=== PATIENT | female | born 1950 | race Caucasian/White ===

== ENCOUNTER 2016-10-26 01:38 | Emergency (ER) | payer MEDICARE ==
[2016-10-26] MEDS ORDERED: BABY ASPIRIN 81 MG CHEW PO ONE (01:55)
[2016-10-26] MEDS ORDERED: Sodium Chloride 0.9% 1000 ML 1,000 ML IV STA (01:55)
[2016-10-26] MEDS ORDERED: DUONEB 0.5-3 MG/3 ml Neb IH ONE ×2 (01:56→01:59)
[2016-10-26] MEDS ORDERED: TYLENOL 325 MG PO ONE (01:57)
[2016-10-26] MEDS ORDERED: TYLENOL 325 MG ONE (02:03)
[2016-10-26] MEDS ORDERED: Sodium Chloride 0.9% 1000 ML 1,000 ML ONE (02:03)
[2016-10-26] MEDS ORDERED: BABY ASPIRIN 81 MG CHEW ONE (02:03)
--- NOTE | 2016-10-26 02:06 | ERPHSYRPT ---
- History of Present Illness Time Seen by Provider: 10/26/16 02:00 Source: patient Exam Limitations: no limitations Physician History: 66-year-old white female with history of coronary artery disease, hyperlipidemia , high blood pressure, myocardial infarction, asthma, COPD, emphysema She arrives with complaint of shortness of breath cough tightness in the anterior chest pain pain on the bilateral lateral chest. Symptoms for 3 days patient has not taken her temperature at home she is noted to have an elevated temperature here in the emergency room she is nauseous Past medical history includes coronary artery disease, hyperlipidemia, high blood pressure, myocardial infarction, asthma, COPD, emphysema, diabetes type 2 , diverticulosis, patient has a TB carrier which is not active Past surgical history includes cholecystectomy , tubal ligation, D&C 3 , Social history is positive for tuberculosis Timing/Duration: day(s) ( days) Activities at Onset: none Modifying Factors: Improves With: nothing Associated Symptoms: cough, chest pain/discomfort, wheezing Allergies/Adverse Reactions: adhesive Allergy (Intermediate, Verified 07/22/15 09:40) Rash diphenhydramine HCl [From Benadryl] Allergy (Mild, Verified 07/22/15 09:40) Rash nalbuphine HCl [From Nubain] Allergy (Mild, Verified 07/22/15 09:40) Rash Penicillins Allergy (Mild, Verified 07/22/15 09:40) Rash gabapentin [From Neurontin] Allergy (Verified 07/22/15 09:40) Vomiting Home Medications: Aspirin EC 325 mg [Ecotrin 325 MG] 325 mg PO DAILY 10/26/16 [History] Fenofibrate,Micronized 145 mg* [Tricor 145 MG] 145 mg PO DAILY 10/26/16 [ History] Furosemide 20 mg [Lasix 20 mg] 20 mg PO DAILY 10/26/16 [History] Lisinopril 10 mg [Zestril 10 MG] 10 mg PO DAILY 10/26/16 [History] Loratadine 10 mg [Claritin 10 mg] 10 mg PO DAILY 10/26/16 [History] Metformin HCl 500 mg [Glucophage 500 MG] 500 mg PO DAILY 10/26/16 [History ] Metoprolol Tartrate 50 mg [Lopressor 50 MG] 50 mg PO BID 10/26/16 [History ] [place]-3 Fatty Acids/Fish Oil [Fish Oil 1,000 mg Capsule] 1,000 mg PO DAILY 10/26/16 [History] PANTOPRAZOLE 40 mg Tablet [Protonix 40MG Tablet] 40 mg PO DAILY 10/26/16 [ History] Potassium Chloride 10 Meq Tab* [Klor Con 10 MEQ] 10 meq PO DAILY 10/26/16 [ History] Hx Tetanus, Diphtheria Vaccination/Date Given: Yes Hx Influenza Vaccination/Date Given: No Hx Pneumococcal Vaccination/Date Given: No - Review of Systems Constitutional: No Fever, No Chills Eyes: No Symptoms Ears, Nose, & Throat: No Symptoms Respiratory: Cough, Dyspnea, Wheezing Cardiac: Chest Pain (tightness anterior chest for 3 days, pain in bilateral lateral chest for 3 days) Abdominal/Gastrointestinal: Nausea, No Abdominal Pain, No Vomiting, No Diarrhea , No Constipation, No Hematemesis, No Hematochezia, No Melena, No Dysphagia, No Appetite Changes Genitourinary Symptoms: No Dysuria Musculoskeletal: No Back Pain, No Neck Pain Skin: No Rash Neurological: No Dizziness, No Focal Weakness, No Sensory Changes Psychological: No Symptoms Endocrine: No Symptoms All Other Systems: Reviewed and Negative - Past Medical History Pertinent Past Medical History: Yes Neurological History: No Pertinent History ENT History: No Pertinent History Cardiac History: Coronary Artery Disease, High Cholesterol, Hypertension, Myocardial Infarction (UT) Respiratory History: Asthma, COPD, Emphysema Endocrine Medical History: Diabetes Type II Musculoskeletal History: No Pertinent History GI Medical History: Diverticulosis History: No Pertinent History Psycho-Social History: No Pertinent History Female Reproductive Disorders: No Pertinent History Other Medical History: 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 PT STATES HAS GOUT IN [place]ON[place] BIG TOES - Past Surgical History Past Surgical History: Yes Neuro Surgical History: No Pertinent History Cardiac: No Pertinent History Respiratory: No Pertinent History Gastrointestinal: Cholecystectomy Musculoskeletal: No Pertinent History Female Surgical History: Section, Tubal Ligation Other Surgical History: D&C x3. x2 - Social History Smoking Status: Current every day smoker How long have you smoked: 60 Exposure to second hand smoke: Yes Drug Use: none Patient Lives Alone: No - Female History Hx Now: No - Nursing Vital Signs Nursing Vital Signs: Initial Vital Signs Temperature 102.0 F Temperature Source Rectal Pulse Rate 114 Respiratory Rate 40 Blood Pressure [] 128/61 Pain Intensity 7 - Physical Exam General Appearance: moderate distress Eye Exam: PERRL/EOMI Ears, Nose, Throat Exam: hearing grossly normal, normal ENT inspection, normal pharynx Neck Exam: normal inspection, non-tender, supple Respiratory Exam: diminished breath sounds, wheezing Cardiovascular/Chest Exam: tachycardia Abdominal/Gastrointestinal Exam: soft, No tenderness, No distention, No mass Extremity Exam: non-tender, normal range of motion, normal inspection, no calf tenderness, no pedal edema Peripheral Pulses Exam: dorsalis-pedis (R): 2+, dorsalis-pedis (L): 2+ Neurologic Exam: alert, oriented x 3, cooperative, garage laborer II-XII nml as tested, sensation nml, No motor deficits Skin Exam: normal color, warm, No dry SpO2 Interpretation: hypoxic (88%) SpO2: 88 Oxygen Delivery: Nasal Cannula - Course EKG Interpreted by Me: RATE (133 bpm), Sinus Tach, Left [place] Deviation, Other ( EKG: Sinus tachycardia 133 beats per minute, left axis deviation, old anterior and inferior UT compared to August 26, 2014) - Radiology Exams Chest X-ray Interpretation: Interpreted by me, Other (chest x-ray right upper lobe infiltrate, increased lung markings right base) Ordered Tests: Active Orders 24 hr Category Date Time Status Accucheck STAT Care 10/26/16 02:06 Active Barrel Cap Setter STAT Care 10/26/16 01:55 Active Catheter-[place] Guzmán STAT Care 10/26/16 02:18 Active EKG-ER Only STAT Care 10/26/16 01:55 Active IV Insertion STAT Care 10/26/16 01:55 Active IV Insertion-2nd Peripheral STAT Care 10/26/16 02:42 Active Oxygen-ED Only NASAL CANNULA 4 lpm Care 10/26/16 01:55 Active CHEST 1 VIEW (PORTABLE) Stat Exams 10/26/16 01:55 Taken BLOOD CULTURE Stat Lab 10/26/16 02:17 Received CBC W DIFF Stat Lab 10/26/16 02:00 Completed CMP Stat Lab 10/26/16 02:00 Completed CULTURE,SPUTUM Stat Lab 10/26/16 02:45 Received D-DIMER QUANTITATION Stat Lab 10/26/16 02:00 Completed Lactic Acid Stat Lab 10/26/16 01:56 Completed Manual Differential NC Stat Lab 10/26/16 02:00 Completed NT PRO BNP Stat Lab 10/26/16 02:00 Completed PROTIME WITH INR Stat Lab 10/26/16 02:00 Completed PTT Stat Lab 10/26/16 02:00 Completed TROPONIN Q3H Lab 10/26/16 02:00 Completed TROPONIN Q3H Lab 10/26/16 05:00 Ordered TROPONIN Q3H Lab 10/26/16 08:00 Ordered TROPONIN Q3H Lab 10/26/16 11:00 Ordered TROPONIN Q3H Lab 10/26/16 14:00 Ordered UA W/RFX UR CULTURE Stat Lab 10/26/16 02:20 Completed VENOUS BLOOD GAS Stat Lab 10/26/16 01:56 Completed Respiratory Nebulizer STAT RT 10/26/16 01:57 Completed Respiratory Nebulizer STAT RT 10/26/16 03:42 Active Medication Summary Discontinued Medications Generic Name Dose Route Start Last Admin Trade Name Freq PRN Reason Stop Dose Admin Acetaminophen 650 mg 10/26/16 01:57 10/26/16 02:03 Tylenol 325 Mg PO 10/26/16 01:58 650 mg STAT ONE Administration Acetaminophen Confirm 10/26/16 02:03 Tylenol 325 Mg Administered 10/26/16 02:04 Dose 650 mg .ROUTE .STK-MED ONE Albuterol Sulfate 2.5 mg 10/26/16 03:42 Proventil 2.5 Mg/3 Ml Neb IH 10/26/16 03:43 STAT ONE Albuterol/Ipratropium 3 ml 10/26/16 01:56 10/26/16 02:01 Duoneb 0.5-3 Mg/3 Ml Neb IH 10/26/16 01:57 3 ml STAT ONE Administration Albuterol/Ipratropium Confirm 10/26/16 01:59 Duoneb 0.5-3 Mg/3 Ml Neb Administered 10/26/16 02:00 Dose 3 ml IH .STK-MED ONE Aspirin 324 mg 10/26/16 01:55 10/26/16 02:03 Baby Aspirin 81 Mg Chew PO 10/26/16 01:56 324 mg STAT ONE Administration Aspirin Confirm 10/26/16 02:03 Baby Aspirin 81 Mg Chew Administered 10/26/16 02:04 Dose 324 mg .ROUTE .STK-MED ONE Enoxaparin Sodium 100 mg 10/26/16 03:24 10/26/16 03:36 Enoxaparin Sodium SQ 10/26/16 03:25 100 mg STAT ONE Administration Enoxaparin Sodium Confirm 10/26/16 03:30 Enoxaparin Sodium Administered 10/26/16 03:31 Dose 160 mg SQ .STK-MED ONE Furosemide 40 mg 10/26/16 02:58 10/26/16 03:17 Lasix 40 Mg/4 Ml IV 10/26/16 02:59 40 mg STAT ONE Administration Furosemide Confirm 10/26/16 03:16 Lasix 40 Mg/4 Ml Administered 10/26/16 03:17 Dose 40 mg .ROUTE .STK-MED ONE Sodium Chloride 1,000 mls @ 999 mls/hr 10/26/16 01:55 10/26/16 02:03 Sodium Chloride 0.9% 1000 Ml IV 10/26/16 02:55 999 mls/hr .Q1H1M STA Administration Sodium Chloride Confirm 10/26/16 02:03 Sodium Chloride 0.9% 1000 Ml Administered 10/26/16 02:04 Dose 1,000 mls @ ud .ROUTE .STK-MED ONE Ceftriaxone Sodium/Dextrose 1 g in 50 mls @ 100 mls/hr 10/26/16 02:29 02:33 Rocephin 1 Gm-D5w 50 Ml Bag IV 10/26/16 02:58 100 mls/hr STAT STA Administration Ceftriaxone Sodium/Dextrose Confirm 10/26/16 02:33 Rocephin 1 Gm-D5w 50 Ml Bag Administered 10/26/16 02:34 Dose 1 g in 50 mls @ ud IV .STK-MED ONE Lab/Rad Data: Laboratory Result Diagrams 10/26/16 02:00 10/26/16 02:00 Laboratory Results 10/26/16 10/26/16 10/26/16 Range/Units 02:20 02:00 02:00 WBC (4.0-10.5) K/mm3 RBC (4.1-5.4) M/mm3 Hgb (12.0-16.0) gm/dl Hct (35-47) % MCV (78-100) fl MCH (26-32) pg MCHC (32-36) g/dl RDW (11.5-14.0) % Plt Count (150-450) K/mm3 MPV (6-9.5) fl INR 1.10 (0.8-3.0) APTT 32.8 (25.3-37.0) SECONDS D-Dimer 1507 H* (0-500) ng/mL VBG pH (7.32-7.42) VBG pCO2 at Pat Temp (42-55) mm/Hg VBG pO2 at Pat Temp (25-40) mm/Hg VBG HCO3 (22-28) meq/L VBG O2 Sat (Robina) (95-100) VBG Base Excess (-2.0-2.0) VBG Hemoglobin VBG Carboxyhemoglobin (0.0-6.9) % T HGB POC Potassium (3.5-5.1) Sodium (136-145) mEq/L Potassium (3.5-5.1) mEq/L Chloride (98-107) mEq/L Carbon Dioxide (21-32) mEq/L Anion Gap (5-15) MEQ/L BUN (9-20) mg/dL Creatinine (0.55-1.30) mg/dl Estimated GFR ML/MIN Glucose (70-110) MG/DL Lactic Acid (0.4-2.0) Calcium (8.5-10.1) mg/dL Total Bilirubin (0.2-1.0) mg/dL AST (15-37) U/L ALT (12-78) U/L Alkaline Phosphatase (46-116) U/L Troponin I 0.187 H* (0.000-0.056) ng/ml NT-Pro-B Natriuret Pep (0-125) pg/ml Serum Total Protein (6.4-8.2) gm/dL Albumin (3.4-5.0) g/dL Ur Collection Type CATH Urine Color ASHA (YELLOW) Urine Appearance SLIGHTLY CLOUDY (CLEAR) Urine pH 5.0 (5-6) Ur Specific Skippers 1.025 (1.005-1.025) Urine Protein NEGATIVE (Negative) Urine Ketones SMALL (NEGATIVE) Urine Blood NEGATIVE (0-5) Abilio/ul Urine Nitrite NEGATIVE (NEGATIVE) Urine Bilirubin MODERATE (NEGATIVE) Urine Urobilinogen 8 (0-1) mg/dL Ur Leukocyte Esterase NEGATIVE (NEGATIVE) Urine Glucose NEGATIVE (NEGATIVE) mg/dL Specimen Received 10/26/16:0220 10/26/16 10/26/16 10/26/16 Range/Units 02:00 02:00 01:56 WBC 12.6 H (4.0-10.5) K/mm3 RBC 3.95 L (4.1-5.4) M/mm3 Hgb 12.1 (12.0-16.0) gm/dl Hct 36.9 (35-47) % MCV 93.4 (78-100) fl MCH 30.6 (26-32) pg MCHC 32.8 (32-36) g/dl RDW 13.6 (11.5-14.0) % Plt Count 291 (150-450) K/mm3 MPV 10.0 H (6-9.5) fl INR (0.8-3.0) APTT (25.3-37.0) SECONDS D-Dimer (0-500) ng/mL VBG pH 7.39 (7.32-7.42) VBG pCO2 at Pat Temp 45 (42-55) mm/Hg VBG pO2 at Pat Temp 31 (25-40) mm/Hg VBG HCO3 27.2 (22-28) meq/L VBG O2 Sat (Robina) 62.9 L (95-100) VBG Base Excess 1.7 (-2.0-2.0) VBG Hemoglobin 13.0 VBG Carboxyhemoglobin 3.4 (0.0-6.9) % T HGB POC Potassium 4.4 (3.5-5.1) Sodium 134 L (136-145) mEq/L Potassium 4.4 (3.5-5.1) mEq/L Chloride 96 L (98-107) mEq/L Carbon Dioxide 25.4 (21-32) mEq/L Anion Gap 17.4 H (5-15) MEQ/L BUN 26 H (9-20) mg/dL Creatinine 1.26 (0.55-1.30) mg/dl Estimated GFR 45 ML/MIN Glucose 141 H (70-110) MG/DL Lactic Acid 1.1 (0.4-2.0) Calcium 9.5 (8.5-10.1) mg/dL Total Bilirubin 0.80 (0.2-1.0) mg/dL AST 31 (15-37) U/L ALT 31 (12-78) U/L Alkaline Phosphatase 79 (46-116) U/L Troponin I (0.000-0.056) ng/ml NT-Pro-B Natriuret Pep 1808 H (0-125) pg/ml Serum Total Protein 7.9 (6.4-8.2) gm/dL Albumin 2.7 L (3.4-5.0) g/dL Ur Collection Type Urine Color (YELLOW) Urine Appearance (CLEAR) Urine pH (5-6) Ur Specific [place] (1.005-1.025) Urine Protein (Negative) Urine Ketones (NEGATIVE) Urine Blood (0-5) Abilio/ul Urine Nitrite (NEGATIVE) Urine Bilirubin (NEGATIVE) Urine Urobilinogen (0-1) mg/dL Ur Leukocyte Esterase (NEGATIVE) Urine Glucose (NEGATIVE) mg/dL Specimen Received - Progress Progress: improved Air Movement: fair Progress Note: 10/26/16 03:25 This is a 66-year-old white female with history of coronary artery disease hyperlipidemia high blood pressure myocardial infarction asthma, COPD, emphysema , diabetes mellitus who apparently is a TB carrier but not active Patient arrives with complaint of a cough productive of yellow sputum for 2-3 days, chills, malaise, nausea. She states she's been tight in her anterior chest also pain in her bilateral lateral chest symptoms for 3 days. Patient arrives short of breath tachycardic she is coughing frequently went when she talks upon arrival. Patient with bilateral wheezes diminished breath sounds in bilateral rhonchi with auscultation of the chest heart was tachycardic. Patient had a temperature of 102 heart rate 134 respirations 40 look pressure 114/53 and O2 saturations of 88% on 2 L of nasal cannula. Patient had a EKG remarkable for sinus tachycardia 133 beats per minute left axis deviation appears to be an old anterior and inferior UT did not appear to be acute ST elevation initial EKG was done at 0 146 Patient had repeat EKG after IV fluids aspirin DuoNeb treatment Rocephin at 0 310 Which was essentially unchanged Patient had a chest x-ray which shows right upper lobe infiltrate and increased lung markings in the lower right chest patient's troponin was noted to be elevated at 0.187 Patient's BNP was noted to be elevated at 1808 Patient's d-dimer was noted to be elevated at 1507 Patient's white count was 12.6 hemoglobin 12.1 hematocrit 36.9 Chemistry BUN was 26 creatinine 1.26 glucose 141 sodium 134 potassium for 4 chloride 96 bicarbonate 25.4 Patient's lactate was 1.1. Patient was initially started on normal saline 1 L to run in, patient was given aspirin 324 mg IV patient was given DuoNeb treatment continued on oxygen therapy. Blood cultures were obtained patient was given Rocephin 1 g IV. After review of the patient's chest x-ray and BMP patient was given Lasix 40 mg IV. Patient was feeling better after treatment however O2 sat was 91 when I discuss case with Aidee Tsai is just now has gone to 88 Will repeat albuterol treatment. After discussion of the patient's case with Aidee Tsai was decided the patient Lovenox 1 mg/kg subcutaneous. Patient was accepted by [facility] for transfer to [facility] diagnosis. Fever, non-ST wave UT, COPD, pneumonia, congestive heart failure. Patient will be transferred by ambulance to [facility] with continued oxygen when necessary nebulizer treatment and ACLS protocol. 10/26/16 03:44 Patient is feeling much better - Departure Time of Disposition: 03:33 Departure Disposition: Transfer ([facility] Aidee Tsai for Dr. Phelps) Clinical Impression: Non-Q wave non-ST elevation myocardial infarction (NSTEMI) Fever Qualifiers: Fever type: unspecified Qualified Code(s): R50.9 - Fever, unspecified Pneumonia Qualifiers: Pneumonia type: due to unspecified organism Laterality: right Lung location: unspecified part of lung Qualified Code(s): J18.9 - Pneumonia, unspecified organism Congestive heart failure Qualifiers: Congestive heart failure type: unspecified congestive heart failure type Congestive heart failure chronicity: unspecified congestive heart failure chronicity Qualified Code(s): I50.9 - Heart failure, unspecified COPD (chronic obstructive pulmonary disease) Qualifiers: COPD type: COPD with acute exacerbation Qualified Code(s): J44.1 - Chronic obstructive pulmonary disease with (acute) exacerbation Condition: Fair Critical Care Time: Yes Critical Care Time(excluding separately billable procedures): 30-74 minutes Referrals: GARTH NEWTON [Primary Care Provider] - Instructions: Heart Failure, Chronic Obstructive Pulmonary Disease
[2016-10-26 02:20] LABS: Mean Cell Volume 93.4 fl (78-100); Mean Corpuscular Hemoglobin 30.6 pg (26-32); Platelet Count 291 K/mm3 (150-450); Red Blood Count 3.95 M/mm3 (4.1-5.4); Red Cell Distribution Width 13.6 % (11.5-14.0); White Blood Count 12.6 K/mm3 (4.0-10.5)
[2016-10-26 02:21] LABS: Lactic Acid 1.1 (0.4-2.0); VBG BASE EXCESS 1.7 (-2.0-2.0); VBG CARBOXYHEMOGLOBIN 3.4 % T HGB (0.0-6.9); VBG HCO3- 27.2 meq/L (22-28); VBG O2 SATURATION 62.9 (95-100); VBG POTASSIUM 4.4 (3.5-5.1); VBG pH 7.39 (7.32-7.42)
[2016-10-26] MEDS ORDERED: ROCEPHIN 1 Gm-D5w 50 ml Bag** 1 G/50 ML IVPB IV STA (02:29)
[2016-10-26 02:32] LABS: Collection Type CATH
[2016-10-26 02:33] LABS: ADD URINE CULTURE? NO (NO); Bilirubin MODERATE (NEGATIVE); Blood NEGATIVE Ery/ul (0-5); COMPLETE URINE MICROSCOPIC? NO; Glucose NEGATIVE (NEGATIVE); Leukocyte Esterase NEGATIVE (NEGATIVE)
[2016-10-26] MEDS ORDERED: ROCEPHIN 1 Gm-D5w 50 ml Bag** 1 G/50 ML IVPB IV ONE (02:33)
[2016-10-26 02:37] LABS: INR 1.1 (0.8-3.0); PROTIME 12.4 SECONDS (9.95-12.35)
[2016-10-26 02:40] LABS: PTT 32.8 SECONDS (25.3-37.0)
[2016-10-26 02:53] LABS: ALBUMIN 2.7 g/dL (3.4-5.0); ANION GAP 17.4 MEQ/L (5-15); BILIRUBIN,TOTAL 0.8 mg/dL (0.2-1.0); Carbon Dioxide 25.4 mEq/L (21-32); Potassium 4.4 mEq/L (3.5-5.1); Total Protein 7.9 gm/dL (6.4-8.2)
[2016-10-26] MEDS ORDERED: Lasix 40 MG/4 ML IV ONE (02:58)
[2016-10-26] MEDS ORDERED: Lasix 40 MG/4 ML ONE (03:16)
[2016-10-26] MEDS ORDERED: ENOXAPARIN SODIUM SQ ONE ×2 (03:24→03:30)
[2016-10-26] MEDS ORDERED: PROVENTIL 2.5 MG/3 ML NEB IH ONE ×2 (03:42→03:43)
[2016-10-26 04:00] VITALS: BP 114/67; PULSE 113; O2SAT 91
[2016-10-26 04:39] LABS: ATYPICAL LYMPHS 5 %; Eosinophil 1 % (0.00-3.0); Platelet Estimate NORMAL (NORMAL); Total Cells Counted 100
--- NOTE | 2016-10-27 00:10 | XRAY ---
Exam: AP portable chest film from 0216 hours on 10/26/2016. Comparison: AP upright portable chest film from 07/22/2015. Indication: Cough, congestion, shortness of breath, fever. Findings: The transverse heart size appears within normal limits for this AP portable technique. A couple calcified granulomas overlie the right hilum. I believe there is a mild airspace disease within the right upper lobe which appears to be new from 07/22/2015. This may be due to pneumonia. In addition, there is a suggestion of a thick walled small cavitary lesion within the lateral right lung apex measuring 2.15 cm in width and 2.8 cm in height. This was not present on the prior study. Differential diagnosis includes malignancy such as squamous cell carcinoma, fungal infection/abscess, or even TB. There also appears to be some questionable infiltrative markings within the right infrahilar projection. Minimal increased density seen behind the heart at the medial left lung base. This is of uncertain significance. Minimal atelectasis, scarring, or infiltrate could have this appearance. The remainder the lung arceo appears clear. No pneumothorax or pleural fluid is seen. The visualized bones appear intact. Impression: 1. Mild airspace disease is seen within the right upper lobe. I also cannot exclude some infiltrative lung markings within the right infrahilar projection. This may be due to pneumonia. 2. In addition, there appears to be a new small cavitary lesion within the lateral right lung apex as compared to 07/22/2015. See above major differential diagnosis. Further evaluation with a CT of the chest, preferably with IV contrast, is recommended. 3. Mild increased density behind the heart at the medial left lung base of uncertain significance. I am not sure whether this represents a summation of normal shadows such as vascular markings and perhaps some costochondral calcification, or alternatively, minimal atelectasis, scarring, or infiltrate. Note: This report was called to Dr. Sinha in the Emergency Department at 11:50 PM on 10/26/2016.
== END 2016-10-26 04:20 | disposition short-term general hospital (02) ==
LOC: ED 01:38
DX: I21.4 Non-ST elevation (NSTEMI) myocardial infarction (principal); J18.9 Pneumonia, unspecified organism; I50.9 Heart failure, unspecified; R50.9 Fever, unspecified; J44.1 Chronic obstructive pulmonary disease with (acute) exacerbation; I10 Essential (primary) hypertension
CPT/HCPCS: 36000; 36415; 51702; 71010; 80053; 81002; 82805; 82962; 83605; 83880; 84484; 85025; 85379; 85610; 85730; 87040; 87070; 93005; 93041; 94640; 96360; 96367; 96372; 96374; 99285; J0696; J1650; J1940; A9270-GY

== ENCOUNTER 2016-12-08 05:30 | Observation (INO) | payer MEDICARE ==
--- NOTE | 2016-12-08 05:50 | ERPHSYRPT ---
- History of Present Illness Source: patient Exam Limitations: no limitations Hx Tetanus, Diphtheria Vaccination/Date Given: Yes Hx Influenza Vaccination/Date Given: No Hx Pneumococcal Vaccination/Date Given: No <MATTHEW BRIDGES - Last Filed: 12/08/16 07:21> <ALMAZ JEFFERSON - Last Filed: 12/09/16 06:56> - History of Present Illness Time Seen by Provider: 12/08/16 05:35 Physician History: ABOUT 30 MINUTES AGO PT STARTED WITH DIZZINESS(SPINNING), NAUSEA, DIAPHORESIS AND VOMITING X3. PT DENIES CHEST PAIN, SHORTNESS OF AIR, FEVER, ABDOMINAL PAIN; ADMITS TO COUGHING FOR THE PAST 2 WEEKS. (MATTHEW BRIDGES) Allergies/Adverse Reactions: adhesive Allergy (Intermediate, Verified 12/08/16 12:00) Rash diphenhydramine HCl [From Benadryl] Allergy (Mild, Verified 12/08/16 12:00) Rash nalbuphine HCl [From Nubain] Allergy (Mild, Verified 12/08/16 12:00) Rash Penicillins Allergy (Mild, Verified 12/08/16 12:00) Rash gabapentin [From Neurontin] Allergy (Verified 12/08/16 12:00) Vomiting Home Medications: Albuterol 2.5 mg/0.5 ml [PROVENTIL Solution 2.5 MG/0.5 ML] 2.5 mg IH QID PRN 12/08/16 [History] Allopurinol 100 mg [Zyloprim 100 mg] 100 mg PO DAILY 12/08/16 [History] Aspirin EC 81 mg [Ecotrin 81 mg] 81 mg PO DAILY 12/08/16 [History] Atorvastatin Calcium 10 mg PO DAILY 12/08/16 [History] Fenofibrate Nanocrystallized [Tricor] 145 mg PO DAILY 12/08/16 [History] Furosemide 20 mg [Lasix 20 mg] 20 mg PO DAILY 12/08/16 [History] Glipizide 5 mg PO BID 12/08/16 [History] Lisinopril 10 mg [Zestril 10 MG] 10 mg PO DAILY 12/08/16 [History] Loratadine 10 mg [Claritin 10 mg] 10 mg PO DAILY 12/08/16 [History] Metformin HCl Xr 500 mg [Glucophage XR 500 MG] 500 mg PO DAILY 12/08/16 [ History] Metoprolol Succinate 50 mg [Toprol Xl 50 MG] 50 mg PO BID 12/08/16 [ History] Nitroglycerin 0.4 mg Tablet [Nitrostat 0.4 MG Tablet] 0.4 mg SL Q5MIN PRN MR X 3 PRN 12/08/16 [History] PANTOPRAZOLE 40 mg Tablet [Protonix 40MG Tablet] 40 mg PO QAM 12/08/16 [ History] - Review of Systems Constitutional: No Fever Respiratory: Cough, No Dyspnea Cardiac: No Chest Pain Abdominal/Gastrointestinal: Nausea, Vomiting, No Abdominal Pain Neurological: Dizziness, Focal Weakness (ONGOING LEFT FOOT DROP) Endocrine: Excessive Sweating All Other Systems: Reviewed and Negative <MATTHEW BRIDGES - Last Filed: 12/08/16 07:21> - Past Medical History Pertinent Past Medical History: Yes Neurological History: No Pertinent History ENT History: No Pertinent History Cardiac History: Coronary Artery Disease, High Cholesterol, Hypertension, Myocardial Infarction (DE) Respiratory History: Asthma, COPD, Emphysema Endocrine Medical History: Diabetes Type II Musculoskeletal History: No Pertinent History GI Medical History: Diverticulosis History: No Pertinent History Psycho-Social History: No Pertinent History Female Reproductive Disorders: No Pertinent History Other Medical History: 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 PT STATES HAS GOUT IN [place]ON[place] BIG TOES - Past Surgical History Past Surgical History: Yes Neuro Surgical History: No Pertinent History Cardiac: No Pertinent History Respiratory: No Pertinent History Gastrointestinal: Cholecystectomy Musculoskeletal: No Pertinent History Female Surgical History: Section, Tubal Ligation Other Surgical History: D&C x3. x2 - Social History Smoking Status: Current every day smoker How long have you smoked: 60 Exposure to second hand smoke: Yes Drug Use: none Patient Lives Alone: No - Female History Hx Now: No <MATTHEW BRIDEGS - Last Filed: 12/08/16 07:21> - Physical Exam General Appearance: alert Eye Exam: PERRL/EOMI Ears, Nose, Throat Exam: TMs normal, pharynx normal, moist mucous membranes Neck Exam: normal inspection Respiratory Exam: wheezing (MINIMAL EXPRIATORY WHEEZING OVER LEFT POSTERIOR BASE ) Cardiovascular Exam: normal heart sounds Gastrointestinal/Abdomen Exam: soft, normal bowel sounds Back Exam: normal inspection Extremity Exam: swelling (+2 EDEMA OF LOWER LEGS/FEET) Neurologic Exam: alert, cooperative, 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, sensation nml, motor deficits (LEFT FOOT DROP(ONGOING)) Skin Exam: warm, dry <MATTHEW BRIDGES - Last Filed: 12/08/16 07:21> - Nursing Vital Signs Nursing Vital Signs: Initial Vital Signs Temperature 97 F 12/08/16 05:40 Pulse Rate 84 12/08/16 05:40 Respiratory Rate 16 12/08/16 05:40 Blood Pressure 146/68 12/08/16 05:40 O2 Sat by Pulse Oximetry 91 L 12/08/16 05:40 Pain Scale Pain Intensity 0 - Course Nursing assessment & vital signs reviewed: Yes EKG Interpreted by Me: RATE (89), Left [place] Deviation, NORMAL INTERVALS, 1st degree AV Block - Radiology Exams Chest X-ray Interpretation: Interpreted by me, No Pneumonia - CT Exams Head CT Interpretation: Tele-radiologist Report (PERIVENTRICULAR WHITE MATTER HYPODENSITY IS NONSPECIFIC THOUGH LIKELY RELATED TO CHRONIC SMALL VESSEL ISCHEMIC DISEASE. ATROPHY. SMALL COLLOID CYST WITHOUT HYDROCEPHALUS.) <CYRUSMATTHEW URBANO - Last Filed: 12/08/16 07:21> Ordered Tests: Active Orders 24 hr Category Date Time Status Bedrest with BRP/BSC ROUTINE Activity 12/08/16 10:35 Active Accucheck ACHS Care 12/08/16 10:35 Active Admission/Status Order ROUTINE Care 12/08/16 10:35 Active Clean Catch Urine Specimen STAT Care 12/08/16 06:38 Completed Code Status Order ROUTINE Care 12/08/16 10:35 Active IV Care Q6H Care 12/08/16 10:35 Active ABDOMEN AND PELVIS W/0 CONTRAS [CT] Stat Exams 12/08/16 07:17 Completed HEAD WITHOUT CONTRAST [CT] Stat Exams 12/08/16 06:08 Completed AMYLASE Stat Lab 12/08/16 06:05 Completed BLOOD CULTURE Stat Lab 12/08/16 07:44 Received CBC W DIFF AM.LAB Lab 12/09/16 05:12 Completed CBC W DIFF Stat Lab 12/08/16 06:05 Completed CMP AM.LAB Lab 12/09/16 05:12 Completed CMP Stat Lab 12/08/16 06:05 Completed CULTURE,SPUTUM Stat Lab 12/08/16 07:26 Ordered CULTURE,URINE Stat Lab 12/08/16 06:41 Received LIPASE Stat Lab 12/08/16 06:05 Completed MAGNESIUM Stat Lab 12/08/16 06:05 Completed NT PRO BNP Stat Lab 12/08/16 06:05 Completed PROTIME WITH INR Stat Lab 12/08/16 06:05 Completed PTT Stat Lab 12/08/16 06:05 Completed TROPONIN Q3H Lab 12/08/16 06:05 Completed TROPONIN Q3H Lab 12/08/16 09:03 Completed TROPONIN Q3H Lab 12/08/16 11:58 Completed TROPONIN Q3H Lab 12/08/16 15:17 Completed TROPONIN Q3H Lab 12/08/16 18:05 Completed UA W/ MICROSCOPIC Stat Lab 12/08/16 06:41 Completed Urine Triage Profile Stat Lab 12/08/16 06:41 Completed Respiratory Nebulizer STAT RT 12/08/16 06:49 Completed Medication Summary Generic Name Dose Route Start Last Admin Trade Name Freq PRN Reason Stop Dose Admin Albuterol Sulfate 2.5 mg 12/08/16 14:00 12/09/16 06:51 Proventil 2.5 Mg/3 Ml Neb IH 01/07/17 13:59 2.5 mg QID PRN PRN Administration SHORTNESS OF BREATH Allopurinol 100 mg 12/08/16 14:00 12/08/16 14:04 Zyloprim 100 Mg PO 01/07/17 13:59 Not Given DAILY TRISTIAN Aspirin 81 mg 12/08/16 14:00 12/08/16 14:04 Ecotrin 81 Mg PO 01/07/17 13:59 81 mg DAILY TRISTIAN Administration Enoxaparin Sodium 40 mg 12/08/16 13:00 12/08/16 14:06 Enoxaparin Sodium SQ 01/07/17 12:59 40 mg DAILY TRISTIAN Administration Furosemide 20 mg 12/08/16 14:00 12/08/16 14:06 Lasix 20 Mg PO 01/07/17 13:59 20 mg DAILY TRISTIAN Administration Ceftriaxone Sodium/Dextrose 1 g in 50 mls @ 100 mls/hr 12/09/16 10:00 Rocephin 1 Gm-D5w 50 Ml Bag IV 01/08/17 09:59 Q24H10 TRISTIAN Sodium Chloride 1,000 mls @ 60 mls/hr 12/08/16 10:35 12/08/16 19:04 Sodium Chloride 0.9% 1000 Ml IV 01/07/17 10:34 60 mls/hr .[id number] TRISTIAN Administration Insulin Human Regular 0 unit 12/08/16 10:35 12/08/16 16:48 Novolin R SQ 01/07/17 10:34 2 unit UD PRN Administration HYPERGLYCEMIA Lisinopril 10 mg 12/08/16 14:00 12/08/16 14:05 Zestril 10 Mg PO 01/07/17 13:59 10 mg DAILY TRISTIAN Administration Loratadine 10 mg 12/08/16 14:00 12/08/16 14:05 Claritin 10 Mg PO 01/07/17 13:59 10 mg DAILY TRISTIAN Administration Metoprolol Succinate 50 mg 12/08/16 22:00 12/08/16 22:12 Toprol Xl 50 Mg PO 01/07/17 21:59 50 mg BID TRISTIAN Administration Nitroglycerin 0.4 mg 12/08/16 13:48 Nitrostat 0.4 Mg Tablet SL 01/07/17 13:47 Q5MIN PRN MR X 3 PRN cp Ondansetron HCl 4 mg 12/08/16 10:35 Zofran 4 Mg/2 Ml Vial IV 01/07/17 10:34 Q6H PRN PRN NAUSEA/VOMITING Pantoprazole Sodium 40 mg 12/08/16 14:00 12/08/16 14:06 Protonix 40mg Tablet PO 01/07/17 13:59 40 mg QAM TRISTIAN Administration Simvastatin 10 mg 12/08/16 14:00 12/08/16 14:06 Zocor 10mg PO 01/07/17 13:59 10 mg DAILY TRISTIAN Administration Discontinued Medications Generic Name Dose Route Start Last Admin Trade Name Freq PRN Reason Stop Dose Admin Albuterol Sulfate 2.5 mg 12/08/16 13:48 Proventil Solution 2.5 Mg/0.5 Ml IH 01/07/17 13:47 QID PRN PRN dyspnea Sodium Chloride 1,000 mls @ 100 mls/hr 12/08/16 06:00 12/08/16 06:12 Sodium Chloride 0.9% 1000 Ml IV 01/07/17 05:59 100 mls/hr .Q10H TRISTIAN Administration Magnesium Sulfate/Dextrose 100 mls @ 200 mls/hr 12/08/16 07:16 12/08/16 07:49 Magnesium 1 Gm / 100 Ml D5w IV 12/08/16 07:45 200 mls/hr STAT ONE Administration Ceftriaxone Sodium/Dextrose 1 g in 50 mls @ 100 mls/hr 12/08/16 07:18 07:49 Rocephin 1 Gm-D5w 50 Ml Bag IV 12/08/16 07:47 100 mls/hr STAT STA Administration Magnesium Sulfate/Dextrose Confirm 12/08/16 07:22 Magnesium 1 Gm / 100 Ml D5w Administered 12/08/16 07:23 Dose 100 mls @ ud IV .STK-MED ONE Ceftriaxone Sodium/Dextrose Confirm 12/08/16 07:23 Rocephin 1 Gm-D5w 50 Ml Bag Administered 12/08/16 07:24 Dose 1 g in 50 mls @ ud IV .STK-MED ONE Levalbuterol HCl 1.25 mg 12/08/16 06:15 12/08/16 06:48 Xopenex 1.25 Mg/0.5 Ml Ud Nebule IH 12/08/16 06:16 1.25 mg STAT ONE Administration Levalbuterol HCl Confirm 12/08/16 06:44 Xopenex 1.25 Mg/0.5 Ml Ud Nebule Administered 12/08/16 06:45 Dose 1.25 mg IH .STK-MED ONE Promethazine HCl 12.5 mg 12/08/16 05:52 12/08/16 06:07 Phenergan 25 Mg Inj IV 12/08/16 05:53 12.5 mg STAT ONE Administration Promethazine HCl Confirm 12/08/16 05:59 Phenergan 25 Mg Inj Administered 12/08/16 06:00 Dose 25 mg .ROUTE .STK-MED ONE Sodium Chloride Confirm 12/08/16 06:44 Sodium Chloride 3 Ml Ud Nebules Administered 12/08/16 06:45 Dose 3 ml IH .STK-MED ONE Lab/Rad Data: Laboratory Result Diagrams 12/08/16 06:05 12/08/16 06:05 Laboratory Results 12/08/16 12/08/16 12/08/16 Range/Units 09:03 06:41 06:41 WBC (4.0-10.5) K/mm3 RBC (4.1-5.4) M/mm3 Hgb (12.0-16.0) gm/dl Hct (35-47) % MCV (78-100) fl MCH (26-32) pg MCHC (32-36) g/dl RDW (11.5-14.0) % Plt Count (150-450) K/mm3 MPV (6-9.5) fl Gran % (36.0-66.0) % Lymphocytes % (24.0-44.0) % Monocytes % (0.0-12.0) % Eosinophils % (0.00-5.0) % Basophils % (0.0-0.4) % Basophils # (0-0.4) INR (0.8-3.0) APTT (25.3-37.0) SECONDS Sodium (136-145) mEq/L Potassium (3.5-5.1) mEq/L Chloride (98-107) mEq/L Carbon Dioxide (21-32) mEq/L Anion Gap (5-15) MEQ/L BUN (9-20) mg/dL Creatinine (0.55-1.30) mg/dl Estimated GFR ML/MIN Glucose (70-110) MG/DL Hemoglobin A1c (4.5-6.2) Calcium (8.5-10.1) mg/dL Magnesium (1.8-2.4) mg/dL Total Bilirubin (0.2-1.0) mg/dL AST (15-37) U/L ALT (12-78) U/L Alkaline Phosphatase (46-116) U/L Troponin I < 0.017 (0.000-0.056) ng/ml NT-Pro-B Natriuret Pep (0-125) pg/ml Serum Total Protein (6.4-8.2) gm/dL Albumin (3.4-5.0) g/dL Amylase (25-115) U/L Lipase (73-393) U/L Ur Collection Type CLEAN CATCH Urine Color YELLOW (YELLOW) Urine Appearance SLIGHTLY CLOUDY (CLEAR) Urine pH 6.0 (5-6) Ur Specific [place] 1.010 (1.005-1.025) Urine Protein 100 (Negative) Urine Ketones NEGATIVE (NEGATIVE) Urine Blood 250 (0-5) Abilio/ul Urine Nitrite NEGATIVE (NEGATIVE) Urine Bilirubin NEGATIVE (NEGATIVE) Urine Urobilinogen NORMAL (0-1) mg/dL Ur Leukocyte Esterase 2+ (NEGATIVE) Urine Microscopic RBC 2-5 (0-2) /HPF Urine Microscopic WBC 15-25 (0-5) /HPF Ur Epithelial Cells FEW (FEW) /HPF Urine Bacteria MODERATE (NEGATIVE) /HPF Urine Mucus SLIGHT (NEGATIVE) /HPF Urine Glucose 100 (NEGATIVE) mg/dL Urine Opiates Level NEG. (NEGATIVE) Ur Methadone NEG. (NEGATIVE) Urine Barbiturates NEG. (NEGATIVE) Ur Phencyclidine (PCP) NEG. (NEGATIVE) Urine Amphetamine NEG. (NEGATIVE) U Benzodiazepine Level NEG. (NEGATIVE) Urine Cocaine NEG. (NEGATIVE) Urine Marijuana (THC) NEG. (NEGATIVE) Specimen Received 12-0812/08/16 12/08/16 12/08/16 Range/Units 06:05 06:05 06:05 WBC (4.0-10.5) K/mm3 RBC (4.1-5.4) M/mm3 Hgb (12.0-16.0) gm/dl Hct (35-47) % MCV (78-100) fl MCH (26-32) pg MCHC (32-36) g/dl RDW (11.5-14.0) % Plt Count (150-450) K/mm3 MPV (6-9.5) fl Gran % (36.0-66.0) % Lymphocytes % (24.0-44.0) % Monocytes % (0.0-12.0) % Eosinophils % (0.00-5.0) % Basophils % (0.0-0.4) % Basophils # (0-0.4) INR 0.96 (0.8-3.0) APTT 24.5 L (25.3-37.0) SECONDS Sodium (136-145) mEq/L Potassium (3.5-5.1) mEq/L Chloride (98-107) mEq/L Carbon Dioxide (21-32) mEq/L Anion Gap (5-15) MEQ/L BUN (9-20) mg/dL Creatinine (0.55-1.30) mg/dl Estimated GFR ML/MIN Glucose (70-110) MG/DL Hemoglobin A1c 7.8 H (4.5-6.2) Calcium (8.5-10.1) mg/dL Magnesium (1.8-2.4) mg/dL Total Bilirubin (0.2-1.0) mg/dL AST (15-37) U/L ALT (12-78) U/L Alkaline Phosphatase (46-116) U/L Troponin I < 0.017 (0.000-0.056) ng/ml NT-Pro-B Natriuret Pep (0-125) pg/ml Serum Total Protein (6.4-8.2) gm/dL Albumin (3.4-5.0) g/dL Amylase (25-115) U/L Lipase (73-393) U/L Ur Collection Type Urine Color (YELLOW) Urine Appearance (CLEAR) Urine pH (5-6) Ur Specific [place] (1.005-1.025) Urine Protein (Negative) Urine Ketones (NEGATIVE) Urine Blood (0-5) Abilio/ul Urine Nitrite (NEGATIVE) Urine Bilirubin (NEGATIVE) Urine Urobilinogen (0-1) mg/dL Ur Leukocyte Esterase (NEGATIVE) Urine Microscopic RBC (0-2) /HPF Urine Microscopic WBC (0-5) /HPF Ur Epithelial Cells (FEW) /HPF Urine Bacteria (NEGATIVE) /HPF Urine Mucus (NEGATIVE) /HPF Urine Glucose (NEGATIVE) mg/dL Urine Opiates Level (NEGATIVE) Ur Methadone (NEGATIVE) Urine Barbiturates (NEGATIVE) Ur Phencyclidine (PCP) (NEGATIVE) Urine Amphetamine (NEGATIVE) U Benzodiazepine Level (NEGATIVE) Urine Cocaine (NEGATIVE) Urine Marijuana (THC) (NEGATIVE) Specimen Received 12/08/16 12/08/16 Range/Units 06:05 06:05 WBC 6.4 (4.0-10.5) K/mm3 RBC 4.75 (4.1-5.4) M/mm3 Hgb 14.2 (12.0-16.0) gm/dl Hct 43.0 (35-47) % MCV 90.5 (78-100) fl MCH 29.9 (26-32) pg MCHC 33.0 (32-36) g/dl RDW 14.6 H (11.5-14.0) % Plt Count 251 (150-450) K/mm3 MPV 9.5 (6-9.5) fl Gran % 65.1 (36.0-66.0) % Lymphocytes % 23.7 L (24.0-44.0) % Monocytes % 9.5 (0.0-12.0) % Eosinophils % 1.4 (0.00-5.0) % Basophils % 0.3 (0.0-0.4) % Basophils # 0.02 (0-0.4) INR (0.8-3.0) APTT (25.3-37.0) SECONDS Sodium 136 (136-145) mEq/L Potassium 3.9 (3.5-5.1) mEq/L Chloride 96 L (98-107) mEq/L Carbon Dioxide 30.3 (21-32) mEq/L Anion Gap 13.7 (5-15) MEQ/L BUN 20 (9-20) mg/dL Creatinine 1.22 (0.55-1.30) mg/dl Estimated GFR 47 ML/MIN Glucose 235 H (70-110) MG/DL Hemoglobin A1c (4.5-6.2) Calcium 10.3 H (8.5-10.1) mg/dL Magnesium 1.7 L (1.8-2.4) mg/dL Total Bilirubin 0.30 (0.2-1.0) mg/dL AST 19 (15-37) U/L ALT 34 (12-78) U/L Alkaline Phosphatase 55 (46-116) U/L Troponin I (0.000-0.056) ng/ml NT-Pro-B Natriuret Pep 17 (0-125) pg/ml Serum Total Protein 7.8 (6.4-8.2) gm/dL Albumin 3.8 (3.4-5.0) g/dL Amylase 56 (25-115) U/L Lipase 888 H (73-393) U/L Ur Collection Type Urine Color (YELLOW) Urine Appearance (CLEAR) Urine pH (5-6) Ur Specific [place] (1.005-1.025) Urine Protein (Negative) Urine Ketones (NEGATIVE) Urine Blood (0-5) Abilio/ul Urine Nitrite (NEGATIVE) Urine Bilirubin (NEGATIVE) Urine Urobilinogen (0-1) mg/dL Ur Leukocyte Esterase (NEGATIVE) Urine Microscopic RBC (0-2) /HPF Urine Microscopic WBC (0-5) /HPF Ur Epithelial Cells (FEW) /HPF Urine Bacteria (NEGATIVE) /HPF Urine Mucus (NEGATIVE) /HPF Urine Glucose (NEGATIVE) mg/dL Urine Opiates Level (NEGATIVE) Ur Methadone (NEGATIVE) Urine Barbiturates (NEGATIVE) Ur Phencyclidine (PCP) (NEGATIVE) Urine Amphetamine (NEGATIVE) U Benzodiazepine Level (NEGATIVE) Urine Cocaine (NEGATIVE) Urine Marijuana (THC) (NEGATIVE) Specimen Received <MATTHEW BRIDGES - Last Filed: 12/08/16 07:21> - Departure Time of Disposition: 06:55 Departure Disposition: Home Critical Care Time: No <ALMAZ JEFFERSON - Last Filed: 12/09/16 06:56> - Departure Clinical Impression: Muscle weakness Condition: Stable
[2016-12-08] MEDS ORDERED: Phenergan 25 MG INJ IV ONE (05:52)
[2016-12-08] MEDS ORDERED: Phenergan 25 MG INJ ONE (05:59)
[2016-12-08] MEDS ORDERED: Sodium Chloride 0.9% 1000 ML 1,000 ML IV SCH ×2 (06:00→10:35)
[2016-12-08 06:13] LABS: BASOPHIL % 0.3 % (0.0-0.4); Eosinophil % 1.4 % (0.00-5.0); Granulocytes % 65.1 % (36.0-66.0); Lymphocytes % 23.7 % (24.0-44.0); Mean Cell Volume 90.5 fl (78-100); Mean Corpuscular Hemoglobin 29.9 pg (26-32); Mean Platelet Volume 9.5 fl (6-9.5); Monocytes % 9.5 % (0.0-12.0); Platelet Count 251 K/mm3 (150-450); Red Blood Count 4.75 M/mm3 (4.1-5.4); Red Cell Distribution Width 14.6 % (11.5-14.0); White Blood Count 6.4 K/mm3 (4.0-10.5)
[2016-12-08] MEDS ORDERED: Xopenex 1.25 MG/0.5 ML UD NEBULE IH ONE ×2 (06:15→06:44)
[2016-12-08 06:42] LABS: Collection Type CLEAN CATCH
[2016-12-08 06:43] LABS: Bilirubin NEGATIVE (NEGATIVE); Blood 250 Ery/ul (0-5); COMPLETE URINE MICROSCOPIC? YES; Glucose 100 mg/dL (NEGATIVE); Leukocyte Esterase 2+ (NEGATIVE)
[2016-12-08] MEDS ORDERED: Sodium Chloride 3 ML UD NEBULES IH ONE (06:44)
[2016-12-08 06:57] LABS: INR 0.96 (0.8-3.0); PROTIME 10.8 SECONDS (9.95-12.35)
[2016-12-08 07:00] LABS: PTT 24.5 SECONDS (25.3-37.0)
[2016-12-08 07:11] LABS: ALBUMIN 3.8 g/dL (3.4-5.0); ANION GAP 13.7 MEQ/L (5-15); BILIRUBIN,TOTAL 0.3 mg/dL (0.2-1.0); Carbon Dioxide 30.3 mEq/L (21-32); MAGNESIUM 1.7 mg/dL (1.8-2.4); Potassium 3.9 mEq/L (3.5-5.1); Total Protein 7.8 gm/dL (6.4-8.2)
[2016-12-08 07:12] LABS: Mucus SLIGHT /HPF (NEGATIVE); WBC 15-25 /HPF (0-5)
[2016-12-08 07:13] LABS: ADD URINE CULTURE? YES (NO); Bacteria MODERATE /HPF (NEGATIVE); Epithelial Cells FEW /HPF (FEW)
[2016-12-08] MEDS ORDERED: Magnesium 1 Gm / 100 Ml D5W*** 100 ML IV ONE ×2 (07:16→07:22)
[2016-12-08] MEDS ORDERED: ROCEPHIN 1 Gm-D5w 50 ml Bag** 1 G/50 ML IVPB IV STA (07:18)
[2016-12-08] MEDS ORDERED: ROCEPHIN 1 Gm-D5w 50 ml Bag** 1 G/50 ML IVPB IV ONE (07:23)
--- NOTE | 2016-12-08 09:45 | XRAY ---
Indication: Weakness and dizziness. Multiple contiguous axial images obtained through the head without contrast. Comparison: August 26, 2014. Stable age-appropriate global atrophy and minimal periventricular degenerative micro-ischemia bilaterally. No acute intracranial hemorrhage, abnormal extra-axial fluid collection, or mass effect. Fourth ventricle is midline without hydrocephalus. Bony calvarium intact. Visualized paranasal sinuses and mastoid air cells are clear. Impression: Stable nonacute senile brain. Comment: Preliminary interpretation was made by [facility]. Colloid cyst reported which I do not appreciate. CT DI 58.18
--- NOTE | 2016-12-08 09:47 | XRAY ---
Indication: Cough and weakness. Comparison: October 26, 2016. Portable chest again demonstrates scattered calcific granulomas and fibrosis/scarring. No infiltrate, consolidation, or large effusion. Heart is not enlarged. Vascularity normal. Bony thorax intact again with mild osteopenia and degenerative changes. Impression: Nonacute chest with chronic features.
--- NOTE | 2016-12-08 09:56 | XRAY ---
Indication: Abdomen pain, nausea, vomiting, and elevated amylase/lipase. Multiple contiguous axial images obtained through the abdomen and pelvis without contrast as ordered. Comparison: May 21, 2014. Lung bases again demonstrates bibasilar fibrosis/scarring. No infiltrate or effusion. Heart is not enlarged. Noncontrasted stomach and bowel loops appear nonobstructed. Again diffuse scattered colonic diverticulosis without diverticulitis. Normal appendix. No free fluid/air. Stable hepatomegaly, hepatic/splenic calcified granulomas, tiny uterine calcified fibroid, and cholecystectomy clips. Remaining liver, pancreas, spleen, adrenal glands, kidneys, ureters, bladder, and uterus appear unremarkable for noncontrast exam. There remains mild aortoiliac calcifications without AAA. Stable small benign periaortic nodes. Osseous structures intact with mild degenerative changes throughout the spine. Impression: 1. No acute intra-abdominal/pelvic abnormalities on this noncontrast exam. 2. Stable hepatomegaly, colonic diverticulosis, calcified uterine fibroid, and evidence for old granulomatous disease. CT DI 23.48
[2016-12-08] MEDS ORDERED: Zofran 4 MG/2 ML VIAL IV PRN (10:35)
[2016-12-08] MEDS ORDERED: PROVENTIL Solution 2.5 MG/0.5 ML IH PRN (13:48)
[2016-12-08] MEDS ORDERED: Nitrostat 0.4 MG Tablet SL PRN (13:48)
[2016-12-08] MEDS: ZYLOPRIM 100 MG PO SCH (14:04)
[2016-12-08] MEDS: ECOTRIN 81 MG PO SCH (14:04)
[2016-12-08] MEDS: Zestril 10 MG PO SCH (14:05)
[2016-12-08] MEDS: CLARITIN 10 MG PO SCH (14:05)
[2016-12-08] MEDS: LASIX 20 MG PO SCH (14:06)
[2016-12-08] MEDS: ENOXAPARIN SODIUM SQ SCH (14:06)
[2016-12-08] MEDS: Zocor 10MG PO SCH (14:06)
[2016-12-08] MEDS: Protonix 40MG Tablet PO SCH (14:06)
[2016-12-08] MEDS: NovoLIN R SQ PRN (16:48)
[2016-12-08] MEDS: PROVENTIL 2.5 MG/3 ML NEB IH PRN (21:08)
[2016-12-08] MEDS: Toprol Xl 50 MG PO SCH (22:12)
[2016-12-09 05:38] LABS: BASOPHIL % 0.4 % (0.0-0.4); Eosinophil % 2.3 % (0.00-5.0); Granulocytes % 52.6 % (36.0-66.0); Lymphocytes % 35.4 % (24.0-44.0); Mean Cell Volume 92.6 fl (78-100); Mean Corpuscular Hemoglobin 29.7 pg (26-32); Mean Platelet Volume 9.6 fl (6-9.5); Monocytes % 9.3 % (0.0-12.0); Platelet Count 226 K/mm3 (150-450); Red Blood Count 4.07 M/mm3 (4.1-5.4); Red Cell Distribution Width 14.7 % (11.5-14.0); White Blood Count 5.7 K/mm3 (4.0-10.5)
[2016-12-09 06:04] LABS: ANION GAP 10.5 MEQ/L (5-15); BILIRUBIN,TOTAL 0.2 mg/dL (0.2-1.0); Carbon Dioxide 29.4 mEq/L (21-32); Potassium 4.3 mEq/L (3.5-5.1); Total Protein 6.7 gm/dL (6.4-8.2)
[2016-12-09] MEDS: PROVENTIL 2.5 MG/3 ML NEB IH PRN ×2 (06:51→19:13)
--- NOTE | 2016-12-09 08:09 | PCM.HP ---
History of Present Illness - Chief Complaint Chief Complaint: UTI, pancreatitis Date: 12/09/16 History of Present Illness: is a 66 year old female. she was living at home and became very weak and nauseated and was unable to walk and feeling very lightheaded. She called ems and was brought to ED. she was found to have UTI and mild pancreatitis. She was given iv hydration and is feeling better this am but is still very weak and dose not feel safe walking alone right now as she feels to weak in her legs. She lives at home. - Review of Systems Constitutional: No Fever, No Chills Eyes: No Symptoms Ears, Nose, & Throat: No Symptoms Respiratory: No Cough, No Short Of Breath Cardiac: No Chest Pain, No Edema, No Syncope Abdominal/Gastrointestinal: Abdominal Pain, Nausea, Vomiting, No Diarrhea Genitourinary Symptoms: No Dysuria Musculoskeletal: No Back Pain, No Neck Pain Skin: No Rash Neurological: No Dizziness, No Focal Weakness, No Sensory Changes Psychological: No Symptoms Endocrine: No Symptoms Hematologic/Lymphatic: No Symptoms Immunological/Allergic: No Symptoms Medications & Allergies Home Medications: Home Medication List Albuterol 2.5 mg/0.5 ml [PROVENTIL Solution 2.5 MG/0.5 ML] 2.5 mg IH QID PRN 12/08/16 [History Confirmed 12/08/16] Allopurinol 100 mg [Zyloprim 100 mg] 100 mg PO DAILY 12/08/16 [History Confirmed 12/08/16] Aspirin EC 81 mg [Ecotrin 81 mg] 81 mg PO DAILY 12/08/16 [History Confirmed 12/08/16] Atorvastatin Calcium 10 mg PO DAILY 12/08/16 [History Confirmed 12/08/16] Fenofibrate Nanocrystallized [Tricor] 145 mg PO DAILY 12/08/16 [History Confirmed 12/08/16] Furosemide 20 mg [Lasix 20 mg] 20 mg PO DAILY 12/08/16 [History Confirmed 12/08/16] Glipizide 5 mg PO BID 12/08/16 [History Confirmed 12/08/16] Lisinopril 10 mg [Zestril 10 MG] 10 mg PO DAILY 12/08/16 [History Confirmed 12/08/16] Loratadine 10 mg [Claritin 10 mg] 10 mg PO DAILY 12/08/16 [History Confirmed 12/08/16] Metformin HCl Xr 500 mg [Glucophage XR 500 MG] 500 mg PO DAILY 12/08/16 [ History Confirmed 12/08/16] Metoprolol Succinate 50 mg [Toprol Xl 50 MG] 50 mg PO BID 12/08/16 [ History Confirmed 12/08/16] Nitroglycerin 0.4 mg Tablet [Nitrostat 0.4 MG Tablet] 0.4 mg SL Q5MIN PRN MR X 3 PRN 12/08/16 [History Confirmed 12/08/16] PANTOPRAZOLE 40 mg Tablet [Protonix 40MG Tablet] 40 mg PO QAM 12/08/16 [ History Confirmed 12/08/16] Allergies/Adverse Reactions: Allergies Allergy/AdvReac Type Severity Reaction Status Date / Time adhesive Allergy Intermediate Rash Verified 12/08/16 12:00 diphenhydramine HCl Allergy Mild Rash Verified 12/08/16 12:00 [From Benadryl] nalbuphine HCl [From Nubain] Allergy Mild Rash Verified 12/08/16 12:00 Penicillins Allergy Mild Rash Verified 12/08/16 12:00 gabapentin [From Neurontin] Allergy Vomiting Verified 12/08/16 12:00 - Past Medical History Past Medical History: Yes Neurological History: No Pertinent History ENT History: No Pertinent History Cardiac History: Coronary Artery Disease, High Cholesterol, Hypertension, Myocardial Infarction ([place]) Respiratory History: Asthma, COPD, Emphysema Endocrine Medical History: Diabetes Type II Musculoskelatal History: No Pertinent History GI Medical History: Diverticulosis History: No Pertinent History Pyscho-Social History: No Pertinent History Reproductive Disorders: No Pertinent History Comment: 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 x2 - Social History Smoking Status: Former smoker How long have you smoked: 60 Exposure to second hand smoke: Yes Alcohol: None Drug Use: none - Physical Exam Vital Signs: Vital Signs - 24 hr Temp Pulse Resp BP Pulse Ox 12/09/16 06:54 65 20 93 L 12/09/16 04:35 97.9 F 73 18 106/56 95 12/08/16 23:35 98.5 F 94 H 20 140/55 93 L 12/08/16 21:08 81 20 88 L 12/08/16 19:52 98.4 F 87 18 127/58 93 L 12/08/16 19:24 98.4 F 87 18 127/58 93 L 12/08/16 16:00 98.2 F 85 19 115/59 90 L 12/08/16 15:30 88 18 95 12/08/16 11:16 97.2 F 71 14 111/53 93 L 12/08/16 10:37 83 17 150/64 98 12/08/16 09:11 76 16 123/57 96 Oxygen-Last 24 hours O2 Percentage 2 Liters = 28% O2 Percentage 2 Liters = 28% O2 Percentage 2 Liters = 28% O2 Percentage 2 Liters = 28% O2 Percentage 3 Liters = 32% O2 Percentage 3 Liters = 32% General Appearance: no apparent distress, alert, obese Neurologic Exam: alert, oriented x 3, cooperative, normal mood/affect, nml cerebellar function, No motor deficits Eye Exam: PERRL/EOMI, eyes nml inspection, No scleral icterus Ears, Nose, Throat Exam: normal ENT inspection, pharynx normal, moist mucous membranes Neck Exam: normal inspection, non-tender, supple, full range of motion Respiratory Exam: normal breath sounds, lungs clear, No respiratory distress Cardiovascular Exam: regular rate/rhythm, normal heart sounds, normal peripheral pulses Gastrointestinal/Abdomen Exam: soft, normal bowel sounds, No tenderness, No mass Back Exam: normal inspection, normal range of motion, No CVA tenderness, No vertebral tenderness Extremity Exam: normal inspection, normal range of motion, pelvis stable Skin Exam: normal color, warm, dry, No rash Lymphatic Exam: No adenopathy Results - Labs Lab/Micro Results: Accuchecks Date 12/08/16 Date 12/08/16 Date 12/08/16 Time 23:18 Time 16:30 Time 11:49 Accucheck Value: 186 Accucheck Value: 222 Accucheck Value: 178 Lab Results-Last 24 Hours 12/08/16 12/08/16 12/08/16 Range/Units 11:43 11:58 15:17 WBC (4.0-10.5) K/mm3 RBC (4.1-5.4) M/mm3 Hgb (12.0-16.0) gm/dl Hct (35-47) % MCV (78-100) fl MCH (26-32) pg MCHC (32-36) g/dl RDW (11.5-14.0) % Plt Count (150-450) K/mm3 MPV (6-9.5) fl Gran % (36.0-66.0) % Lymphocytes % (24.0-44.0) % Monocytes % (0.0-12.0) % Eosinophils % (0.00-5.0) % Basophils % (0.0-0.4) % Basophils # (0-0.4) Sodium (136-145) mEq/L Potassium (3.5-5.1) mEq/L Chloride (98-107) mEq/L Carbon Dioxide (21-32) mEq/L Anion Gap (5-15) MEQ/L BUN (9-20) mg/dL Creatinine (0.55-1.30) mg/dl Estimated GFR ML/MIN Glucose (70-110) MG/DL Calcium (8.5-10.1) mg/dL Total Bilirubin (0.2-1.0) mg/dL AST (15-37) U/L ALT (12-78) U/L Alkaline Phosphatase (46-116) U/L Troponin I < 0.017 < 0.017 (0.000-0.056) ng/ml Serum Total Protein (6.4-8.2) gm/dL Albumin (3.4-5.0) g/dL Prealbumin 21.4 (18.0-35.7) mg/dL Triglycerides (30-200) mg/dL Cholesterol (100-200) mg/dL LDL Cholesterol (5-99) mg/dL HDL Cholesterol (35-60) mg/dL Heart Disease Risk Ratio Amylase (25-115) U/L Lipase (73-393) U/L 12/08/16 12/09/16 12/09/16 Range/Units 18:05 05:12 05:12 WBC 5.7 (4.0-10.5) K/mm3 RBC 4.07 L (4.1-5.4) M/mm3 Hgb 12.1 (12.0-16.0) gm/dl Hct 37.7 (35-47) % MCV 92.6 (78-100) fl MCH 29.7 (26-32) pg MCHC 32.1 (32-36) g/dl RDW 14.7 H (11.5-14.0) % Plt Count 226 (150-450) K/mm3 MPV 9.6 H (6-9.5) fl Gran % 52.6 (36.0-66.0) % Lymphocytes % 35.4 (24.0-44.0) % Monocytes % 9.3 (0.0-12.0) % Eosinophils % 2.3 (0.00-5.0) % Basophils % 0.4 (0.0-0.4) % Basophils # 0.02 (0-0.4) Sodium 137 (136-145) mEq/L Potassium 4.3 (3.5-5.1) mEq/L Chloride 101 (98-107) mEq/L Carbon Dioxide 29.4 (21-32) mEq/L Anion Gap 10.5 (5-15) MEQ/L BUN 18 (9-20) mg/dL Creatinine 1.07 (0.55-1.30) mg/dl Estimated GFR 55 ML/MIN Glucose 163 H (70-110) MG/DL Calcium 8.7 (8.5-10.1) mg/dL Total Bilirubin 0.20 (0.2-1.0) mg/dL AST 17 (15-37) U/L ALT 27 (12-78) U/L Alkaline Phosphatase 42 L (46-116) U/L Troponin I < 0.017 (0.000-0.056) ng/ml Serum Total Protein 6.7 (6.4-8.2) gm/dL Albumin 3.0 L (3.4-5.0) g/dL Prealbumin (18.0-35.7) mg/dL Triglycerides (30-200) mg/dL Cholesterol (100-200) mg/dL LDL Cholesterol (5-99) mg/dL HDL Cholesterol (35-60) mg/dL Heart Disease Risk Ratio Amylase (25-115) U/L Lipase (73-393) U/L 12/09/16 Range/Units 05:12 WBC (4.0-10.5) K/mm3 RBC (4.1-5.4) M/mm3 Hgb (12.0-16.0) gm/dl Hct (35-47) % MCV (78-100) fl MCH (26-32) pg MCHC (32-36) g/dl RDW (11.5-14.0) % Plt Count (150-450) K/mm3 MPV (6-9.5) fl Gran % (36.0-66.0) % Lymphocytes % (24.0-44.0) % Monocytes % (0.0-12.0) % Eosinophils % (0.00-5.0) % Basophils % (0.0-0.4) % Basophils # (0-0.4) Sodium (136-145) mEq/L Potassium (3.5-5.1) mEq/L Chloride (98-107) mEq/L Carbon Dioxide (21-32) mEq/L Anion Gap (5-15) MEQ/L BUN (9-20) mg/dL Creatinine (0.55-1.30) mg/dl Estimated GFR ML/MIN Glucose (70-110) MG/DL Calcium (8.5-10.1) mg/dL Total Bilirubin (0.2-1.0) mg/dL AST (15-37) U/L ALT (12-78) U/L Alkaline Phosphatase (46-116) U/L Troponin I (0.000-0.056) ng/ml Serum Total Protein (6.4-8.2) gm/dL Albumin (3.4-5.0) g/dL Prealbumin (18.0-35.7) mg/dL Triglycerides 239 H (30-200) mg/dL Cholesterol 162 (100-200) mg/dL LDL Cholesterol 92 (5-99) mg/dL HDL Cholesterol 28 L (35-60) mg/dL Heart Disease Risk Ratio 5.8 Amylase 32 (25-115) U/L Lipase 171 (73-393) U/L Accuchecks Date 12/08/16 Date 12/08/16 Date 12/08/16 Time 23:18 Time 16:30 Time 11:49 Accucheck Value: 186 Accucheck Value: 222 Accucheck Value: 178 - Other Procedures and Tests Respiratory Therapy 12/08/16 15:27 Respiratory Nebulizer PRN 12/09/16 06:53 Oxygen NASAL CANNULA 2 lpm Assessment/Plan (1) UTI (urinary tract infection) Current Visit: Yes Status: Acute Assessment & Plan: continue rocephin pending culture the lipase returned to normal CT was unremarkable she is tolerating food today without abdominal pain She is still very weak this am and we will have PT evaluate and treat and assess for safe discharge hopeful for home tomorrow. Code(s): N39.0 - URINARY TRACT INFECTION, SITE NOT SPECIFIED (2) Pancreatitis Current Visit: Yes Status: Acute Code(s): K85.90 - ACUTE PANCREATITIS WITHOUT NECROSIS OR INFECTION, UNSP (3) Hypertensive heart disease with congestive heart failure Current Visit: Yes Status: Chronic Code(s): I11.0 - HYPERTENSIVE HEART DISEASE WITH HEART FAILURE (4) Diabetes mellitus type 2 Current Visit: Yes Status: Chronic Code(s): E11.9 - TYPE 2 DIABETES MELLITUS WITHOUT COMPLICATIONS (5) Coronary artery disease Current Visit: Yes Status: Chronic Code(s): I25.10 - ATHSCL HEART DISEASE OF [place] CORONARY ARTERY W/O ANG PCTRS
[2016-12-09] MEDS ORDERED: Sodium Chloride 0.9% 10 ML FLUSH Syringe IV PRN (08:12)
[2016-12-09] MEDS: ZYLOPRIM 100 MG PO SCH (09:37)
[2016-12-09] MEDS: CLARITIN 10 MG PO SCH (09:37)
[2016-12-09] MEDS: Zocor 10MG PO SCH (09:37)
[2016-12-09] MEDS: Protonix 40MG Tablet PO SCH (09:37)
[2016-12-09] MEDS: Toprol Xl 50 MG PO SCH ×2 (09:38→23:36)
[2016-12-09] MEDS: ECOTRIN 81 MG PO SCH (09:38)
[2016-12-09] MEDS: LASIX 20 MG PO SCH (09:38)
[2016-12-09] MEDS: ROCEPHIN 1 Gm-D5w 50 ml Bag** 1 G/50 ML IVPB IV SCH (09:38)
[2016-12-09] MEDS: ENOXAPARIN SODIUM SQ SCH (09:38)
[2016-12-09] MEDS: Zestril 10 MG PO SCH (09:38)
[2016-12-09] MEDS ORDERED: NON-FORMULARY ITEM (Atorvastatin Calcium [Atorvastatin Calcium] 10 MG) PO SCH (10:00)
[2016-12-09] MEDS: Sodium Chloride 0.9% 10 ML FLUSH Syringe IV SCH ×2 (13:58→23:40)
[2016-12-10] MEDS ORDERED: PROVENTIL 2.5 MG/3 ML NEB IH SCH (07:00)
[2016-12-10 07:48] VITALS: BP 119/56; PULSE 76; O2SAT 95
[2016-12-10] MEDS: ROCEPHIN 1 Gm-D5w 50 ml Bag** 1 G/50 ML IVPB IV SCH (09:35)
[2016-12-10] MEDS: ZYLOPRIM 100 MG PO SCH (09:36)
[2016-12-10] MEDS: CLARITIN 10 MG PO SCH (09:36)
[2016-12-10] MEDS: Protonix 40MG Tablet PO SCH (09:36)
[2016-12-10] MEDS: Zocor 10MG PO SCH (09:37)
[2016-12-10] MEDS: LASIX 20 MG PO SCH (09:37)
[2016-12-10] MEDS: Toprol Xl 50 MG PO SCH (09:37)
[2016-12-10] MEDS: Zestril 10 MG PO SCH (09:37)
[2016-12-10] MEDS: ECOTRIN 81 MG PO SCH (09:37)
[2016-12-10] MEDS: ENOXAPARIN SODIUM SQ SCH (09:38)
[2016-12-10] MEDS: NovoLIN R SQ PRN (11:47)
--- NOTE | 2016-12-12 09:59 | DS ---
DISCHARGE DIAGNOSES: 1) PANCREATITIS. 2) CYSTITIS DUE TO ESCHERICHIA COLI. HISTORY: This is a 66 year-old white female who was admitted to the hospital after an episode of dizziness, nausea, diaphoresis and vomiting which she had three times. Evaluation in the emergency room revealed the patient to have presumptive diagnosis of pancreatitis. She was admitted to the hospital for evaluation and management. Apparently at that time she was also found to have appeared to be urinary tract infection. Urine cultures were obtained. HOSPITAL COURSE: The patient was admitted to the medicine gan and began on IV fluids, IV Rocephin. The patient did improve. She had PT evaluation on 12/09/2016. The patient does live at home alone and she wears oxygen all the time at home. The patient reports that she was able to get up to go to the bathroom by herself without any assistance. The urine culture came back positive for Escherichia coli. The patient's repeat amylase and lipase were within normal range and the patient was able to eat with no further problems with vomiting. She was therefore felt to be ready for discharge home on 12/10/2016. She was discharged home on her usual home medications of aspirin, Fenofibrate, Furosemide, lisinopril, loratadine, metformin, metoprolol, pantoprazole and potassium. She will be asked to follow up to see Dr. Nash next week in the office. We will arrange for home visiting nurses as well and she was sent home on Bactrim DS b.i.d. for seven days.
== END 2016-12-10 12:00 | disposition home health service (06) ==
LOC: ED 05:30 → MED SURG 10:52
PROVIDERS: ADMIT Family Medicine; ATTEND Family Medicine
DX: K85.90 Acute pancreatitis without necrosis or infection, unspecified (principal); N30.90 Cystitis, unspecified without hematuria; B96.20 Unspecified Escherichia coli [E. coli] as the cause of diseases classified elsewhere; E11.9 Type 2 diabetes mellitus without complications; Z79.4 Long term (current) use of insulin; I25.10 Atherosclerotic heart disease of native coronary artery without angina pectoris; I11.0 Hypertensive heart disease with heart failure; I50.9 Heart failure, unspecified; J44.9 Chronic obstructive pulmonary disease, unspecified; R09.02 Hypoxemia; J45.909 Unspecified asthma, uncomplicated; Z79.899 Other long term (current) drug therapy; I25.2 Old myocardial infarction; Z99.81 Dependence on supplemental oxygen
CPT/HCPCS: 36000; 36415; 70450; 71010; 74176; 80053; 80061; 80307; 81000; 82150; 82962; 83036; 83690; 83721; 83735; 83880; 84134; 84484; 85025; 85610; 85730; 87040; 87077; 87086; 87186; 93005; 94640; 94760; 96360; 96361; 96365; 96367; 99285; G0378; J0696; J1650; J2550; J3475; A9270-GY

== ENCOUNTER 2019-02-06 03:28 | Emergency (ER) | payer MEDICARE ==
--- NOTE | 2019-02-06 03:42 | ERPHSYRPT ---
- History of Present Illness Time Seen by Provider: 02/06/19 03:40 Source: patient, EMS Exam Limitations: no limitations Physician History: 68 y/o obese diabetic, white female with copd and htn presents via ems after falling onto right shoulder after slipping out of her recliner chair she sleeps in. pt states he fell onto buttocks and this aggravated her chronic right shoulder pain. pt denies cp, denies soa, denies abd pain. her only complaint is her right shoulder pain. denies head or neck injury or pain. Occurred: just prior to arrival Reason for Fall: slipped (out of her recliner onto buttocks) Injuries/Pain Location: no injury Loss of Consciousness: no loss of consciousness Severity of Pain-Max: mild Severity of Pain-Current: mild Modifying Factors: Improves With: movement Associated Symptoms (Fall): denies symptoms Allergies/Adverse Reactions: adhesive Allergy (Intermediate, Verified 02/15/17 14:21) Rash diphenhydramine HCl [From Benadryl] Allergy (Mild, Verified 02/15/17 14:21) Rash nalbuphine HCl [From Nubain] Allergy (Mild, Verified 02/15/17 14:21) Rash Penicillins Allergy (Mild, Verified 02/15/17 14:21) Rash gabapentin [From Neurontin] Allergy (Verified 02/15/17 14:21) Vomiting Home Medications: Albuterol 2.5 mg/0.5 ml [PROVENTIL Solution 2.5 MG/0.5 ML] 2.5 mg IH QID PRN 12/08/16 [History] Fenofibrate Nanocrystallized [Tricor] 145 mg PO DAILY 12/08/16 [History] Furosemide 20 mg [Lasix 20 mg] 20 mg PO DAILY 12/08/16 [History] Glipizide 5 mg PO BID 12/08/16 [History] Lisinopril 10 mg [Zestril 10 MG] 10 mg PO DAILY 12/08/16 [History] Loratadine 10 mg [Claritin 10 mg] 10 mg PO DAILY 12/08/16 [History] Metformin HCl Xr 500 mg [Glucophage XR 500 MG] 500 mg PO BID 12/08/16 [ History] Metoprolol Succinate 50 mg [Toprol Xl 50 MG] 50 mg PO BID 12/08/16 [ History] Nitroglycerin 0.4 mg Tablet [Nitrostat 0.4 MG Tablet] 0.4 mg SL Q5MIN PRN MR X 3 PRN 12/08/16 [History] Hx Tetanus, Diphtheria Vaccination/Date Given: Yes Hx Influenza Vaccination/Date Given: No Hx Pneumococcal Vaccination/Date Given: No - Review of Systems Constitutional: No Symptoms Eyes: No Symptoms Ears, Nose, & Throat: No Symptoms Respiratory: No Symptoms Cardiac: No Symptoms Abdominal/Gastrointestinal: No Symptoms Genitourinary Symptoms: No Symptoms Musculoskeletal: Fall, Joint Pain (right shoulder) Skin: No Symptoms Neurological: No Symptoms Psychological: No Symptoms Endocrine: No Symptoms Hematologic/Lymphatic: No Symptoms Immunological/Allergic: No Symptoms All Other Systems: Reviewed and Negative - Past Medical History Pertinent Past Medical History: Yes Neurological History: No Pertinent History ENT History: No Pertinent History Cardiac History: Coronary Artery Disease, High Cholesterol, Hypertension, Myocardial Infarction ([place]) Respiratory History: Asthma, COPD, Emphysema Endocrine Medical History: Diabetes Type II Musculoskeletal History: No Pertinent History GI Medical History: Diverticulosis History: No Pertinent History Psycho-Social History: No Pertinent History Female Reproductive Disorders: No Pertinent History Other Medical History: 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 mi x2 - Past Surgical History Past Surgical History: Yes Neuro Surgical History: No Pertinent History Cardiac: No Pertinent History Respiratory: No Pertinent History Gastrointestinal: Cholecystectomy Genitourinary: No Pertinent History Musculoskeletal: No Pertinent History Female Surgical History: Section, Tubal Ligation Other Surgical History: D&C x3. x2 - Social History Smoking Status: Former smoker How long have you smoked: 60 Exposure to second hand smoke: Yes Drug Use: none Patient Lives Alone: No - Nursing Vital Signs Nursing Vital Signs: Initial Vital Signs Temperature 97.9 F 02/06/19 03:39 Pulse Rate 90 02/06/19 03:39 Respiratory Rate 18 02/06/19 03:39 Blood Pressure 159/97 02/06/19 03:39 O2 Sat by Pulse Oximetry 97 02/06/19 03:39 Pain Scale Pain Intensity 8 - Devika Coma Score Best Eye Response ([place]): (4) open spontaneously Best Verbal Response ([place]): (5) oriented Best Motor Response ([place]): (6) obeys commands Devika Total: 15 - Physical Exam General Appearance: no apparent distress, alert Head Injury: no evidence of injury Eye Exam: PERRL/EOMI, eyes nml inspection ENT Exam: airway nml, nml ext.inspection Neck Exam: supple, trachea midline, full range of motion, normal alignment Respiratory/Chest Exam: No chest tenderness Gastrointestinal Exam: No tenderness Rectal Exam: not done Back Exam: normal inspection, normal range of motion, No CVA tenderness, No vertebral tenderness Extremity Exam: normal inspection, normal range of motion, pelvis stable Neurologic Exam: alert, oriented x 3, cooperative, [employer]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 Skin Exam: normal color, warm, dry SpO2 Interpretation: normal SpO2: 97 O2 Delivery: Room Air - Course Nursing assessment & vital signs reviewed: Yes Ordered Tests: Active Orders 24 hr Category Date Time Status SHOULDER Stat Exams 02/06/19 03:42 Taken - Progress Progress: unchanged Progress Note: 02/06/19 03:52 xray right shoulder-no acute fx or dislocation 02/06/19 04:04 Counseled pt/family regarding: diagnosis, need for follow-up, rad results - Departure Departure Disposition: Home Clinical Impression: Fall, Shoulder pain, right Condition: Stable Critical Care Time: No Referrals: NINA FLORES [Primary Care Provider] - Additional Instructions: follow up with primary doctor for further management
[2019-02-06] MEDS ORDERED: TYLENOL 325 MG PO STA (04:09)
[2019-02-06] MEDS ORDERED: TYLENOL 325 MG ONE (04:09)
[2019-02-06 05:28] VITALS: BP 170/80; PULSE 97; O2SAT 99
--- NOTE | 2019-02-06 09:24 | XRAY ---
Indication: Pain following fall. Comparison: None 3 views of the right shoulder demonstrates osteopenia, moderate AC degenerative arthropathy, minimal right lung base fibrosis/scarring, right hilar calcified nodes, and sternotomy wires. No other bony, articular, or soft tissue abnormalities.
== END 2019-02-06 05:25 | disposition home or self-care (01) ==
LOC: ED 03:28
DX: M25.511 Pain in right shoulder (principal); W01.0XXA Fall on same level from slipping, tripping and stumbling without subsequent striking against object, initial encounter; J44.9 Chronic obstructive pulmonary disease, unspecified; E78.00 Pure hypercholesterolemia, unspecified; I10 Essential (primary) hypertension; I25.10 Atherosclerotic heart disease of native coronary artery without angina pectoris; Z79.899 Other long term (current) drug therapy; I25.2 Old myocardial infarction; E11.9 Type 2 diabetes mellitus without complications; Z79.4 Long term (current) use of insulin; M10.9 Gout, unspecified
CPT/HCPCS: 73030; 99283; A9270-GY

== ENCOUNTER 2019-07-06 15:44 | Observation (INO) | payer MEDICARE ==
[2019-07-06] MEDS ORDERED: Xopenex 1.25 MG/0.5 ML UD NEBULE IH ONE ×2 (16:18→16:49)
[2019-07-06] MEDS ORDERED: ROCEPHIN 1 Gm-D5w 50 ml Bag** 1 G/50 ML IVPB IV STA (16:18)
[2019-07-06] MEDS ORDERED: Zithromax 500 MG/ 250 ML NaCl Premix 500 MG/250 ML IVPB IV STA (16:18)
--- NOTE | 2019-07-06 16:18 | ERPHSYRPT ---
- History of Present Illness Time Seen by Provider: 07/06/19 16:11 Historian: patient Exam Limitations: no limitations Physician History: Pt started with sharp intermittent right anterior chest pain about 18 hours ago with episodes lasting up to 1 minute. Pt denies shortness of air, cough, fever, abdominal pain, nausea, vomiting. Aspirin Treatment Today: 81 mg x 4, provided by ED Allergies/Adverse Reactions: adhesive Allergy (Intermediate, Verified 02/15/17 14:21) Rash diphenhydramine HCl [From Benadryl] Allergy (Mild, Verified 02/15/17 14:21) Rash nalbuphine HCl [From Nubain] Allergy (Mild, Verified 02/15/17 14:21) Rash Penicillins Allergy (Mild, Verified 02/15/17 14:21) Rash gabapentin [From Neurontin] Allergy (Verified 02/15/17 14:21) Vomiting Home Medications: Furosemide 20 mg [Lasix 20 mg] 40 mg PO DAILY 12/08/16 [History] Lisinopril 10 mg [Zestril 10 MG] 2.5 mg PO DAILY 12/08/16 [History] Loratadine 10 mg [Claritin 10 mg] 10 mg PO DAILY 12/08/16 [History] Metformin HCl Xr 500 mg [Glucophage XR 500 MG] 500 mg PO TID 12/08/16 [ History] Nitroglycerin 0.4 mg Tablet [Nitrostat 0.4 MG Tablet] 0.4 mg SL Q5MIN PRN MR X 3 PRN 12/08/16 [History] Albuterol Sulfate Mdi [Proair Hfa MDI] 2 inh PO Q4H 07/06/19 [History] Calcium Carbonate/Vitamin D3 [Calcium 600 + Vit D 400 Tablet] 1 each PO DAILY [History] Ferrous Sulfate, Dried [Iron] 65 mg PO BID 07/06/19 [History] Lovastatin 20 mg PO DAILY 07/06/19 [History] Metoprolol Tartrate 50 mg [Lopressor 50 MG] 50 mg PO BID 07/06/19 [History ] PANTOPRAZOLE 40 mg Tablet [Protonix 40MG Tablet] 40 mg PO QAM 07/06/19 [ History] Potassium Chloride 10 Meq Tab* [Klor Con 10 MEQ] 10 meq PO BID 07/06/19 [ History] Tiotropium Br/Olodaterol HCl [Stiolto Respimat Inhal [place]] 4 gm IH UD 07/06/19 [History] Hx Tetanus, Diphtheria Vaccination/Date Given: Yes Hx Influenza Vaccination/Date Given: No Hx Pneumococcal Vaccination/Date Given: No - Review of Systems Constitutional: No Fever Ears, Nose, & Throat: No Throat Pain Respiratory: No Cough, No Dyspnea Cardiac: Chest Pain Abdominal/Gastrointestinal: No Abdominal Pain, No Nausea, No Vomiting Neurological: No Headache All Other Systems: Reviewed and Negative - Past Medical History Pertinent Past Medical History: Yes Neurological History: No Pertinent History ENT History: No Pertinent History Cardiac History: Coronary Artery Disease, High Cholesterol, Hypertension, Myocardial Infarction (AR) Respiratory History: Asthma, COPD, Emphysema Endocrine Medical History: Diabetes Type II Musculoskeletal History: No Pertinent History GI Medical History: Diverticulosis History: No Pertinent History Psycho-Social History: No Pertinent History Female Reproductive Disorders: No Pertinent History Other Medical History: 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 mi x2 - Past Surgical History Past Surgical History: Yes Neuro Surgical History: No Pertinent History Cardiac: No Pertinent History Respiratory: No Pertinent History Gastrointestinal: Cholecystectomy Genitourinary: No Pertinent History Musculoskeletal: No Pertinent History Female Surgical History: Section, Tubal Ligation Other Surgical History: D&C x3. x2 - Social History Smoking Status: Former smoker How long have you smoked: 60 Exposure to second hand smoke: Yes Drug Use: none Patient Lives Alone: No - Nursing Vital Signs Nursing Vital Signs: Initial Vital Signs Temperature 97.8 F 07/06/19 16:07 Pulse Rate 76 07/06/19 16:07 Respiratory Rate 22 07/06/19 16:07 Blood Pressure 139/69 07/06/19 16:07 O2 Sat by Pulse Oximetry 98 07/06/19 16:07 Pain Scale Pain Intensity 5 - Physical Exam General Appearance: alert Eye Exam: PERRL/EOMI Ears, Nose, Throat Exam: dry mucous membranes Neck Exam: normal inspection Respiratory Exam: wheezing (mild expiratory wheezing over bases.) Cardiovascular Exam: normal heart sounds Gastrointestinal/Abdomen Exam: soft, normal bowel sounds Extremity Exam: No pedal edema Neurologic Exam: alert, cooperative Skin Exam: warm, dry SpO2 Interpretation: O2 applied (3 l/m) SpO2: 98 O2 Delivery: Room Air - Course Nursing assessment & vital signs reviewed: Yes EKG Interpreted by Me: RATE (74), Sinus Rhythm, Left [place] Deviation, Other ( atrial premature complexes; QTc = 426.) - Radiology Exams Chest X-ray Interpretation: Discussed w/ radiologist (new CABG surgery and scattered subsegmental atelectasis/scarring. negative for acute pneumonic process or chf.) - CT Exams Chest CT Interpretation: Discussed w/radiologist (negative pulmonary embolus. stable scattered subsegmental atelectasis/scarring and evidence for old granulomatous disease. no new or acute cardiopulmonary abnormalities.) Ordered Tests: Active Orders 24 hr Category Date Time Status Home Care Aide STAT Care 07/06/19 16:20 Active EKG-ER Only STAT Care 07/06/19 16:18 Active EKG-ER Only STAT Care 07/06/19 16:46 Active IV Insertion STAT Care 07/06/19 16:18 Active Oxygen-ED Only Nasal Cannula 2 lpm Care 07/06/19 16:18 Active Pulse Oximetry (ED) STAT Care 07/06/19 16:18 Active CHEST 2 VIEWS (PA AND LAT) Stat Exams 07/06/19 16:19 Completed CHEST WITH CONTRAST [CT] Stat Exams 07/06/19 17:01 Completed BLOOD CULTURE Stat Lab 07/06/19 17:30 Received CBC W DIFF Stat Lab 07/06/19 16:15 Completed CMP Stat Lab 07/06/19 16:15 Completed CULTURE,SPUTUM Stat Lab 07/06/19 16:19 Uncollected D-DIMER QUANTITATIVE Stat Lab 07/06/19 16:15 Completed MAGNESIUM Stat Lab 07/06/19 16:15 Completed NT PRO BNP Stat Lab 07/06/19 16:15 Completed TROPONIN Q3H Lab 07/06/19 16:15 Completed TROPONIN Q3H Lab 07/06/19 19:30 Ordered TROPONIN Q3H Lab 07/06/19 22:30 Ordered TROPONIN Q3H Lab 07/07/19 01:30 Ordered TROPONIN Q3H Lab 07/07/19 04:30 Ordered UA W/RFX UR CULTURE Stat Lab 07/06/19 17:39 Completed Respiratory Therapy Assessment DAILY RT 07/06/19 17:11 Completed Medication Summary Generic Name Dose Route Start Last Admin Trade Name Aryan PRN Reason Stop Dose Admin Sodium Chloride 1,000 mls @ 100 mls/hr 07/06/19 16:30 07/06/19 19:00 Sodium Chloride 0.9% 1000 Ml IV 08/05/19 16:29 Not Given .Q10H TRISTIAN Discontinued Medications Generic Name Dose Route Start Last Admin Trade Name Aryan PRN Reason Stop Dose Admin Aspirin 324 mg 07/06/19 20:47 Baby Aspirin 81 Mg Chew PO 07/06/19 20:48 STAT ONE Ceftriaxone Sodium/Dextrose 1 g in 50 mls @ 100 mls/hr 07/06/19 16:18 17:33 Rocephin 1 Gm-D5w 50 Ml Bag IV 07/06/19 16:47 Infused STAT STA Infusion Azithromycin 500 mg in 250 mls @ 250 mls/hr 07/06/19 16:18 07/06/19 19:54 Zithromax 500 Mg/ 250 Ml Nacl Premix IV 07/06/19 17:17 Infused STAT STA Infusion Magnesium Sulfate/Dextrose 100 mls @ 200 mls/hr 07/06/19 17:05 07/06/19 17:55 Magnesium 1 Gm / 100 Ml D5w IV 07/06/19 17:34 200 mls/hr STAT ONE Administration Sodium Chloride 1,000 mls @ 999 mls/hr 07/06/19 17:05 07/06/19 18:59 Sodium Chloride 0.9% 1000 Ml IV 07/06/19 18:05 Infused .Q1H1M STA Infusion Magnesium Sulfate/Dextrose Confirm 07/06/19 17:11 Magnesium 1 Gm / 100 Ml D5w Administered 07/06/19 17:12 Dose 100 mls @ ud IV .STK-MED ONE Ceftriaxone Sodium/Dextrose Confirm 07/06/19 17:29 Rocephin 1 Gm-D5w 50 Ml Bag Administered 07/06/19 17:30 Dose 1 g in 50 mls @ ud IV .STK-MED ONE Azithromycin Confirm 07/06/19 18:25 Zithromax 500 Mg/ 250 Ml Nacl Premix Administered 07/06/19 18:26 Dose 500 mg in 250 mls @ ud IV .STK-MED ONE Levalbuterol HCl 1.25 mg 07/06/19 16:18 07/06/19 16:45 Xopenex 1.25 Mg/0.5 Ml Ud Nebule IH 07/06/19 16:19 1.25 mg STAT ONE Administration Levalbuterol HCl Confirm 07/06/19 16:49 Xopenex 1.25 Mg/0.5 Ml Ud Nebule Administered 07/06/19 16:50 Dose 1.25 mg IH .STK-MED ONE Sodium Chloride Confirm 07/06/19 16:50 Sodium Chloride 3 Ml Ud Nebules Administered 07/06/19 16:51 Dose 3 ml IH .STK-MED ONE Lab/Rad Data: Laboratory Result Diagrams 07/06/19 16:15 07/06/19 16:15 Laboratory Results 07/06/19 07/06/19 07/06/19 Range/Units 17:39 17:30 16:15 WBC (4.0-10.5) K/mm3 RBC (4.1-5.4) M/mm3 Hgb (12.0-16.0) gm/dl Hct (35-47) % MCV (78-100) fl MCH (26-32) pg MCHC (32-36) g/dl RDW (11.5-14.0) % Plt Count (150-450) K/mm3 MPV (7.5-11.0) fl Gran % (36.0-66.0) % Eos # (Auto) (0-0.5) Absolute Lymphs (auto) (1.0-4.6) Absolute Monos (auto) (0.0-1.3) Lymphocytes % (24.0-44.0) % Monocytes % (0.0-12.0) % Eosinophils % (0.00-5.0) % Basophils % (0.0-0.4) % Absolute Granulocytes (1.4-6.9) Basophils # (0-0.4) D-Dimer (215-500) ng/mL Sodium (137-145) mmol/L Potassium (3.5-5.1) mmol/L Chloride (98-107) mmol/L Carbon Dioxide (22-30) mmol/L Anion Gap (5-15) MEQ/L BUN (7-17) mg/dL Creatinine (0.52-1.04) mg/dL Estimated GFR ML/MIN Glucose (74-106) mg/dL Calcium (8.4-10.2) mg/dL Magnesium (1.6-2.3) mg/dL Total Bilirubin (0.2-1.3) mg/dL AST (14-36) U/L ALT (0-35) U/L Alkaline Phosphatase (38-126) U/L Troponin I < 0.012 (0.000-0.034) ng/mL NT-Pro-B Natriuret Pep (0-900) pg/mL Serum Total Protein (6.3-8.2) g/dL Albumin (3.5-5.0) g/dL Urine Color YELLOW (YELLOW) Urine Appearance CLEAR (CLEAR) Urine pH 6.0 (5-6) Ur Specific [place] 1.011 (1.005-1.025) Urine Protein NEGATIVE (Negative) Urine Ketones NEGATIVE (NEGATIVE) Urine Blood NEGATIVE (0-5) Abilio/ul Urine Nitrite NEGATIVE (NEGATIVE) Urine Bilirubin NEGATIVE (NEGATIVE) Urine Urobilinogen NEGATIVE (0-1) mg/dL Ur Leukocyte Esterase TRACE (NEGATIVE) Urine WBC (Auto) 6-10 (0-5) /HPF Urine RBC (Auto) 3-5 (0-2) /HPF U Epithel Cells (Auto) RARE (FEW) /HPF Urine Bacteria (Auto) NONE SEEN (NEGATIVE) /HPF Urine Mucus (Auto) SLIGHT (NEGATIVE) /HPF Urine Culture Reflexed NO (NO) Urine Glucose NEGATIVE (NEGATIVE) mg/dL Influenza Type A Ag NEGATIVE (NEGATIVE) Influenza Type B Ag NEGATIVE (NEGATIVE) RSV (PCR) NEGATIVE (Negative) 07/06/19 07/06/19 07/06/19 Range/Units 16:15 16:15 16:15 WBC 5.4 (4.0-10.5) K/mm3 RBC 4.33 (4.1-5.4) M/mm3 Hgb 12.5 (12.0-16.0) gm/dl Hct 39.2 (35-47) % MCV 90.5 (78-100) fl MCH 28.9 (26-32) pg MCHC 31.9 L (32-36) g/dl RDW 15.2 H (11.5-14.0) % Plt Count 206 (150-450) K/mm3 MPV 9.7 (7.5-11.0) fl Gran % 70.1 H (36.0-66.0) % Eos # (Auto) 0.10 (0-0.5) Absolute Lymphs (auto) 1.09 (1.0-4.6) Absolute Monos (auto) 0.39 (0.0-1.3) Lymphocytes % 20.3 L (24.0-44.0) % Monocytes % 7.3 (0.0-12.0) % Eosinophils % 1.9 (0.00-5.0) % Basophils % 0.4 (0.0-0.4) % Absolute Granulocytes 3.76 (1.4-6.9) Basophils # 0.02 (0-0.4) D-Dimer 604 H* (215-500) ng/mL Sodium 141 (137-145) mmol/L Potassium 5.0 (3.5-5.1) mmol/L Chloride 100 (98-107) mmol/L Carbon Dioxide 31 H (22-30) mmol/L Anion Gap 15.0 (5-15) MEQ/L BUN 44 H (7-17) mg/dL Creatinine 0.97 (0.52-1.04) mg/dL Estimated GFR > 60.0 ML/MIN Glucose 110 H (74-106) mg/dL Calcium 9.4 (8.4-10.2) mg/dL Magnesium 1.2 L (1.6-2.3) mg/dL Total Bilirubin 0.60 (0.2-1.3) mg/dL AST 31 (14-36) U/L ALT 23 (0-35) U/L Alkaline Phosphatase 96 (38-126) U/L Troponin I (0.000-0.034) ng/mL NT-Pro-B Natriuret Pep 102 (0-900) pg/mL Serum Total Protein 8.1 (6.3-8.2) g/dL Albumin 4.3 (3.5-5.0) g/dL Urine Color (YELLOW) Urine Appearance (CLEAR) Urine pH (5-6) Ur Specific [place] (1.005-1.025) Urine Protein (Negative) Urine Ketones (NEGATIVE) Urine Blood (0-5) Abilio/ul Urine Nitrite (NEGATIVE) Urine Bilirubin (NEGATIVE) Urine Urobilinogen (0-1) mg/dL Ur Leukocyte Esterase (NEGATIVE) Urine WBC (Auto) (0-5) /HPF Urine RBC (Auto) (0-2) /HPF U Epithel Cells (Auto) (FEW) /HPF Urine Bacteria (Auto) (NEGATIVE) /HPF Urine Mucus (Auto) (NEGATIVE) /HPF Urine Culture Reflexed (NO) Urine Glucose (NEGATIVE) mg/dL Influenza Type A Ag (NEGATIVE) Influenza Type B Ag (NEGATIVE) RSV (PCR) (Negative) - Progress Progress: unchanged Discussed with : Ratna (obs) Will see patient in: hospital (observation) Counseled pt/family regarding: lab results, rad results - Departure Departure Disposition: Observation Clinical Impression: Hypomagnesemia, Chest pain, Dehydration, Cardiac dysrhythmia, HTN (hypertension ), Coronary artery disease, copd, Diabetes, Asthma Condition: Stable Critical Care Time: No Referrals: NINA FLORES [Primary Care Provider] -
[2019-07-06 16:36] LABS: Absolute Neutrophil Ct (ANC) 3.76 (1.4-6.9); BASOPHIL % 0.4 % (0.0-0.4); Basophil (Absolute #) 0.02 (0-0.4); Eosinophil % 1.9 % (0.00-5.0); Hematocrit 39.2 % (35-47); Hemoglobin 12.5 gm/dl (12.0-16.0); Lymphocyte (Absolute #) 1.09 (1.0-4.6); Lymphocytes % 20.3 % (24.0-44.0); Mean Cell Volume 90.5 fl (78-100); Mean Corpuscular Hemoglobin 28.9 pg (26-32); Mean Corpuscular Hgb Concent. 31.9 g/dl (32-36); Mean Platelet Volume 9.7 fl (7.5-11.0); Monocyte (Absolute #) 0.39 (0.0-1.3); Monocytes % 7.3 % (0.0-12.0); Neutrophil % 70.1 % (36.0-66.0); Platelet Count 206 K/mm3 (150-450); Red Blood Count 4.33 M/mm3 (4.1-5.4); Red Cell Distribution Width 15.2 % (11.5-14.0); White Blood Count 5.4 K/mm3 (4.0-10.5)
[2019-07-06] MEDS ORDERED: Sodium Chloride 3 ML UD NEBULES IH ONE (16:50)
[2019-07-06 16:56] LABS: ALBUMIN 4.3 g/dL (3.5-5.0); ALKALINE PHOSPHATASE 96 U/L (38-126); BLOOD UREA NITROGEN 44 mg/dL (7-17); CHLORIDE 100 mmol/L (98-107); Calcium 9.4 mg/dL (8.4-10.2); Carbon Dioxide 31 mmol/L (22-30); Creatinine 1 0.97 mg/dL (0.52-1.04); Glucose 110 mg/dL (74-106); MAGNESIUM 1.2 mg/dL (1.6-2.3); NT PRO BNP 102 pg/mL (0-900); SGOT/AST 31 U/L (14-36); SGPT/ALT 23 U/L (0-35); SODIUM 141 mmol/L (137-145); Total Protein 8.1 g/dL (6.3-8.2)
[2019-07-06] MEDS ORDERED: Sodium Chloride 0.9% 1000 ML 1,000 ML IV STA (17:05)
[2019-07-06] MEDS ORDERED: Magnesium 1 Gm / 100 Ml D5W*** 100 ML IV ONE ×2 (17:05→17:11)
[2019-07-06] MEDS ORDERED: ROCEPHIN 1 Gm-D5w 50 ml Bag** 1 G/50 ML IVPB IV ONE (17:29)
[2019-07-06 17:55] LABS: Appearance CLEAR (CLEAR); Bacteria NONE SEEN /HPF (NEGATIVE); Bilirubin NEGATIVE (NEGATIVE); Blood NEGATIVE Ery/ul (0-5); Epithelial Cells RARE /HPF (FEW); Glucose NEGATIVE (NEGATIVE); Ketones NEGATIVE (NEGATIVE); Leukocyte Esterase TRACE (NEGATIVE); Mucus SLIGHT /HPF (NEGATIVE); Nitrite NEGATIVE (NEGATIVE); Protein,Urine Dip NEGATIVE (Negative); Specific Gravity 1.011 (1.005-1.025); Urobilinogen NEGATIVE mg/dL (0-1)
[2019-07-06 18:13] LABS: INFLUENZA A NEGATIVE (NEGATIVE); INFLUENZA B NEGATIVE (NEGATIVE); RESPIRATORY SYNCTIAL VIRUS NEGATIVE (Negative)
[2019-07-06] MEDS ORDERED: Zithromax 500 MG/ 250 ML NaCl Premix 500 MG/250 ML IVPB IV ONE (18:25)
[2019-07-06] MEDS: Sodium Chloride 0.9% 1000 ML 1,000 ML IV SCH ×2 (19:00→20:57)
--- NOTE | 2019-07-06 19:18 | XRAY ---
Indication: Short of breath and weakness. Elevated d-dimer. History cervical cancer. Multiple contiguous axial images obtained through the chest using 80 cc Isovue 370 contrast and PE protocol. Comparison: Conventional CT chest with contrast October 15, 2018. There is good opacification of the pulmonary arteries to include the lobar and segmental branches. No filling defect or pulmonary embolus. Heart is not enlarged again demonstrating CABG surgery. Aorta again demonstrates minimal calcifications without aneurysm/dissection. Stable mediastinal and bilateral hilar calcified nodes. No pathologic mediastinal/hilar lymphadenopathy. Lungs again demonstrates scattered bilateral subsegmental atelectasis/scarring greatest in both lower lobes. No suspicious pulmonary mass, infiltrate, or effusion. Bony thorax intact again with mild degenerative changes throughout the spine and sternotomy wires. Limited upper abdomen demonstrates fatty liver and hepatic/splenic calcified granulomas. Impression: 1. Negative pulmonary embolus. 2. Stable scattered subsegmental atelectasis/scarring and evidence for old granulomatous disease. 3. No new or acute cardiopulmonary abnormalities. Comment: Preliminary interpretation was made by [facility]. No critical discrepancy.
--- NOTE | 2019-07-06 19:20 | XRAY ---
Indication: Right-sided pain. Comparison: December 08, 2016. PA/lateral chest demonstrates new bilateral mid to lower lung subsegmental atelectasis/scarring. No focal infiltrate, consolidation, or large effusion. Heart is not enlarged with interval CABG surgery. Bony thorax intact again with mild degenerative changes. Impression: New CABG surgery and scattered subsegmental atelectasis/scarring. Negative for acute pneumonic process or CHF.
[2019-07-06] MEDS ORDERED: BABY ASPIRIN 81 MG CHEW PO ONE (20:47)
[2019-07-06] MEDS ORDERED: Zofran 4 MG/2 ML VIAL IV PRN (20:49)
[2019-07-06] MEDS ORDERED: HUMALOG SQ PRN (20:49)
[2019-07-06] MEDS ORDERED: TYLENOL 325 MG PO PRN (20:49)
[2019-07-06] MEDS ORDERED: Nitrostat 0.4 MG Tablet SL PRN (20:49)
[2019-07-06] MEDS ORDERED: BABY ASPIRIN 81 MG CHEW ONE (20:54)
[2019-07-06] MEDS ORDERED: Sodium Chloride 0.9% 1000 ML 1,000 ML IV SCH (21:00)
[2019-07-06] MEDS ORDERED: PROVENTIL 2.5 MG/3 ML NEB IH PRN (22:26)
[2019-07-06] MEDS ORDERED: PROVENTIL 2.5 MG/3 ML NEB IH SCH (23:00)
[2019-07-06] MEDS ORDERED: Lopressor 50 MG PO ONE (23:21)
[2019-07-06] MEDS ORDERED: Klor Con 10 MEQ PO ONE (23:22)
[2019-07-06] MEDS ORDERED: NON-FORMULARY ITEM PO ONE (23:23)
[2019-07-07 05:57] LABS: Absolute Neutrophil Ct (ANC) 3.24 (1.4-6.9); BASOPHIL % 0.4 % (0.0-0.4); Basophil (Absolute #) 0.02 (0-0.4); Eosinophil % 2.2 % (0.00-5.0); Hematocrit 35.8 % (35-47); Hemoglobin 11.6 gm/dl (12.0-16.0); Lymphocyte (Absolute #) 0.91 (1.0-4.6); Lymphocytes % 20.2 % (24.0-44.0); Mean Cell Volume 91.6 fl (78-100); Mean Corpuscular Hemoglobin 29.7 pg (26-32); Mean Corpuscular Hgb Concent. 32.4 g/dl (32-36); Mean Platelet Volume 9.2 fl (7.5-11.0); Monocyte (Absolute #) 0.23 (0.0-1.3); Monocytes % 5.1 % (0.0-12.0); Neutrophil % 72.1 % (36.0-66.0); Platelet Count 171 K/mm3 (150-450); Red Blood Count 3.91 M/mm3 (4.1-5.4); Red Cell Distribution Width 15.1 % (11.5-14.0); White Blood Count 4.5 K/mm3 (4.0-10.5)
[2019-07-07] MEDS: DUONEB 0.5-3 MG/3 ml Neb IH SCH ×2 (06:41→10:41)
[2019-07-07 06:52] LABS: ALBUMIN 3.7 g/dL (3.5-5.0); ALKALINE PHOSPHATASE 88 U/L (38-126); ANION GAP 11.7 MEQ/L (5-15); BLOOD UREA NITROGEN 37 mg/dL (7-17); CHLORIDE 105 mmol/L (98-107); Calcium 8.6 mg/dL (8.4-10.2); Carbon Dioxide 29 mmol/L (22-30); Creatinine 1 0.84 mg/dL (0.52-1.04); Glucose 129 mg/dL (74-106); Potassium 4.3 mmol/L (3.5-5.1); SGOT/AST 22 U/L (14-36); SGPT/ALT 19 U/L (0-35); SODIUM 141 mmol/L (137-145); Total Protein 7.2 g/dL (6.3-8.2)
[2019-07-07 08:09] VITALS: BP 116/59; O2SAT 94
[2019-07-07] MEDS ORDERED: ECOTRIN 81 MG PO SCH (10:00)
[2019-07-07] MEDS ORDERED: BABY ASPIRIN 81 MG CHEW PO SCH (10:00)
[2019-07-07] MEDS ORDERED: PATIENT OWN MEDICATION IH SCH (10:00)
[2019-07-07] MEDS ORDERED: MAG-OX 400 PO ONE (10:45)
[2019-07-07 10:46] VITALS: PULSE 77
== END 2019-07-07 11:27 | disposition home or self-care (01) ==
LOC: ED 15:44 → MED SURG 21:09
PROVIDERS: ADMIT Family Medicine; ATTEND Family Medicine
DX: R07.9 Chest pain, unspecified (principal); J44.9 Chronic obstructive pulmonary disease, unspecified; E86.0 Dehydration; I10 Essential (primary) hypertension; E83.42 Hypomagnesemia; E11.9 Type 2 diabetes mellitus without complications; E78.00 Pure hypercholesterolemia, unspecified; Z99.81 Dependence on supplemental oxygen; Z79.899 Other long term (current) drug therapy
CPT/HCPCS: 36000; 36415; 71046; 71260; 80053; 81001; 82962; 83735; 83880; 84484; 85025; 85379; 87040; 87631; 93005; 93041; 93268; 94150; 94640; 94760; 94762; 96360; 96361; 96365; 96367; 99285; G0378; J0456; J0696; J3475; J7609; A9270-GY

== ENCOUNTER 2019-12-20 16:36 | Inpatient (IN) | payer MEDICARE ==
[2019-12-20] MEDS ORDERED: TYLENOL EXTRA STRENGTH 500 MG PO PRN (17:28)
[2019-12-20] MEDS ORDERED: Zofran 4 MG/2 ML VIAL IV PRN (17:30)
[2019-12-20 18:25] LABS: Hematocrit 37.2 % (35-47); Mean Cell Volume 94.7 fl (78-100); Mean Corpuscular Hemoglobin 30.5 pg (26-32); Mean Corpuscular Hgb Concent. 32.3 g/dl (32-36); Mean Platelet Volume 9.3 fl (7.5-11.0); Platelet Count 171 K/mm3 (150-450); Red Blood Count 3.93 M/mm3 (4.1-5.4); Red Cell Distribution Width 13.7 % (11.5-14.0)
[2019-12-20 18:38] LABS: ALKALINE PHOSPHATASE 91 U/L (38-126); ANION GAP 11.8 MEQ/L (5-15); BLOOD UREA NITROGEN 16 mg/dL (7-17); CHLORIDE 103 mmol/L (98-107); Calcium 8.9 mg/dL (8.4-10.2); Carbon Dioxide 23 mmol/L (22-30); Creatinine 1 0.58 mg/dL (0.52-1.04); EST GLOMERULAR FILTRATION RATE > 60.0 ML/MIN; Glucose 158 mg/dL (74-106); Potassium 3.9 mmol/L (3.5-5.1); SGOT/AST 24 U/L (14-36); SGPT/ALT 22 U/L (0-35); SODIUM 134 mmol/L (137-145); Total Protein 7.7 g/dL (6.3-8.2)
[2019-12-20] MEDS ORDERED: Nitrostat 0.4 MG Tablet SL PRN (19:16)
--- NOTE | 2019-12-20 19:16 | XRAY ---
Indication: Cellulitis. Comparison: None AP/lateral left lower leg demonstrates multiple posterior medial surgical clips and small heel spurs. No other bony, articular, or soft tissue abnormalities.
--- NOTE | 2019-12-20 19:16 | XRAY ---
Indication: Cellulitis. Comparison: None 3 view left ankle demonstrates multiple posterior medial lower leg surgical clips, mild ankle soft tissue swelling, and small heel spurs. No other bony, articular, or soft tissue abnormalities.
--- NOTE | 2019-12-20 19:18 | XRAY ---
Indication: Cellulitis. Comparison: None 3 nonweight bearing views left foot demonstrates mild 1st MTP degenerative changes, mild midfoot degenerative changes, small heel spurs, and mild forefoot soft tissue swelling. No other bony, articular, or soft tissue abnormalities.
[2019-12-20] MEDS ORDERED: DUONEB 0.5-3 MG/3 ml Neb IH ONE (19:27)
[2019-12-20] MEDS: DUONEB 0.5-3 MG/3 ml Neb IH SCH (19:43)
--- NOTE | 2019-12-20 20:21 | PCM.CONS ---
Podiatry HPI - Consult Date of Consultation Date: 12/20/19 Reason for Consult: Left lower extremity cellulitis with plantar foot wounds. Consulting Provider: GEE STARKS DPM - [facility] History of Present Illness: is a 69 year old femaleWho presents with admission for left lower extremity cellulitis. Patient states that this began a couple of days ago when her 1-year-old granddaughter accidentally kicked her left lower extremity. Since then she has been experiencing an increase in warmth redness and swelling to the left lower extremity which causes her significant pain. She is very well-known to my practice she was seen last on November 25 where she was healed of the bilateral lower extremity wounds and was advised to proceed with compression stockings to be worn on a daily basis with her feet in a dependent position or ambulation status. Today she presents with multiple excoriation wounds on her left and right foot particularly located to the sulcus. She does admit to chills however denies nausea vomiting fevers shortness of breath chest pain or cough. She endorses acute pain to the bilateral lower extremities which is altered for her being a neuropathic. She is a type II diabetic. She currently denies any other pedal complaints at this time. Medications & Allergies Home Medications: Home Medication List Furosemide 20 mg [Lasix 20 mg] 40 mg PO DAILY 12/08/16 [History Confirmed 12/20/19] Loratadine 10 mg [Claritin 10 mg] 10 mg PO DAILY 12/08/16 [History Confirmed 12/20/19] Nitroglycerin 0.4 mg Tablet [Nitrostat 0.4 MG Tablet] 0.4 mg SL Q5MIN PRN MR X 3 PRN 12/08/16 [History Confirmed 12/20/19] Aspirin EC 81 mg [Ecotrin 81 mg] 81 mg PO DAILY #0 02/17/17 [Rx Confirmed 12/20/19] Albuterol Sulfate Mdi [Proair Hfa MDI] 2 inh PO Q4H 07/06/19 [History Confirmed 12/20/19] Albuterol/Ipratropium 3ml Neb* [DUONEB 0.5-3 MG/3 ml Neb] 1 amp IH QID 07/06/19 [History Confirmed 12/20/19] Calcium Carbonate/Vitamin D3 [Calcium 600 + Vit D 400 Tablet] 1 each PO DAILY 07/06/19 [History Confirmed 12/20/19] Ferrous Sulfate, Dried [Iron] 65 mg PO BID 07/06/19 [History Confirmed 12/20/19] Metformin HCl 500 mg [Glucophage 500 MG] 500 mg PO TID 07/06/19 [History Confirmed 12/20/19] Multivitamin W-Minerals/Lutein [Centrum Silver Tablet] 1 tablet PO DAILY 07/06/19 [History Confirmed 12/20/19] PANTOPRAZOLE 40 mg Tablet [Protonix 40MG Tablet] 40 mg PO QAM 07/06/19 [History Confirmed 12/20/19] Potassium Chloride 10 meq PO DAILY 07/06/19 [History Confirmed 12/20/19] Tiotropium Br/Olodaterol HCl [Stiolto Respimat Inhal Thatcher] 4 gm IH DAILY 07/06/19 [History Confirmed 12/20/19] lisinopriL [Lisinopril] 2.5 mg PO DAILY 07/06/19 [History Confirmed 12/20/19] Acetaminophen 500 mg [Tylenol Extra Strength 500 mg] 500 mg PO Q4H PRN PRN 12/20/19 [History Confirmed 12/20/19] Allergies/Adverse Reactions: Allergies Allergy/AdvReac Type Severity Reaction Status Date / Time adhesive Allergy Intermediate Rash Verified 07/06/19 21:45 diphenhydramine HCl Allergy Mild Rash Verified 07/06/19 21:45 [From Benadryl] nalbuphine HCl [From Nubain] Allergy Mild Rash Verified 07/06/19 21:45 Penicillins Allergy Mild Rash Verified 07/06/19 21:45 gabapentin [From Neurontin] Allergy Vomiting Verified 07/06/19 21:45 - Past Medical History Past Medical History: Yes Neurological History: No Pertinent History ENT History: No Pertinent History Cardiac History: Coronary Artery Disease, High Cholesterol, Hypertension, Myocardial Infarction (ME) Respiratory History: Asthma, CHF, COPD, Emphysema Endocrine Medical History: Diabetes Type II Musculoskelatal History: Arthritis GI Medical History: Diverticulosis, Gallbladder Disease History: No Pertinent History Pyscho-Social History: No Pertinent History Reproductive Disorders: No Pertinent History Comment: Pt. 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 x2 - Social History Smoking Status: Former smoker How long have you smoked: 63 years Exposure to second hand smoke: No Alcohol: None Drug Use: none Physical Exam - Narrative Narrative Physical Exam: Podiatry Physical Exam Vascular: DP pulses palpable bilaterally however the posterior tibial pulse is absent. Her capillary refill time is less than 5 seconds to the bilateral hallux. There is absent pedal hair growth growth to the bilateral lower extremity in toto. The left leg there is cellulitis that extends from the dorsal aspect of the digits to the mid pre-tibial area. There is no lymphadenopathy on palpation of the inguinal or popliteal lymph nodes. There is no ascending lymphangitis. There is 3+ pitting edema to the bilateral lower extremity to the level of the tibial tuberosity. Left greater than right in this respect. Extremely tender to touch. Neurological: Protective sensation is diminished to the bilateral lower extremity Dermatological: There are multiple fissures on the bottom of the foot that expose desquamated areas of freshly epithelialized skin. These are tender to palpation and with motion of the bilateral extremity there is heavy hyperkeratosis and exfoliation to the plantar aspect of the foot. The skin is taut and shiny to the level of the pretibial area of the left lower extremity with significant erythema. Right lower extremity is taut and shiny however lacks the erythema of the left and is lesser in size. Musculoskeletal exam: Patient deferred due to pain to the bilateral lower extremity however she is extremely tender to touch. Radiology: Radiographs 3 views nonweightbearing of the ankle showing no soft tissue abnormalities. There is no soft tissue emphysema. There is a decrease in bone mineral deposition. Radiographs 3 views nonweightbearing of the left foot demonstrating no soft tissue abnormalities. There is no soft tissue emphysema identified. There is a decrease in the bone mineral deposition particularly with cystic changes to the metatarsal heads 1-3 and 4 Radiographs 2 views nonweightbearing of the left tib-fib showing no soft tissue emphysema. Venous unilateral left leg Doppler: Negative for DVT Arterial ABIs: ABIs are within normal limits Results - Labs Lab/Micro Results: Lab Results-Last 24 Hours 12/20/19 12/20/19 12/20/19 Range/Units 18:15 18:15 18:15 WBC 6.0 (4.0-10.5) K/mm3 RBC 3.93 L (4.1-5.4) M/mm3 Hgb 12.0 (12.0-16.0) gm/dl Hct 37.2 (35-47) % MCV 94.7 (78-100) fl MCH 30.5 (26-32) pg MCHC 32.3 (32-36) g/dl RDW 13.7 (11.5-14.0) % Plt Count 171 (150-450) K/mm3 MPV 9.3 (7.5-11.0) fl Sodium 134 L (137-145) mmol/L Potassium 3.9 (3.5-5.1) mmol/L Chloride 103 (98-107) mmol/L Carbon Dioxide 23 (22-30) mmol/L Anion Gap 11.8 (5-15) MEQ/L BUN 16 (7-17) mg/dL Creatinine 0.58 (0.52-1.04) mg/dL Estimated GFR > 60.0 ML/MIN Glucose 158 H (74-106) mg/dL Hemoglobin A1c 6.78 H (4.5-6.0) % Calcium 8.9 (8.4-10.2) mg/dL Total Bilirubin 1.30 (0.2-1.3) mg/dL AST 24 (14-36) U/L ALT 22 (0-35) U/L Alkaline Phosphatase 91 (38-126) U/L Serum Total Protein 7.7 (6.3-8.2) g/dL Albumin 4.0 (3.5-5.0) g/dL - Radiology Impressions Radiology Exams & Impressions: Radiology Procedures Category Date Time Status ANKLE (3 VIEWS) Routine Exams 12/20/19 18:10 Completed ARTERIAL UNILAT/LTD LOWER EXT [US] Stat Exams 12/20/19 19:42 Taken FOOT (MINIMUM 3 VIEWS) Routine Exams 09/04/20 18:10 Completed LOWER LEG Routine Exams 12/20/19 18:10 Completed VENOUS UNILAT/LIMITED EXTREMIT [US] Stat Exams 12/20/19 19:42 Taken - Other Procedures and Tests Respiratory Therapy 12/20/19 17:20 Oxygen Nasal Cannula 2 lpm 12/20/19 19:32 Respiratory Therapy Assessment DAILY 12/20/19 19:33 Peak Expiratory Flow Rate ONCE Assessment/Plan (1) Cellulitis of left leg Current Visit: Yes Status: Acute Assessment & Plan: Patient assessment and examination. Reviewed radiographs and discussed with patient Reviewed venous ultrasound and results of noninvasive vascular testing with patient and discussed options Due to the negative nature of her venous ultrasound and the noninvasive vascular testing being adequate I recommend at this time compression therapy in order to reduce the amount of edema to the bilateral lower extremity in a multilayer compression dressing. This will be changed on a daily basis as to monitor the cellulitis. At this time a line was drawn with a skin marker at the current level of cellulitis the leg was then painted with Betadine with particular interest to the fissures at the bottom of the foot in order to act as an astringent and an antiseptic. This was then covered with 4 x 4's in between the webspaces bilaterally and secured with Kerlix to the tibial tuberosity. At this time moderate compression was obtained utilizing 4 and 6 inch Lobo dressings. Patient is currently on ceftazidime and Diflucan by her primary care provider. We will continue this antibiotic regimen until the culture obtained today provide a sensitivity. Given the patient's white blood cell count at 6.0 and no obvious signs of constitutional infection no aggressive therapy from my standpoint is required at this time. Given the subjective complaints of extreme pain to the bilateral lower extremity, cramping sensations that are reproducible over certain distances Intermittent claudication,as well as rest pain I highly recommend a peripheral vascular surgery consult on discharge to fully assess her potential peripheral vascular disease. We will follow closely with you. Thank you Dr. Jay for the consult. Code(s): L03.116 - CELLULITIS OF LEFT LOWER LIMB (2) Venous stasis dermatitis of both lower extremities Current Visit: Yes Status: Acute Code(s): I87.2 - VENOUS INSUFFICIENCY (CHRONIC) (PERIPHERAL) (3) Diabetic foot ulcer Current Visit: Yes Status: Acute Code(s): E11.621 - TYPE 2 DIABETES MELLITUS WITH FOOT ULCER; L97.509 - NON-PRESSURE CHRONIC ULCER OTH PRT UNSP FOOT W UNSP SEVERITY
[2019-12-20] MEDS: TAZICEF IV SCH (21:02)
[2019-12-20] MEDS: FORTAZ IV SCH (21:02)
[2019-12-20] MEDS: Sodium Chloride 0.9% 1000 ML 1,000 ML IV SCH (21:02)
[2019-12-20] MEDS: SODIUM CHLORIDE 0.9% IV SCH (21:02)
[2019-12-20] MEDS: Diflucan/Saline 0.2G/100ML PREMIX*** 100 ML IV SCH (22:10)
--- NOTE | 2019-12-20 22:11 | XRAY ---
Indication: Left lower leg cellulitis. Two-dimensional sonogram and color Doppler imaging of the major venous vessels of the left leg was performed. Comparison: December 04, 2019. Again no thrombus seen in the examined deep venous vessels of the left leg including greater saphenous vein. Veins demonstrate normal compressibility. Venous waveforms are normal with and without augmentation. Impression: Left leg remains negative for DVT.
--- NOTE | 2019-12-20 22:11 | XRAY ---
Indication: Left lower leg cellulitis. Two-dimensional sonogram and color Doppler imaging of the major arteries of the left leg was performed. Comparison: None. Visualized common femoral, deep femoral, superficial femoral, popliteal, posterior tibial, and dorsal pedal arteries are negative for critical stenosis/obstruction. Arterial waveforms are monophasic throughout the left leg. Left brachial pressures 134. Left ankle pressure is 131. Ankle brachial index is 0.98, normal. Impression: Left leg arterial sonogram negative for critical stenosis/obstruction. Normal GLADIS 0.98.
[2019-12-21] MEDS: MORPHINE SULFATE 2 MG INJ IV PRN (02:05)
[2019-12-21] MEDS: FORTAZ IV SCH ×3 (06:42→21:36)
[2019-12-21] MEDS: SODIUM CHLORIDE 0.9% IV SCH ×3 (06:42→21:36)
[2019-12-21] MEDS: TAZICEF IV SCH ×3 (06:42→21:36)
[2019-12-21 06:49] LABS: Hematocrit 31.7 % (35-47); Hemoglobin 10.2 gm/dl (12.0-16.0); Mean Cell Volume 94.6 fl (78-100); Mean Corpuscular Hemoglobin 30.4 pg (26-32); Mean Corpuscular Hgb Concent. 32.2 g/dl (32-36); Mean Platelet Volume 9.5 fl (7.5-11.0); Platelet Count 162 K/mm3 (150-450); Red Blood Count 3.35 M/mm3 (4.1-5.4); Red Cell Distribution Width 13.7 % (11.5-14.0); White Blood Count 3.8 K/mm3 (4.0-10.5)
[2019-12-21 07:02] LABS: ALBUMIN 3.1 g/dL (3.5-5.0); ALKALINE PHOSPHATASE 60 U/L (38-126); ANION GAP 9.6 MEQ/L (5-15); BLOOD UREA NITROGEN 16 mg/dL (7-17); CHLORIDE 105 mmol/L (98-107); Calcium 8.1 mg/dL (8.4-10.2); Carbon Dioxide 26 mmol/L (22-30); Creatinine 1 0.64 mg/dL (0.52-1.04); EST GLOMERULAR FILTRATION RATE > 60.0 ML/MIN; Glucose 145 mg/dL (74-106); Potassium 3.5 mmol/L (3.5-5.1); SGOT/AST 21 U/L (14-36); SGPT/ALT 19 U/L (0-35); SODIUM 138 mmol/L (137-145); Total Protein 6.5 g/dL (6.3-8.2)
[2019-12-21] MEDS ORDERED: DUONEB 0.5-3 MG/3 ml Neb IH ONE (07:14)
[2019-12-21] MEDS: DUONEB 0.5-3 MG/3 ml Neb IH SCH ×4 (07:26→19:03)
[2019-12-21] MEDS: Advair Hfa 230/21 Mcg COMMON CANISTER IH SCH ×2 (07:27→19:03)
[2019-12-21] MEDS ORDERED: Nitrostat 0.4 MG Tablet SL PRN (07:53)
[2019-12-21] MEDS: FEOSOL 325 MG PO SCH ×2 (09:24→21:34)
[2019-12-21] MEDS: ECOTRIN 81 MG PO SCH (09:24)
[2019-12-21] MEDS: Lasix 40 MG PO SCH (09:24)
[2019-12-21] MEDS: CLARITIN 10 MG PO SCH (09:24)
[2019-12-21] MEDS: Zestril 5 MG PO SCH (09:25)
[2019-12-21] MEDS: Klor Con 10 MEQ PO SCH (09:25)
[2019-12-21] MEDS: Protonix 40MG Tablet PO SCH (09:25)
[2019-12-21] MEDS: THERAGRAN MULTIVITAMIN PO SCH (09:26)
[2019-12-21] MEDS ORDERED: LUTEIN PO SCH (10:00)
[2019-12-21] MEDS ORDERED: MULTIVITAMIN W MINERALS PO SCH (10:00)
[2019-12-21] MEDS ORDERED: NON-FORMULARY ITEM (Potassium Chloride [Potassium Chloride] 10 MEQ) PO SCH (10:00)
[2019-12-21] MEDS ORDERED: FERROUS SULFATE DRIED 65 MG PO SCH (10:00)
[2019-12-21] MEDS ORDERED: LASIX 20 MG PO SCH (10:00)
[2019-12-21] MEDS ORDERED: APRESOLINE 20 MG/ML INJ IV PRN (12:22)
[2019-12-21] MEDS: Sodium Chloride 0.9% 1000 ML 1,000 ML IV SCH (12:22)
[2019-12-21] MEDS: HUMALOG SQ PRN (12:50)
[2019-12-21 13:20] LABS: Appearance SLIGHTLY CLOUDY (CLEAR); Bacteria RARE /HPF (NEGATIVE); Bilirubin NEGATIVE (NEGATIVE); Blood NEGATIVE Ery/ul (0-5); Epithelial Cells FEW /HPF (FEW); Glucose NEGATIVE (NEGATIVE); Ketones TRACE (NEGATIVE); Leukocyte Esterase NEGATIVE (NEGATIVE); Mucus SLIGHT /HPF (NEGATIVE); Nitrite NEGATIVE (NEGATIVE); Protein,Urine Dip 100 (Negative); Specific Gravity 1.028 (1.005-1.025); Urobilinogen 4 mg/dL (0-1)
--- NOTE | 2019-12-21 14:08 | PCM.NOTE ---
Date and Time: 12/21/19 1403 Subjective Assessment: Pt denies pain while resting and with legs elevated; does have pain if she is up to the bathroom. Tolerating po well. Had some BP just after admission of 170s systolic. - Review of Systems Constitutional: No Fever Skin: Cellulitis Objective Exam General Appearance: no apparent distress, obese Neurologic Exam: alert, oriented x 3, cooperative Skin Exam: warm, dry, other (bilat legs with veronica wraps), No rash Wound Assessment: Skin/Wound Assessment Wound/Incision Assessment Start: 12/20/19 20:00 Text: Status: Active Freq: Q6H Protocol: Document 12/21/19 08:00 BE (Rec: 12/21/19 09:13 BE [id number]) Wound/Incision Assessment BLE Wound Assessment Shift Assessment Wound Type cellulitis Wound Stage Non Pressure Wound Dressing Status Dry & Intact Drainage Amount None Primary Dressing Non-Adherent Gauze Pads Secondary Dressing Gauze Roll/Wrap Comment elastic bandage in place, CDI - [employer] to do daily changes Wound Photo Photo Taken Yes Comment: see paper chart Eye Exam: eyes nml inspection Ears, Nose, Throat Exam: moist mucous membranes Respiratory Exam: normal breath sounds, lungs clear, No crackles/rales, No rh onchi, No wheezing Cardiovascular Exam: regular rate/rhythm, normal heart sounds, No murmur Gastrointestinal/Abdomen Exam: soft, normal bowel sounds, No tenderness, No distention Extremity Exam: other (wrapped as above) OBJECTIVE DATA Vital Signs: Vital Signs - 24 hr Temp Pulse Resp BP Pulse Ox 12/21/19 12:00 97.9 F 82 20 114/56 93 L 12/21/19 10:49 77 16 96 12/21/19 07:34 79 18 93 L 12/21/19 07:21 98.4 F 59 L 20 120/59 95 12/21/19 04:00 98.9 F 84 20 121/62 95 12/21/19 00:00 20 12/20/19 20:00 98.0 F 88 22 176/76 92 L 12/20/19 19:50 88 22 92 L 12/20/19 17:52 95 Oxygen-Last 24 hours Oxygen Flowrate (L/min)-RT 2 Oxygen Flowrate (L/min)-RT 2 Pain Assessment - Last Documented Pain Intensity 8 Pain Scale Used FLACC Intake and Output: Intake & Output 12/19/19 12/20/19 12/21/19 12/22/19 11:59 11:59 11:59 11:59 Intake Total 1412 Output Total 300 Balance 1112 Weight 97.3 kg Lab Results: Accuchecks Date 12/21/19 Date 12/21/19 Date 12/20/19 Time 11:30 Time 07:30 Time 21:40 Accucheck Value: 208 Accucheck Value: 147 Accucheck Value: 168 Lab Results-Last 24 Hours 12/20/19 12/20/19 12/20/19 Range/Units 18:15 18:15 18:15 WBC 6.0 (4.0-10.5) K/mm3 RBC 3.93 L (4.1-5.4) M/mm3 Hgb 12.0 (12.0-16.0) gm/dl Hct 37.2 (35-47) % MCV 94.7 (78-100) fl MCH 30.5 (26-32) pg MCHC 32.3 (32-36) g/dl RDW 13.7 (11.5-14.0) % Plt Count 171 (150-450) K/mm3 MPV 9.3 (7.5-11.0) fl Sodium 134 L (137-145) mmol/L Potassium 3.9 (3.5-5.1) mmol/L Chloride 103 (98-107) mmol/L Carbon Dioxide 23 (22-30) mmol/L Anion Gap 11.8 (5-15) MEQ/L BUN 16 (7-17) mg/dL Creatinine 0.58 (0.52-1.04) mg/dL Estimated GFR > 60.0 ML/MIN Glucose 158 H (74-106) mg/dL POC Glucometer (74 to 106) mg/dL Hemoglobin A1c 6.78 H (4.5-6.0) % Calcium 8.9 (8.4-10.2) mg/dL Total Bilirubin 1.30 (0.2-1.3) mg/dL AST 24 (14-36) U/L ALT 22 (0-35) U/L Alkaline Phosphatase 91 (38-126) U/L Serum Total Protein 7.7 (6.3-8.2) g/dL Albumin 4.0 (3.5-5.0) g/dL Urine Color (YELLOW) Urine Appearance (CLEAR) Urine pH (5-6) Ur Specific [place] (1.005-1.025) Urine Protein (Negative) Urine Ketones (NEGATIVE) Urine Blood (0-5) Abilio/ul Urine Nitrite (NEGATIVE) Urine Bilirubin (NEGATIVE) Urine Urobilinogen (0-1) mg/dL Ur Leukocyte Esterase (NEGATIVE) Urine WBC (Auto) (0-5) /HPF Urine RBC (Auto) (0-2) /HPF U Hyaline Cast (Auto) (0-2) /LPF U Epithel Cells (Auto) (FEW) /HPF Urine Bacteria (Auto) (NEGATIVE) /HPF Urine Mucus (Auto) (NEGATIVE) /HPF Urine Culture Reflexed (NO) Urine Glucose (NEGATIVE) mg/dL 12/20/19 12/21/19 12/21/19 Range/Units 21:41 05:55 05:55 WBC 3.8 L (4.0-10.5) K/mm3 RBC 3.35 L (4.1-5.4) M/mm3 Hgb 10.2 L (12.0-16.0) gm/dl Hct 31.7 L (35-47) % MCV 94.6 (78-100) fl MCH 30.4 (26-32) pg MCHC 32.2 (32-36) g/dl RDW 13.7 (11.5-14.0) % Plt Count 162 (150-450) K/mm3 MPV 9.5 (7.5-11.0) fl Sodium 138 (137-145) mmol/L Potassium 3.5 (3.5-5.1) mmol/L Chloride 105 (98-107) mmol/L Carbon Dioxide 26 (22-30) mmol/L Anion Gap 9.6 (5-15) MEQ/L BUN 16 (7-17) mg/dL Creatinine 0.64 (0.52-1.04) mg/dL Estimated GFR > 60.0 ML/MIN Glucose 145 H (74-106) mg/dL POC Glucometer 168 H (74 to 106) mg/dL Hemoglobin A1c (4.5-6.0) % Calcium 8.1 L (8.4-10.2) mg/dL Total Bilirubin 0.90 (0.2-1.3) mg/dL AST 21 (14-36) U/L ALT 19 (0-35) U/L Alkaline Phosphatase 60 (38-126) U/L Serum Total Protein 6.5 (6.3-8.2) g/dL Albumin 3.1 L (3.5-5.0) g/dL Urine Color (YELLOW) Urine Appearance (CLEAR) Urine pH (5-6) Ur Specific [place] (1.005-1.025) Urine Protein (Negative) Urine Ketones (NEGATIVE) Urine Blood (0-5) Abilio/ul Urine Nitrite (NEGATIVE) Urine Bilirubin (NEGATIVE) Urine Urobilinogen (0-1) mg/dL Ur Leukocyte Esterase (NEGATIVE) Urine WBC (Auto) (0-5) /HPF Urine RBC (Auto) (0-2) /HPF U Hyaline Cast (Auto) (0-2) /LPF U Epithel Cells (Auto) (FEW) /HPF Urine Bacteria (Auto) (NEGATIVE) /HPF Urine Mucus (Auto) (NEGATIVE) /HPF Urine Culture Reflexed (NO) Urine Glucose (NEGATIVE) mg/dL 12/21/19 12/21/19 12/21/19 Range/Units 06:40 12:16 13:11 WBC (4.0-10.5) K/mm3 RBC (4.1-5.4) M/mm3 Hgb (12.0-16.0) gm/dl Hct (35-47) % MCV (78-100) fl MCH (26-32) pg MCHC (32-36) g/dl RDW (11.5-14.0) % Plt Count (150-450) K/mm3 MPV (7.5-11.0) fl Sodium (137-145) mmol/L Potassium (3.5-5.1) mmol/L Chloride (98-107) mmol/L Carbon Dioxide (22-30) mmol/L Anion Gap (5-15) MEQ/L BUN (7-17) mg/dL Creatinine (0.52-1.04) mg/dL Estimated GFR ML/MIN Glucose (74-106) mg/dL POC Glucometer 147 H 208 H (74 to 106) mg/dL Hemoglobin A1c (4.5-6.0) % Calcium (8.4-10.2) mg/dL Total Bilirubin (0.2-1.3) mg/dL AST (14-36) U/L ALT (0-35) U/L Alkaline Phosphatase (38-126) U/L Serum Total Protein (6.3-8.2) g/dL Albumin (3.5-5.0) g/dL Urine Color ASHA (YELLOW) Urine Appearance SLIGHTLY CLOUDY (CLEAR) Urine pH 5.0 (5-6) Ur Specific [place] 1.028 (1.005-1.025) Urine Protein 100 (Negative) Urine Ketones TRACE (NEGATIVE) Urine Blood NEGATIVE (0-5) Abilio/ul Urine Nitrite NEGATIVE (NEGATIVE) Urine Bilirubin NEGATIVE (NEGATIVE) Urine Urobilinogen 4 (0-1) mg/dL Ur Leukocyte Esterase NEGATIVE (NEGATIVE) Urine WBC (Auto) 6-10 (0-5) /HPF Urine RBC (Auto) NONE (0-2) /HPF U Hyaline Cast (Auto) 6-10 (0-2) /LPF U Epithel Cells (Auto) FEW (FEW) /HPF Urine Bacteria (Auto) RARE (NEGATIVE) /HPF Urine Mucus (Auto) SLIGHT (NEGATIVE) /HPF Urine Culture Reflexed YES (NO) Urine Glucose NEGATIVE (NEGATIVE) mg/dL Radiology Exams: Radiology Procedures Category Date Time Status ANKLE (3 VIEWS) Routine Exams 12/20/19 18:10 Completed ARTERIAL UNILAT/LTD LOWER EXT [US] Stat Exams 12/20/19 19:42 Completed FOOT (MINIMUM 3 VIEWS) Routine Exams 12/20/19 18:10 Completed LOWER LEG Routine Exams 12/20/19 18:10 Completed VENOUS UNILAT/LIMITED EXTREMIT [US] Stat Exams 12/20/19 19:42 Completed Assessment/Plan (1) Cellulitis of left leg Current Visit: Yes Status: Acute Assessment & Plan: on ceftazadime day #2 and fluconazole IV day #2. Appreciate podiatry consult, thank you! Code(s): L03.116 - CELLULITIS OF LEFT LOWER LIMB (2) HTN (hypertension) Current Visit: No Status: Acute Qualifiers: Hypertension type: essential hypertension Qualified Code(s): I10 - Essential (primary) hypertension Assessment & Plan: added hydralazine for prn control. Code(s): I10 - ESSENTIAL (PRIMARY) HYPERTENSION (3) Diabetic foot ulcer Current Visit: Yes Status: Acute Qualifiers: Diabetic foot ulcer location: unspecified part of foot Diabetes mellitus type: type 2 Laterality: unspecified laterality Non-pressure ulcer stage: unspecified non-pressure ulcer stage Qualified Code(s): E11.621 - Type 2 diabetes mellitus with foot ulcer; L97.509 - Non-pressure chronic ulcer of other part of unspecified foot with unspecified severity Code(s): E11.621 - TYPE 2 DIABETES MELLITUS WITH FOOT ULCER; L97.509 - NON- PRESSURE CHRONIC ULCER OTH PRT UNSP FOOT W UNSP SEVERITY (4) Venous stasis dermatitis of both lower extremities Current Visit: Yes Status: Chronic Code(s): I87.2 - VENOUS INSUFFICIENCY (CHRONIC) (PERIPHERAL) (5) Asthma Current Visit: No Status: Chronic Qualifiers: Asthma severity: unspecified severity Asthma persistence: intermittent Asthma complication type: uncomplicated Qualified Code(s): J45.20 - Mild intermittent asthma, uncomplicated Code(s): J45.909 - UNSPECIFIED ASTHMA, UNCOMPLICATED (6) Diabetes Current Visit: No Status: Acute Qualifiers: Diabetes mellitus type: type 2 Code(s): E11.9 - TYPE 2 DIABETES MELLITUS WITHOUT COMPLICATIONS (7) Chronic hypoxemic respiratory failure Current Visit: Yes Status: Chronic
[2019-12-21] MEDS: Diflucan/Saline 0.2G/100ML PREMIX*** 100 ML IV SCH (19:44)
[2019-12-21] MEDS: TYLENOL EXTRA STRENGTH 500 MG PO PRN (23:24)
[2019-12-22] MEDS: TAZICEF IV SCH ×3 (05:41→21:24)
[2019-12-22] MEDS: SODIUM CHLORIDE 0.9% IV SCH ×3 (05:41→21:24)
[2019-12-22] MEDS: FORTAZ IV SCH ×3 (05:41→21:24)
[2019-12-22] MEDS: Sodium Chloride 0.9% 1000 ML 1,000 ML IV SCH ×2 (05:41→21:24)
--- NOTE | 2019-12-22 07:29 | PCM.NOTE ---
Podiatry Narrative Note Podiatry Narrative Note: Podiatry progress note: Attending provider Les Whitley DPM Chief complaint: Cellulitis left lower extremity with ulceration Subjective: History of present illness: Alyce Robb is seen at bedside this morning she is seen for follow-up of left lower extremity cellulitis. On presentation she is resting comfortably in reclining chair. She endorses that in the last 2 days she has had episodes of chills however she endorses no other constitutional symptoms of infection. She states that the pain has largely subsided while her feet are elevated and she is resting in bed or in her reclining chair however she does experience some pain when she is ambulating and her feet are in a dependent position. She currently endorses no other pedal complaints. Objective: Vitals temperature 97.9 Temperature source oral Pulse rate 75 Respiratory rate 18 Pulse oximetry 96% on room air Blood pressure 134/64 Laboratory: Hematology: White blood cell 3.8 Red blood cell 3.35 Hemoglobin 10.2 Hematocrit 31.7 MCV 94.6 MCH 30.4 MCHC 32.2 RDW 13.7 Platelet count 162 MPV 9.5 Chemistry: Sodium 138 Potassium 3.5 chloride 105 Carbon dioxide 26 Anion gap 9.6 bun 16 Creatinine 0.64 Estimated GFR greater than 60 Glucose 145 POC glucometer 184 Hemoglobin A1c 6.78 Calcium 8.1 Total bilirubin 0.90 AST 21 ALT 19 Alkaline phosphate 60 Serum total protein 6.5 Albumin 3.1 Physical exam Vascular:Remains largely unchanged DP pulses palpable bilaterally however the posterior tibial pulse is absent. Her capillary refill time is less than 5 seconds to the bilateral hallux. There is absent pedal hair growth growth to the bilateral lower extremity in toto. The left leg cellulitis has diminished in size primarily to the posterior medial aspect of the lower extremity. There is some residual cellulitis that is identified on the anterior lateral aspect of the left leg that is darkening in color indicating there may be some hemosiderin deposition into the skin. Temperature remains the same to the bilateral lower extremity. Pitting edema has decreased from 3+2 days ago to 1+ to the bilateral lower extremity. Tenderness to touch is less than it was before. There is no lymphadenopathy on palpation of the inguinal or popliteal lymph nodes. There is no ascending lymphangitis. Neurological: Protective sensation is diminished to the bilateral lower extremity Dermatological: There are multiple fissures on the bottom of the foot that expose desquamated areas of freshly epithelialized skin. These are tender to palpation and with motion of the bilateral extremity there is heavy hyperkeratosis and exfoliation to the plantar aspect of the foot. The skin is taut and shiny to the level of the pretibial area of the left lower extremity with significant erythema. Right lower extremity is taut and shiny however lacks the erythema of the left and is lesser in size. Musculoskeletal exam: Patient deferred due to pain to the bilateral lower extremity however she is extremely tender to touch. Radiology: Radiographs 3 views nonweightbearing of the ankle showing no soft tissue abnormalities. There is no soft tissue emphysema. There is a decrease in bone mineral deposition. Radiographs 3 views nonweightbearing of the left foot demonstrating no soft tissue abnormalities. There is no soft tissue emphysema identified. There is a decrease in the bone mineral deposition particularly with cystic changes to the metatarsal heads 1-3 and 4 Radiographs 2 views nonweightbearing of the left tib-fib showing no soft tissue emphysema. Venous unilateral left leg Doppler: Negative for DVT Arterial ABIs: ABIs are within normal limits Assessment: Left lower extremity cellulitis Diabetic foot ulceration Venous insufficiency Plan Patient examination and evaluation. Dressing change took place today in order to evaluate the wounds which appear to be progressing well as well as the cellulitis to the left lower extremity. We will continue with compression therapy because of the residual venous stasis edema with subsequent ulceration. Dressing change consisted of skin barrier to the plantar aspect of the foot in order to promote removal of the hyperkeratotic tissue which was then followed by Betadine paint to the webspaces and the remainder of the lower extremity in toto with the exception of the plantar foot. 4 x 4 gauze was placed in between the webspaces to avoid any maceration this was then secured with Kerlix and Lobo with moderate compression. Cultures obtained at bedside on admission. Currently pending. Antibiotics to be managed by Dr. Rodriguez. Appreciate recommendations! No need for surgical intervention at this time as I feel it is unwarranted. Patient okay for discharge from podiatry standpoint whenever primary care provider feels appropriate. Patient to continue wound care and compression therapy on an every other day basis at home. Recommend follow-up on discharge to my clinic for outpatient assessment. We will follow patient on an every other day basis in order to assess wounds as well as left lower extremity cellulitis.
[2019-12-22] MEDS: Advair Hfa 230/21 Mcg COMMON CANISTER IH SCH ×2 (07:30→19:18)
[2019-12-22] MEDS: DUONEB 0.5-3 MG/3 ml Neb IH SCH ×4 (07:30→19:18)
[2019-12-22] MEDS: FEOSOL 325 MG PO SCH ×2 (09:54→21:24)
[2019-12-22] MEDS: Lasix 40 MG PO SCH (09:54)
[2019-12-22] MEDS: ECOTRIN 81 MG PO SCH (09:54)
[2019-12-22] MEDS: Zestril 5 MG PO SCH (09:54)
[2019-12-22] MEDS: Klor Con 10 MEQ PO SCH (09:54)
[2019-12-22] MEDS: THERAGRAN MULTIVITAMIN PO SCH (09:55)
[2019-12-22] MEDS: CLARITIN 10 MG PO SCH (09:55)
[2019-12-22] MEDS: Protonix 40MG Tablet PO SCH (09:55)
[2019-12-22] MEDS: HUMALOG SQ PRN (12:17)
--- NOTE | 2019-12-22 14:05 | PCM.NOTE ---
Date and Time: 12/22/19 1401 Subjective Assessment: Pt says her legs are feeling better since admission. Still getting daily wraps. Podiatry saw pt this morning, thank you. The RN was able to peek in the LLE bandage briefly and found to erythema to be receding somewhat. Pt denae po. - Review of Systems Constitutional: No Fever Musculoskeletal: Other (leg pain when up) Objective Exam General Appearance: no apparent distress, alert Neurologic Exam: oriented x 3, cooperative Skin Exam: warm, dry, other (legs wrapped bilat. toes are out and pink (although s/p betadine wash)) Wound Assessment: Skin/Wound Assessment Wound/Incision Assessment Start: 12/20/19 20:00 Text: Status: Active Freq: Q6H Protocol: Document 12/22/19 08:00 [facility] (Rec: 12/22/19 08:59 BE [id number]) Wound/Incision Assessment BLE Wound Assessment Shift Assessment Wound Type cellulitis Wound Stage Non Pressure Wound Dressing Status Dry & Intact Drainage Amount None Primary Dressing Non-Adherent Gauze Pads Secondary Dressing Gauze Roll/Wrap Comment elastic bandage in place, CDI - Commercial Underwriter changed this AM, calf pink, not red Eye Exam: eyes nml inspection Ears, Nose, Throat Exam: moist mucous membranes Neck Exam: normal inspection Respiratory Exam: normal breath sounds, lungs clear, No crackles/rales, No rhonchi, No wheezing Cardiovascular Exam: regular rate/rhythm, normal heart sounds, No murmur Gastrointestinal/Abdomen Exam: soft, normal bowel sounds, No tenderness, No distention, No mass, No guarding, No rebound Extremity Exam: other (as above) Back Exam: normal inspection, No rash OBJECTIVE DATA Vital Signs: Vital Signs - 24 hr Temp Pulse Resp BP Pulse Ox 12/22/19 12:00 98.3 F 18 L 18 145/66 97 12/22/19 11:11 80 18 95 12/22/19 08:00 97.7 F 82 20 151/69 96 12/22/19 07:30 68 18 96 12/22/19 03:47 97.9 F 75 18 134/64 96 12/22/19 00:00 98.0 F 99 H 18 131/65 98 12/21/19 19:46 98.2 F 85 20 113/59 97 12/21/19 19:07 107 H 24 96 09/05/20 16:00 98.3 F 90 16 112/56 99 12/21/19 14:12 84 14 95 Oxygen-Last 24 hours Oxygen Flowrate (L/min)-RT 2 Pain Assessment - Last Documented Pain Intensity 4 Pain Scale Used FLACC Intake and Output: Intake & Output 12/20/19 12/21/19 12/22/19 12/23/19 11:59 11:59 11:59 11:59 Intake Total 1412 3069 Output Total 300 400 Balance 1112 2669 Weight 97.3 kg Lab Results: Accuchecks Date 12/22/19 Date 12/22/19 Date 12/21/19 Date 12/21/19 Time 11:40 Time 07:30 Time 21:00 Time 16:30 Accucheck Value: 208 Accucheck Value: 121 Accucheck Value: 184 Accucheck Value: 162 Lab Results-Last 24 Hours 12/21/19 12/21/19 12/22/19 Range/Units 16:08 20:54 07:52 POC Glucometer 162 H 184 H 121 H (74 to 106) mg/dL 12/22/19 Range/Units 10:58 POC Glucometer 208 H (74 to 106) mg/dL Radiology Exams: Radiology Procedures Category Date Time Status ANKLE (3 VIEWS) Routine Exams 12/20/19 18:10 Completed ARTERIAL UNILAT/LTD LOWER EXT [US] Stat Exams 12/20/19 19:42 Completed FOOT (MINIMUM 3 VIEWS) Routine Exams 12/20/19 18:10 Completed LOWER LEG Routine Exams 12/20/19 18:10 Completed VENOUS UNILAT/LIMITED EXTREMIT [US] Stat Exams 12/20/19 19:42 Completed Assessment/Plan (1) Cellulitis of left leg Current Visit: Yes Status: Acute Assessment & Plan: On ceftazadime and fluconazole day #3. Some improvement. Podiatry following and wrapping, thank you. Will need to stay on IV antibiotics as improvement is not sufficient for her to switch to po antibiotics. Code(s): L03.116 - CELLULITIS OF LEFT LOWER LIMB (2) HTN (hypertension) Current Visit: No Status: Chronic Qualifiers: Hypertension type: essential hypertension Qualified Code(s): I10 - Essential (primary) hypertension Code(s): I10 - ESSENTIAL (PRIMARY) HYPERTENSION (3) Diabetic foot ulcer Current Visit: Yes Status: Acute Qualifiers: Diabetic foot ulcer location: unspecified part of foot Diabetes mellitus type: type 2 Laterality: unspecified laterality Non-pressure ulcer stage: unspecified non-pressure ulcer stage Qualified Code(s): E11.621 - Type 2 diabetes mellitus with foot ulcer; L97.509 - Non-pressure chronic ulcer of other part of unspecified foot with unspecified severity Code(s): E11.621 - TYPE 2 DIABETES MELLITUS WITH FOOT ULCER; L97.509 - NON- PRESSURE CHRONIC ULCER OTH PRT UNSP FOOT W UNSP SEVERITY (4) Venous stasis dermatitis of both lower extremities Current Visit: Yes Status: Chronic Code(s): I87.2 - VENOUS INSUFFICIENCY (CHRONIC) (PERIPHERAL) (5) Asthma Current Visit: No Status: Chronic Qualifiers: Asthma severity: unspecified severity Asthma persistence: intermittent Asthma complication type: uncomplicated Qualified Code(s): J45.20 - Mild intermittent asthma, uncomplicated Code(s): J45.909 - UNSPECIFIED ASTHMA, UNCOMPLICATED (6) Diabetes Current Visit: No Status: Acute Qualifiers: Diabetes mellitus type: type 2 Code(s): E11.9 - TYPE 2 DIABETES MELLITUS WITHOUT COMPLICATIONS (7) Chronic hypoxemic respiratory failure Current Visit: Yes Status: Chronic
[2019-12-22] MEDS: TYLENOL EXTRA STRENGTH 500 MG PO PRN (14:54)
[2019-12-22] MEDS: MORPHINE SULFATE 2 MG INJ IV PRN (18:24)
[2019-12-22] MEDS: Diflucan/Saline 0.2G/100ML PREMIX*** 100 ML IV SCH (18:27)
[2019-12-23] MEDS: SODIUM CHLORIDE 0.9% IV SCH ×3 (05:29→22:20)
[2019-12-23] MEDS: TAZICEF IV SCH ×3 (05:29→22:20)
[2019-12-23] MEDS: FORTAZ IV SCH ×3 (05:29→22:20)
[2019-12-23] MEDS: DUONEB 0.5-3 MG/3 ml Neb IH SCH ×4 (07:28→19:12)
[2019-12-23] MEDS: Advair Hfa 230/21 Mcg COMMON CANISTER IH SCH ×2 (07:30→19:13)
[2019-12-23] MEDS: Klor Con 10 MEQ PO SCH (10:56)
[2019-12-23] MEDS: THERAGRAN MULTIVITAMIN PO SCH (10:56)
[2019-12-23] MEDS: Protonix 40MG Tablet PO SCH (10:56)
[2019-12-23] MEDS: Zestril 5 MG PO SCH (10:56)
[2019-12-23] MEDS: ECOTRIN 81 MG PO SCH (10:57)
[2019-12-23] MEDS: CLARITIN 10 MG PO SCH (10:57)
[2019-12-23] MEDS: Lasix 40 MG PO SCH (10:57)
[2019-12-23] MEDS: ENOXAPARIN SODIUM SQ SCH ×2 (10:57→11:23)
[2019-12-23] MEDS: FEOSOL 325 MG PO SCH ×2 (10:57→21:34)
--- NOTE | 2019-12-23 12:08 | PCM.NOTE ---
Date and Time: 12/23/19 1201 Subjective Assessment: Pt napping; wakes to touch and is cooperative but is somnolent. Denies pain to the legs while lying down, but did have pain when up to the bathroom. - Review of Systems Constitutional: No Fever Abdominal/Gastrointestinal: No Vomiting Objective Exam General Appearance: no apparent distress, other (somnolent but wakes to touch) Neurologic Exam: cooperative Skin Exam: warm, dry Wound Assessment: Skin/Wound Assessment Wound/Incision Assessment Start: 12/20/19 20:00 Text: Status: Active Freq: Q6H Protocol: Document 12/23/19 08:00 [facility] (Rec: 12/23/19 08:10 [facility] [id number]) Wound/Incision Assessment BLE Wound Assessment Shift Assessment Wound Type cellulitis Wound Stage Non Pressure Wound Dressing Status Dry & Intact Drainage Amount None Drainage Odor None/Absent Surrounding Tissue Dark Red Primary Dressing Non-Adherent Gauze Pads Secondary Dressing Gauze Roll/Wrap Comment elastic bandage in place, CDI Wound Photo Photo Taken Yes Ears, Nose, Throat Exam: moist mucous membranes Neck Exam: normal inspection Respiratory Exam: normal breath sounds, lungs clear, No crackles/rales, No rhonchi, No wheezing Cardiovascular Exam: regular rate/rhythm, normal heart sounds, No murmur Gastrointestinal/Abdomen Exam: soft, normal bowel sounds, No tenderness, No distention, No mass, No guarding, No rebound Extremity Exam: other (legs wrapped bilat, but toes appear wnl (s/p betadine wash)) Back Exam: normal inspection, No rash OBJECTIVE DATA Vital Signs: Vital Signs - 24 hr Temp Pulse Resp BP Pulse Ox 12/23/19 11:35 97.8 F 69 16 132/60 96 12/23/19 11:20 80 18 96 12/23/19 08:00 98.4 F 70 20 138/65 96 12/23/19 07:33 77 16 96 12/23/19 04:00 98.2 F 63 24 148/65 96 12/23/19 00:00 98.1 F 71 28 H 149/72 95 12/22/19 20:34 96.2 F 12/22/19 19:39 97.4 F 61 24 112/53 97 12/22/19 19:19 61 18 97 12/22/19 16:00 98.2 F 81 20 125/60 98 12/22/19 15:16 72 18 96 Pain Assessment - Last Documented Pain Intensity 5 Pain Scale Used FLACC Intake and Output: Intake & Output 12/21/19 12/22/19 12/23/19 12/24/19 11:59 11:59 11:59 11:59 Intake Total 1412 3069 3297 Output Total 290 849 7291 Balance 1112 2669 -1453 Weight 97.3 kg Lab Results: Accuchecks Date 12/22/19 Date 12/22/19 Time 21:20 Time 16:30 Accucheck Value: 172 Accucheck Value: 123 Accucheck Value: 191 Accucheck Value: 135 Lab Results-Last 24 Hours 12/22/19 Range/Units 15:50 POC Glucometer 135 H (74 to 106) mg/dL Assessment/Plan (1) Cellulitis of left leg Current Visit: Yes Status: Acute Assessment & Plan: Culture came back + for Proteus mirabilis. Will remain on current antibiotics. Code(s): L03.116 - CELLULITIS OF LEFT LOWER LIMB (2) HTN (hypertension) Current Visit: No Status: Chronic Qualifiers: Hypertension type: essential hypertension Qualified Code(s): I10 - Essential (primary) hypertension Code(s): I10 - ESSENTIAL (PRIMARY) HYPERTENSION (3) Diabetic foot ulcer Current Visit: Yes Status: Acute Qualifiers: Diabetic foot ulcer location: unspecified part of foot Diabetes mellitus type: type 2 Laterality: unspecified laterality Non-pressure ulcer stage: unspecified non-pressure ulcer stage Qualified Code(s): E11.621 - Type 2 diabetes mellitus with foot ulcer; L97.509 - Non-pressure chronic ulcer of other part of unspecified foot with unspecified severity Code(s): E11.621 - TYPE 2 DIABETES MELLITUS WITH FOOT ULCER; L97.509 - NON- PRESSURE CHRONIC ULCER OTH PRT UNSP FOOT W UNSP SEVERITY (4) Venous stasis dermatitis of both lower extremities Current Visit: Yes Status: Chronic Code(s): I87.2 - VENOUS INSUFFICIENCY (CHRONIC) (PERIPHERAL) (5) Asthma Current Visit: No Status: Chronic Qualifiers: Asthma severity: unspecified severity Asthma persistence: intermittent Asthma complication type: uncomplicated Qualified Code(s): J45.20 - Mild intermittent asthma, uncomplicated Code(s): J45.909 - UNSPECIFIED ASTHMA, UNCOMPLICATED (6) Diabetes Current Visit: No Status: Acute Qualifiers: Diabetes mellitus type: type 2 Code(s): E11.9 - TYPE 2 DIABETES MELLITUS WITHOUT COMPLICATIONS (7) Chronic hypoxemic respiratory failure Current Visit: Yes Status: Chronic
[2019-12-23] MEDS: Sodium Chloride 0.9% 1000 ML 1,000 ML IV SCH (12:43)
[2019-12-23] MEDS: HUMALOG SQ PRN (17:37)
[2019-12-23] MEDS: Diflucan/Saline 0.2G/100ML PREMIX*** 100 ML IV SCH (20:11)
[2019-12-24] MEDS: MORPHINE SULFATE 2 MG INJ IV PRN (01:21)
[2019-12-24] MEDS: Sodium Chloride 0.9% 1000 ML 1,000 ML IV SCH (04:42)
[2019-12-24] MEDS: SODIUM CHLORIDE 0.9% IV SCH ×2 (05:15→15:25)
[2019-12-24] MEDS: FORTAZ IV SCH ×2 (05:15→15:25)
[2019-12-24] MEDS: TAZICEF IV SCH ×2 (05:15→15:25)
[2019-12-24] MEDS: DUONEB 0.5-3 MG/3 ml Neb IH SCH ×3 (07:21→15:19)
[2019-12-24] MEDS: Advair Hfa 230/21 Mcg COMMON CANISTER IH SCH (07:22)
[2019-12-24] MEDS: Klor Con 10 MEQ PO SCH (09:11)
[2019-12-24] MEDS: FEOSOL 325 MG PO SCH (09:11)
[2019-12-24] MEDS: ECOTRIN 81 MG PO SCH (09:11)
[2019-12-24] MEDS: CLARITIN 10 MG PO SCH (09:11)
[2019-12-24] MEDS: Lasix 40 MG PO SCH (09:12)
[2019-12-24] MEDS: Protonix 40MG Tablet PO SCH (09:12)
[2019-12-24] MEDS: THERAGRAN MULTIVITAMIN PO SCH (09:12)
[2019-12-24] MEDS: Zestril 5 MG PO SCH (09:12)
[2019-12-24] MEDS: ENOXAPARIN SODIUM SQ SCH (09:13)
[2019-12-24 12:59] VITALS: BP 102/55
[2019-12-24 15:22] VITALS: PULSE 76; O2SAT 92
== END 2019-12-24 15:55 | disposition swing bed (61) | DRG 603 ==
LOC: MED SURG 17:00 → OBSVTOIN 12-21 14:03
PROVIDERS: ADMIT Family Medicine; ATTEND Family Medicine
DX: L03.116 Cellulitis of left lower limb (principal); J96.11 Chronic respiratory failure with hypoxia; I10 Essential (primary) hypertension; E78.00 Pure hypercholesterolemia, unspecified; J44.9 Chronic obstructive pulmonary disease, unspecified; I87.2 Venous insufficiency (chronic) (peripheral); E11.621 Type 2 diabetes mellitus with foot ulcer; L97.509 Non-pressure chronic ulcer of other part of unspecified foot with unspecified severity; Z79.899 Other long term (current) drug therapy; Z86.79 Personal history of other diseases of the circulatory system; J45.909 Unspecified asthma, uncomplicated
CPT/HCPCS: 36415; 73590; 73610; 73630; 80053; 81001; 82962; 83036; 85027; 87070; 87077; 87086; 87186; 93926; 93971; 94150; 94640; 94760; G0378; J0713; J1450; J1650; J1817; J2270; A9270-GY

== ENCOUNTER 2019-12-24 14:40 | Inpatient (IN) | payer MEDICARE ==
[2019-12-24] MEDS ORDERED: APRESOLINE 20 MG/ML INJ IV PRN (16:17)
[2019-12-24] MEDS ORDERED: Aplisol ID ONE (16:17)
[2019-12-24] MEDS ORDERED: Zofran 4 MG/2 ML VIAL IV PRN (16:17)
[2019-12-24] MEDS: Sodium Chloride 0.9% 1000 ML 1,000 ML IV SCH (19:57)
[2019-12-24] MEDS: Diflucan/Saline 0.2G/100ML PREMIX*** 100 ML IV SCH (19:57)
[2019-12-24] MEDS: DUONEB 0.5-3 MG/3 ml Neb IH SCH (20:22)
[2019-12-24] MEDS: Advair Hfa 230/21 Mcg COMMON CANISTER IH SCH (20:24)
[2019-12-24] MEDS: FORTAZ IV SCH (22:03)
[2019-12-24] MEDS: TAZICEF IV SCH (22:03)
[2019-12-24] MEDS: TYLENOL EXTRA STRENGTH 500 MG PO PRN (22:03)
[2019-12-24] MEDS: SODIUM CHLORIDE 0.9% IV SCH (22:03)
[2019-12-24] MEDS: FEOSOL 325 MG PO SCH (22:04)
[2019-12-25] MEDS: DUONEB 0.5-3 MG/3 ml Neb IH SCH ×4 (05:38→19:05)
[2019-12-25] MEDS: TAZICEF IV SCH ×3 (06:05→22:05)
[2019-12-25] MEDS: SODIUM CHLORIDE 0.9% IV SCH ×3 (06:05→22:05)
[2019-12-25] MEDS: FORTAZ IV SCH ×3 (06:05→22:05)
[2019-12-25] MEDS: Advair Hfa 230/21 Mcg COMMON CANISTER IH SCH ×2 (07:58→19:06)
[2019-12-25] MEDS: THERAGRAN MULTIVITAMIN PO SCH (09:03)
[2019-12-25] MEDS: FEOSOL 325 MG PO SCH ×2 (09:04→22:05)
[2019-12-25] MEDS: CLARITIN 10 MG PO SCH (09:04)
[2019-12-25] MEDS: Klor Con 10 MEQ PO SCH (09:04)
[2019-12-25] MEDS: Lasix 40 MG PO SCH (09:04)
[2019-12-25] MEDS: Protonix 40MG Tablet PO SCH (09:04)
[2019-12-25] MEDS: ECOTRIN 81 MG PO SCH (09:04)
[2019-12-25] MEDS: Zestril 5 MG PO SCH (09:05)
[2019-12-25] MEDS: ENOXAPARIN SODIUM SQ SCH (09:08)
--- NOTE | 2019-12-25 13:12 | PCM.NOTE ---
Date and Time: 12/25/19 1306 OBJECTIVE DATA Vital Signs: Vital Signs - 24 hr Temp Pulse Resp BP Pulse Ox 12/25/19 10:47 60 20 12/25/19 07:59 64 20 95 12/25/19 06:24 98.3 F 58 L 20 157/72 97 12/25/19 05:38 59 L 20 93 L 12/24/19 20:22 78 23 95 12/24/19 20:00 98.4 F 83 19 134/54 97 Pain Assessment - Last Documented Pain Intensity 8 Pain Scale Used 0-10 Pain Scale Intake and Output: Intake & Output 12/23/19 12/24/19 12/25/19 12/26/19 06:59 06:59 06:59 06:59 Intake Total 2806 240 Output Total 1500 Balance 1306 240 Weight 97.3 kg Lab Results: Lab Results-Last 24 Hours 12/24/19 12/25/19 12/25/19 Range/Units 20:24 06:14 11:06 POC Glucometer 179 H 137 H 157 H (74 to 106) mg/dL Multi-Disciplinary Progress Notes: Multi-Disciplinary Progress Notes 12/25/19 09:05 Case Management Note by Arely Zuniga PATIENT PLANS TO MAXIMIZE SWINGBED WHILE RECEIVING WOUND CARE FROM PODIATRY. PATIENT PLANS TO RETURN HOME TO PRIOR LEVEL OF FUNCTIONING WITH AID FROM [employer] WHEN MEDICALLY READY FOR DC. PATIENT LIVES WITH DAUGHTER, SHE IS INDEPENDENT WITH ADLS, SHE HAS HOME O2 AT 2L/NC 24/7 THRU [facility]. SHE ALSO HAS A CANE, NEB MACHINE, AND GLUCOMETER AT HOME. Initialized on 12/25/19 09:05 - END OF NOTE
[2019-12-25] MEDS: Diflucan/Saline 0.2G/100ML PREMIX*** 100 ML IV SCH (19:59)
[2019-12-25] MEDS: Sodium Chloride 0.9% 1000 ML 1,000 ML IV SCH (22:08)
[2019-12-25] MEDS: HUMALOG SQ PRN (23:26)
[2019-12-26] MEDS: FORTAZ IV SCH ×3 (05:43→21:23)
[2019-12-26] MEDS: SODIUM CHLORIDE 0.9% IV SCH ×3 (05:43→21:23)
[2019-12-26] MEDS: TAZICEF IV SCH ×3 (05:43→21:23)
[2019-12-26] MEDS: DUONEB 0.5-3 MG/3 ml Neb IH SCH ×4 (06:47→19:01)
[2019-12-26] MEDS: Advair Hfa 230/21 Mcg COMMON CANISTER IH SCH ×2 (06:50→19:03)
--- NOTE | 2019-12-26 07:52 | PCM.NOTE ---
Podiatry Narrative Note Podiatry Narrative Note: Podiatry Narrative Note: Podiatry progress note: Attending provider Les Whitley DPM Chief complaint: Cellulitis left lower extremity with ulceration Subjective: History of present illness: Alyce Robb is seen at bedside this morning she is seen for follow-up of left lower extremity cellulitis. On presentation she is resting comfortably. She no longer endorses that she has had chills. This is been for approximately 1 day since her last episode. She denies any constitutional symptoms. Again she states that the pain has largely subsided however she does experience pain in her left lower extremity with ambulation particularly to the bottom of her foot. She has significantly improved in terms of the cellulitic infection. She also indicates that there is pain with compression to the anterior tibial area. She currently endorses no other pedal complaints. Physical exam Vascular:Remains largely unchanged DP pulses palpable bilaterally however the posterior tibial pulse is absent. Her capillary refill time is less than 5 seconds to the bilateral hallux. There is absent pedal hair growth growth to the bilateral lower extremity in toto. The left leg cellulitis has diminished in size primarily to the posterior medial aspect of the lower extremity. There is some residual cellulitis that is identified on the anterior lateral aspect of the left leg that is darkening in color indicating there may be some hemosiderin deposition into the skin. Temperature remains the same to the bilateral lower extremity. Pitting edema has decreased from 3+2 days ago to 1+ to the bilateral lower extremity. Tenderness to touch is less than it was before. There is no lymphadenopathy on palpation of the inguinal or popliteal lymph nodes. There is no ascending lymphangitis. Neurological: Protective sensation is diminished to the bilateral lower extremity Dermatological: Skin marker located at the mid tibia level. Erythema is significantly improved at this time. There is evidence of exfoliation due to the swelling reduction. Keratoderma is present.There are multiple fissures on the bottom of the foot that expose desquamated areas of freshly epithelialized skin. There are areas of stable eschar noted at the sulcus at this time. These are tender to palpation and with motion of the bilateral extremity there is heavy hyperkeratosis and exfoliation to the plantar aspect of the foot. The skin is taut and shiny to the level of the pretibial area of the left lower extremity with significant erythema. Right lower extremity is taut and shiny however lacks the erythema of the left and is lesser in size.No evidence of clinical infection at this time. Musculoskeletal exam: Wiggles toes without pain. Muscle strength is within normal limits Radiology: Radiographs 3 views nonweightbearing of the ankle showing no soft tissue abnormalities. There is no soft tissue emphysema. There is a decrease in bone mineral deposition. Radiographs 3 views nonweightbearing of the left foot demonstrating no soft tissue abnormalities. There is no soft tissue emphysema identified. There is a decrease in the bone mineral deposition particularly with cystic changes to the metatarsal heads 1-3 and 4 Radiographs 2 views nonweightbearing of the left tib-fib showing no soft tissue emphysema. Venous unilateral left leg Doppler: Negative for DVT Arterial ABIs: ABIs are within normal limits Assessment: Left lower extremity cellulitis Diabetic foot ulceration Venous insufficiency Plan Patient examination and evaluation. Dressing change took place today in order to evaluate the wounds which appear to be progressing well as well as the cellulitis to the left lower extremity. We will continue with compression therapy because of the residual venous stasis edema with subsequent ulceration. Dressing change consisted of skin barrier to the plantar aspect of the foot in order to promote removal of the hyperkeratotic tissue which was then followed by Betadine paint to the webspaces and the remainder of the lower extremity in toto with the exception of the plantar foot. 4 x 4 gauze was placed in between the webspaces to avoid any maceration this was then secured with Kerlix and Lobo with moderate compression. Cultures obtained at bedside on admission. Currently pending. Antibiotics to be managed by Dr. Rodriguez. Appreciate recommendations! No need for surgical intervention at this time as I feel it is unwarranted. Patient okay for discharge from podiatry standpoint whenever primary care provider Deems appropriate. Patient to continue wound care and compression therapy on an every other day basis at home. Recommend follow-up on discharge to my clinic for outpatient assessment. We will follow patient on an every other day basis in order to assess wounds as well as left lower extremity cellulitis.
[2019-12-26] MEDS: TYLENOL EXTRA STRENGTH 500 MG PO PRN ×2 (08:17→21:38)
[2019-12-26] MEDS: Lasix 40 MG PO SCH (08:17)
[2019-12-26] MEDS: Zestril 5 MG PO SCH (08:17)
[2019-12-26] MEDS: Protonix 40MG Tablet PO SCH (08:17)
[2019-12-26] MEDS: THERAGRAN MULTIVITAMIN PO SCH (08:18)
[2019-12-26] MEDS: CLARITIN 10 MG PO SCH (08:18)
[2019-12-26] MEDS: ECOTRIN 81 MG PO SCH (08:18)
[2019-12-26] MEDS: Klor Con 10 MEQ PO SCH (08:18)
[2019-12-26] MEDS: FEOSOL 325 MG PO SCH ×2 (08:19→21:23)
--- NOTE | 2019-12-26 09:20 | PROG NOTE ---
DATE: 12/24/2019729 CHIEF COMPLAINT: Cellulitis of the left lower extremity. HISTORY: Alyce Walton is seen at bedside this morning for follow up of left lower extremity cellulitis to which she is improving significantly. She is seen at bedside and she is resting comfortably. She still endorses some pain to the bilateral lower extremities particularly with weight bearing. However with her legs in an elevated position she denies any pain. At this time she still endorses that there are some constitutional symptoms of chills. However, she denies any other constitutional symptoms including nausea, vomiting, fever, chills, shortness of breath, cough or diarrhea. She currently denies any other pedal complaints at this time. PHYSICAL EXAM: VASCULAR: Remains largely unchanged DP and PT pulses bilaterally are palpable. However, the posterior tibial pulse is absent. Her capillary refill time is less than 5 seconds to the posterior medial aspect of the lower extremity. There is some residual cellulitis that has darkened in color resembling more of a brawny edema/keratoderma that identified at the anterior lateral aspect of the left leg. Again, this may be indicating hemosiderin deposition secondary to her venous stasis rather than cellulitis. Temperature remains the same to the bilateral lower extremities going warm to warm from the tibial tuberosity to the distal aspect of the digits dorsally. There is pitting edema that has decreased from 1+ on the right lower extremity to 0 and on the right from 2+ pitting edema to 1+ pitting edema on the left lower extremity. There is still tenderness to touch on the left lower extremity however it is lesser than before. There is no lymphadenopathy on palpation on the inguinal or popliteal lymph nodes. There is no ascending lymphangitis. NEUROLOGICAL: Protective sensation is diminished to bilateral lower extremities. DERMATOLOGICAL: Skin marker is located at the mid tibial level. There is a significant amount of reduction in the erythema and swelling which has increased at this time. There is evidence of exfoliation secondary to skin swelling. 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 On the plantar aspect of the foot there are multiple fissures that when peeled back reveal freshly desquamated areas with freshly epithelialized skin. There are also areas of stable eschar noted at the sulcus of the foot. They are tender to palpation particularly with motion, dorsiflexion and plantar flexion of the digits. The skin is no longer taut and shiny to the level of the pretibial area. However, there is still significant edema however this is without erythema. Right lower extremity is slightly taut and shiny at the pretibial area however lacks the erythema of the left and is lesser in size. There is no evidence of clinical infection at this time. MUSCULOSKELETAL: Deferred due to pain at this time. Muscle strength is within normal limits. RADIOLOGIC AND TESTING RESULTS: Radiographs three views nonweight bearing of the ankle shows no soft tissue abnormalities. There is no soft tissue emphysema. There is a decrease in bone mineral deposition. Radiograph three views nonweight bearing of the left foot demonstrating no soft tissue abnormalities. There is no soft tissue emphysema identified. There is a decrease in the bone mineral deposition particularly with cystic changes to the metatarsal head one through three and four. Radiographs two view nonweight bearing of the left tib-fib showing no soft tissue emphysema. Venous unilateral left leg Doppler negative for deep venous thrombosis. Arterial GLADIS's are within normal limits. ASSESSMENT: Left lower extremity cellulitis, diabetic foot ulceration and venous insufficiency. PLAN: Patient examination and evaluation, dressing changes took place today in order to evaluate the wounds which appear to be progressing significantly as well as the cellulitis which has improved drastically. We will continue the compression therapy due to the residual venous stasis with subsequent ulceration to the plantar aspect of the foot. Dressing changes consisted of skin bare to the plantar aspect of the foot to promote removal of the hyperkeratotic tissue which was then followed by Betadine paint to the web spaces and the remainder of the left foot in toto with the exception of the plantar foot. 4x4 gauze was placed in between the web spaces to avoid any maceration, this was then secured with Kerlix and FREDY with moderate compression. Cultures obtained at bedside on admission currently pending. Antibiotics are to be managed by Dr. Rodriguez/Dr. Jay. I appreciate the recommendation. No need for surgical intervention at this time as I feel it is unwarranted. The patient is okay for discharge from podiatry standpoint whenever primary care deems appropriate. The patient is to continue wound care and compression therapy on an everyday basis at home. I recommend follow up on discharge to my clinic for outpatient assessment. We will follow the patient on an every other day basis in order to assess the wounds as well as left lower extremity cellulitis.
[2019-12-26] MEDS: ENOXAPARIN SODIUM SQ SCH (10:05)
[2019-12-26] MEDS ORDERED: MOTRIN 400 MG PO PRN (10:48)
[2019-12-26] MEDS: Diflucan/Saline 0.2G/100ML PREMIX*** 100 ML IV SCH (18:06)
[2019-12-26] MEDS: HUMALOG SQ PRN (18:08)
[2019-12-27] MEDS: SODIUM CHLORIDE 0.9% IV SCH ×3 (05:45→21:49)
[2019-12-27] MEDS: TAZICEF IV SCH ×3 (05:45→21:49)
[2019-12-27] MEDS: FORTAZ IV SCH ×3 (05:45→21:49)
[2019-12-27] MEDS: MORPHINE SULFATE 2 MG INJ IV PRN (06:05)
[2019-12-27] MEDS: Advair Hfa 230/21 Mcg COMMON CANISTER IH SCH ×2 (07:06→19:52)
[2019-12-27] MEDS: DUONEB 0.5-3 MG/3 ml Neb IH SCH ×4 (07:06→19:52)
[2019-12-27] MEDS: FEOSOL 325 MG PO SCH ×2 (08:59→21:49)
[2019-12-27] MEDS: Klor Con 10 MEQ PO SCH (08:59)
[2019-12-27] MEDS: CLARITIN 10 MG PO SCH (08:59)
[2019-12-27] MEDS: THERAGRAN MULTIVITAMIN PO SCH (08:59)
[2019-12-27] MEDS: ECOTRIN 81 MG PO SCH (08:59)
[2019-12-27] MEDS: Protonix 40MG Tablet PO SCH (08:59)
[2019-12-27] MEDS: Zestril 5 MG PO SCH (09:00)
[2019-12-27] MEDS: Lasix 40 MG PO SCH (09:00)
[2019-12-27] MEDS: ENOXAPARIN SODIUM SQ SCH (09:00)
--- NOTE | 2019-12-27 10:50 | PCM.NOTE ---
Podiatry Narrative Note Podiatry Narrative Note: Podiatry Progress Note: Podiatry progress note: Attending provider Les Whitley DPM Chief complaint: Cellulitis left lower extremity with ulceration Subjective: History of present illness: Alyce Robb is seen at bedside this morning she is seen for follow-up of left lower extremity cellulitis. On presentation she is resting comfortably. She states she cannot sleep at night so she sleeps during the day time. She denies any constitutional symptoms. Again she states that the pain has largely subsided however she does experience pain in her left lower extremity with ambulation particularly to the bottom of her foot. She recounts an instance where the pain in the previous 24 hours where she relates there was 9/10 pain to the right lower extremity. She has significantly improved in terms of the cellulitic infection. She also indicates that there is pain with compression to the anterior tibial area. She currently endorses no other pedal complaints. Physical exam Vascular:Remains largely unchanged DP pulses palpable bilaterally however the posterior tibial pulse is absent. Her capillary refill time is less than 5 seconds to the bilateral hallux. There is absent pedal hair growth growth to the bilateral lower extremity in toto. The left leg cellulitis has diminished in size primarily to the posterior medial aspect of the lower extremity. There is some residual cellulitis that is identified on the anterior lateral aspect of the left leg that is darkening in color indicating there may be some hemosiderin deposition into the skin. Temperature remains the same to the bilateral lower extremity. Pitting edema +1 to the bilateral lower extremity. Resting skin tension lines. Tenderness to touch is less than it was before. There is no lymphadenopathy on palpation of the inguinal or popliteal lymph nodes. There is no ascending lymphangitis. Neurological: Protective sensation is diminished to the bilateral lower extremity Dermatological: Skin marker located at the mid tibia level. Erythema is resolved at this time. There is evidence of exfoliation due to the swelling reduction. Keratoderma is present.There are multiple fissures on the bottom of the foot that expose desquamated areas of freshly epithelialized skin. These have improved from last presentation as there is thickened skin flaking off easily. There are areas of stable eschar noted at the sulcus at this time. These are tender to palpation and with motion of the bilateral extremity there is heavy hyperkeratosis and exfoliation to the plantar aspect of the foot again this has improved significantly in the last 2 days. The skin is taut and shiny to the level of the pretibial area of the left lower extremity with significant erythema. Right lower extremity is taut and shiny however lacks the erythema of the left and is lesser in size.No evidence of clinical infection at this time. Musculoskeletal exam: Wiggles toes without pain. Muscle strength is within normal limits Radiology: Radiographs 3 views nonweightbearing of the ankle showing no soft tissue abnormalities. There is no soft tissue emphysema. There is a decrease in bone mineral deposition. Radiographs 3 views nonweightbearing of the left foot demonstrating no soft tissue abnormalities. There is no soft tissue emphysema identified. There is a decrease in the bone mineral deposition particularly with cystic changes to the metatarsal heads 1-3 and 4 Radiographs 2 views nonweightbearing of the left tib-fib showing no soft tissue emphysema. Venous unilateral left leg Doppler: Negative for DVT Arterial ABIs: ABIs are within normal limits Assessment: Left lower extremity cellulitis Diabetic foot ulceration Venous insufficiency Plan Patient examination and evaluation. Dressing change took place today in order to evaluate the wounds which appear to be progressing well as well as the cellulitis to the left lower extremity. We will continue with compression therapy because of the residual venous stasis edema with subsequent ulceration. Dressing change consisted of heavy application skin barrier to the plantar aspect of the foot in order to promote removal of the hyperkeratotic tissue which was then followed by Betadine paint to the webspaces and the remainder of the lower extremity in toto with the exception of the plantar foot. 4 x 4 gauze was placed in between the webspaces to avoid any maceration this was then secured with Kerlix and Lobo with moderate compression. Cultures obtained at bedside on admission. Currently pending. Antibiotics to be managed by /Michael. Appreciate recommendations! Patient okay for discharge from podiatry standpoint whenever primary care provider deems appropriate. Patient to continue wound care and compression therapy. will follow 3x week MWF Recommend follow-up on discharge to my clinic for outpatient assessment. We will follow patient on an every other day basis in order to assess wounds as well as left lower extremity cellulitis.
[2019-12-27] MEDS: Diflucan/Saline 0.2G/100ML PREMIX*** 100 ML IV SCH (20:29)
[2019-12-27] MEDS: HUMALOG SQ PRN (21:49)
[2019-12-28] MEDS: TAZICEF IV SCH ×3 (05:34→21:18)
[2019-12-28] MEDS: SODIUM CHLORIDE 0.9% IV SCH ×3 (05:34→21:18)
[2019-12-28] MEDS: FORTAZ IV SCH ×3 (05:34→21:18)
[2019-12-28] MEDS: Advair Hfa 230/21 Mcg COMMON CANISTER IH SCH ×2 (07:35→19:58)
[2019-12-28] MEDS: DUONEB 0.5-3 MG/3 ml Neb IH SCH ×4 (07:35→19:58)
[2019-12-28] MEDS: ECOTRIN 81 MG PO SCH (09:41)
[2019-12-28] MEDS: Zestril 5 MG PO SCH (09:41)
[2019-12-28] MEDS: Lasix 40 MG PO SCH (09:41)
[2019-12-28] MEDS: FEOSOL 325 MG PO SCH ×2 (09:41→21:18)
[2019-12-28] MEDS: Protonix 40MG Tablet PO SCH (09:41)
[2019-12-28] MEDS: CLARITIN 10 MG PO SCH (09:41)
[2019-12-28] MEDS: THERAGRAN MULTIVITAMIN PO SCH (09:41)
[2019-12-28] MEDS: Klor Con 10 MEQ PO SCH (09:42)
[2019-12-28] MEDS: ENOXAPARIN SODIUM SQ SCH (09:43)
[2019-12-28] MEDS: MORPHINE SULFATE 2 MG INJ IV PRN (16:01)
[2019-12-28] MEDS: Diflucan/Saline 0.2G/100ML PREMIX*** 100 ML IV SCH (19:31)
[2019-12-29] MEDS: TAZICEF IV SCH ×3 (05:27→22:00)
[2019-12-29] MEDS: SODIUM CHLORIDE 0.9% IV SCH ×3 (05:27→22:00)
[2019-12-29] MEDS: FORTAZ IV SCH ×3 (05:27→22:00)
[2019-12-29] MEDS: DUONEB 0.5-3 MG/3 ml Neb IH SCH ×4 (07:37→19:56)
[2019-12-29] MEDS: Advair Hfa 230/21 Mcg COMMON CANISTER IH SCH ×2 (07:38→19:57)
[2019-12-29] MEDS: ENOXAPARIN SODIUM SQ SCH (08:45)
[2019-12-29] MEDS: Lasix 40 MG PO SCH (08:46)
[2019-12-29] MEDS: Protonix 40MG Tablet PO SCH (08:46)
[2019-12-29] MEDS: CLARITIN 10 MG PO SCH (08:46)
[2019-12-29] MEDS: ECOTRIN 81 MG PO SCH (08:46)
[2019-12-29] MEDS: Klor Con 10 MEQ PO SCH (08:46)
[2019-12-29] MEDS: THERAGRAN MULTIVITAMIN PO SCH (08:46)
[2019-12-29] MEDS: FEOSOL 325 MG PO SCH ×2 (08:46→21:59)
[2019-12-29] MEDS: Zestril 5 MG PO SCH (08:47)
[2019-12-29] MEDS: Diflucan/Saline 0.2G/100ML PREMIX*** 100 ML IV SCH (18:05)
[2019-12-29] MEDS: TYLENOL EXTRA STRENGTH 500 MG PO PRN (21:59)
[2019-12-29] MEDS: HUMALOG SQ PRN (22:00)
[2019-12-30] MEDS: FORTAZ IV SCH ×3 (05:25→22:37)
[2019-12-30] MEDS: TAZICEF IV SCH ×3 (05:25→22:37)
[2019-12-30] MEDS: SODIUM CHLORIDE 0.9% IV SCH ×3 (05:25→22:37)
[2019-12-30] MEDS: DUONEB 0.5-3 MG/3 ml Neb IH SCH ×4 (06:58→19:02)
[2019-12-30] MEDS: Advair Hfa 230/21 Mcg COMMON CANISTER IH SCH ×2 (06:58→19:03)
--- NOTE | 2019-12-30 08:08 | PCM.NOTE ---
Podiatry Narrative Note Podiatry Narrative Note: Podiatry progress note: Attending provider Les Whitley DPM Chief complaint: Cellulitis left lower extremity with ulceration Subjective: History of present illness: Alyce Robb is seen at bedside this morning she is seen for follow-up of left lower extremity cellulitis. On presentation she is resting comfortably. She states she cannot sleep at night so she sleeps during the day time. She denies any constitutional symptoms. Again she states that the pain has largely subsided however she does experience pain in her left lower extremity with ambulation particularly to the bottom of her foot. She recounts an instance where the pain in the previous 24 hours where she relates there was 9/10 pain to the right lower extremity. She has significantly improved in terms of the cellulitic infection. She also indicates that there is pain with compression to the anterior tibial area. She currently endorses no other pedal complaints. Physical exam Vascular:Remains largely unchanged DP pulses palpable bilaterally however the posterior tibial pulse is absent. Her capillary refill time is less than 5 seconds to the bilateral hallux. There is absent pedal hair growth growth to the bilateral lower extremity in toto. The left leg cellulitis has diminished in size primarily to the posterior medial aspect of the lower extremity. There is some residual cellulitis that is identified on the anterior lateral aspect of the left leg that is darkening in color indicating there may be some hemosiderin deposition into the skin. Temperature remains the same to the bilateral lower extremity. Pitting edema +1 to the bilateral lower extremity. Resting skin tension lines. Tenderness to touch is less than it was before. There is no lymphadenopathy on palpation of the inguinal or popliteal lymph nodes. There is no ascending lymphangitis. Neurological: Protective sensation is diminished to the bilateral lower extremity Dermatological: Skin marker located at the mid tibia level. Erythema is resolved at this time. There is evidence of exfoliation due to the swelling reduction. Keratoderma is present.There are multiple fissures on the bottom of the foot that expose desquamated areas of freshly epithelialized skin. These have improved from last presentation as there is thickened skin flaking off easily. There are areas of stable eschar noted at the sulcus at this time. These are tender to palpation and with motion of the bilateral extremity there is heavy hyperkeratosis and exfoliation to the plantar aspect of the foot again this has improved significantly in the last 2 days. The skin is taut and shiny to the level of the pretibial area of the left lower extremity with significant erythema. Right lower extremity is taut and shiny however lacks the erythema of the left and is lesser in size.No evidence of clinical infection at this time. Musculoskeletal exam: Wiggles toes without pain. Muscle strength is within normal limits Radiology: Radiographs 3 views nonweightbearing of the ankle showing no soft tissue abnormalities. There is no soft tissue emphysema. There is a decrease in bone mineral deposition. Radiographs 3 views nonweightbearing of the left foot demonstrating no soft tissue abnormalities. There is no soft tissue emphysema identified. There is a decrease in the bone mineral deposition particularly with cystic changes to the metatarsal heads 1-3 and 4 Radiographs 2 views nonweightbearing of the left tib-fib showing no soft tissue emphysema. Venous unilateral left leg Doppler: Negative for DVT Arterial ABIs: ABIs are within normal limits Assessment: Left lower extremity cellulitis- resolved Diabetic foot ulceration- POA- Present to the plantar sulcus of the digits of the bilateral lower extemity. Skin condition has improved significantly from prior to the weekend. Plantar skin is becoming more visable at this time. Recommend Twice daily use of Urea 40% cream to expedite the process. Venous insufficiency- ongoing. Continued compression therapy recommended. Localized edema L> R- ongoing. Continue compression therapy recommended. Plan Patient examination and evaluation. Dressing change took place today in order to evaluate the wounds which appear to be progressing well as well as the cellulitis to the left lower extremity. We will continue with compression therapy because of the residual venous stasis edema with subsequent ulceration. Dressing change consisted of heavy application skin barrier to the plantar aspect of the foot in order to promote removal of the hyperkeratotic tissue which was then followed by Betadine paint to the webspaces and the remainder of the lower extremity in toto with the exception of the plantar foot. 4 x 4 gauze was placed in between the webspaces to avoid any maceration this was then secured with Kerlix and Lobo with moderate compression. Cultures obtained at bedside on admission. Currently pending. Antibiotics to be managed by /Michael. Appreciate recommendations! Patient okay for discharge from podiatry standpoint whenever primary care provider deems appropriate. Patient to continue wound care and compression therapy. will follow 3x week MWF Recommend follow-up on discharge to my clinic for outpatient assessment. We will follow patient on an every other day basis in order to assess wounds as well as left lower extremity cellulitis.
[2019-12-30] MEDS: ECOTRIN 81 MG PO SCH (09:11)
[2019-12-30] MEDS: ENOXAPARIN SODIUM SQ SCH (09:12)
[2019-12-30] MEDS: THERAGRAN MULTIVITAMIN PO SCH (09:12)
[2019-12-30] MEDS: FEOSOL 325 MG PO SCH ×2 (09:12→22:37)
[2019-12-30] MEDS: Protonix 40MG Tablet PO SCH (09:12)
[2019-12-30] MEDS: NON-FORMULARY ITEM TOP SCH (09:12)
[2019-12-30] MEDS: Zestril 5 MG PO SCH (09:12)
[2019-12-30] MEDS: Lasix 40 MG PO SCH (09:12)
[2019-12-30] MEDS: Klor Con 10 MEQ PO SCH (09:12)
[2019-12-30] MEDS: CLARITIN 10 MG PO SCH (09:12)
[2019-12-30] MEDS: Diflucan/Saline 0.2G/100ML PREMIX*** 100 ML IV SCH (18:02)
[2019-12-30] MEDS: HUMALOG SQ PRN (22:38)
[2019-12-31] MEDS: TYLENOL EXTRA STRENGTH 500 MG PO PRN (00:38)
[2019-12-31] MEDS: DUONEB 0.5-3 MG/3 ml Neb IH SCH ×4 (05:40→19:33)
[2019-12-31] MEDS: Advair Hfa 230/21 Mcg COMMON CANISTER IH SCH ×2 (05:40→19:33)
[2019-12-31] MEDS: SODIUM CHLORIDE 0.9% IV SCH ×3 (07:04→21:14)
[2019-12-31] MEDS: FORTAZ IV SCH ×3 (07:04→21:14)
[2019-12-31] MEDS: TAZICEF IV SCH ×3 (07:04→21:14)
[2019-12-31] MEDS: FEOSOL 325 MG PO SCH ×2 (08:58→21:14)
[2019-12-31] MEDS: Protonix 40MG Tablet PO SCH (08:58)
[2019-12-31] MEDS: Lasix 40 MG PO SCH (08:58)
[2019-12-31] MEDS: ECOTRIN 81 MG PO SCH (08:58)
[2019-12-31] MEDS: Klor Con 10 MEQ PO SCH (08:58)
[2019-12-31] MEDS: THERAGRAN MULTIVITAMIN PO SCH (08:58)
[2019-12-31] MEDS: Zestril 5 MG PO SCH (08:58)
[2019-12-31] MEDS: CLARITIN 10 MG PO SCH (08:58)
[2019-12-31] MEDS: ENOXAPARIN SODIUM SQ SCH (08:59)
[2019-12-31] MEDS: NON-FORMULARY ITEM TOP SCH (09:02)
[2019-12-31] MEDS: Diflucan/Saline 0.2G/100ML PREMIX*** 100 ML IV SCH (18:33)
[2019-12-31] MEDS: HUMALOG SQ PRN (21:14)
[2020-01-01] MEDS: TAZICEF IV SCH (05:32)
[2020-01-01] MEDS: SODIUM CHLORIDE 0.9% IV SCH (05:32)
[2020-01-01] MEDS: FORTAZ IV SCH (05:32)
[2020-01-01] MEDS: DUONEB 0.5-3 MG/3 ml Neb IH SCH ×2 (06:53→10:31)
[2020-01-01] MEDS: Advair Hfa 230/21 Mcg COMMON CANISTER IH SCH (06:53)
[2020-01-01 07:22] VITALS: BP 139/90
[2020-01-01] MEDS: FEOSOL 325 MG PO SCH (09:50)
[2020-01-01] MEDS: THERAGRAN MULTIVITAMIN PO SCH (09:50)
[2020-01-01] MEDS: ECOTRIN 81 MG PO SCH (09:50)
[2020-01-01] MEDS: Zestril 5 MG PO SCH (09:50)
[2020-01-01] MEDS: Protonix 40MG Tablet PO SCH (09:50)
[2020-01-01] MEDS: Lasix 40 MG PO SCH (09:50)
[2020-01-01] MEDS: CLARITIN 10 MG PO SCH (09:50)
[2020-01-01] MEDS: Klor Con 10 MEQ PO SCH (09:50)
[2020-01-01] MEDS: ENOXAPARIN SODIUM SQ SCH (09:51)
[2020-01-01] MEDS: TYLENOL EXTRA STRENGTH 500 MG PO PRN (09:57)
[2020-01-01 10:33] VITALS: PULSE 84; O2SAT 92
--- NOTE | 2020-01-01 16:44 | PCM.NOTE ---
Podiatry Narrative Note Podiatry Narrative Note: Podiatry Narrative Note: Podiatry progress note: Attending provider Les Whitley DPM Chief complaint: Cellulitis left lower extremity with ulceration Subjective: History of present illness: Alyce Robb is seen at bedside this morning she is seen for follow-up of left lower extremity cellulitis. On presentation she is resting comfortably. She states she cannot sleep at night so she sleeps during the day time. She denies any constitutional symptoms. Again she states that the pain has largely subsided however she does experience pain in her left lower extremity with ambulation particularly to the bottom of her foot. She recounts an instance where the pain in the previous 24 hours where she relates there was 9/10 pain to the right lower extremity. She has significantly improved in terms of the cellulitic infection. She also indicates that there is pain with compression to the anterior tibial area. She currently endorses no other pedal complaints. Physical exam Vascular:Remains largely unchanged DP pulses palpable bilaterally however the posterior tibial pulse is absent. Her capillary refill time is less than 5 seconds to the bilateral hallux. There is absent pedal hair growth growth to the bilateral lower extremity in toto. The left leg cellulitis has diminished in size primarily to the posterior medial aspect of the lower extremity. There is some residual cellulitis that is identified on the anterior lateral aspect of the left leg that is darkening in color indicating there may be some hemosiderin deposition into the skin. Temperature remains the same to the bilateral lower extremity. Pitting edema +1 to the bilateral lower extremity. Resting skin tension lines. Tenderness to touch is less than it was before. There is no lymphadenopathy on palpation of the inguinal or popliteal lymph nodes. There is no ascending lymphangitis. Neurological: Protective sensation is diminished to the bilateral lower extremity Dermatological: Skin marker located at the mid tibia level. Erythema is resolved at this time. There is evidence of exfoliation due to the swelling reduction. Keratoderma is present.There are multiple fissures on the bottom of the foot that expose desquamated areas of freshly epithelialized skin. These have improved from last presentation as there is thickened skin flaking off easily. There are areas of stable eschar noted at the sulcus at this time. These are tender to palpation and with motion of the bilateral extremity there is heavy hyperkeratosis and exfoliation to the plantar aspect of the foot again this has improved significantly in the last 2 days. The skin is taut and shiny to the level of the pretibial area of the left lower extremity with significant erythema. Right lower extremity is taut and shiny however lacks the erythema of the left and is lesser in size.No evidence of clinical infection at this time. Musculoskeletal exam: Wiggles toes without pain. Muscle strength is within normal limits Radiology: Radiographs 3 views nonweightbearing of the ankle showing no soft tissue abnormalities. There is no soft tissue emphysema. There is a decrease in bone mineral deposition. Radiographs 3 views nonweightbearing of the left foot demonstrating no soft tissue abnormalities. There is no soft tissue emphysema identified. There is a decrease in the bone mineral deposition particularly with cystic changes to the metatarsal heads 1-3 and 4 Radiographs 2 views nonweightbearing of the left tib-fib showing no soft tissue emphysema. Venous unilateral left leg Doppler: Negative for DVT Arterial ABIs: ABIs are within normal limits Assessment: Left lower extremity cellulitis- resolved Diabetic foot ulceration- POA- Present to the plantar sulcus of the digits of the bilateral lower extemity. Skin condition has improved significantly from prior to the weekend. Plantar skin is becoming more visable at this time. Recommend Twice daily use of Urea 40% cream to expedite the process. Venous insufficiency- ongoing. Continued compression therapy recommended. Localized edema L> R- ongoing. Continue compression therapy recommended. Plan Patient examination and evaluation. Dressing changed took place today in order to evaluate the wounds which appear to be progressing well as the cellulitis is resolved at this time. There is still some residual bilateral pitting edema for which on discharge I recommend bilateral Unna boots to be placed. Dressing to consist of urea 40% cream to the plantar aspect of the feet 4 x 4 sterile gauze in between the webspaces along with Betadine paint and Unna boots to be applied to the bilateral lower extremity with cast padding and Covan applied with moderate compression. Patient to be discharged today from the standpoint of primary care. Patient to continue wound care and compression therapy will follow-up on discharge on Wednesday January 08, 2020.
== END 2020-01-01 14:05 | disposition home or self-care (01) | DRG 603 ==
LOC: MED SURG 15:55
PROVIDERS: ADMIT Family Medicine; ATTEND Family Medicine
DX: L03.116 Cellulitis of left lower limb (principal); E11.621 Type 2 diabetes mellitus with foot ulcer; I87.2 Venous insufficiency (chronic) (peripheral); Z79.899 Other long term (current) drug therapy
CPT/HCPCS: 29581; 36415; 82962; 94150; 94640; 94760; 99251; J0713; J1450; J1650; J1817; J2270; 97110-GP; A9270-GY

== ENCOUNTER 2020-02-18 04:39 | Emergency (ER) | payer MEDICARE ==
--- NOTE | 2020-02-18 05:31 | ERPHSYRPT ---
- History of Present Illness Historian: patient Exam Limitations: no limitations Patient Subjective Stated Complaint: pt states she has been vomiting since 0100. states she has airam feeling weak and unstable lately Triage Nursing Assessment: pt alert and oriented, answers questions approp. pt back per wheelchair, transfers to stretcher with assist of 1 and cane. slow, uns teady gait noted. pt short of breath with exertion- states normal for her. o2 applied at 2l per nc as at home. abd soft, nontender to light palpation. bowel sounds present x4. Timing/Duration: yesterday Quality: cramping Abdominal Pain Onset Location: generalized abdomen (Mild) Associated Symptoms: fatigue, loss of appetite, vomiting, weakness Previous symptoms: no prior history Hx Tetanus, Diphtheria Vaccination/Date Given: Yes Hx Influenza Vaccination/Date Given: Yes Hx Pneumococcal Vaccination/Date Given: No Immunizations Up to Date: Yes <DESIRAE CORTÉS - Last Filed: 02/18/20 06:51> <ARNOLD SOLIS - Last Filed: 02/18/20 07:44> - History of Present Illness Time Seen by Provider: 02/18/20 05:05 Physician History: This is a 69-year-old white female with a history of diabetes, coronary artery disease and has had a four-vessel coronary artery bypass graft in the past. She is had a cholecystectomy in the past. She presents with multiple episodes of nausea vomiting. It began yesterday. Her vomiting has been intractable since 1:00 this morning per her report. She has no specific chest pain, no shortness of breath. She has mild abdominal pain but she attributes this to the multiple episodes of vomiting. She feels weak. She does not feel as though she has had a fever. She has no urinary tract infection symptoms. She has not been exposed knowingly, to anyone who is positive for COVID-19 virus. She does have body aches. (DESIRAE CORTÉS) Allergies/Adverse Reactions: adhesive Allergy (Intermediate, Verified 02/18/20 05:01) Rash diphenhydramine HCl [From Benadryl] Allergy (Mild, Verified 02/18/20 05:01) Rash nalbuphine HCl [From Nubain] Allergy (Mild, Verified 02/18/20 05:01) Rash Penicillins Allergy (Mild, Verified 02/18/20 05:01) Rash gabapentin [From Neurontin] Allergy (Verified 02/18/20 05:01) Vomiting Home Medications: Furosemide 20 mg [Lasix 20 mg] 40 mg PO DAILY 12/08/16 [History] Loratadine 10 mg [Claritin 10 mg] 10 mg PO DAILY 12/08/16 [History] Nitroglycerin 0.4 mg Tablet [Nitrostat 0.4 MG Tablet] 0.4 mg SL Q5MIN PRN MR X 3 PRN 12/08/16 [History] Albuterol Sulfate Mdi [Proair Hfa MDI] 2 inh PO Q4H 07/06/19 [History] Albuterol/Ipratropium 3ml Neb* [DUONEB 0.5-3 MG/3 ml Neb] 1 amp IH QID 07/06/19 [History] Calcium Carbonate/Vitamin D3 [Calcium 600 + Vit D 400 Tablet] 1 each PO DAILY 07/06/19 [History] Ferrous Sulfate, Dried [Iron] 65 mg PO BID 07/06/19 [History] Metformin HCl 500 mg [Glucophage 500 MG] 500 mg PO TID 07/06/19 [History] Multivitamin W-Minerals/Lutein [Centrum Silver Tablet] 1 tablet PO DAILY [History] PANTOPRAZOLE 40 mg Tablet [Protonix 40MG Tablet] 40 mg PO QAM 07/06/19 [History] Potassium Chloride 10 meq PO DAILY 07/06/19 [History] Tiotropium Br/Olodaterol HCl [Stiolto Respimat Inhal Nikolai] 4 gm IH DAILY 07/06/19 [History] lisinopriL [Lisinopril] 2.5 mg PO DAILY 07/06/19 [History] Acetaminophen 500 mg [Tylenol Extra Strength 500 mg] 500 mg PO Q4H PRN PRN 12/20/19 [History] Travel Risk - International Travel Have you traveled outside of the country in past 3 weeks: No - Coronavirus Screening Are you exhibiting any of the following symptoms?: Yes Symptoms: Vomiting/Diarrhea, Headaches/Body Aches/Fatigue Close contact with a COVID-19 positive Pt in past 14-21 Days: No <DESIRAE CORTÉS - Last Filed: 02/18/20 06:51> - Review of Systems Constitutional: Weakness Eyes: No Symptoms Ears, Nose, & Throat: No Symptoms Respiratory: No Symptoms Abdominal/Gastrointestinal: Abdominal Pain (Mild, Generalized), Nausea, Vomiting, No Diarrhea Genitourinary Symptoms: No Symptoms Musculoskeletal: No Symptoms Skin: No Symptoms Neurological: No Symptoms Psychological: No Symptoms Endocrine: No Symptoms Hematologic/Lymphatic: No Symptoms Immunological/Allergic: No Symptoms All Other Systems: Reviewed and Negative <DESIRAE CORTÉS TommyLiyah - Last Filed: 02/18/20 06:51> - Past Medical History Pertinent Past Medical History: Yes Neurological History: No Pertinent History ENT History: No Pertinent History Cardiac History: Coronary Artery Disease, High Cholesterol, Hypertension, Myocardial Infarction ([place]) Respiratory History: Asthma, CHF, COPD, Emphysema Endocrine Medical History: Diabetes Type II Musculoskeletal History: Arthritis GI Medical History: Diverticulosis, Gallbladder Disease History: No Pertinent History Psycho-Social History: No Pertinent History Female Reproductive Disorders: No Pertinent History Other Medical History: Pt. 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 x2. 4 vessel cabg - Social History Smoking Status: Former smoker How long have you smoked: 63 years Exposure to second hand smoke: No Drug Use: none Patient Lives Alone: No <DESIRAE CORTÉS TommyLiyah - Last Filed: 02/18/20 06:51> - Physical Exam General Appearance: mild distress, alert, anxiety, obese Eye Exam: PERRL/EOMI, eyes nml inspection Ears, Nose, Throat Exam: normal ENT inspection, dry mucous membranes Neck Exam: normal inspection, non-tender, supple, full range of motion Respiratory Exam: normal breath sounds, lungs clear, airway intact, No chest tenderness, No respiratory distress Cardiovascular Exam: regular rate/rhythm, normal heart sounds, normal peripheral pulses Gastrointestinal/Abdomen Exam: soft, normal bowel sounds, tenderness (Mild diffuse), hernia (reducible), No guarding Pelvic Exam: not done Rectal Exam: not done Back Exam: normal inspection, normal range of motion, No CVA tenderness, No vertebral tenderness Extremity Exam: normal inspection, normal range of motion, pelvis stable Neurologic Exam: alert, oriented x 3, cooperative, 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, normal mood/affect, nml cerebellar function, nml station & gait, sensation nml Skin Exam: normal color, warm, dry Lymphatic Exam: No adenopathy SpO2 Interpretation: borderline oxygenation SpO2: 94 O2 Delivery: Room Air <DESIRAE CORTÉS - Last Filed: 02/18/20 06:51> - Nursing Vital Signs Nursing Vital Signs: Initial Vital Signs Temperature 98.2 F 02/18/20 04:49 Pulse Rate 87 02/18/20 04:49 Respiratory Rate 20 02/18/20 04:49 Blood Pressure 192/81 02/18/20 04:49 O2 Sat by Pulse Oximetry 94 L 02/18/20 04:49 Pain Scale Pain Intensity 0 - Course Nursing assessment & vital signs reviewed: Yes EKG Interpreted by Me: RATE (68), Sinus Rhythm, NORMAL AXIS, NORMAL INTERVALS, NORMAL QRS, Other (Comparison EKG dated 07/06/2019. There is persistent prolonged MA interval on today's EKG. There is resolution of supraventricular bigeminy that was present on the prior EKG.) <DESIRAE CORTÉS - Last Filed: 02/18/20 06:51> Ordered Tests: Active Orders 24 hr Category Date Time Status EKG-ER Only STAT Care 02/18/20 05:33 Active IV Insertion STAT Care 02/18/20 05:33 Active ABDOMEN AND PELVIS W/0 CONTRAS [CT] Stat Exams 02/18/20 06:40 Taken AMYLASE Stat Lab 02/18/20 06:00 Completed BNP [NT PRO BNP] Stat Lab 02/18/20 06:00 Received CBC W DIFF Stat Lab 02/18/20 06:00 Completed CMP Stat Lab 02/18/20 06:00 Completed LIPASE Stat Lab 02/18/20 06:00 Completed Lactic Acid Stat Lab 02/18/20 05:47 Completed [place] Screen Stat Lab 02/18/20 06:00 Completed TROPONIN Q3H Lab 02/18/20 06:00 Completed TROPONIN Q3H Lab 02/18/20 08:45 Ordered TROPONIN Q3H Lab 02/18/20 11:45 Ordered TROPONIN Q3H Lab 02/18/20 14:45 Ordered TROPONIN Q3H Lab 02/18/20 17:45 Ordered UA W/RFX UR CULTURE Stat Lab 02/18/20 06:18 Completed Medication Summary Discontinued Medications Generic Name Dose Route Start Last Admin Trade Name Aryan PRN Reason Stop Dose Admin Sodium Chloride 1,000 mls @ 999 mls/hr 02/18/20 05:33 02/18/20 07:24 Sodium Chloride 0.9% 1000 Ml IV 02/18/20 06:33 Infused .Q1H1M STA Infusion Sodium Chloride Confirm 02/18/20 05:40 Sodium Chloride 0.9% 1000 Ml Administered 02/18/20 05:41 Dose 1,000 mls @ ud .ROUTE .STK-MED ONE Ceftriaxone Sodium/Dextrose 1 g in 50 mls @ 100 mls/hr 02/18/20 07:00 02/18/20 07:14 Rocephin 1 Gm-D5w 50 Ml Bag IV 02/18/20 07:29 100 mls/hr STAT STA 100 mls/hr Administration Ceftriaxone Sodium/Dextrose Confirm 02/18/20 07:12 Rocephin 1 Gm-D5w 50 Ml Bag Administered 02/18/20 07:13 Dose 1 g in 50 mls @ ud IV .STK-MED ONE Ondansetron HCl 4 mg 02/18/20 05:33 02/18/20 05:44 Zofran 4 Mg/2 Ml Vial IV 02/18/20 05:34 4 mg STAT ONE Administration Ondansetron HCl Confirm 02/18/20 05:40 Zofran 4 Mg/2 Ml Vial Administered 02/18/20 05:41 Dose 4 mg .ROUTE .STK-MED ONE Pantoprazole Sodium 40 mg 02/18/20 05:33 02/18/20 05:44 Protonix 40 Mg Iv IV 02/18/20 05:34 40 mg STAT ONE Administration Pantoprazole Sodium Confirm 02/18/20 05:40 Protonix 40 Mg Iv Administered 02/18/20 05:41 Dose 40 mg IV .STK-MED ONE Lab/Rad Data: Laboratory Result Diagrams 02/18/20 06:00 02/18/20 06:00 Laboratory Results 02/18/20 02/18/20 02/18/20 Range/Units 06:18 06:00 06:00 WBC (4.0-10.5) K/mm3 RBC (4.1-5.4) M/mm3 Hgb (12.0-16.0) gm/dl Hct (35-47) % MCV (78-100) fl MCH (26-32) pg MCHC (32-36) g/dl RDW (11.5-14.0) % Plt Count (150-450) K/mm3 MPV (7.5-11.0) fl Gran % (36.0-66.0) % Eos # (Auto) (0-0.5) Absolute Lymphs (auto) (1.0-4.6) Absolute Monos (auto) (0.0-1.3) Lymphocytes % (24.0-44.0) % Monocytes % (0.0-12.0) % Eosinophils % (0.00-5.0) % Basophils % (0.0-0.4) % Absolute Granulocytes (1.4-6.9) Basophils # (0-0.4) Sodium (137-145) mmol/L Potassium (3.5-5.1) mmol/L Chloride (98-107) mmol/L Carbon Dioxide (22-30) mmol/L Anion Gap (5-15) MEQ/L BUN (7-17) mg/dL Creatinine (0.52-1.04) mg/dL Estimated GFR ML/MIN Glucose (74-106) mg/dL Lactic Acid (0.4-2.0) Calcium (8.4-10.2) mg/dL Total Bilirubin (0.2-1.3) mg/dL AST (14-36) U/L ALT (0-35) U/L Alkaline Phosphatase (38-126) U/L Troponin I (0.000-0.034) ng/mL Serum Total Protein (6.3-8.2) g/dL Albumin (3.5-5.0) g/dL Amylase (30-110) U/L Lipase (23-300) U/L Urine Color YELLOW (YELLOW) Urine Appearance SLIGHTLY CLOUDY (CLEAR) Urine pH 6.0 (5-6) Ur Specific [place] 1.027 (1.005-1.025) Urine Protein >=500 (Negative) Urine Ketones NEGATIVE (NEGATIVE) Urine Blood NEGATIVE (0-5) Abilio/ul Urine Nitrite NEGATIVE (NEGATIVE) Urine Bilirubin NEGATIVE (NEGATIVE) Urine Urobilinogen 2 (0-1) mg/dL Ur Leukocyte Esterase SMALL (NEGATIVE) Urine WBC (Auto) 26-50 (0-5) /HPF Urine RBC (Auto) 6-10 (0-2) /HPF U Epithel Cells (Auto) FEW (FEW) /HPF Urine Bacteria (Auto) NONE (NEGATIVE) /HPF Urine Mucus (Auto) SLIGHT (NEGATIVE) /HPF Urine Culture Reflexed NO (NO) Urine Glucose NEGATIVE (NEGATIVE) mg/dL Monoscreen NEGATIVE (Negative) Influenza Type A Ag NEGATIVE (NEGATIVE) Influenza Type B Ag NEGATIVE (NEGATIVE) RSV (PCR) NEGATIVE (Negative) Group A Strep Antibody (NEGATIVE) 02/18/20 02/18/20 02/18/20 Range/Units 06:00 06:00 06:00 WBC (4.0-10.5) K/mm3 RBC (4.1-5.4) M/mm3 Hgb (12.0-16.0) gm/dl Hct (35-47) % MCV (78-100) fl MCH (26-32) pg MCHC (32-36) g/dl RDW (11.5-14.0) % Plt Count (150-450) K/mm3 MPV (7.5-11.0) fl Gran % (36.0-66.0) % Eos # (Auto) (0-0.5) Absolute Lymphs (auto) (1.0-4.6) Absolute Monos (auto) (0.0-1.3) Lymphocytes % (24.0-44.0) % Monocytes % (0.0-12.0) % Eosinophils % (0.00-5.0) % Basophils % (0.0-0.4) % Absolute Granulocytes (1.4-6.9) Basophils # (0-0.4) Sodium 137 (137-145) mmol/L Potassium 4.2 (3.5-5.1) mmol/L Chloride 103 (98-107) mmol/L Carbon Dioxide 28 (22-30) mmol/L Anion Gap 10.7 (5-15) MEQ/L BUN 18 H (7-17) mg/dL Creatinine 0.68 (0.52-1.04) mg/dL Estimated GFR > 60.0 ML/MIN Glucose 210 H (74-106) mg/dL Lactic Acid (0.4-2.0) Calcium 9.2 (8.4-10.2) mg/dL Total Bilirubin 0.40 (0.2-1.3) mg/dL AST 23 (14-36) U/L ALT 18 (0-35) U/L Alkaline Phosphatase 72 (38-126) U/L Troponin I < 0.012 (0.000-0.034) ng/mL Serum Total Protein 7.8 (6.3-8.2) g/dL Albumin 4.2 (3.5-5.0) g/dL Amylase 75 (30-110) U/L Lipase 55 (23-300) U/L Urine Color (YELLOW) Urine Appearance (CLEAR) Urine pH (5-6) Ur Specific [place] (1.005-1.025) Urine Protein (Negative) Urine Ketones (NEGATIVE) Urine Blood (0-5) Abilio/ul Urine Nitrite (NEGATIVE) Urine Bilirubin (NEGATIVE) Urine Urobilinogen (0-1) mg/dL Ur Leukocyte Esterase (NEGATIVE) Urine WBC (Auto) (0-5) /HPF Urine RBC (Auto) (0-2) /HPF U Epithel Cells (Auto) (FEW) /HPF Urine Bacteria (Auto) (NEGATIVE) /HPF Urine Mucus (Auto) (NEGATIVE) /HPF Urine Culture Reflexed (NO) Urine Glucose (NEGATIVE) mg/dL Monoscreen (Negative) Influenza Type A Ag (NEGATIVE) Influenza Type B Ag (NEGATIVE) RSV (PCR) (Negative) Group A Strep Antibody NOT DETECTED (NEGATIVE) 02/18/20 02/18/20 Range/Units 06:00 05:47 WBC 9.5 (4.0-10.5) K/mm3 RBC 4.66 (4.1-5.4) M/mm3 Hgb 14.1 (12.0-16.0) gm/dl Hct 43.3 (35-47) % MCV 92.9 (78-100) fl MCH 30.3 (26-32) pg MCHC 32.6 (32-36) g/dl RDW 13.8 (11.5-14.0) % Plt Count 199 (150-450) K/mm3 MPV 9.7 (7.5-11.0) fl Gran % 86.1 H (36.0-66.0) % Eos # (Auto) 0.09 (0-0.5) Absolute Lymphs (auto) 0.63 L (1.0-4.6) Absolute Monos (auto) 0.60 (0.0-1.3) Lymphocytes % 6.6 L (24.0-44.0) % Monocytes % 6.3 (0.0-12.0) % Eosinophils % 0.9 (0.00-5.0) % Basophils % 0.1 (0.0-0.4) % Absolute Granulocytes 8.15 H (1.4-6.9) Basophils # 0.01 (0-0.4) Sodium (137-145) mmol/L Potassium (3.5-5.1) mmol/L Chloride (98-107) mmol/L Carbon Dioxide (22-30) mmol/L Anion Gap (5-15) MEQ/L BUN (7-17) mg/dL Creatinine (0.52-1.04) mg/dL Estimated GFR ML/MIN Glucose (74-106) mg/dL Lactic Acid 1.4 (0.4-2.0) Calcium (8.4-10.2) mg/dL Total Bilirubin (0.2-1.3) mg/dL AST (14-36) U/L ALT (0-35) U/L Alkaline Phosphatase (38-126) U/L Troponin I (0.000-0.034) ng/mL Serum Total Protein (6.3-8.2) g/dL Albumin (3.5-5.0) g/dL Amylase (30-110) U/L Lipase (23-300) U/L Urine Color (YELLOW) Urine Appearance (CLEAR) Urine pH (5-6) Ur Specific [place] (1.005-1.025) Urine Protein (Negative) Urine Ketones (NEGATIVE) Urine Blood (0-5) Abilio/ul Urine Nitrite (NEGATIVE) Urine Bilirubin (NEGATIVE) Urine Urobilinogen (0-1) mg/dL Ur Leukocyte Esterase (NEGATIVE) Urine WBC (Auto) (0-5) /HPF Urine RBC (Auto) (0-2) /HPF U Epithel Cells (Auto) (FEW) /HPF Urine Bacteria (Auto) (NEGATIVE) /HPF Urine Mucus (Auto) (NEGATIVE) /HPF Urine Culture Reflexed (NO) Urine Glucose (NEGATIVE) mg/dL Monoscreen (Negative) Influenza Type A Ag (NEGATIVE) Influenza Type B Ag (NEGATIVE) RSV (PCR) (Negative) Group A Strep Antibody (NEGATIVE) - Progress Progress: improved Counseled pt/family regarding: lab results, diagnosis <DESIRAE CORTÉS - Last Filed: 02/18/20 06:51> <ARNOLD SOLIS - Last Filed: 02/18/20 07:44> - Progress Progress Note: 02/18/20 06:52 I transferred care to Dr. Solis at shift change. I reviewed the patient's history, condition, pending laboratory studies that he needs to follow-up on and reviewed what has returned. He accepts the patient in transfer. (DESIRAE CORTÉS) 02/18/20 07:42 I went in to reevaluate the patient. Her CT scan had returned normal without any new findings. It was chronic per Dr. Herring's report. I reexamined the patient's stomach. She had no tenderness, rebound, guarding. I did offer staying in the hospital for continued treatment. Patient does have some white blood cells in her urine. However no bacteria. Therefore, it could be a UTI versus some other type of sterile pyuria. However no acute findings on CT scan. We will treat patient with antibiotics going home given that Dr. Cortés started antibiotics here. I do feel this is reasonable to do. Overall, the patient and daughter felt safe going home. They did not want to stay. She is on her normal amount of oxygen. Patient was p.o. challenge before going home. She was able to drink and eat without difficulty. She stated that her nausea had greatly improved. Plan of care was discussed with patient and all questions answered. The patient is agreeable to be discharged home and both verbal and printed discharge instructions were provided.The patient agreed to seek outpatient follow up as discussed. The patient was given strict instructions to return to the emergency department for worsening symptoms or any other emergent concerns. The patient verbalized understanding. (ARNOLD SOLIS) - Departure Departure Disposition: Home Critical Care Time: No <DESIRAE CORTÉS - Last Filed: 02/18/20 06:51> - Departure Departure Disposition: Home Critical Care Time: No <ARNOLD SOLIS - Last Filed: 02/18/20 07:44> - Departure Clinical Impression: Abdominal pain, Vomiting, UTI (urinary tract infection) Condition: Fair Referrals: NINA FLORES [Primary Care Provider] - Instructions: Nausea and Vomiting, Adult (DC) Additional Instructions: Return here for any new nausea or vomiting. Return here for any new or changing symptoms. Return here if you are unable to see your PCP. Prescriptions: Ondansetron ODT 4 MG [Zofran Odt 4 mg] 4 mg PO Q6H PRN PRN #10 tab.rapdis PRN Reason: Vomiting Levofloxacin [Levaquin 500 MG Tablet] 750 mg PO DAILY #7 tablet
[2020-02-18] MEDS ORDERED: Zofran 4 MG/2 ML VIAL IV ONE (05:33)
[2020-02-18] MEDS ORDERED: Sodium Chloride 0.9% 1000 ML 1,000 ML IV STA (05:33)
[2020-02-18] MEDS ORDERED: PROTONIX 40 MG IV IV ONE ×2 (05:33→05:40)
[2020-02-18] MEDS ORDERED: Zofran 4 MG/2 ML VIAL ONE (05:40)
[2020-02-18] MEDS ORDERED: Sodium Chloride 0.9% 1000 ML 1,000 ML ONE (05:40)
[2020-02-18 06:01] LABS: Absolute Neutrophil Ct (ANC) 8.15 (1.4-6.9); BASOPHIL % 0.1 % (0.0-0.4); Basophil (Absolute #) 0.01 (0-0.4); Eosinophil % 0.9 % (0.00-5.0); Eosinophil (Absolute #) 0.09 (0-0.5); Hematocrit 43.3 % (35-47); Hemoglobin 14.1 gm/dl (12.0-16.0); Lymphocyte (Absolute #) 0.63 (1.0-4.6); Lymphocytes % 6.6 % (24.0-44.0); Mean Cell Volume 92.9 fl (78-100); Mean Corpuscular Hemoglobin 30.3 pg (26-32); Mean Corpuscular Hgb Concent. 32.6 g/dl (32-36); Mean Platelet Volume 9.7 fl (7.5-11.0); Monocytes % 6.3 % (0.0-12.0); Neutrophil % 86.1 % (36.0-66.0); Platelet Count 199 K/mm3 (150-450); Red Blood Count 4.66 M/mm3 (4.1-5.4); Red Cell Distribution Width 13.8 % (11.5-14.0); White Blood Count 9.5 K/mm3 (4.0-10.5)
[2020-02-18 06:16] LABS: ALBUMIN 4.2 g/dL (3.5-5.0); ALKALINE PHOSPHATASE 72 U/L (38-126); AMYLASE 75 U/L (30-110); ANION GAP 10.7 MEQ/L (5-15); BLOOD UREA NITROGEN 18 mg/dL (7-17); CHLORIDE 103 mmol/L (98-107); Calcium 9.2 mg/dL (8.4-10.2); Carbon Dioxide 28 mmol/L (22-30); Creatinine 1 0.68 mg/dL (0.52-1.04); EST GLOMERULAR FILTRATION RATE > 60.0 ML/MIN; Glucose 210 mg/dL (74-106); LIPASE 55 U/L (23-300); Potassium 4.2 mmol/L (3.5-5.1); SGOT/AST 23 U/L (14-36); SGPT/ALT 18 U/L (0-35); SODIUM 137 mmol/L (137-145); Total Protein 7.8 g/dL (6.3-8.2)
[2020-02-18 06:34] LABS: INFLUENZA A NEGATIVE (NEGATIVE); INFLUENZA B NEGATIVE (NEGATIVE); RESPIRATORY SYNCTIAL VIRUS NEGATIVE (Negative)
[2020-02-18 06:45] LABS: Appearance SLIGHTLY CLOUDY (CLEAR); Bilirubin NEGATIVE (NEGATIVE); Blood NEGATIVE Ery/ul (0-5); Epithelial Cells FEW /HPF (FEW); Glucose NEGATIVE (NEGATIVE); Ketones NEGATIVE (NEGATIVE); Leukocyte Esterase SMALL (NEGATIVE); Mucus SLIGHT /HPF (NEGATIVE); Nitrite NEGATIVE (NEGATIVE); Protein,Urine Dip >=500 (Negative); Specific Gravity 1.027 (1.005-1.025); Urobilinogen 2 mg/dL (0-1); WBC 26-50 /HPF (0-5)
[2020-02-18] MEDS ORDERED: ROCEPHIN 1 Gm-D5w 50 ml Bag** 1 G/50 ML IVPB IV STA (07:00)
[2020-02-18] MEDS ORDERED: ROCEPHIN 1 Gm-D5w 50 ml Bag** 1 G/50 ML IVPB IV ONE (07:12)
[2020-02-18 07:29] VITALS: BP 149/61; PULSE 72; O2SAT 97
--- NOTE | 2020-02-18 09:02 | XRAY ---
Indication: Abdomen pain, nausea, vomiting, diarrhea. Multiple contiguous axial images obtained through the abdomen and pelvis without contrast as ordered. Comparison: February 06, 2020. Study again slightly degraded by respiration artifact throughout. Lung bases again demonstrates bibasilar subsegmental atelectasis/scarring. No infiltrate or effusion. Heart is not enlarged. Noncontrasted stomach and bowel loops remain nonobstructed. Stable descending duodenal diverticulum, scattered colonic diverticulosis, 12.6 cm splenomegaly, calcified hepatic/splenic granulomas, tiny uterine fundal calcified fibroid, and cholecystectomy. No free fluid/air. Remaining liver, pancreas, spleen, adrenal glands, kidneys, ureters, bladder, and uterus appear unremarkable for noncontrast exam. Stable mild aortoiliac calcifications without AAA. Osseous structures intact again with degenerative changes throughout the spine. Impression: 1. Continued respiration artifact. 2. Stable duodenal diverticulum, colonic diverticulosis, splenomegaly, chronic bony findings, and old granulomatous disease. 3. Remaining CT abdomen/pelvis without contrast exam is again negative.
== END 2020-02-18 08:18 | disposition home or self-care (01) ==
LOC: ED 04:39
DX: R10.84 Generalized abdominal pain (principal); R11.2 Nausea with vomiting, unspecified; R53.83 Other fatigue; R53.1 Weakness; N39.0 Urinary tract infection, site not specified; E78.00 Pure hypercholesterolemia, unspecified; R63.0 Anorexia; I10 Essential (primary) hypertension; J44.9 Chronic obstructive pulmonary disease, unspecified; Z85.41 Personal history of malignant neoplasm of cervix uteri; I25.2 Old myocardial infarction; I25.10 Atherosclerotic heart disease of native coronary artery without angina pectoris; Z79.899 Other long term (current) drug therapy
CPT/HCPCS: 36000; 36415; 74176; 80053; 81001; 82150; 83605; 83690; 83880; 84484; 85025; 86308; 87631; 87651; 93005; 96360; 96365; 96374; 99285; J0696; J2405

== ENCOUNTER 2020-10-24 21:18 | Emergency (ER) | payer MEDICARE ==
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
[2020-10-24] MEDS ORDERED: solu-MEDROL 125 MG, Sterile H2O 10 ml 2 ML IV ONE ×2 (22:27)
[2020-10-24 22:32] LABS: BASOPHIL % 0.4 % (0.0-0.4); Basophil (Absolute #) 0.02 (0-0.4); Hemoglobin 15.2 gm/dl (12.0-16.0); Lymphocyte (Absolute #) 1.42 (1.0-4.6); Mean Cell Volume 90.4 fl (78-100); Mean Corpuscular Hemoglobin 29.9 pg (26-32); Mean Platelet Volume 9.7 fl (7.5-11.0); Monocyte (Absolute #) 0.36 (0.0-1.3); Monocytes % 7.3 % (0.0-12.0); Neutrophil % 61.3 % (36.0-66.0); Platelet Count 209 K/mm3 (150-450); Red Blood Count 5.09 M/mm3 (4.1-5.4); Red Cell Distribution Width 13.5 % (11.5-14.0); White Blood Count 4.9 K/mm3 (4.0-10.5)
[2020-10-24] MEDS ORDERED: solu-MEDROL ONE (22:32)
[2020-10-24 22:37] LABS: ALBUMIN 4.3 g/dL (3.5-5.0); ALKALINE PHOSPHATASE 69 U/L (38-126); ANION GAP 11.5 MEQ/L (5-15); BLOOD UREA NITROGEN 14 mg/dL (7-17); CHLORIDE 102 mmol/L (98-107); Calcium 9.4 mg/dL (8.4-10.2); Carbon Dioxide 32 mmol/L (22-30); Creatinine 1 0.68 mg/dL (0.52-1.04); EST GLOMERULAR FILTRATION RATE > 60.0 ML/MIN; Glucose 155 mg/dL (74-106); Potassium 3.8 mmol/L (3.5-5.1); SGOT/AST 23 U/L (14-36); SGPT/ALT 18 U/L (0-35); SODIUM 141 mmol/L (137-145); Total Protein 7.8 g/dL (6.3-8.2)
[2020-10-24] MEDS ORDERED: Levofloxacin 500 MG Tablet PO ONE (23:39)
[2020-10-25] MEDS ORDERED: Levofloxacin 500 MG Tablet ONE (00:04)
[2020-10-25 00:40] VITALS: BP 171/98
[2020-10-25 01:10] VITALS: PULSE 68; O2SAT 97
--- NOTE | 2020-10-25 06:43 | XRAY ---
Indication: Cough. Comparison: July 06, 2019. Portable chest again demonstrates minimal bibasilar subsegmental atelectasis/scarring less than before. No focal infiltrate, consolidation, or large effusion. Heart not enlarged again with CABG and a few tiny hilar calcified nodes. Bony thorax intact again with mild degenerative changes. Impression: Continued nonacute chest with chronic features.
== END 2020-10-25 01:06 | disposition home or self-care (01) ==
LOC: ED 21:18
DX: J06.9 Acute upper respiratory infection, unspecified (principal); J40 Bronchitis, not specified as acute or chronic; E11.9 Type 2 diabetes mellitus without complications; I10 Essential (primary) hypertension; E78.00 Pure hypercholesterolemia, unspecified; Z79.899 Other long term (current) drug therapy
CPT/HCPCS: 36000; 36415; 71045; 80053; 83605; 83880; 85025; 87040; 96374; 99284; J2930; A9270-GY

== ENCOUNTER 2021-01-01 22:19 | Inpatient (IN) | payer MEDICARE ==
[2021-01-01] MEDS ORDERED: BABY ASPIRIN 81 MG CHEW PO ONE (22:50)
[2021-01-01] MEDS ORDERED: Adenocard IV 6 MG/2 ML IV ONE ×2 (22:59→23:01)
[2021-01-01] MEDS ORDERED: Sodium Chloride 0.9% 1000 ML 1,000 ML ONE (23:02)
[2021-01-01 23:08] LABS: Absolute Neutrophil Ct (ANC) 4.31 (1.4-6.9); BASOPHIL % 0.3 % (0.0-0.4); Basophil (Absolute #) 0.02 (0-0.4); Eosinophil % 2.1 % (0.00-5.0); Eosinophil (Absolute #) 0.13 (0-0.5); Hematocrit 45.6 % (35-47); Hemoglobin 14.5 gm/dl (12.0-16.0); Lymphocyte (Absolute #) 1.18 (1.0-4.6); Lymphocytes % 19.3 % (24.0-44.0); Mean Cell Volume 93.1 fl (78-100); Mean Corpuscular Hemoglobin 29.6 pg (26-32); Mean Corpuscular Hgb Concent. 31.8 g/dl (32-36); Mean Platelet Volume 9.3 fl (7.5-11.0); Monocyte (Absolute #) 0.46 (0.0-1.3); Monocytes % 7.5 % (0.0-12.0); Neutrophil % 70.8 % (36.0-66.0); Platelet Count 181 K/mm3 (150-450); Red Cell Distribution Width 14.1 % (11.5-14.0); White Blood Count 6.1 K/mm3 (4.0-10.5)
[2021-01-01 23:29] LABS: ALBUMIN 3.8 g/dL (3.5-5.0); ALKALINE PHOSPHATASE 91 U/L (38-126); ANION GAP 9.8 MEQ/L (5-15); BLOOD UREA NITROGEN 12 mg/dL (7-17); CHLORIDE 101 mmol/L (98-107); Calcium 8.7 mg/dL (8.4-10.2); Carbon Dioxide 30 mmol/L (22-30); Creatinine 1 0.55 mg/dL (0.52-1.04); EST GLOMERULAR FILTRATION RATE > 60.0 ML/MIN; Glucose 168 mg/dL (74-106); NT PRO BNP 228 pg/mL (0-900); Potassium 3.9 mmol/L (3.5-5.1); SGOT/AST 26 U/L (14-36); SGPT/ALT 19 U/L (0-35); SODIUM 138 mmol/L (137-145); Total Protein 7.2 g/dL (6.3-8.2)
--- NOTE | 2021-01-01 23:29 | ERPHSYRPT ---
- History of Present Illness Time Seen by Provider: 01/01/21 22:25 Historian: patient, EMS Exam Limitations: clinical condition Patient Subjective Stated Complaint: "Well I can't breathe to well." Triage Nursing Assessment: patient is a 70 y/o white female with PMH significant for COPD, CHF, A-flutte, CABG x4, SC, DM type II, and cervical cancer. She presented via EMS with reported chest pain and dyspnea onset the morning of 01-01-21. She denied any precipitating events. Pain described as sharp intermittent mid-sternal and non-radiating. Reported dyspnea both at rest and with exertion. Reported one episode of vomiting. Denied headache, dizziness, weakness, hematemesis, dysuria, frequency, constipation, or hematochezia. Pupils 3mm bilateral. EOMs intact. Carotid arteries without bruits/thrills. Symmetrical chest expansion. heart tones tachycardic S1/S2. Lungs with diminished in the bilateral bases with scattered wheezes throughout. Abdomen morbidly obese without tenderness. Peripheral pulses +3 bilateral. +3 dependent edema bilateral. Physician History: This is a 70-year-old obese white female patient of Dara Pimentel, nurse practitioner who presents with chest pain and shortness of breath that began earlier this morning. Patient is a poor historian and thinks she took her medications today but is not absolutely sure. Patient lives at home with her daughter. Patient has a significant history for hypertension, elevated cholesterol, coronary artery disease including a four-vessel CABG and cardiac s tents, CHF, COPD, atrial flutter and type 2 diabetes. Patient also has a history of cervical cancer and has received radiation therapy and has not had surgery for this. 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 Dasilva and usually goes to [facility] for cardiac issues. Patient has associated mild cough but no fever. She has no abdominal pain. She has no nausea vomiting or diarrhea. Timing/Duration: today Activities at Onset: none Quality: pressure Location: substernal, central Chest Pain Radiation: no radiation Severity of Pain-Max: mild Severity of Pain-Current: mild Associated Symptoms: palpitations, shortness of breath, No nausea, No vomiting Prior Chest Pain/Cardiac Workup: cardiac cath, heart attack Nitro Today/Relief: no nitro taken today Aspirin Treatment Today: 81 mg x 4, provided by ED Allergies/Adverse Reactions: adhesive Allergy (Intermediate, Verified 01/01/21 22:22) Rash diphenhydramine HCl [From Benadryl] Allergy (Mild, Verified 01/01/21 22:22) Rash nalbuphine HCl [From Nubain] Allergy (Mild, Verified 01/01/21 22:22) Rash Penicillins Allergy (Mild, Verified 01/01/21 22:22) Rash gabapentin [From Neurontin] Allergy (Verified 01/01/21 22:22) Vomiting Home Medications: Furosemide 20 mg [Lasix 20 mg] 40 mg PO DAILY 12/08/16 [History] Loratadine 10 mg [Claritin 10 mg] 10 mg PO DAILY 12/08/16 [History] Nitroglycerin 0.4 mg Tablet [Nitrostat 0.4 MG Tablet] 0.4 mg SL Q5MIN PRN MR X 3 PRN 12/08/16 [History] Albuterol Sulfate Mdi [Proair Hfa MDI] 2 inh PO Q4H 07/06/19 [History] Albuterol/Ipratropium 3ml Neb* [DUONEB 0.5-3 MG/3 ml Neb] 1 amp IH QID 07/06/19 [History] Calcium Carbonate/Vitamin D3 [Calcium 600 + Vit D 400 Tablet] 1 each PO DAILY 07/06/19 [History] Ferrous Sulfate, Dried [Iron] 65 mg PO BID 07/06/19 [History] Metformin HCl 500 mg [Glucophage 500 MG] 500 mg PO TID 07/06/19 [History] Multivitamin W-Minerals/Lutein [Centrum Silver Tablet] 1 tablet PO DAILY 07/06/19 [History] PANTOPRAZOLE 40 mg Tablet [Protonix 40MG Tablet] 40 mg PO QAM 07/06/19 [History] Potassium Chloride 10 meq PO DAILY 07/06/19 [History] Tiotropium Br/Olodaterol HCl [Stiolto Respimat Inhal [place]] 4 gm IH DAILY 07/06/19 [History] lisinopriL [Lisinopril] 2.5 mg PO DAILY 07/06/19 [History] Hx Tetanus, Diphtheria Vaccination/Date Given: Yes Hx Influenza Vaccination/Date Given: Yes Hx Pneumococcal Vaccination/Date Given: No Travel Risk - International Travel Have you traveled outside of the country in past 3 weeks: No - Coronavirus Screening Are you exhibiting any of the following symptoms?: No Close contact with a COVID-19 positive Pt in past 14-21 Days: No - Vaccine Status Have you recieved a Covid-19 vaccination: No - Review of Systems Constitutional: Weakness Eyes: No Symptoms Ears, Nose, & Throat: No Symptoms Respiratory: Cough, Dyspnea Cardiac: Chest Pain, Palpitations Abdominal/Gastrointestinal: No Symptoms Genitourinary Symptoms: No Symptoms Musculoskeletal: No Symptoms Skin: No Symptoms Neurological: No Symptoms Psychological: No Symptoms Endocrine: No Symptoms Hematologic/Lymphatic: No Symptoms Immunological/Allergic: No Symptoms All Other Systems: Reviewed and Negative - Past Medical History Pertinent Past Medical History: Yes Neurological History: No Pertinent History ENT History: No Pertinent History Cardiac History: Coronary Artery Disease, High Cholesterol, Hypertension, Myocardial Infarction (SC) Respiratory History: Asthma, CHF, COPD, Emphysema Endocrine Medical History: Diabetes Type II Musculoskeletal History: Arthritis GI Medical History: Diverticulosis, Gallbladder Disease History: No Pertinent History Psycho-Social History: No Pertinent History Female Reproductive Disorders: No Pertinent History Other Medical History: Pt. 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 x2. 4 vessel cabg - Social History Smoking Status: Former smoker How long have you smoked: 63 years Exposure to second hand smoke: No Drug Use: none Patient Lives Alone: No - Nursing Vital Signs Nursing Vital Signs: Initial Vital Signs Temperature 97.8 F 01/01/21 22:19 Pulse Rate 162 H 01/01/21 22:19 Respiratory Rate 20 01/01/21 22:19 Blood Pressure 148/97 01/01/21 22:19 O2 Sat by Pulse Oximetry 97 01/01/21 22:19 Pain Scale Pain Intensity 2 - Physical Exam General Appearance: mild distress, alert, obese Eye Exam: PERRL/EOMI, eyes nml inspection Ears, Nose, Throat Exam: normal ENT inspection, moist mucous membranes Neck Exam: normal inspection, non-tender, supple, full range of motion Respiratory Exam: normal breath sounds, chest tenderness, lungs clear, respiratory distress, airway intact (Mild) Cardiovascular Exam: tachycardia Pelvic Exam: not done Rectal Exam: not done Back Exam: normal inspection, normal range of motion, No CVA tenderness, No vertebral tenderness Extremity Exam: normal range of motion, pelvis stable, swelling (Feet ankles and lower leg bilaterally), other (Patient has bilateral lower extremity venous stasis disease.) Neurologic Exam: alert, oriented x 3, cooperative, food service II-XII nml as tested, normal mood/affect, sensation nml Skin Exam: other (Bilateral lower extremity venous stasis disease) Lymphatic Exam: No adenopathy SpO2 Interpretation: normal SpO2: 97 O2 Delivery: Nasal Cannula (5 L) - Course Nursing assessment & vital signs reviewed: Yes EKG Interpreted by Me: RATE (159 this patient's first EKG shows S VT with PVCs present. No acute ischemic changes are noted.), Other Ordered Tests: Active Orders 24 hr Category Date Time Status EKG-ER Only STAT Care 01/01/21 22:50 Active IV Insertion STAT Care 01/01/21 22:50 Active Pulse Oximetry (ED) STAT Care 01/01/21 22:50 Active CHEST 1 VIEW (PORTABLE) Stat Exams 01/01/21 22:49 Taken CHEST WITH CONTRAST [CT] Stat Exams 01/02/21 00:16 Taken CBC W DIFF Stat Lab 01/01/21 22:59 Completed CMP Stat Lab 01/01/21 22:59 Completed CULTURE,URINE Stat Lab 01/01/21 23:22 Received D-DIMER QUANTITATIVE Stat Lab 01/01/21 22:59 Completed INFLUENZA A+B IVY Stat Lab 01/01/21 23:49 Completed [place] Screen Stat Lab 01/01/21 23:42 Completed NT PRO BNP Stat Lab 01/01/21 22:59 Completed TROPONIN Q3H Lab 01/01/21 22:59 Completed TROPONIN Q3H Lab 01/02/21 02:14 Received TROPONIN Q3H Lab 01/02/21 05:00 Ordered TROPONIN Q3H Lab 01/02/21 08:00 Ordered TROPONIN Q3H Lab 01/02/21 11:00 Ordered UA W/RFX UR CULTURE Stat Lab 01/01/21 23:21 Completed Medication Summary Generic Name Dose Route Start Last Admin Trade Name Freq PRN Reason Stop Dose Admin Diltiazem HCl 100 mls @ 5 mls/hr 01/02/21 02:11 Cardizem Drip 100 Mg/100 Ml D5w IV 02/01/21 02:10 .Q20H PRN HEART RATE/ A-FIB Protocol 5 MG/HR Discontinued Medications Generic Name Dose Route Start Last Admin Trade Name Freq PRN Reason Stop Dose Admin Adenosine 6 mg 01/01/21 22:59 01/01/21 23:18 Adenocard Iv 6 Mg/2 Ml IV 01/01/21 23:00 6 mg STAT ONE Administration Adenosine Confirm 01/01/21 23:01 Adenocard Iv 6 Mg/2 Ml Administered 01/01/21 23:02 Dose 30 mg IV .STK-MED ONE Aspirin 324 mg 01/01/21 22:50 01/01/21 22:55 Baby Aspirin 81 Mg Chew PO 01/01/21 22:51 Not Given STAT ONE Diltiazem HCl 15 mg 01/02/21 00:36 01/02/21 00:45 Cardizem Iv 50 Mg/10 Ml IV 01/02/21 00:37 15 mg STAT ONE Administration Diltiazem HCl Confirm 01/02/21 00:44 Cardizem Iv 50 Mg/10 Ml Administered 01/02/21 00:45 Dose 50 mg IV .STK-MED ONE Sodium Chloride Confirm 01/01/21 23:02 Sodium Chloride 0.9% 1000 Ml Administered 01/01/21 23:03 Dose 1,000 mls @ ud .ROUTE .STK-MED ONE Sodium Chloride 1,000 mls @ 500 mls/hr 01/01/21 23:48 01/02/21 02:14 Sodium Chloride 0.9% 1000 Ml IV 01/02/21 01:47 Infused .Q2H STA Infusion Metoprolol Tartrate 5 mg 01/02/21 00:08 01/02/21 00:10 Lopressor 5 Mg/5 Ml Injection IV 01/02/21 00:09 5 mg STAT ONE Administration Metoprolol Tartrate Confirm 01/02/21 00:09 Lopressor 5 Mg/5 Ml Injection Administered 01/02/21 00:10 Dose 5 mg IV .STK-MED ONE Lab/Rad Data: Laboratory Result Diagrams 01/01/21 22:59 01/01/21 22:59 Laboratory Results 01/01/21 01/01/21 01/01/21 Range/Units 23:49 23:42 23:21 WBC (4.0-10.5) K/mm3 RBC (4.1-5.4) M/mm3 Hgb (12.0-16.0) gm/dl Hct (35-47) % MCV (78-100) fl MCH (26-32) pg MCHC (32-36) g/dl RDW (11.5-14.0) % Plt Count (150-450) K/mm3 MPV (7.5-11.0) fl Gran % (36.0-66.0) % Eos # (Auto) (0-0.5) Absolute Lymphs (auto) (1.0-4.6) Absolute Monos (auto) (0.0-1.3) Lymphocytes % (24.0-44.0) % Monocytes % (0.0-12.0) % Eosinophils % (0.00-5.0) % Basophils % (0.0-0.4) % Absolute Granulocytes (1.4-6.9) Basophils # (0-0.4) D-Dimer (215-500) ng/mL Sodium (137-145) mmol/L Potassium (3.5-5.1) mmol/L Chloride (98-107) mmol/L Carbon Dioxide (22-30) mmol/L Anion Gap (5-15) MEQ/L BUN (7-17) mg/dL Creatinine (0.52-1.04) mg/dL Estimated GFR ML/MIN Glucose (74-106) mg/dL Calcium (8.4-10.2) mg/dL Total Bilirubin (0.2-1.3) mg/dL AST (14-36) U/L ALT (0-35) U/L Alkaline Phosphatase (38-126) U/L Troponin I (0.000-0.034) ng/mL NT-Pro-B Natriuret Pep (0-900) pg/mL Serum Total Protein (6.3-8.2) g/dL Albumin (3.5-5.0) g/dL Urine Color YELLOW (YELLOW) Urine Appearance CLEAR (CLEAR) Urine pH 6.0 (5-6) Ur Specific [place] 1.005 (1.005-1.025) Urine Protein >=500 (Negative) Urine Ketones NEGATIVE (NEGATIVE) Urine Blood NEGATIVE (0-5) Abilio/ul Urine Nitrite NEGATIVE (NEGATIVE) Urine Bilirubin NEGATIVE (NEGATIVE) Urine Urobilinogen NEGATIVE (0-1) mg/dL Ur Leukocyte Esterase NEGATIVE (NEGATIVE) Urine WBC (Auto) 0-2 (0-5) /HPF Urine RBC (Auto) NONE (0-2) /HPF U Epithel Cells (Auto) NONE (FEW) /HPF Urine Bacteria (Auto) NONE SEEN (NEGATIVE) /HPF Urine Mucus (Auto) SLIGHT (NEGATIVE) /HPF Urine Culture Reflexed ORDERED SEPARATELY (NO) Urine Glucose NEGATIVE (NEGATIVE) mg/dL Monoscreen NEGATIVE (Negative) Influenza Type A Ag NEGATIVE (NEGATIVE) Influenza Type B Ag NEGATIVE (NEGATIVE) 01/01/21 01/01/21 01/01/21 Range/Units 22:59 22:59 22:59 WBC (4.0-10.5) K/mm3 RBC (4.1-5.4) M/mm3 Hgb (12.0-16.0) gm/dl Hct (35-47) % MCV (78-100) fl MCH (26-32) pg MCHC (32-36) g/dl RDW (11.5-14.0) % Plt Count (150-450) K/mm3 MPV (7.5-11.0) fl Gran % (36.0-66.0) % Eos # (Auto) (0-0.5) Absolute Lymphs (auto) (1.0-4.6) Absolute Monos (auto) (0.0-1.3) Lymphocytes % (24.0-44.0) % Monocytes % (0.0-12.0) % Eosinophils % (0.00-5.0) % Basophils % (0.0-0.4) % Absolute Granulocytes (1.4-6.9) Basophils # (0-0.4) D-Dimer 895 H* (215-500) ng/mL Sodium 138 (137-145) mmol/L Potassium 3.9 (3.5-5.1) mmol/L Chloride 101 (98-107) mmol/L Carbon Dioxide 30 (22-30) mmol/L Anion Gap 9.8 (5-15) MEQ/L BUN 12 (7-17) mg/dL Creatinine 0.55 (0.52-1.04) mg/dL Estimated GFR > 60.0 ML/MIN Glucose 168 H (74-106) mg/dL Calcium 8.7 (8.4-10.2) mg/dL Total Bilirubin 0.60 (0.2-1.3) mg/dL AST 26 (14-36) U/L ALT 19 (0-35) U/L Alkaline Phosphatase 91 (38-126) U/L Troponin I 0.050 H* (0.000-0.034) ng/mL NT-Pro-B Natriuret Pep 228 (0-900) pg/mL Serum Total Protein 7.2 (6.3-8.2) g/dL Albumin 3.8 (3.5-5.0) g/dL Urine Color (YELLOW) Urine Appearance (CLEAR) Urine pH (5-6) Ur Specific [place] (1.005-1.025) Urine Protein (Negative) Urine Ketones (NEGATIVE) Urine Blood (0-5) Abilio/ul Urine Nitrite (NEGATIVE) Urine Bilirubin (NEGATIVE) Urine Urobilinogen (0-1) mg/dL Ur Leukocyte Esterase (NEGATIVE) Urine WBC (Auto) (0-5) /HPF Urine RBC (Auto) (0-2) /HPF U Epithel Cells (Auto) (FEW) /HPF Urine Bacteria (Auto) (NEGATIVE) /HPF Urine Mucus (Auto) (NEGATIVE) /HPF Urine Culture Reflexed (NO) Urine Glucose (NEGATIVE) mg/dL Monoscreen (Negative) Influenza Type A Ag (NEGATIVE) Influenza Type B Ag (NEGATIVE) 01/01/21 Range/Units 22:59 WBC 6.1 (4.0-10.5) K/mm3 RBC 4.90 (4.1-5.4) M/mm3 Hgb 14.5 (12.0-16.0) gm/dl Hct 45.6 (35-47) % MCV 93.1 (78-100) fl MCH 29.6 (26-32) pg MCHC 31.8 L (32-36) g/dl RDW 14.1 H (11.5-14.0) % Plt Count 181 (150-450) K/mm3 MPV 9.3 (7.5-11.0) fl Gran % 70.8 H (36.0-66.0) % Eos # (Auto) 0.13 (0-0.5) Absolute Lymphs (auto) 1.18 (1.0-4.6) Absolute Monos (auto) 0.46 (0.0-1.3) Lymphocytes % 19.3 L (24.0-44.0) % Monocytes % 7.5 (0.0-12.0) % Eosinophils % 2.1 (0.00-5.0) % Basophils % 0.3 (0.0-0.4) % Absolute Granulocytes 4.31 (1.4-6.9) Basophils # 0.02 (0-0.4) D-Dimer (215-500) ng/mL Sodium (137-145) mmol/L Potassium (3.5-5.1) mmol/L Chloride (98-107) mmol/L Carbon Dioxide (22-30) mmol/L Anion Gap (5-15) MEQ/L BUN (7-17) mg/dL Creatinine (0.52-1.04) mg/dL Estimated GFR ML/MIN Glucose (74-106) mg/dL Calcium (8.4-10.2) mg/dL Total Bilirubin (0.2-1.3) mg/dL AST (14-36) U/L ALT (0-35) U/L Alkaline Phosphatase (38-126) U/L Troponin I (0.000-0.034) ng/mL NT-Pro-B Natriuret Pep (0-900) pg/mL Serum Total Protein (6.3-8.2) g/dL Albumin (3.5-5.0) g/dL Urine Color (YELLOW) Urine Appearance (CLEAR) Urine pH (5-6) Ur Specific [place] (1.005-1.025) Urine Protein (Negative) Urine Ketones (NEGATIVE) Urine Blood (0-5) Abilio/ul Urine Nitrite (NEGATIVE) Urine Bilirubin (NEGATIVE) Urine Urobilinogen (0-1) mg/dL Ur Leukocyte Esterase (NEGATIVE) Urine WBC (Auto) (0-5) /HPF Urine RBC (Auto) (0-2) /HPF U Epithel Cells (Auto) (FEW) /HPF Urine Bacteria (Auto) (NEGATIVE) /HPF Urine Mucus (Auto) (NEGATIVE) /HPF Urine Culture Reflexed (NO) Urine Glucose (NEGATIVE) mg/dL Monoscreen (Negative) Influenza Type A Ag (NEGATIVE) Influenza Type B Ag (NEGATIVE) - Progress Progress: improved Air Movement: fair Progress Note: 01/01/21 23:31 Repeat, second EKG was performed at 2313 on 01/01/2021 and this is the second EKG after single dose of 6 mg intravenous adenosine. The patient's heart rate is now 108 at sinus tachycardia. There is left anterior fascicular block. I do not appreciate any acute ischemic changes on this EKG 01/02/21 01:18 A third twelve-lead EKG was performed on 01/02/2021 at 00 39 the patient's heart rate is 86 it is sinus rhythm she still has multiple PVCs. There is nonspecific T wave abnormalities. There is no evidence of any acute ischemic changes. Medical decision making: This patient, I believe, requires transfer to a facility where there is a swimming pool maintenance supervisor. We contacted [facility] in [facility]. There are no beds available at that facility for any type of transfer. Therefore, we contacted [facility] in [facility]. I spoke with hospitalist Dr. Bliss. I reviewed with her the patient history, condition, results of the work-up. I did inform her we are awaiting the results of the CAT scan of the chest. She accepts the patient for transfer. [facility] call us back to let us know what the bed status is and when we can transfer the patient to them. 01/02/21 01:30 Chest x-ray shows no acute cardiopulmonary process. There are chronic changes present. No significant change from chest x-ray dated 10/24/2020. 01/02/21 02:39 CTA of the chest shows no acute pulmonary infiltrate. There is no evidence of pulmonary embolus. Blood Culture(s) Obtained: No Antibiotics given: No Counseled pt/family regarding: lab results, diagnosis, rad results - Departure Departure Disposition: Transfer Clinical Impression: Supraventricular tachycardia, Non-STEMI (non-ST elevated myocardial infarction) Condition: Fair Critical Care Time: Yes Critical Care Time(excluding separately billable procedures): Critical 30-74 mins Referrals: NINA PIMENTEL NP [Primary Care Provider] -
[2021-01-01] MEDS ORDERED: Sodium Chloride 0.9% 1000 ML 1,000 ML IV STA (23:48)
[2021-01-01 23:55] LABS: Appearance CLEAR (CLEAR); Bilirubin NEGATIVE (NEGATIVE); Blood NEGATIVE Ery/ul (0-5); Glucose NEGATIVE (NEGATIVE); Ketones NEGATIVE (NEGATIVE); Leukocyte Esterase NEGATIVE (NEGATIVE); Mucus SLIGHT /HPF (NEGATIVE); Nitrite NEGATIVE (NEGATIVE); Protein,Urine Dip >=500 (Negative); Specific Gravity 1.005 (1.005-1.025); Urobilinogen NEGATIVE mg/dL (0-1); WBC 0-2 /HPF (0-5)
[2021-01-01 23:58] LABS: Bacteria NONE SEEN /HPF (NEGATIVE)
[2021-01-02] MEDS ORDERED: LOPRESSOR 5 MG/5 ML INJECTION IV ONE ×2 (00:08→00:09)
[2021-01-02 00:19] LABS: INFLUENZA A NEGATIVE (NEGATIVE); INFLUENZA B NEGATIVE (NEGATIVE)
[2021-01-02] MEDS ORDERED: Cardizem IV 50 MG/10 ML IV ONE ×2 (00:36→00:44)
[2021-01-02] MEDS ORDERED: HOLD METFORMIN PRODUCTS FOR 48 HOURS MC SCH (01:15)
[2021-01-02] MEDS ORDERED: CARDIZEM DRIP 100 MG/100 ML D5W 100 ML IV PRN ×2 (02:11→10:33)
--- NOTE | 2021-01-02 08:09 | XRAY ---
Indication: Elevated d-dimer. Chest pain and short of breath. Multiple contiguous axial images obtained through the chest using 80 cc Isovue 370 contrast and PE protocol. Comparison: February 06, 2020. There is good opacification of the pulmonary arteries to include the lobar and segmental branches. However respiration artifact limits evaluation of the more distal lobar and segmental branches. No obvious central pulmonary embolus. Heart not enlarged again with CABG. Aorta normal in course and caliber with minimal arteriosclerotic calcifications. Stable small mediastinal and bilateral hilar calcified nodes. No pathologic mediastinal/hilar lymphadenopathy. Stable small right thyroid nodule/cyst. Lungs again demonstrates diffuse scattered subsegmental atelectasis/scarring bilaterally. No new pulmonary mass, infiltrate, or effusion. Bony thorax intact again with mild degenerative changes throughout the spine and sternotomy wires. Limited upper abdomen demonstrates fatty liver and tiny hepatic/splenic calcified granulomas. Impression: 1. Pulmonary embolus evaluation limited by respiration artifact. No obvious central pulmonary embolus. 2. Grossly stable scattered atelectasis/scarring, thyroid nodule/cyst, chronic bony findings, and old granulomatous disease. 3. Remaining CT chest with contrast exam is negative. Comment: Preliminary interpretation made by C. No critical discrepancy.
--- NOTE | 2021-01-02 08:11 | XRAY ---
Indication: Chest pain and short of breath. Comparison: October 24, 2020. Portable chest again demonstrates chronic lung markings without focal infiltrate, consolidation, or large effusion. Heart borderline enlarged again with CABG. Bony thorax intact again with mild osteopenia and degenerative changes. Impression: Nonacute chest with chronic features.
[2021-01-02] MEDS ORDERED: Zofran 4 MG/2 ML VIAL IV PRN (10:33)
[2021-01-02] MEDS ORDERED: Sodium Chloride 0.9% 1000 ML 1,000 ML IV SCH (10:33)
[2021-01-02] MEDS ORDERED: TYLENOL 325 MG PO PRN (10:33)
[2021-01-02] MEDS ORDERED: ENOXAPARIN SODIUM SQ SCH (10:33)
[2021-01-02] MEDS ORDERED: DUONEB 0.5-3 MG/3 ml Neb IH SCH (11:00)
[2021-01-02] MEDS ORDERED: HUMALOG SQ PRN (11:14)
[2021-01-02 11:17] LABS: Absolute Neutrophil Ct (ANC) 6.14 (1.4-6.9); BASOPHIL % 0.1 % (0.0-0.4); Basophil (Absolute #) 0.01 (0-0.4); Eosinophil % 0.5 % (0.00-5.0); Eosinophil (Absolute #) 0.04 (0-0.5); Hematocrit 44.8 % (35-47); Hemoglobin 13.8 gm/dl (12.0-16.0); Lymphocyte (Absolute #) 0.77 (1.0-4.6); Lymphocytes % 10.5 % (24.0-44.0); Mean Cell Volume 95.7 fl (78-100); Mean Corpuscular Hemoglobin 29.5 pg (26-32); Mean Corpuscular Hgb Concent. 30.8 g/dl (32-36); Mean Platelet Volume 9.1 fl (7.5-11.0); Monocyte (Absolute #) 0.37 (0.0-1.3); Neutrophil % 83.9 % (36.0-66.0); Platelet Count 171 K/mm3 (150-450); Red Blood Count 4.68 M/mm3 (4.1-5.4); Red Cell Distribution Width 14.2 % (11.5-14.0); White Blood Count 7.3 K/mm3 (4.0-10.5)
[2021-01-02 11:22] LABS: A-aADO2 560; ABG HEMOGLOBIN 14.1; ABG POTASSIUM 4.4 (3.5-5.1); ARTERIAL BLD GAS O2 SATURATION 94.5 % (95-100); ARTERIAL BLOOD GAS BASE EXCESS 1.7 (-2.0-2.0); ARTERIAL BLOOD GAS FIO2 100 %; ARTERIAL BLOOD GAS PO2 73 mmHg (75-100); ARTERIAL BLOOD GAS pH 7.28 (7.35-7.45); CARBOXYHEMOGLOBIN 1.1 % THgb (0.0-6.9); HCO3- 30.1 (22-28); HGB O2 SAT 92.6 g/dF (94-100); Methhemoglobin 0.9 % (1.4-1.5)
[2021-01-02 11:25] LABS: ABG SITE LEFT BRACHIAL; ARTERIAL BLOOD GAS PCO2 64 mmHg (35-45)
[2021-01-02 11:28] LABS: ALBUMIN 3.6 g/dL (3.5-5.0); ALKALINE PHOSPHATASE 77 U/L (38-126); ANION GAP 12.3 MEQ/L (5-15); BLOOD UREA NITROGEN 11 mg/dL (7-17); CHLORIDE 103 mmol/L (98-107); Calcium 8.3 mg/dL (8.4-10.2); Carbon Dioxide 27 mmol/L (22-30); EST GLOMERULAR FILTRATION RATE > 60.0 ML/MIN; Glucose 144 mg/dL (74-106); MAGNESIUM 1.6 mg/dL (1.6-2.3); Potassium 4.3 mmol/L (3.5-5.1); SGOT/AST 33 U/L (14-36); SGPT/ALT 26 U/L (0-35); SODIUM 138 mmol/L (137-145)
[2021-01-02 11:53] VITALS: BP 125/72
[2021-01-02] MEDS ORDERED: DUONEB 0.5-3 MG/3 ml Neb IH ONE (12:04)
[2021-01-02 12:12] VITALS: PULSE 68; O2SAT 96
--- NOTE | 2021-01-02 12:32 | PCM.SSS ---
History of Present Illness - Chief Complaint Chief Complaint: chest pain and palpitations for 1-2 days History of Present Illness: is a 70 year old female.presents with chest pain and shortness of breath that began earlier this morning. Patient is a poor historian and thinks she took her medications today but is not absolutely sure. Patient lives at home with her daughter. Patient has a significant history for hypertension, elevated cholesterol, coronary artery disease including a four-vessel CABG and cardiac stents, CHF, COPD, atrial flutter and type 2 diabetes. Patient also has a history of cervical cancer and has received radiation therapy and has not had surgery for this. Patient has seen formal service waiter Dr. Dasilva and usually goes to [facility] for cardiac issues. Patient has associated mild cough but no fever. She has no abdominal pain. She has no nausea vomiting or diarrhea. - Review of Systems Constitutional: No Fever, No Chills Eyes: No Symptoms Ears, Nose, & Throat: No Symptoms Respiratory: Orthopnea, Short Of Breath, No Cough Cardiac: Chest Pain, Palpitations, No Edema, No Syncope Abdominal/Gastrointestinal: No Abdominal Pain, No Nausea, No Vomiting, No Diarrhea Genitourinary Symptoms: No Dysuria Musculoskeletal: No Back Pain, No Neck Pain Skin: No Rash Neurological: No Dizziness, No Focal Weakness, No Sensory Changes Psychological: No Symptoms Endocrine: No Symptoms Hematologic/Lymphatic: No Symptoms Immunological/Allergic: No Symptoms Medications & Allergies Home Medications: Home Medication List Furosemide 20 mg [Lasix 20 mg] 40 mg PO DAILY 12/08/16 [History Confirmed 01/01/21] Loratadine 10 mg [Claritin 10 mg] 10 mg PO DAILY 12/08/16 [History Confirmed 01/01/21] Nitroglycerin 0.4 mg Tablet [Nitrostat 0.4 MG Tablet] 0.4 mg SL Q5MIN PRN MR X 3 PRN 12/08/16 [History Confirmed 01/01/21] Aspirin EC 81 mg [Ecotrin 81 mg] 81 mg PO DAILY #0 02/17/17 [Rx Confirmed 01/01/21] Albuterol Sulfate Mdi [Proair Hfa MDI] 2 inh PO Q4H 07/06/19 [History Confirmed 01/01/21] Albuterol/Ipratropium 3ml Neb* [DUONEB 0.5-3 MG/3 ml Neb] 1 amp IH QID 07/06/19 [History Confirmed 01/01/21] Calcium Carbonate/Vitamin D3 [Calcium 600 + Vit D 400 Tablet] 1 each PO DAILY 07/06/19 [History Confirmed 01/01/21] Ferrous Sulfate, Dried [Iron] 65 mg PO BID 07/06/19 [History Confirmed 01/01/21] Metformin HCl 500 mg [Glucophage 500 MG] 500 mg PO TID 07/06/19 [History Confirmed 01/01/21] Multivitamin W-Minerals/Lutein [Centrum Silver Tablet] 1 tablet PO DAILY 07/06/19 [History Confirmed 01/01/21] PANTOPRAZOLE 40 mg Tablet [Protonix 40MG Tablet] 40 mg PO QAM 07/06/19 [History Confirmed 01/01/21] Potassium Chloride 10 meq PO DAILY 07/06/19 [History Confirmed 01/01/21] Tiotropium Br/Olodaterol HCl [Stiolto Respimat Inhal [place]] 4 gm IH DAILY 07/06/19 [History Confirmed 01/01/21] lisinopriL [Lisinopril] 2.5 mg PO DAILY 07/06/19 [History Confirmed 01/01/21] Ondansetron ODT 4 MG [Zofran Odt 4 mg] 4 mg PO Q6H PRN PRN #10 tab.rapdis 02/18/20 [Rx Confirmed 01/01/21] Prednisone 10 mg [Deltasone 10 mg] 10 mg PO TID #12 tablet 10/24/20 [Rx Confirmed 01/01/21] Allergies/Adverse Reactions: Allergies Allergy/AdvReac Type Severity Reaction Status Date / Time adhesive Allergy Intermediate Rash Verified 01/01/21 22:22 diphenhydramine HCl Allergy Mild Rash Verified 01/01/21 22:22 [From Benadryl] nalbuphine HCl [From Nubain] Allergy Mild Rash Verified 01/01/21 22:22 Penicillins Allergy Mild Rash Verified 01/01/21 22:22 gabapentin [From Neurontin] Allergy Vomiting Verified 09/17/21 22:22 - Past Medical History Past Medical History: Yes Neurological History: No Pertinent History ENT History: No Pertinent History Cardiac History: Coronary Artery Disease, High Cholesterol, Hypertension, Myocardial Infarction ([place]) Respiratory History: Asthma, CHF, COPD, Emphysema Endocrine Medical History: Diabetes Type II Musculoskelatal History: Arthritis GI Medical History: Diverticulosis, Gallbladder Disease History: No Pertinent History Pyscho-Social History: No Pertinent History Reproductive Disorders: No Pertinent History Comment: Pt. 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 x2. 4 vessel cabg - Social History Smoking Status: Former smoker How long have you smoked: 63 years Exposure to second hand smoke: No Alcohol: None Drug Use: none - Physical Exam Vital Signs: Vital Signs - 24 hr Temp Pulse Pulse Resp BP BP Pulse Ox 01/02/21 12:10 68 24 96 01/02/21 11:52 64 125/72 01/02/21 11:48 66 19 124/74 92 L 01/02/21 10:47 98 F 87 24 159/90 96 01/02/21 10:34 87 159/90 01/02/21 10:23 98 F 89 24 159/90 96 01/02/21 10:22 92 H 24 165/105 93 L 01/02/21 10:02 97.1 F 68 20 102/57 96 01/02/21 09:05 97.8 F 65 22 98/52 96 01/02/21 08:05 88 19 129/55 94 L 01/02/21 07:21 97.6 F 93 H 20 139/70 94 L 01/02/21 06:22 111 H 116/90 95 01/02/21 05:00 106 H 152/95 94 L 01/02/21 04:15 105 H 16 165/100 97 01/02/21 03:06 112 H 21 150/86 97 01/02/21 02:44 122 H 16 141/103 01/02/21 02:39 97 01/02/21 00:00 108 H 20 96 01/01/21 23:19 127 H 28 H 146/115 95 01/01/21 22:50 97 01/01/21 22:19 97.8 F 165 H 162 H 20 148/97 97 General Appearance: no apparent distress, mild distress, alert Neurologic Exam: alert, oriented x 3, cooperative, sensation nml, No motor deficits, No sensory deficit Eye Exam: PERRL/EOMI, eyes nml inspection Ears, Nose, Throat Exam: normal ENT inspection, TMs normal, pharynx normal, moist mucous membranes Neck Exam: normal inspection, non-tender, supple, full range of motion Respiratory Exam: diminished breath sounds, crackles/rales, rhonchi, wheezing, No respiratory distress Cardiovascular Exam: tachycardia Gastrointestinal/Abdomen Exam: soft, normal bowel sounds, No tenderness, No mass Back Exam: normal inspection, normal range of motion, No CVA tenderness, No vertebral tenderness Extremity Exam: normal inspection, normal range of motion, pelvis stable Skin Exam: normal color, warm, dry, No rash Lymphatic Exam: No adenopathy Results - Labs Lab/Micro Results: Lab Results-Last 24 Hours 01/01/21 01/01/21 01/01/21 Range/Units 22:59 22:59 22:59 WBC 6.1 (4.0-10.5) K/mm3 RBC 4.90 (4.1-5.4) M/mm3 Hgb 14.5 (12.0-16.0) gm/dl Hct 45.6 (35-47) % MCV 93.1 (78-100) fl MCH 29.6 (26-32) pg MCHC 31.8 L (32-36) g/dl RDW 14.1 H (11.5-14.0) % Plt Count 181 (150-450) K/mm3 MPV 9.3 (7.5-11.0) fl Gran % 70.8 H (36.0-66.0) % Eos # (Auto) 0.13 (0-0.5) Absolute Lymphs (auto) 1.18 (1.0-4.6) Absolute Monos (auto) 0.46 (0.0-1.3) Lymphocytes % 19.3 L (24.0-44.0) % Monocytes % 7.5 (0.0-12.0) % Eosinophils % 2.1 (0.00-5.0) % Basophils % 0.3 (0.0-0.4) % Absolute Granulocytes 4.31 (1.4-6.9) Basophils # 0.02 (0-0.4) D-Dimer 895 H* (215-500) ng/mL Puncture Site pCO2 (35-45) mmHg pO2 (75-100) mmHg Base Excess (-2.0-2.0) O2 Saturation (94-100) g/dF ABG pH (7.35-7.45) ABG HCO3 (22-28) ABG O2 Sat (Measured) (95-100) % Mynor Test A-a Gradient a/A Ratio Hemoglobin Carboxyhemoglobin (0.0-6.9) % THgb Methemoglobin (1.4-1.5) % Temperature C POC O2 Flow Rate % Sodium 138 (137-145) mmol/L Potassium 3.9 (3.5-5.1) mmol/L Chloride 101 (98-107) mmol/L Carbon Dioxide 30 (22-30) mmol/L Anion Gap 9.8 (5-15) MEQ/L BUN 12 (7-17) mg/dL Creatinine 0.55 (0.52-1.04) mg/dL Estimated GFR > 60.0 ML/MIN Glucose 168 H (74-106) mg/dL Calcium 8.7 (8.4-10.2) mg/dL Magnesium (1.6-2.3) mg/dL Total Bilirubin 0.60 (0.2-1.3) mg/dL AST 26 (14-36) U/L ALT 19 (0-35) U/L Alkaline Phosphatase 91 (38-126) U/L Troponin I (0.000-0.034) ng/mL NT-Pro-B Natriuret Pep 228 (0-900) pg/mL Serum Total Protein 7.2 (6.3-8.2) g/dL Albumin 3.8 (3.5-5.0) g/dL Urine Color (YELLOW) Urine Appearance (CLEAR) Urine pH (5-6) Ur Specific [place] (1.005-1.025) Urine Protein (Negative) Urine Ketones (NEGATIVE) Urine Blood (0-5) Abilio/ul Urine Nitrite (NEGATIVE) Urine Bilirubin (NEGATIVE) Urine Urobilinogen (0-1) mg/dL Ur Leukocyte Esterase (NEGATIVE) Urine WBC (Auto) (0-5) /HPF Urine RBC (Auto) (0-2) /HPF U Epithel Cells (Auto) (FEW) /HPF Urine Bacteria (Auto) (NEGATIVE) /HPF Urine Mucus (Auto) (NEGATIVE) /HPF Urine Culture Reflexed (NO) Urine Glucose (NEGATIVE) mg/dL Monoscreen (Negative) Influenza Type A Ag (NEGATIVE) Influenza Type B Ag (NEGATIVE) SARS-CoV-2 (PCR) (NEGATIVE) 01/01/21 01/01/21 01/01/21 Range/Units 22:59 23:21 23:42 WBC (4.0-10.5) K/mm3 RBC (4.1-5.4) M/mm3 Hgb (12.0-16.0) gm/dl Hct (35-47) % MCV (78-100) fl MCH (26-32) pg MCHC (32-36) g/dl RDW (11.5-14.0) % Plt Count (150-450) K/mm3 MPV (7.5-11.0) fl Gran % (36.0-66.0) % Eos # (Auto) (0-0.5) Absolute Lymphs (auto) (1.0-4.6) Absolute Monos (auto) (0.0-1.3) Lymphocytes % (24.0-44.0) % Monocytes % (0.0-12.0) % Eosinophils % (0.00-5.0) % Basophils % (0.0-0.4) % Absolute Granulocytes (1.4-6.9) Basophils # (0-0.4) D-Dimer (215-500) ng/mL Puncture Site pCO2 (35-45) mmHg pO2 (75-100) mmHg Base Excess (-2.0-2.0) O2 Saturation (94-100) g/dF ABG pH (7.35-7.45) ABG HCO3 (22-28) ABG O2 Sat (Measured) (95-100) % Mynor Test A-a Gradient a/A Ratio Hemoglobin Carboxyhemoglobin (0.0-6.9) % THgb Methemoglobin (1.4-1.5) % Temperature C POC O2 Flow Rate % Sodium (137-145) mmol/L Potassium (3.5-5.1) mmol/L Chloride (98-107) mmol/L Carbon Dioxide (22-30) mmol/L Anion Gap (5-15) MEQ/L BUN (7-17) mg/dL Creatinine (0.52-1.04) mg/dL Estimated GFR ML/MIN Glucose (74-106) mg/dL Calcium (8.4-10.2) mg/dL Magnesium (1.6-2.3) mg/dL Total Bilirubin (0.2-1.3) mg/dL AST (14-36) U/L ALT (0-35) U/L Alkaline Phosphatase (38-126) U/L Troponin I 0.050 H* (0.000-0.034) ng/mL NT-Pro-B Natriuret Pep (0-900) pg/mL Serum Total Protein (6.3-8.2) g/dL Albumin (3.5-5.0) g/dL Urine Color YELLOW (YELLOW) Urine Appearance CLEAR (CLEAR) Urine pH 6.0 (5-6) Ur Specific [place] 1.005 (1.005-1.025) Urine Protein >=500 (Negative) Urine Ketones NEGATIVE (NEGATIVE) Urine Blood NEGATIVE (0-5) Abilio/ul Urine Nitrite NEGATIVE (NEGATIVE) Urine Bilirubin NEGATIVE (NEGATIVE) Urine Urobilinogen NEGATIVE (0-1) mg/dL Ur Leukocyte Esterase NEGATIVE (NEGATIVE) Urine WBC (Auto) 0-2 (0-5) /HPF Urine RBC (Auto) NONE (0-2) /HPF U Epithel Cells (Auto) NONE (FEW) /HPF Urine Bacteria (Auto) NONE SEEN (NEGATIVE) /HPF Urine Mucus (Auto) SLIGHT (NEGATIVE) /HPF Urine Culture Reflexed ORDERED SEPARATELY (NO) Urine Glucose NEGATIVE (NEGATIVE) mg/dL Monoscreen NEGATIVE (Negative) Influenza Type A Ag (NEGATIVE) Influenza Type B Ag (NEGATIVE) SARS-CoV-2 (PCR) (NEGATIVE) 01/01/21 01/02/21 01/02/21 Range/Units 23:49 02:14 05:31 WBC (4.0-10.5) K/mm3 RBC (4.1-5.4) M/mm3 Hgb (12.0-16.0) gm/dl Hct (35-47) % MCV (78-100) fl MCH (26-32) pg MCHC (32-36) g/dl RDW (11.5-14.0) % Plt Count (150-450) K/mm3 MPV (7.5-11.0) fl Gran % (36.0-66.0) % Eos # (Auto) (0-0.5) Absolute Lymphs (auto) (1.0-4.6) Absolute Monos (auto) (0.0-1.3) Lymphocytes % (24.0-44.0) % Monocytes % (0.0-12.0) % Eosinophils % (0.00-5.0) % Basophils % (0.0-0.4) % Absolute Granulocytes (1.4-6.9) Basophils # (0-0.4) D-Dimer (215-500) ng/mL Puncture Site pCO2 (35-45) mmHg pO2 (75-100) mmHg Base Excess (-2.0-2.0) O2 Saturation (94-100) g/dF ABG pH (7.35-7.45) ABG HCO3 (22-28) ABG O2 Sat (Measured) (95-100) % Mynor Test A-a Gradient a/A Ratio Hemoglobin Carboxyhemoglobin (0.0-6.9) % THgb Methemoglobin (1.4-1.5) % Temperature C POC O2 Flow Rate % Sodium (137-145) mmol/L Potassium (3.5-5.1) mmol/L Chloride (98-107) mmol/L Carbon Dioxide (22-30) mmol/L Anion Gap (5-15) MEQ/L BUN (7-17) mg/dL Creatinine (0.52-1.04) mg/dL Estimated GFR ML/MIN Glucose (74-106) mg/dL Calcium (8.4-10.2) mg/dL Magnesium (1.6-2.3) mg/dL Total Bilirubin (0.2-1.3) mg/dL AST (14-36) U/L ALT (0-35) U/L Alkaline Phosphatase (38-126) U/L Troponin I 0.041 H* 0.049 H* (0.000-0.034) ng/mL NT-Pro-B Natriuret Pep (0-900) pg/mL Serum Total Protein (6.3-8.2) g/dL Albumin (3.5-5.0) g/dL Urine Color (YELLOW) Urine Appearance (CLEAR) Urine pH (5-6) Ur Specific [place] (1.005-1.025) Urine Protein (Negative) Urine Ketones (NEGATIVE) Urine Blood (0-5) Abilio/ul Urine Nitrite (NEGATIVE) Urine Bilirubin (NEGATIVE) Urine Urobilinogen (0-1) mg/dL Ur Leukocyte Esterase (NEGATIVE) Urine WBC (Auto) (0-5) /HPF Urine RBC (Auto) (0-2) /HPF U Epithel Cells (Auto) (FEW) /HPF Urine Bacteria (Auto) (NEGATIVE) /HPF Urine Mucus (Auto) (NEGATIVE) /HPF Urine Culture Reflexed (NO) Urine Glucose (NEGATIVE) mg/dL Monoscreen (Negative) Influenza Type A Ag NEGATIVE (NEGATIVE) Influenza Type B Ag NEGATIVE (NEGATIVE) SARS-CoV-2 (PCR) (NEGATIVE) 01/02/21 01/02/21 01/02/21 Range/Units 08:18 08:46 10:37 WBC 7.3 (4.0-10.5) K/mm3 RBC 4.68 (4.1-5.4) M/mm3 Hgb 13.8 (12.0-16.0) gm/dl Hct 44.8 (35-47) % MCV 95.7 (78-100) fl MCH 29.5 (26-32) pg MCHC 30.8 L (32-36) g/dl RDW 14.2 H (11.5-14.0) % Plt Count 171 (150-450) K/mm3 MPV 9.1 (7.5-11.0) fl Gran % 83.9 H (36.0-66.0) % Eos # (Auto) 0.04 (0-0.5) Absolute Lymphs (auto) 0.77 L (1.0-4.6) Absolute Monos (auto) 0.37 (0.0-1.3) Lymphocytes % 10.5 L (24.0-44.0) % Monocytes % 5.0 (0.0-12.0) % Eosinophils % 0.5 (0.00-5.0) % Basophils % 0.1 (0.0-0.4) % Absolute Granulocytes 6.14 (1.4-6.9) Basophils # 0.01 (0-0.4) D-Dimer (215-500) ng/mL Puncture Site pCO2 (35-45) mmHg pO2 (75-100) mmHg Base Excess (-2.0-2.0) O2 Saturation (94-100) g/dF ABG pH (7.35-7.45) ABG HCO3 (22-28) ABG O2 Sat (Measured) (95-100) % Mynor Test A-a Gradient a/A Ratio Hemoglobin Carboxyhemoglobin (0.0-6.9) % THgb Methemoglobin (1.4-1.5) % Temperature C POC O2 Flow Rate % Sodium (137-145) mmol/L Potassium (3.5-5.1) mmol/L Chloride (98-107) mmol/L Carbon Dioxide (22-30) mmol/L Anion Gap (5-15) MEQ/L BUN (7-17) mg/dL Creatinine (0.52-1.04) mg/dL Estimated GFR ML/MIN Glucose (74-106) mg/dL Calcium (8.4-10.2) mg/dL Magnesium (1.6-2.3) mg/dL Total Bilirubin (0.2-1.3) mg/dL AST (14-36) U/L ALT (0-35) U/L Alkaline Phosphatase (38-126) U/L Troponin I 0.041 H* (0.000-0.034) ng/mL NT-Pro-B Natriuret Pep (0-900) pg/mL Serum Total Protein (6.3-8.2) g/dL Albumin (3.5-5.0) g/dL Urine Color (YELLOW) Urine Appearance (CLEAR) Urine pH (5-6) Ur Specific [place] (1.005-1.025) Urine Protein (Negative) Urine Ketones (NEGATIVE) Urine Blood (0-5) Abilio/ul Urine Nitrite (NEGATIVE) Urine Bilirubin (NEGATIVE) Urine Urobilinogen (0-1) mg/dL Ur Leukocyte Esterase (NEGATIVE) Urine WBC (Auto) (0-5) /HPF Urine RBC (Auto) (0-2) /HPF U Epithel Cells (Auto) (FEW) /HPF Urine Bacteria (Auto) (NEGATIVE) /HPF Urine Mucus (Auto) (NEGATIVE) /HPF Urine Culture Reflexed (NO) Urine Glucose (NEGATIVE) mg/dL Monoscreen (Negative) Influenza Type A Ag (NEGATIVE) Influenza Type B Ag (NEGATIVE) SARS-CoV-2 (PCR) NEGATIVE (NEGATIVE) 01/02/21 01/02/21 01/02/21 Range/Units 10:53 11:35 11:35 WBC (4.0-10.5) K/mm3 RBC (4.1-5.4) M/mm3 Hgb (12.0-16.0) gm/dl Hct (35-47) % MCV (78-100) fl MCH (26-32) pg MCHC (32-36) g/dl RDW (11.5-14.0) % Plt Count (150-450) K/mm3 MPV (7.5-11.0) fl Gran % (36.0-66.0) % Eos # (Auto) (0-0.5) Absolute Lymphs (auto) (1.0-4.6) Absolute Monos (auto) (0.0-1.3) Lymphocytes % (24.0-44.0) % Monocytes % (0.0-12.0) % Eosinophils % (0.00-5.0) % Basophils % (0.0-0.4) % Absolute Granulocytes (1.4-6.9) Basophils # (0-0.4) D-Dimer (215-500) ng/mL Puncture Site LEFT BRACHIAL pCO2 64 H* (35-45) mmHg pO2 73 L (75-100) mmHg Base Excess 1.7 (-2.0-2.0) O2 Saturation 92.6 L (94-100) g/dF ABG pH 7.28 L (7.35-7.45) ABG HCO3 30.1 H* (22-28) ABG O2 Sat (Measured) 94.5 L (95-100) % Mynor Test NOT APPLICABLE A-a Gradient 560 a/A Ratio 0.12 Hemoglobin 14.1 Carboxyhemoglobin 1.1 (0.0-6.9) % THgb Methemoglobin 0.9 L (1.4-1.5) % Temperature 37.0 C POC O2 Flow Rate 100 % Sodium 138 (137-145) mmol/L Potassium 4.4 4.3 (3.5-5.1) mmol/L Chloride 103 (98-107) mmol/L Carbon Dioxide 27 (22-30) mmol/L Anion Gap 12.3 (5-15) MEQ/L BUN 11 (7-17) mg/dL Creatinine 0.60 (0.52-1.04) mg/dL Estimated GFR > 60.0 ML/MIN Glucose 144 H (74-106) mg/dL Calcium 8.3 L (8.4-10.2) mg/dL Magnesium 1.6 (1.6-2.3) mg/dL Total Bilirubin 0.80 (0.2-1.3) mg/dL AST 33 (14-36) U/L ALT 26 (0-35) U/L Alkaline Phosphatase 77 (38-126) U/L Troponin I 0.034 (0.000-0.034) ng/mL NT-Pro-B Natriuret Pep (0-900) pg/mL Serum Total Protein 7.0 (6.3-8.2) g/dL Albumin 3.6 (3.5-5.0) g/dL Urine Color (YELLOW) Urine Appearance (CLEAR) Urine pH (5-6) Ur Specific [place] (1.005-1.025) Urine Protein (Negative) Urine Ketones (NEGATIVE) Urine Blood (0-5) Abilio/ul Urine Nitrite (NEGATIVE) Urine Bilirubin (NEGATIVE) Urine Urobilinogen (0-1) mg/dL Ur Leukocyte Esterase (NEGATIVE) Urine WBC (Auto) (0-5) /HPF Urine RBC (Auto) (0-2) /HPF U Epithel Cells (Auto) (FEW) /HPF Urine Bacteria (Auto) (NEGATIVE) /HPF Urine Mucus (Auto) (NEGATIVE) /HPF Urine Culture Reflexed (NO) Urine Glucose (NEGATIVE) mg/dL Monoscreen (Negative) Influenza Type A Ag (NEGATIVE) Influenza Type B Ag (NEGATIVE) SARS-CoV-2 (PCR) (NEGATIVE) - Radiology Impressions Radiology Exams & Impressions: Radiology Procedures Category Date Time Status CHEST 1 VIEW (PORTABLE) Stat Exams 01/01/21 22:49 Completed CHEST WITH CONTRAST [CT] Stat Exams 01/02/21 00:[address]/CHEST WITH CONTRAST Indication: Elevated d-dimer. Chest pain and short of breath. Multiple contiguous axial images obtained through the chest using 80 cc Isovue 370 contrast and PE protocol. Comparison: February 06, 2020. There is good opacification of the pulmonary arteries to include the lobar and segmental branches. However respiration artifact limits evaluation of the more distal lobar and segmental branches. No obvious central pulmonary embolus. Heart not enlarged again with CABG. Aorta normal in course and caliber with minimal arteriosclerotic calcifications. Stable small mediastinal and bilateral hilar calcified nodes. No pathologic mediastinal/hilar lymphadenopathy. Stable small right thyroid nodule/cyst. Lungs again demonstrates diffuse scattered subsegmental atelectasis/scarring bilaterally. No new pulmonary mass, infiltrate, or effusion. Bony thorax intact again with mild degenerative changes throughout the spine and sternotomy wires. Limited upper abdomen demonstrates fatty liver and tiny hepatic/splenic calcified granulomas. Impression: 1. Pulmonary embolus evaluation limited by respiration artifact. No obvious central pulmonary embolus. 2. Grossly stable scattered atelectasis/scarring, thyroid nodule/cyst, chronic bony findings, and old granulomatous disease. 3. Remaining CT chest with contrast exam is negative. - Other Procedures and Tests Respiratory Therapy 01/02/21 10:33 Oxygen Oxymask LPM 6 lpm 01/02/21 12:10 Respiratory Therapy Assessment DAILY Assessment/Plan (1) Chest pain Status: Acute Code(s): R07.9 - CHEST PAIN, UNSPECIFIED (2) Supraventricular tachycardia Status: Acute Code(s): I47.1 - SUPRAVENTRICULAR TACHYCARDIA Hospital Summary - Hospital Course Hospital Course: Chief Complaint Diagnosis chest pain and palpitations for 1-2 days Allergies Allergy/AdvReac Type Severity Reaction Status Date / Time adhesive Allergy Intermediate Rash Verified 01/01/21 22:22 diphenhydramine HCl Allergy Mild Rash Verified 01/01/21 22:22 [From Benadryl] nalbuphine HCl [From Nubain] Allergy Mild Rash Verified 01/01/21 22:22 Penicillins Allergy Mild Rash Verified 01/01/21 22:22 gabapentin [From Neurontin] Allergy Vomiting Verified 01/01/21 22:22 Vital Signs (Last 24 hours) Temp Pulse Pulse Resp BP BP Pulse Ox 01/02/21 12:10 68 24 96 01/02/21 11:52 64 125/72 01/02/21 11:48 66 19 124/74 92 L 01/02/21 10:47 98 F 87 24 159/90 96 01/02/21 10:34 87 159/90 01/02/21 10:23 98 F 89 24 159/90 96 01/02/21 10:22 92 H 24 165/105 93 L 01/02/21 10:02 97.1 F 68 20 102/57 96 01/02/21 09:05 97.8 F 65 22 98/52 96 01/02/21 08:05 88 19 129/55 94 L 01/02/21 07:21 97.6 F 93 H 20 139/70 94 L 01/02/21 06:22 111 H 116/90 95 01/02/21 05:00 106 H 152/95 94 L 01/02/21 04:15 105 H 16 165/100 97 01/02/21 03:06 112 H 21 150/86 97 01/02/21 02:44 122 H 16 141/103 01/02/21 02:39 97 01/02/21 00:00 108 H 20 96 01/01/21 23:19 127 H 28 H 146/115 95 01/01/21 22:50 97 01/01/21 22:19 97.8 F 165 H 162 H 20 148/97 97 Current Medications Discontinued Medications Generic Name Dose Route Start Last Admin Trade Name Freq PRN Reason Stop Dose Admin Acetaminophen 650 mg 01/02/21 10:33 Tylenol 325 Mg PO 02/01/21 10:32 Q4H PRN PRN PAIN, FEVER, HEADACHE Adenosine 6 mg 01/01/21 22:59 01/01/21 23:18 Adenocard Iv 6 Mg/2 Ml IV 01/01/21 23:00 6 mg STAT ONE Administration Adenosine Confirm 01/01/21 23:01 Adenocard Iv 6 Mg/2 Ml Administered 01/01/21 23:02 Dose 30 mg IV .STK-MED ONE Albuterol/Ipratropium 3 ml 01/02/21 11:00 01/02/21 12:05 Duoneb 0.5-3 Mg/3 Ml Neb IH 02/01/21 10:59 3 ml QIDRT TRISTIAN Administration Albuterol/Ipratropium Confirm 01/02/21 12:04 Duoneb 0.5-3 Mg/3 Ml Neb Administered 01/02/21 12:05 Dose 3 ml IH .STK-MED ONE Aspirin 324 mg 01/01/21 22:50 01/01/21 22:55 Baby Aspirin 81 Mg Chew PO 01/01/21 22:51 Not Given STAT ONE Diltiazem HCl 15 mg 01/02/21 00:36 01/02/21 00:45 Cardizem Iv 50 Mg/10 Ml IV 01/02/21 00:37 15 mg STAT ONE Administration Diltiazem HCl Confirm 01/02/21 00:44 Cardizem Iv 50 Mg/10 Ml Administered 01/02/21 00:45 Dose 50 mg IV .STK-MED ONE Enoxaparin Sodium 40 mg 01/02/21 10:33 01/02/21 10:57 Enoxaparin Sodium SQ 02/01/21 10:32 40 mg DAILY TRISTIAN Administration Sodium Chloride Confirm 01/01/21 23:02 Sodium Chloride 0.9% 1000 Ml Administered 01/01/21 23:03 Dose 1,000 mls @ ud .ROUTE .STK-MED ONE Sodium Chloride 1,000 mls @ 500 mls/hr 01/01/21 23:48 01/02/21 02:14 Sodium Chloride 0.9% 1000 Ml IV 01/02/21 01:47 Infused .Q2H STA Infusion Diltiazem HCl 100 mls @ 5 mls/hr 01/02/21 02:11 01/02/21 10:34 Cardizem Drip 100 Mg/100 Ml D5w IV 02/01/21 02:10 10 mg/hr .Q20H PRN 10 mls/hr HEART RATE/ A-FIB Titration Protocol 5 MG/HR Sodium Chloride 1,000 mls @ 100 mls/hr 01/02/21 10:33 01/02/21 10:57 Sodium Chloride 0.9% 1000 Ml IV 02/01/21 10:32 100 mls/hr .Q10H TRISTIAN Administration Diltiazem HCl 100 mls @ 5 mls/hr 01/02/21 10:33 01/02/21 11:04 Cardizem Drip 100 Mg/100 Ml D5w IV 02/01/21 10:32 10 mg/hr .Q20H PRN 10 mls/hr HEART RATE/ A-FIB Administration Protocol 5 MG/HR Insulin Human Lispro 0 unit 01/02/21 11:14 Humalog SQ 02/01/21 11:13 UD PRN HYPERGLYCEMIA Metoprolol Tartrate 5 mg 01/02/21 00:08 01/02/21 00:10 Lopressor 5 Mg/5 Ml Injection IV 01/02/21 00:09 5 mg STAT ONE Administration Metoprolol Tartrate Confirm 01/02/21 00:09 Lopressor 5 Mg/5 Ml Injection Administered 01/02/21 00:10 Dose 5 mg IV .STK-MED ONE Non-Formulary Medication 1 each 01/02/21 01:15 01/02/21 11:45 Hold Metformin Products For 48 Hours 01/04/21 01:15 Not Given Q48H TRISTIAN Ondansetron HCl 4 mg 01/02/21 10:33 Zofran 4 Mg/2 Ml Vial IV 02/01/21 10:32 Q6H PRN PRN NAUSEA/VOMITING Intake & Output (Last 24 hours) 12/31/20 01/01/21 01/02/21 01/03/21 11:59 11:59 11:59 11:59 Output Total 200 Balance -200 Weight 101.2 kg Microbiology Results (Last 24 hours) 01/01/21 23:22 Catherized Urine Culture - Pending Laboratory Results (Last 24 hours) 01/02/21 01/02/21 01/02/21 11:35 11:35 10:53 WBC RBC Hgb Hct MCV MCH MCHC RDW Plt Count MPV Gran % Eos # (Auto) Absolute Lymphs (auto) Absolute Monos (auto) Lymphocytes % Monocytes % Eosinophils % Basophils % Absolute Granulocytes Basophils # D-Dimer Puncture Site LEFT BRACHIAL pCO2 64 H* pO2 73 L Base Excess 1.7 O2 Saturation 92.6 L ABG pH 7.28 L ABG HCO3 30.1 H* ABG O2 Sat (Measured) 94.5 L Mynor Test NOT APPLICABLE A-a Gradient 560 a/A Ratio 0.12 Hemoglobin 14.1 Carboxyhemoglobin 1.1 Methemoglobin 0.9 L Temperature 37.0 POC O2 Flow Rate 100 Sodium 138 Potassium 4.3 4.4 Chloride 103 Carbon Dioxide 27 Anion Gap 12.3 BUN 11 Creatinine 0.60 Estimated GFR > 60.0 Glucose 144 H Calcium 8.3 L Magnesium 1.6 Total Bilirubin 0.80 AST 33 ALT 26 Alkaline Phosphatase 77 Troponin I 0.034 NT-Pro-B Natriuret Pep Serum Total Protein 7.0 Albumin 3.6 Urine Color Urine Appearance Urine pH Ur Specific [place] Urine Protein Urine Ketones Urine Blood Urine Nitrite Urine Bilirubin Urine Urobilinogen Ur Leukocyte Esterase Urine WBC (Auto) Urine RBC (Auto) U Epithel Cells (Auto) Urine Bacteria (Auto) Urine Mucus (Auto) Urine Culture Reflexed Urine Glucose Monoscreen Influenza Type A Ag Influenza Type B Ag SARS-CoV-2 (PCR) 01/02/21 01/02/21 01/02/21 10:37 08:46 08:18 WBC 7.3 RBC 4.68 Hgb 13.8 Hct 44.8 MCV 95.7 MCH 29.5 MCHC 30.8 L RDW 14.2 H Plt Count 171 MPV 9.1 Gran % 83.9 H Eos # (Auto) 0.04 Absolute Lymphs (auto) 0.77 L Absolute Monos (auto) 0.37 Lymphocytes % 10.5 L Monocytes % 5.0 Eosinophils % 0.5 Basophils % 0.1 Absolute Granulocytes 6.14 Basophils # 0.01 D-Dimer Puncture Site pCO2 pO2 Base Excess O2 Saturation ABG pH ABG HCO3 ABG O2 Sat (Measured) Mynor Test A-a Gradient a/A Ratio Hemoglobin Carboxyhemoglobin Methemoglobin Temperature POC O2 Flow Rate Sodium Potassium Chloride Carbon Dioxide Anion Gap BUN Creatinine Estimated GFR Glucose Calcium Magnesium Total Bilirubin AST ALT Alkaline Phosphatase Troponin I 0.041 H* NT-Pro-B Natriuret Pep Serum Total Protein Albumin Urine Color Urine Appearance Urine pH Ur Specific [place] Urine Protein Urine Ketones Urine Blood Urine Nitrite Urine Bilirubin Urine Urobilinogen Ur Leukocyte Esterase Urine WBC (Auto) Urine RBC (Auto) U Epithel Cells (Auto) Urine Bacteria (Auto) Urine Mucus (Auto) Urine Culture Reflexed Urine Glucose Monoscreen Influenza Type A Ag Influenza Type B Ag SARS-CoV-2 (PCR) NEGATIVE 01/02/21 01/02/21 01/01/21 05:31 02:14 23:49 WBC RBC Hgb Hct MCV MCH MCHC RDW Plt Count MPV Gran % Eos # (Auto) Absolute Lymphs (auto) Absolute Monos (auto) Lymphocytes % Monocytes % Eosinophils % Basophils % Absolute Granulocytes Basophils # D-Dimer Puncture Site pCO2 pO2 Base Excess O2 Saturation ABG pH ABG HCO3 ABG O2 Sat (Measured) Mynor Test A-a Gradient a/A Ratio Hemoglobin Carboxyhemoglobin Methemoglobin Temperature POC O2 Flow Rate Sodium Potassium Chloride Carbon Dioxide Anion Gap BUN Creatinine Estimated GFR Glucose Calcium Magnesium Total Bilirubin AST ALT Alkaline Phosphatase Troponin I 0.049 H* 0.041 H* NT-Pro-B Natriuret Pep Serum Total Protein Albumin Urine Color Urine Appearance Urine pH Ur Specific [place] Urine Protein Urine Ketones Urine Blood Urine Nitrite Urine Bilirubin Urine Urobilinogen Ur Leukocyte Esterase Urine WBC (Auto) Urine RBC (Auto) U Epithel Cells (Auto) Urine Bacteria (Auto) Urine Mucus (Auto) Urine Culture Reflexed Urine Glucose Monoscreen Influenza Type A Ag NEGATIVE Influenza Type B Ag NEGATIVE SARS-CoV-2 (PCR) 01/01/21 01/01/21 01/01/21 23:42 23:21 22:59 WBC RBC Hgb Hct MCV MCH MCHC RDW Plt Count MPV Gran % Eos # (Auto) Absolute Lymphs (auto) Absolute Monos (auto) Lymphocytes % Monocytes % Eosinophils % Basophils % Absolute Granulocytes Basophils # D-Dimer Puncture Site pCO2 pO2 Base Excess O2 Saturation ABG pH ABG HCO3 ABG O2 Sat (Measured) Mynor Test A-a Gradient a/A Ratio Hemoglobin Carboxyhemoglobin Methemoglobin Temperature POC O2 Flow Rate Sodium Potassium Chloride Carbon Dioxide Anion Gap BUN Creatinine Estimated GFR Glucose Calcium Magnesium Total Bilirubin AST ALT Alkaline Phosphatase Troponin I 0.050 H* NT-Pro-B Natriuret Pep Serum Total Protein Albumin Urine Color YELLOW Urine Appearance CLEAR Urine pH 6.0 Ur Specific [place] 1.005 Urine Protein >=500 Urine Ketones NEGATIVE Urine Blood NEGATIVE Urine Nitrite NEGATIVE Urine Bilirubin NEGATIVE Urine Urobilinogen NEGATIVE Ur Leukocyte Esterase NEGATIVE Urine WBC (Auto) 0-2 Urine RBC (Auto) NONE U Epithel Cells (Auto) NONE Urine Bacteria (Auto) NONE SEEN Urine Mucus (Auto) SLIGHT Urine Culture Reflexed ORDERED SEPARATELY Urine Glucose NEGATIVE Monoscreen NEGATIVE Influenza Type A Ag Influenza Type B Ag SARS-CoV-2 (PCR) 01/01/21 01/01/21 01/01/21 22:59 22:59 22:59 WBC 6.1 RBC 4.90 Hgb 14.5 Hct 45.6 MCV 93.1 MCH 29.6 MCHC 31.8 L RDW 14.1 H Plt Count 181 MPV 9.3 Gran % 70.8 H Eos # (Auto) 0.13 Absolute Lymphs (auto) 1.18 Absolute Monos (auto) 0.46 Lymphocytes % 19.3 L Monocytes % 7.5 Eosinophils % 2.1 Basophils % 0.3 Absolute Granulocytes 4.31 Basophils # 0.02 D-Dimer 895 H* Puncture Site pCO2 pO2 Base Excess O2 Saturation ABG pH ABG HCO3 ABG O2 Sat (Measured) Mynor Test A-a Gradient a/A Ratio Hemoglobin Carboxyhemoglobin Methemoglobin Temperature POC O2 Flow Rate Sodium 138 Potassium 3.9 Chloride 101 Carbon Dioxide 30 Anion Gap 9.8 BUN 12 Creatinine 0.55 Estimated GFR > 60.0 Glucose 168 H Calcium 8.7 Magnesium Total Bilirubin 0.60 AST 26 ALT 19 Alkaline Phosphatase 91 Troponin I NT-Pro-B Natriuret Pep 228 Serum Total Protein 7.2 Albumin 3.8 Urine Color Urine Appearance Urine pH Ur Specific [place] Urine Protein Urine Ketones Urine Blood Urine Nitrite Urine Bilirubin Urine Urobilinogen Ur Leukocyte Esterase Urine WBC (Auto) Urine RBC (Auto) U Epithel Cells (Auto) Urine Bacteria (Auto) Urine Mucus (Auto) Urine Culture Reflexed Urine Glucose Monoscreen Influenza Type A Ag Influenza Type B Ag SARS-CoV-2 (PCR) Orders (Last 24 hours) Category Date Time Status Code Status Order ROUTINE Care 01/02/21 10:33 Active EKG-ER Only STAT Care 01/01/21 22:50 Completed Elevate HOB TOLERATED Care 01/02/21 10:33 Active IV Insertion STAT Care 01/01/21 22:50 Completed POCT Glucose Check ACHS Care 01/02/21 10:[address] in Observation ROUTINE Care 01/02/21 10:33 Active Pulse Oximetry (ED) STAT Care 01/01/21 22:50 Completed Telemetry q4h Care 01/02/21 10:33 Active Weight,Daily 0600 Care 01/02/21 10:33 Active Clear Liquid Diet 01/02/21 Breakfast Completed CHEST 1 VIEW (PORTABLE) Stat Exams 01/01/21 22:49 Completed CHEST WITH CONTRAST [CT] Stat Exams 01/02/21 00:16 Completed ABG [ARTERIAL BLOOD GASES] Stat Lab 01/02/21 10:53 Completed CBC W DIFF Stat Lab 01/01/21 22:59 Completed CBC W DIFF Stat Lab 01/02/21 10:37 Completed CMP Stat Lab 01/01/21 22:59 Completed CMP Stat Lab 01/02/21 11:35 Completed CULTURE,URINE Stat Lab 01/01/21 23:22 Received D-DIMER QUANTITATIVE Stat Lab 01/01/21 22:59 Completed INFLUENZA A+B IVY Stat Lab 01/01/21 23:49 Completed MAG [MAGNESIUM] Stat Lab 01/02/21 11:35 Completed [place] Screen Stat Lab 01/01/21 23:42 Completed NT PRO BNP Stat Lab 01/01/21 22:59 Completed TROPONIN Q3H Lab 01/01/21 22:59 Completed TROPONIN Q3H Lab 01/02/21 02:14 Completed TROPONIN Q3H Lab 01/02/21 05:31 Completed TROPONIN Q3H Lab 01/02/21 08:46 Completed TROPONIN Q3H Lab 01/02/21 11:35 Completed UA W/RFX UR CULTURE Stat Lab 01/01/21 23:21 Completed Acetaminophen 325 mg [Tylenol 325 mg] Med 01/02/21 10:33 Discontinued 650 mg PO Q4H PRN PRN Adenosine 6 mg/2 ml [Adenocard IV 6 MG/2 ML] Med 01/01/21 23:01 Discontinued 30 mg IV .STK-MED ONE Adenosine 6 mg/2 ml [Adenocard IV 6 MG/2 ML] Med 01/01/21 22:59 Disconti nued 6 mg IV STAT ONE Albuterol/Ipratropium 3ml Neb* [DUONEB 0.5-3 MG/3 ml Med 01/02/21 12:04 Discontinued Neb] 3 ml IH .STK-MED ONE Albuterol/Ipratropium 3ml Neb* [DUONEB 0.5-3 MG/3 ml Med 01/02/21 11:00 Discontinued Neb] 3 ml IH QIDRT Aspirin 81 gm Chew [Baby Aspirin 81 mg Chew] Med 01/01/21 22:50 Discontinued 324 mg PO STAT ONE Diltiazem HCl 100 mg/100 ml [Cardizem Drip 100 mg/100 Med 01/02/21 02:11 Discontinued ml D5w] 100 ml IV 5 mg/hr Diltiazem HCl 100 mg/100 ml [Cardizem Drip 100 mg/100 Med 01/02/21 10:33 Discontinued ml D5w] 100 ml IV 5 mg/hr Diltiazem HCl 50 mg/10 ml [Cardizem IV 50 MG/10 ML Med 01/02/21 00:36 Discontinued *] 15 mg IV STAT ONE Diltiazem HCl 50 mg/10 ml [Cardizem IV 50 MG/10 ML Med 01/02/21 00:44 Discontinued *] 50 mg IV .STK-MED ONE Enoxaparin Sodium [Enoxaparin Sodium] Med 01/02/21 10:33 Discontinued 40 mg SQ DAILY Hold Metformin [Hold Metformin Products For 48 Hours] Med 01/02/21 01:15 Discontinued 1 each MC Q48H Insulin Lispro [Humalog] Med 01/02/21 11:14 Discontinued See Dose Instructions SQ UD PRN Metoprolol Tartrate 5 mg/5 ml* [Lopressor 5 mg/5 ml Med 01/02/21 00:09 Discontinued Injection] 5 mg IV .STK-MED ONE Metoprolol Tartrate 5 mg/5 ml* [Lopressor 5 mg/5 ml Med 01/02/21 00:08 Discontinued Injection] 5 mg IV STAT ONE NaCl 0.9% 1000 ml [Sodium Chloride 0.9% 1000 ML] 1,000 Med 01/01/21 23:02 Discontinued ml .ROUTE UD NaCl 0.9% 1000 ml [Sodium Chloride 0.9% 1000 ML] 1,000 Med 01/02/21 10:33 Discontinued ml IV 100 mls/hr NaCl 0.9% 1000 ml [Sodium Chloride 0.9% 1000 ML] 1,000 Med 01/01/21 23:48 Discontinued ml IV 500 mls/hr Ondansetron HCl 4 mg/2 ml [Zofran 4 MG/2 ML VIAL] Med 01/02/21 10:33 Discontinued 4 mg IV Q6H PRN PRN Oxygen Oxymask LPM 6 lpm RT 01/02/21 10:33 Active Respiratory Therapy Assessment DAILY RT 01/02/21 12:10 Active Transfer Order Routine Transfer 01/02/21 Completed Patient Care Notes (Last 24 hours) 01/02/21 10:38 Nursing Note by Mooring,Amirah pt received on 15L oxymask and cardizem dri p@ 10mg/hr Initialized on 01/02/21 10:38 - END OF NOTE [facility] has bed available. Patient is getting [facility]. - Vitals & Intake/Output Vital Signs: Vital Signs Temperature 98 F 01/02/21 10:47 Pulse Rate 68 01/02/21 12:10 Respiratory Rate 24 01/02/21 12:10 Blood Pressure 125/72 01/02/21 11:52 O2 Sat by Pulse Oximetry 96 01/02/21 12:10 Intake & Output: Intake & Output 12/31/20 01/01/21 01/02/21 01/03/21 11:59 11:59 11:59 11:59 Output Total 200 Balance -200 Weight 101.2 kg - Lab Result Diagrams: 01/02/21 10:37 01/02/21 11:35 Lab Results-Last 24 Hrs: Lab Results-Last 24 Hours 01/01/21 01/01/21 01/01/21 Range/Units 22:59 22:59 22:59 WBC 6.1 (4.0-10.5) K/mm3 RBC 4.90 (4.1-5.4) M/mm3 Hgb 14.5 (12.0-16.0) gm/dl Hct 45.6 (35-47) % MCV 93.1 (78-100) fl MCH 29.6 (26-32) pg MCHC 31.8 L (32-36) g/dl RDW 14.1 H (11.5-14.0) % Plt Count 181 (150-450) K/mm3 MPV 9.3 (7.5-11.0) fl Gran % 70.8 H (36.0-66.0) % Eos # (Auto) 0.13 (0-0.5) Absolute Lymphs (auto) 1.18 (1.0-4.6) Absolute Monos (auto) 0.46 (0.0-1.3) Lymphocytes % 19.3 L (24.0-44.0) % Monocytes % 7.5 (0.0-12.0) % Eosinophils % 2.1 (0.00-5.0) % Basophils % 0.3 (0.0-0.4) % Absolute Granulocytes 4.31 (1.4-6.9) Basophils # 0.02 (0-0.4) D-Dimer 895 H* (215-500) ng/mL Puncture Site pCO2 (35-45) mmHg pO2 (75-100) mmHg Base Excess (-2.0-2.0) O2 Saturation (94-100) g/dF ABG pH (7.35-7.45) ABG HCO3 (22-28) ABG O2 Sat (Measured) (95-100) % Mynor Test A-a Gradient a/A Ratio Hemoglobin Carboxyhemoglobin (0.0-6.9) % THgb Methemoglobin (1.4-1.5) % Temperature C POC O2 Flow Rate % Sodium 138 (137-145) mmol/L Potassium 3.9 (3.5-5.1) mmol/L Chloride 101 (98-107) mmol/L Carbon Dioxide 30 (22-30) mmol/L Anion Gap 9.8 (5-15) MEQ/L BUN 12 (7-17) mg/dL Creatinine 0.55 (0.52-1.04) mg/dL Estimated GFR > 60.0 ML/MIN Glucose 168 H (74-106) mg/dL Calcium 8.7 (8.4-10.2) mg/dL Magnesium (1.6-2.3) mg/dL Total Bilirubin 0.60 (0.2-1.3) mg/dL AST 26 (14-36) U/L ALT 19 (0-35) U/L Alkaline Phosphatase 91 (38-126) U/L Troponin I (0.000-0.034) ng/mL NT-Pro-B Natriuret Pep 228 (0-900) pg/mL Serum Total Protein 7.2 (6.3-8.2) g/dL Albumin 3.8 (3.5-5.0) g/dL Urine Color (YELLOW) Urine Appearance (CLEAR) Urine pH (5-6) Ur Specific [place] (1.005-1.025) Urine Protein (Negative) Urine Ketones (NEGATIVE) Urine Blood (0-5) Abilio/ul Urine Nitrite (NEGATIVE) Urine Bilirubin (NEGATIVE) Urine Urobilinogen (0-1) mg/dL Ur Leukocyte Esterase (NEGATIVE) Urine WBC (Auto) (0-5) /HPF Urine RBC (Auto) (0-2) /HPF U Epithel Cells (Auto) (FEW) /HPF Urine Bacteria (Auto) (NEGATIVE) /HPF Urine Mucus (Auto) (NEGATIVE) /HPF Urine Culture Reflexed (NO) Urine Glucose (NEGATIVE) mg/dL Monoscreen (Negative) Influenza Type A Ag (NEGATIVE) Influenza Type B Ag (NEGATIVE) SARS-CoV-2 (PCR) (NEGATIVE) 01/01/21 01/01/21 01/01/21 Range/Units 22:59 23:21 23:42 WBC (4.0-10.5) K/mm3 RBC (4.1-5.4) M/mm3 Hgb (12.0-16.0) gm/dl Hct (35-47) % MCV (78-100) fl MCH (26-32) pg MCHC (32-36) g/dl RDW (11.5-14.0) % Plt Count (150-450) K/mm3 MPV (7.5-11.0) fl Gran % (36.0-66.0) % Eos # (Auto) (0-0.5) Absolute Lymphs (auto) (1.0-4.6) Absolute Monos (auto) (0.0-1.3) Lymphocytes % (24.0-44.0) % Monocytes % (0.0-12.0) % Eosinophils % (0.00-5.0) % Basophils % (0.0-0.4) % Absolute Granulocytes (1.4-6.9) Basophils # (0-0.4) D-Dimer (215-500) ng/mL Puncture Site pCO2 (35-45) mmHg pO2 (75-100) mmHg Base Excess (-2.0-2.0) O2 Saturation (94-100) g/dF ABG pH (7.35-7.45) ABG HCO3 (22-28) ABG O2 Sat (Measured) (95-100) % Mynor Test A-a Gradient a/A Ratio Hemoglobin Carboxyhemoglobin (0.0-6.9) % THgb Methemoglobin (1.4-1.5) % Temperature C POC O2 Flow Rate % Sodium (137-145) mmol/L Potassium (3.5-5.1) mmol/L Chloride (98-107) mmol/L Carbon Dioxide (22-30) mmol/L Anion Gap (5-15) MEQ/L BUN (7-17) mg/dL Creatinine (0.52-1.04) mg/dL Estimated GFR ML/MIN Glucose (74-106) mg/dL Calcium (8.4-10.2) mg/dL Magnesium (1.6-2.3) mg/dL Total Bilirubin (0.2-1.3) mg/dL AST (14-36) U/L ALT (0-35) U/L Alkaline Phosphatase (38-126) U/L Troponin I 0.050 H* (0.000-0.034) ng/mL NT-Pro-B Natriuret Pep (0-900) pg/mL Serum Total Protein (6.3-8.2) g/dL Albumin (3.5-5.0) g/dL Urine Color YELLOW (YELLOW) Urine Appearance CLEAR (CLEAR) Urine pH 6.0 (5-6) Ur Specific [place] 1.005 (1.005-1.025) Urine Protein >=500 (Negative) Urine Ketones NEGATIVE (NEGATIVE) Urine Blood NEGATIVE (0-5) Abilio/ul Urine Nitrite NEGATIVE (NEGATIVE) Urine Bilirubin NEGATIVE (NEGATIVE) Urine Urobilinogen NEGATIVE (0-1) mg/dL Ur Leukocyte Esterase NEGATIVE (NEGATIVE) Urine WBC (Auto) 0-2 (0-5) /HPF Urine RBC (Auto) NONE (0-2) /HPF U Epithel Cells (Auto) NONE (FEW) /HPF Urine Bacteria (Auto) NONE SEEN (NEGATIVE) /HPF Urine Mucus (Auto) SLIGHT (NEGATIVE) /HPF Urine Culture Reflexed ORDERED SEPARATELY (NO) Urine Glucose NEGATIVE (NEGATIVE) mg/dL Monoscreen NEGATIVE (Negative) Influenza Type A Ag (NEGATIVE) Influenza Type B Ag (NEGATIVE) SARS-CoV-2 (PCR) (NEGATIVE) 01/01/21 01/02/21 01/02/21 Range/Units 23:49 02:14 05:31 WBC (4.0-10.5) K/mm3 RBC (4.1-5.4) M/mm3 Hgb (12.0-16.0) gm/dl Hct (35-47) % MCV (78-100) fl MCH (26-32) pg MCHC (32-36) g/dl RDW (11.5-14.0) % Plt Count (150-450) K/mm3 MPV (7.5-11.0) fl Gran % (36.0-66.0) % Eos # (Auto) (0-0.5) Absolute Lymphs (auto) (1.0-4.6) Absolute Monos (auto) (0.0-1.3) Lymphocytes % (24.0-44.0) % Monocytes % (0.0-12.0) % Eosinophils % (0.00-5.0) % Basophils % (0.0-0.4) % Absolute Granulocytes (1.4-6.9) Basophils # (0-0.4) D-Dimer (215-500) ng/mL Puncture Site pCO2 (35-45) mmHg pO2 (75-100) mmHg Base Excess (-2.0-2.0) O2 Saturation (94-100) g/dF ABG pH (7.35-7.45) ABG HCO3 (22-28) ABG O2 Sat (Measured) (95-100) % Mynor Test A-a Gradient a/A Ratio Hemoglobin Carboxyhemoglobin (0.0-6.9) % THgb Methemoglobin (1.4-1.5) % Temperature C POC O2 Flow Rate % Sodium (137-145) mmol/L Potassium (3.5-5.1) mmol/L Chloride (98-107) mmol/L Carbon Dioxide (22-30) mmol/L Anion Gap (5-15) MEQ/L BUN (7-17) mg/dL Creatinine (0.52-1.04) mg/dL Estimated GFR ML/MIN Glucose (74-106) mg/dL Calcium (8.4-10.2) mg/dL Magnesium (1.6-2.3) mg/dL Total Bilirubin (0.2-1.3) mg/dL AST (14-36) U/L ALT (0-35) U/L Alkaline Phosphatase (38-126) U/L Troponin I 0.041 H* 0.049 H* (0.000-0.034) ng/mL NT-Pro-B Natriuret Pep (0-900) pg/mL Serum Total Protein (6.3-8.2) g/dL Albumin (3.5-5.0) g/dL Urine Color (YELLOW) Urine Appearance (CLEAR) Urine pH (5-6) Ur Specific [place] (1.005-1.025) Urine Protein (Negative) Urine Ketones (NEGATIVE) Urine Blood (0-5) Abilio/ul Urine Nitrite (NEGATIVE) Urine Bilirubin (NEGATIVE) Urine Urobilinogen (0-1) mg/dL Ur Leukocyte Esterase (NEGATIVE) Urine WBC (Auto) (0-5) /HPF Urine RBC (Auto) (0-2) /HPF U Epithel Cells (Auto) (FEW) /HPF Urine Bacteria (Auto) (NEGATIVE) /HPF Urine Mucus (Auto) (NEGATIVE) /HPF Urine Culture Reflexed (NO) Urine Glucose (NEGATIVE) mg/dL Monoscreen (Negative) Influenza Type A Ag NEGATIVE (NEGATIVE) Influenza Type B Ag NEGATIVE (NEGATIVE) SARS-CoV-2 (PCR) (NEGATIVE) 01/02/21 01/02/21 01/02/21 Range/Units 08:18 08:46 10:37 WBC 7.3 (4.0-10.5) K/mm3 RBC 4.68 (4.1-5.4) M/mm3 Hgb 13.8 (12.0-16.0) gm/dl Hct 44.8 (35-47) % MCV 95.7 (78-100) fl MCH 29.5 (26-32) pg MCHC 30.8 L (32-36) g/dl RDW 14.2 H (11.5-14.0) % Plt Count 171 (150-450) K/mm3 MPV 9.1 (7.5-11.0) fl Gran % 83.9 H (36.0-66.0) % Eos # (Auto) 0.04 (0-0.5) Absolute Lymphs (auto) 0.77 L (1.0-4.6) Absolute Monos (auto) 0.37 (0.0-1.3) Lymphocytes % 10.5 L (24.0-44.0) % Monocytes % 5.0 (0.0-12.0) % Eosinophils % 0.5 (0.00-5.0) % Basophils % 0.1 (0.0-0.4) % Absolute Granulocytes 6.14 (1.4-6.9) Basophils # 0.01 (0-0.4) D-Dimer (215-500) ng/mL Puncture Site pCO2 (35-45) mmHg pO2 (75-100) mmHg Base Excess (-2.0-2.0) O2 Saturation (94-100) g/dF ABG pH (7.35-7.45) ABG HCO3 (22-28) ABG O2 Sat (Measured) (95-100) % Mynor Test A-a Gradient a/A Ratio Hemoglobin Carboxyhemoglobin (0.0-6.9) % THgb Methemoglobin (1.4-1.5) % Temperature C POC O2 Flow Rate % Sodium (137-145) mmol/L Potassium (3.5-5.1) mmol/L Chloride (98-107) mmol/L Carbon Dioxide (22-30) mmol/L Anion Gap (5-15) MEQ/L BUN (7-17) mg/dL Creatinine (0.52-1.04) mg/dL Estimated GFR ML/MIN Glucose (74-106) mg/dL Calcium (8.4-10.2) mg/dL Magnesium (1.6-2.3) mg/dL Total Bilirubin (0.2-1.3) mg/dL AST (14-36) U/L ALT (0-35) U/L Alkaline Phosphatase (38-126) U/L Troponin I 0.041 H* (0.000-0.034) ng/mL NT-Pro-B Natriuret Pep (0-900) pg/mL Serum Total Protein (6.3-8.2) g/dL Albumin (3.5-5.0) g/dL Urine Color (YELLOW) Urine Appearance (CLEAR) Urine pH (5-6) Ur Specific [place] (1.005-1.025) Urine Protein (Negative) Urine Ketones (NEGATIVE) Urine Blood (0-5) Abilio/ul Urine Nitrite (NEGATIVE) Urine Bilirubin (NEGATIVE) Urine Urobilinogen (0-1) mg/dL Ur Leukocyte Esterase (NEGATIVE) Urine WBC (Auto) (0-5) /HPF Urine RBC (Auto) (0-2) /HPF U Epithel Cells (Auto) (FEW) /HPF Urine Bacteria (Auto) (NEGATIVE) /HPF Urine Mucus (Auto) (NEGATIVE) /HPF Urine Culture Reflexed (NO) Urine Glucose (NEGATIVE) mg/dL Monoscreen (Negative) Influenza Type A Ag (NEGATIVE) Influenza Type B Ag (NEGATIVE) SARS-CoV-2 (PCR) NEGATIVE (NEGATIVE) 01/02/21 01/02/21 01/02/21 Range/Units 10:53 11:35 11:35 WBC (4.0-10.5) K/mm3 RBC (4.1-5.4) M/mm3 Hgb (12.0-16.0) gm/dl Hct (35-47) % MCV (78-100) fl MCH (26-32) pg MCHC (32-36) g/dl RDW (11.5-14.0) % Plt Count (150-450) K/mm3 MPV (7.5-11.0) fl Gran % (36.0-66.0) % Eos # (Auto) (0-0.5) Absolute Lymphs (auto) (1.0-4.6) Absolute Monos (auto) (0.0-1.3) Lymphocytes % (24.0-44.0) % Monocytes % (0.0-12.0) % Eosinophils % (0.00-5.0) % Basophils % (0.0-0.4) % Absolute Granulocytes (1.4-6.9) Basophils # (0-0.4) D-Dimer (215-500) ng/mL Puncture Site LEFT BRACHIAL pCO2 64 H* (35-45) mmHg pO2 73 L (75-100) mmHg Base Excess 1.7 (-2.0-2.0) O2 Saturation 92.6 L (94-100) g/dF ABG pH 7.28 L (7.35-7.45) ABG HCO3 30.1 H* (22-28) ABG O2 Sat (Measured) 94.5 L (95-100) % Mynor Test NOT APPLICABLE A-a Gradient 560 a/A Ratio 0.12 Hemoglobin 14.1 Carboxyhemoglobin 1.1 (0.0-6.9) % THgb Methemoglobin 0.9 L (1.4-1.5) % Temperature 37.0 C POC O2 Flow Rate 100 % Sodium 138 (137-145) mmol/L Potassium 4.4 4.3 (3.5-5.1) mmol/L Chloride 103 (98-107) mmol/L Carbon Dioxide 27 (22-30) mmol/L Anion Gap 12.3 (5-15) MEQ/L BUN 11 (7-17) mg/dL Creatinine 0.60 (0.52-1.04) mg/dL Estimated GFR > 60.0 ML/MIN Glucose 144 H (74-106) mg/dL Calcium 8.3 L (8.4-10.2) mg/dL Magnesium 1.6 (1.6-2.3) mg/dL Total Bilirubin 0.80 (0.2-1.3) mg/dL AST 33 (14-36) U/L ALT 26 (0-35) U/L Alkaline Phosphatase 77 (38-126) U/L Troponin I 0.034 (0.000-0.034) ng/mL NT-Pro-B Natriuret Pep (0-900) pg/mL Serum Total Protein 7.0 (6.3-8.2) g/dL Albumin 3.6 (3.5-5.0) g/dL Urine Color (YELLOW) Urine Appearance (CLEAR) Urine pH (5-6) Ur Specific [place] (1.005-1.025) Urine Protein (Negative) Urine Ketones (NEGATIVE) Urine Blood (0-5) Abilio/ul Urine Nitrite (NEGATIVE) Urine Bilirubin (NEGATIVE) Urine Urobilinogen (0-1) mg/dL Ur Leukocyte Esterase (NEGATIVE) Urine WBC (Auto) (0-5) /HPF Urine RBC (Auto) (0-2) /HPF U Epithel Cells (Auto) (FEW) /HPF Urine Bacteria (Auto) (NEGATIVE) /HPF Urine Mucus (Auto) (NEGATIVE) /HPF Urine Culture Reflexed (NO) Urine Glucose (NEGATIVE) mg/dL Monoscreen (Negative) Influenza Type A Ag (NEGATIVE) Influenza Type B Ag (NEGATIVE) SARS-CoV-2 (PCR) (NEGATIVE) - Radiology Exams Ordered Rad Exams-Entire Visit: Radiology Procedures Category Date Time Status CHEST 1 VIEW (PORTABLE) Stat Exams 01/01/21 22:49 Completed CHEST WITH CONTRAST [CT] Stat Exams 01/02/21 00:16 Completed - Procedures and Test Procedures and Tests throughout Hospitalization: Therapy Orders & Screens 01/02/21 10:33 Oxygen Oxymask LPM 6 lpm Comment: 01/02/21 12:10 Respiratory Therapy Assessment DAILY Comment: Diagnosis: chest pain - Discharge Discharge Date: 01/02/21 Disposition: DC TO [facility] Condition: Stable Prescriptions: No Action Nitroglycerin 0.4 mg Tablet [Nitrostat 0.4 MG Tablet] 0.4 mg SL Q5MIN PRN MR X 3 PRN PRN Reason: Chest Pain Loratadine 10 mg [Claritin 10 mg] 10 mg PO DAILY Furosemide 20 mg [Lasix 20 mg] 40 mg PO DAILY Aspirin EC 81 mg [Ecotrin 81 mg] 81 mg PO DAILY #0 Tiotropium Br/Olodaterol HCl [Stiolto Respimat Inhal [place]] 4 gm IH DAILY PANTOPRAZOLE 40 mg Tablet [Protonix 40MG Tablet] 40 mg PO QAM Ferrous Sulfate, Dried [Iron] 65 mg PO BID Calcium Carbonate/Vitamin D3 [Calcium 600 + Vit D 400 Tablet] 1 each PO DAILY Albuterol Sulfate Mdi [Proair Hfa MDI] 2 inh PO Q4H Albuterol/Ipratropium 3ml Neb* [DUONEB 0.5-3 MG/3 ml Neb] 1 amp IH QID Potassium Chloride 10 meq PO DAILY lisinopriL [Lisinopril] 2.5 mg PO DAILY Multivitamin W-Minerals/Lutein [Centrum Silver Tablet] 1 tablet PO DAILY Metformin HCl 500 mg [Glucophage 500 MG] 500 mg PO TID Ondansetron ODT 4 MG [Zofran Odt 4 mg] 4 mg PO Q6H PRN PRN #10 tab.rapdis PRN Reason: Vomiting Prednisone 10 mg [Deltasone 10 mg] 10 mg PO TID #12 tablet Follow up with: NINA FLORES NP [Primary Care Provider] -
== END 2021-01-02 12:31 | disposition home or self-care (01) | DRG 313 ==
LOC: ED 22:19 → ICU 01-02 10:19
PROVIDERS: ADMIT General Practice; ATTEND General Practice
DX: R07.9 Chest pain, unspecified (principal); I47.1 Supraventricular tachycardia; R06.00 Dyspnea, unspecified; E11.9 Type 2 diabetes mellitus without complications; I10 Essential (primary) hypertension; E78.00 Pure hypercholesterolemia, unspecified; Z95.1 Presence of aortocoronary bypass graft; Z79.899 Other long term (current) drug therapy; I25.10 Atherosclerotic heart disease of native coronary artery without angina pectoris; R00.2 Palpitations; Z85.41 Personal history of malignant neoplasm of cervix uteri; Z20.822 Contact with and (suspected) exposure to COVID-19
CPT/HCPCS: 36000; 36415; 36600; 51702; 71045; 71260; 80053; 81001; 82375; 82803; 83735; 83880; 84484; 85025; 85379; 86308; 87086; 87400; 93005; 94640; 94760; 96360; 96374; 96375; 99285; 99291; U0003; J0153; J1650; A9270-GY

== ENCOUNTER 2021-04-02 16:11 | Inpatient (IN) | payer MEDICARE ==
--- NOTE | 2021-04-02 16:16 | ERPHSYRPT ---
- History of Present Illness Time Seen by Provider: 04/02/21 16:16 Source: patient Exam Limitations: no limitations Physician History: This is a 70-year-old white female patient of nurse practitioner Dara Pimentel who presents with only complaint of right mid forearm pain without history of injury. The daughter called EMS service and stated that she was concerned that her mom might be having heart attack and was short of breath. The patient does not have those types of complaints when asked. However she does have a history of confusion. The patient has a history of CABG, coronary artery disease, hypertension, CHF, COPD and diabetes. Patient has chronic confusion on arrival to the emergency department, the patient denies shortness of breath and she denies chest pain. Patient had a negative Covid test 2 weeks ago. Timing/Duration: today Activities at Onset: none Severity of Dyspnea-Max: mild Severity of Dyspnea-Current: none Possible Cause: occasional episodes Modifying Factors: Improves With: activity Associated Symptoms: No chest pain/discomfort Allergies/Adverse Reactions: adhesive Allergy (Intermediate, Verified 04/02/21 16:36) Rash nalbuphine HCl [From Nubain] Allergy (Mild, Verified 04/02/21 16:36) Rash Penicillins Allergy (Mild, Verified 04/02/21 16:36) Rash gabapentin [From Neurontin] Allergy (Verified 04/02/21 16:36) Vomiting Home Medications: Furosemide 20 mg [Lasix 20 mg] 40 mg PO DAILY 12/08/16 [History] Loratadine 10 mg [Claritin 10 mg] 10 mg PO DAILY 12/08/16 [History] Nitroglycerin 0.4 mg Tablet [Nitrostat 0.4 MG Tablet] 0.4 mg SL Q5MIN PRN MR X 3 PRN 12/08/16 [History] Albuterol Sulfate Mdi [Proair Hfa MDI] 2 inh PO Q4H 07/06/19 [History] Albuterol/Ipratropium 3ml Neb* [DUONEB 0.5-3 MG/3 ml Neb] 1 amp IH QID 07/06/19 [History] Calcium Carbonate/Vitamin D3 [Calcium 600 + Vit D 400 Tablet] 1 each PO DAILY 07/06/19 [History] Ferrous Sulfate, Dried [Iron] 65 mg PO BID 07/06/19 [History] Metformin HCl 500 mg [Glucophage 500 MG] 500 mg PO TID 07/06/19 [History] Multivitamin W-Minerals/Lutein [Centrum Silver Tablet] 1 tablet PO DAILY 07/06/19 [History] PANTOPRAZOLE 40 mg Tablet [Protonix 40MG Tablet] 40 mg PO QAM 07/06/19 [History] Potassium Chloride 10 meq PO DAILY 07/06/19 [History] Tiotropium Br/Olodaterol HCl [Stiolto Respimat Inhal Graham] 4 gm IH DAILY 07/06/19 [History] lisinopriL [Lisinopril] 2.5 mg PO DAILY 07/06/19 [History] Hx Tetanus, Diphtheria Vaccination/Date Given: Yes Hx Influenza Vaccination/Date Given: Yes Hx Pneumococcal Vaccination/Date Given: No Travel Risk - International Travel Have you traveled outside of the country in past 3 weeks: No - Coronavirus Screening Are you exhibiting any of the following symptoms?: No Close contact with a COVID-19 positive Pt in past 14-21 Days: No - Vaccine Status Have you recieved a Covid-19 vaccination: No - Review of Systems Constitutional: No Symptoms Eyes: No Symptoms Ears, Nose, & Throat: No Symptoms Respiratory: No Symptoms Cardiac: No Symptoms Abdominal/Gastrointestinal: No Symptoms Genitourinary Symptoms: No Symptoms Musculoskeletal: No Symptoms Skin: No Symptoms Neurological: No Symptoms Psychological: No Symptoms Endocrine: No Symptoms Hematologic/Lymphatic: No Symptoms Immunological/Allergic: No Symptoms All Other Systems: Reviewed and Negative - Past Medical History Pertinent Past Medical History: Yes Neurological History: No Pertinent History ENT History: No Pertinent History Cardiac History: Coronary Artery Disease, High Cholesterol, Hypertension, Myocardial Infarction ([place]) Respiratory History: Asthma, CHF, COPD, Emphysema Endocrine Medical History: Diabetes Type II Musculoskeletal History: Arthritis GI Medical History: Diverticulosis, Gallbladder Disease History: No Pertinent History Psycho-Social History: No Pertinent History Female Reproductive Disorders: No Pertinent History Other Medical History: Pt. 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 x2. 4 vessel cabg - Social History Smoking Status: Former smoker How long have you smoked: 63 years Exposure to second hand smoke: No Drug Use: none Patient Lives Alone: No - Nursing Vital Signs Nursing Vital Signs: Initial Vital Signs Temperature 98.3 F 04/02/21 16:18 Pulse Rate 116 H 04/02/21 16:18 Respiratory Rate 25 H 04/02/21 16:18 Blood Pressure 171/87 04/02/21 16:18 O2 Sat by Pulse Oximetry 96 04/02/21 16:18 Pain Scale Pain Intensity 0 - Physical Exam General Appearance: no apparent distress, alert Eye Exam: PERRL/EOMI, eyes nml inspection Ears, Nose, Throat Exam: hearing grossly normal, normal ENT inspection Neck Exam: normal inspection, non-tender, supple, full range of motion Respiratory Exam: normal breath sounds, lungs clear, airway intact, No chest tenderness, No respiratory distress Cardiovascular/Chest Exam: tachycardia Abdominal/Gastrointestinal Exam: soft, normal bowel sounds, No tenderness Extremity Exam: non-tender Neurologic Exam: alert, oriented x 3, cooperative, cigar head perforator II-XII nml as tested, normal mood/affect, sensation nml Skin Exam: normal color, warm, dry Lymphatic Exam: No adenopathy SpO2 Interpretation: normal O2 Delivery: Room Air - Course Nursing assessment & vital signs reviewed: Yes EKG Interpreted by Me: RATE ([id number]), Sinus Tach, Non-specific ST Changes, Other (Prolonged QT interval which is new compared to EKG dated 01/02/2021. She has p ersistent sinus tachycardia which was present in prior EKG. She also has new nonspecific T abnormalities. However there is no acute ischemic changes on today's EKG.) Ordered Tests: Active Orders 24 hr Category Date Time Status Supervisor In Circuit Testing STAT Care 04/02/21 16:18 Active Catheter-[place] Guzmán STAT Care 04/02/21 21:26 Active EKG-ER Only STAT Care 04/02/21 16:16 Active IV Insertion STAT Care 04/02/21 16:16 Active Pulse Oximetry (ED) STAT Care 04/02/21 16:16 Active CHEST 1 VIEW (PORTABLE) Stat Exams 04/02/21 16:17 Completed CHEST WITH CONTRAST [CT] Stat Exams 04/02/21 18:42 Taken ARTERIAL BLOOD GASES Stat Lab 04/02/21 21:47 Completed CBC W DIFF Stat Lab 04/02/21 16:49 Completed CMP Stat Lab 04/02/21 16:49 Completed CULTURE,URINE Stat Lab 04/02/21 18:36 Received D-DIMER QUANTITATIVE Stat Lab 04/02/21 16:49 Completed INFLUENZA A+B IVY Stat Lab 04/02/21 16:49 Completed Lactic Acid Stat Lab 04/02/21 16:16 Completed MAGNESIUM Stat Lab 04/02/21 16:49 Completed NT PRO BNP Stat Lab 04/02/21 16:49 Completed PROTIME WITH INR Stat Lab 04/02/21 16:49 Completed TROPONIN Q3H Lab 04/02/21 16:49 Completed TROPONIN Q3H Lab 04/02/21 19:40 Completed TROPONIN Q3H Lab 04/02/21 22:12 Completed TROPONIN Q3H Lab 04/03/21 01:30 Ordered TROPONIN Q3H Lab 04/03/21 04:30 Ordered UA W/RFX UR CULTURE Stat Lab 04/02/21 18:36 Completed Transfer Order Routine Transfer 04/02/21 Ordered Medication Summary Generic Name Dose Route Start Last Admin Trade Name Freq PRN Reason Stop Dose Admin Sodium Chloride 500 mls @ 50 mls/hr 04/02/21 18:45 04/02/21 18:53 Sodium Chloride 0.9% 500 Ml IV 05/02/21 18:44 50 mls/hr .Q10H TRISTIAN Administration Discontinued Medications Generic Name Dose Route Start Last Admin Trade Name Freq PRN Reason Stop Dose Admin Methylprednisolone Sodium 0 mg 04/02/21 20:33 04/02/21 20:59 Succinate 125 mg/ Sterile IV 04/02/21 20:34 125 mg Water 2 ml STAT ONE Administration Diphenhydramine HCl 50 mg 04/02/21 20:33 04/02/21 20:59 Diphenhydramine Hcl 50 Mg/Ml Vial IV 04/02/21 20:34 50 mg STAT ONE Administration Diphenhydramine HCl Confirm 04/02/21 20:54 Diphenhydramine Hcl 50 Mg/Ml Vial Administered 04/02/21 20:55 Dose 50 mg .ROUTE .STK-MED ONE Enoxaparin Sodium 80 mg 04/02/21 21:36 04/02/21 21:42 Enoxaparin Sodium 80 Mg/0.8 Ml Syringe SQ 04/02/21 21:37 80 mg STAT ONE Administration Enoxaparin Sodium Confirm 04/02/21 21:42 Enoxaparin Sodium 80 Mg/0.8 Ml Syringe Administered 04/02/21 21:43 Dose 80 mg SQ .STK-MED ONE Furosemide 20 mg 04/02/21 18:47 04/02/21 18:52 Furosemide 20 Mg/Vial IV 04/02/21 18:48 20 mg STAT ONE Administration Furosemide Confirm 04/02/21 18:50 Furosemide 40 Mg/4 Ml Vial Administered 04/02/21 18:51 Dose 40 mg .ROUTE .STK-MED ONE Levofloxacin/Dextrose 500 mg in 100 mls @ 100 mls/hr 04/02/21 18:47 04/02/21 20:16 Levofloxacin 500mg/100ml D5w IV 04/02/21 19:46 Infused STAT STA Infusion Levofloxacin/Dextrose Confirm 04/02/21 18:51 Levofloxacin 500mg/100ml D5w Administered 04/02/21 18:52 Dose 500 mg in 100 mls @ ud IV .STK-MED ONE Methylprednisolone Sodium Succinate Confirm 04/02/21 20:54 Methylprednis Sod Succ 125 Mg/2 Ml Vial Administered 04/02/21 20:55 Dose 125 mg .ROUTE .STK-MED ONE Metoprolol Tartrate 5 mg 04/02/21 21:03 04/02/21 21:17 Metoprolol Tartrate 5 Mg/5 Ml Injection IV 04/02/21 21:04 5 mg STAT ONE Administration Metoprolol Tartrate Confirm 04/02/21 21:14 Metoprolol Tartrate 5 Mg/5 Ml Injection Administered 04/02/21 21:15 Dose 5 mg IV .STK-MED ONE Lab/Rad Data: Laboratory Result Diagrams 04/02/21 16:49 04/02/21 16:49 Laboratory Results 04/02/21 04/02/21 04/02/21 Range/Units 22:16 22:12 21:47 WBC (4.0-10.5) K/mm3 RBC (4.1-5.4) M/mm3 Hgb (12.0-16.0) gm/dl Hct (35-47) % MCV (78-100) fl MCH (26-32) pg MCHC (32-36) g/dl RDW (11.5-14.0) % Plt Count (150-450) K/mm3 MPV (7.5-11.0) fl Gran % (36.0-66.0) % Eos # (Auto) (0-0.5) Absolute Lymphs (auto) (1.0-4.6) Absolute Monos (auto) (0.0-1.3) Lymphocytes % (24.0-44.0) % Monocytes % (0.0-12.0) % Eosinophils % (0.00-5.0) % Basophils % (0.0-0.4) % Absolute Granulocytes (1.4-6.9) Basophils # (0-0.4) PT (9.4-12.5) SECONDS INR (0.8-3.0) D-Dimer (215-500) ng/mL Puncture Site RIGHT RADIAL pCO2 36 (35-45) mmHg pO2 95 (75-100) mmHg Base Excess 2.0 (-2.0-2.0) O2 Saturation 94.1 (94-100) g/dF ABG pH 7.46 H (7.35-7.45) ABG HCO3 25.6 (22-28) ABG O2 Sat (Measured) 98.3 (95-100) % Mynor Test YES A-a Gradient 60 a/A Ratio 0.61 Hemoglobin 15.0 Carboxyhemoglobin 3.0 (0.0-6.9) % THgb Methemoglobin 1.4 (1.4-1.5) % Temperature 37.0 C POC O2 Flow Rate 28 % Sodium (137-145) mmol/L Potassium 4.1 (3.5-5.1) mmol/L Chloride (98-107) mmol/L Carbon Dioxide (22-30) mmol/L Anion Gap (5-15) MEQ/L BUN (7-17) mg/dL Creatinine (0.52-1.04) mg/dL Estimated GFR ML/MIN Glucose (74-106) mg/dL Lactic Acid (0.4-2.0) Calcium (8.4-10.2) mg/dL Magnesium (1.6-2.3) mg/dL Total Bilirubin (0.2-1.3) mg/dL AST (14-36) U/L ALT (0-35) U/L Alkaline Phosphatase (38-126) U/L Troponin I 0.025 (0.000-0.034) ng/mL NT-Pro-B Natriuret Pep (0-900) pg/mL Serum Total Protein (6.3-8.2) g/dL Albumin (3.5-5.0) g/dL Urine Color (YELLOW) Urine Appearance (CLEAR) Urine pH (5-6) Ur Specific Soldier (1.005-1.025) Urine Protein (Negative) Urine Ketones (NEGATIVE) Urine Blood (0-5) Abilio/ul Urine Nitrite (NEGATIVE) Urine Bilirubin (NEGATIVE) Urine Urobilinogen (0-1) mg/dL Ur Leukocyte Esterase (NEGATIVE) Urine WBC (Auto) (0-5) /HPF Urine RBC (Auto) (0-2) /HPF U Epithel Cells (Auto) (FEW) /HPF Urine Bacteria (Auto) (NEGATIVE) /HPF Urine Mucus (Auto) (NEGATIVE) /HPF Urine Culture Reflexed (NO) Urine Glucose (NEGATIVE) mg/dL Influenza Type A Ag NEGATIVE (NEGATIVE) Influenza Type B Ag NEGATIVE (NEGATIVE) RSV (PCR) NEGATIVE (Negative) SARS-CoV-2 (PCR) NEGATIVE (NEGATIVE) Slides for Path Review 04/02/21 04/02/21 04/02/21 Range/Units 19:40 18:36 16:49 WBC (4.0-10.5) K/mm3 RBC (4.1-5.4) M/mm3 Hgb (12.0-16.0) gm/dl Hct (35-47) % MCV (78-100) fl MCH (26-32) pg MCHC (32-36) g/dl RDW (11.5-14.0) % Plt Count (150-450) K/mm3 MPV (7.5-11.0) fl Gran % (36.0-66.0) % Eos # (Auto) (0-0.5) Absolute Lymphs (auto) (1.0-4.6) Absolute Monos (auto) (0.0-1.3) Lymphocytes % (24.0-44.0) % Monocytes % (0.0-12.0) % Eosinophils % (0.00-5.0) % Basophils % (0.0-0.4) % Absolute Granulocytes (1.4-6.9) Basophils # (0-0.4) PT (9.4-12.5) SECONDS INR (0.8-3.0) D-Dimer (215-500) ng/mL Puncture Site pCO2 (35-45) mmHg pO2 (75-100) mmHg Base Excess (-2.0-2.0) O2 Saturation (94-100) g/dF ABG pH (7.35-7.45) ABG HCO3 (22-28) ABG O2 Sat (Measured) (95-100) % Mynor Test A-a Gradient a/A Ratio Hemoglobin Carboxyhemoglobin (0.0-6.9) % THgb Methemoglobin (1.4-1.5) % Temperature C POC O2 Flow Rate % Sodium (137-145) mmol/L Potassium (3.5-5.1) mmol/L Chloride (98-107) mmol/L Carbon Dioxide (22-30) mmol/L Anion Gap (5-15) MEQ/L BUN (7-17) mg/dL Creatinine (0.52-1.04) mg/dL Estimated GFR ML/MIN Glucose (74-106) mg/dL Lactic Acid (0.4-2.0) Calcium (8.4-10.2) mg/dL Magnesium (1.6-2.3) mg/dL Total Bilirubin (0.2-1.3) mg/dL AST (14-36) U/L ALT (0-35) U/L Alkaline Phosphatase (38-126) U/L Troponin I 0.020 0.013 (0.000-0.034) ng/mL NT-Pro-B Natriuret Pep (0-900) pg/mL Serum Total Protein (6.3-8.2) g/dL Albumin (3.5-5.0) g/dL Urine Color YELLOW (YELLOW) Urine Appearance SLIGHTLY CLOUDY (CLEAR) Urine pH 5.0 (5-6) Ur Specific Soldier 1.015 (1.005-1.025) Urine Protein >=500 (Negative) Urine Ketones NEGATIVE (NEGATIVE) Urine Blood SMALL (0-5) Abilio/ul Urine Nitrite NEGATIVE (NEGATIVE) Urine Bilirubin NEGATIVE (NEGATIVE) Urine Urobilinogen NEGATIVE (0-1) mg/dL Ur Leukocyte Esterase NEGATIVE (NEGATIVE) Urine WBC (Auto) 6-10 (0-5) /HPF Urine RBC (Auto) NONE (0-2) /HPF U Epithel Cells (Auto) RARE (FEW) /HPF Urine Bacteria (Auto) RARE (NEGATIVE) /HPF Urine Mucus (Auto) SLIGHT (NEGATIVE) /HPF Urine Culture Reflexed YES (NO) Urine Glucose 50 (NEGATIVE) mg/dL Influenza Type A Ag (NEGATIVE) Influenza Type B Ag (NEGATIVE) RSV (PCR) (Negative) SARS-CoV-2 (PCR) (NEGATIVE) Slides for Path Review 04/02/21 04/02/21 04/02/21 Range/Units 16:49 16:49 16:49 WBC (4.0-10.5) K/mm3 RBC (4.1-5.4) M/mm3 Hgb (12.0-16.0) gm/dl Hct (35-47) % MCV (78-100) fl MCH (26-32) pg MCHC (32-36) g/dl RDW (11.5-14.0) % Plt Count (150-450) K/mm3 MPV (7.5-11.0) fl Gran % (36.0-66.0) % Eos # (Auto) (0-0.5) Absolute Lymphs (auto) (1.0-4.6) Absolute Monos (auto) (0.0-1.3) Lymphocytes % (24.0-44.0) % Monocytes % (0.0-12.0) % Eosinophils % (0.00-5.0) % Basophils % (0.0-0.4) % Absolute Granulocytes (1.4-6.9) Basophils # (0-0.4) PT 12.6 H (9.4-12.5) SECONDS INR 1.07 (0.8-3.0) D-Dimer 959 H* (215-500) ng/mL Puncture Site pCO2 (35-45) mmHg pO2 (75-100) mmHg Base Excess (-2.0-2.0) O2 Saturation (94-100) g/dF ABG pH (7.35-7.45) ABG HCO3 (22-28) ABG O2 Sat (Measured) (95-100) % Mynor Test A-a Gradient a/A Ratio Hemoglobin Carboxyhemoglobin (0.0-6.9) % THgb Methemoglobin (1.4-1.5) % Temperature C POC O2 Flow Rate % Sodium 136 L (137-145) mmol/L Potassium 4.5 (3.5-5.1) mmol/L Chloride 101 (98-107) mmol/L Carbon Dioxide 24 (22-30) mmol/L Anion Gap 15.2 H (5-15) MEQ/L BUN 18 H (7-17) mg/dL Creatinine 0.83 (0.52-1.04) mg/dL Estimated GFR > 60.0 ML/MIN Glucose 199 H (74-106) mg/dL Lactic Acid (0.4-2.0) Calcium 9.3 (8.4-10.2) mg/dL Magnesium 1.4 L (1.6-2.3) mg/dL Total Bilirubin 1.00 (0.2-1.3) mg/dL AST 19 (14-36) U/L ALT 16 (0-35) U/L Alkaline Phosphatase 78 (38-126) U/L Troponin I (0.000-0.034) ng/mL NT-Pro-B Natriuret Pep 1030 H (0-900) pg/mL Serum Total Protein 7.5 (6.3-8.2) g/dL Albumin 4.2 (3.5-5.0) g/dL Urine Color (YELLOW) Urine Appearance (CLEAR) Urine pH (5-6) Ur Specific Soldier (1.005-1.025) Urine Protein (Negative) Urine Ketones (NEGATIVE) Urine Blood (0-5) Abilio/ul Urine Nitrite (NEGATIVE) Urine Bilirubin (NEGATIVE) Urine Urobilinogen (0-1) mg/dL Ur Leukocyte Esterase (NEGATIVE) Urine WBC (Auto) (0-5) /HPF Urine RBC (Auto) (0-2) /HPF U Epithel Cells (Auto) (FEW) /HPF Urine Bacteria (Auto) (NEGATIVE) /HPF Urine Mucus (Auto) (NEGATIVE) /HPF Urine Culture Reflexed (NO) Urine Glucose (NEGATIVE) mg/dL Influenza Type A Ag NEGATIVE (NEGATIVE) Influenza Type B Ag NEGATIVE (NEGATIVE) RSV (PCR) (Negative) SARS-CoV-2 (PCR) (NEGATIVE) Slides for Path Review 04/02/21 04/02/21 Range/Units 16:49 16:16 WBC 13.7 H (4.0-10.5) K/mm3 RBC 5.05 (4.1-5.4) M/mm3 Hgb 15.0 (12.0-16.0) gm/dl Hct 46.1 (35-47) % MCV 91.3 (78-100) fl MCH 29.7 (26-32) pg MCHC 32.5 (32-36) g/dl RDW 14.3 H (11.5-14.0) % Plt Count 186 (150-450) K/mm3 MPV 10.0 (7.5-11.0) fl Gran % 91.0 H (36.0-66.0) % Eos # (Auto) 0.01 (0-0.5) Absolute Lymphs (auto) 0.54 L (1.0-4.6) Absolute Monos (auto) 0.67 (0.0-1.3) Lymphocytes % 3.9 L (24.0-44.0) % Monocytes % 4.9 (0.0-12.0) % Eosinophils % 0.1 (0.00-5.0) % Basophils % 0.1 (0.0-0.4) % Absolute Granulocytes 12.49 H (1.4-6.9) Basophils # 0.02 (0-0.4) PT (9.4-12.5) SECONDS INR (0.8-3.0) D-Dimer (215-500) ng/mL Puncture Site pCO2 (35-45) mmHg pO2 (75-100) mmHg Base Excess (-2.0-2.0) O2 Saturation (94-100) g/dF ABG pH (7.35-7.45) ABG HCO3 (22-28) ABG O2 Sat (Measured) (95-100) % Mynor Test A-a Gradient a/A Ratio Hemoglobin Carboxyhemoglobin (0.0-6.9) % THgb Methemoglobin (1.4-1.5) % Temperature C POC O2 Flow Rate % Sodium (137-145) mmol/L Potassium (3.5-5.1) mmol/L Chloride (98-107) mmol/L Carbon Dioxide (22-30) mmol/L Anion Gap (5-15) MEQ/L BUN (7-17) mg/dL Creatinine (0.52-1.04) mg/dL Estimated GFR ML/MIN Glucose (74-106) mg/dL Lactic Acid 1.2 (0.4-2.0) Calcium (8.4-10.2) mg/dL Magnesium (1.6-2.3) mg/dL Total Bilirubin (0.2-1.3) mg/dL AST (14-36) U/L ALT (0-35) U/L Alkaline Phosphatase (38-126) U/L Troponin I (0.000-0.034) ng/mL NT-Pro-B Natriuret Pep (0-900) pg/mL Serum Total Protein (6.3-8.2) g/dL Albumin (3.5-5.0) g/dL Urine Color (YELLOW) Urine Appearance (CLEAR) Urine pH (5-6) Ur Specific Soldier (1.005-1.025) Urine Protein (Negative) Urine Ketones (NEGATIVE) Urine Blood (0-5) Abilio/ul Urine Nitrite (NEGATIVE) Urine Bilirubin (NEGATIVE) Urine Urobilinogen (0-1) mg/dL Ur Leukocyte Esterase (NEGATIVE) Urine WBC (Auto) (0-5) /HPF Urine RBC (Auto) (0-2) /HPF U Epithel Cells (Auto) (FEW) /HPF Urine Bacteria (Auto) (NEGATIVE) /HPF Urine Mucus (Auto) (NEGATIVE) /HPF Urine Culture Reflexed (NO) Urine Glucose (NEGATIVE) mg/dL Influenza Type A Ag (NEGATIVE) Influenza Type B Ag (NEGATIVE) RSV (PCR) (Negative) SARS-CoV-2 (PCR) (NEGATIVE) Slides for Path Review YES - Progress Progress: improved, re-examined Air Movement: fair Progress Note: 04/02/21 18:48 Chest x-ray shows a new right base patchy airspace infiltrate/disease 04/02/21 20:30 Medical decision making: This patient actually has had several CAT scans of the chest with contrast. There is no listing of allergy to intravenous contrast. Originally, the daughter thought that she was. However we pointed out that she has had several CTAs of the chest with contrast in the past in addition, the patient is not allergic to Benadryl. In fact in the last couple of days, the daughter states that she has actually given her mother Benadryl. Therefore, we will premedicate the patient with Benadryl intravenously as well as Solu-Medrol intravenously. 04/02/21 23:44 CTA of chest does not show pulmonary emboli. She has a right lower lobe infiltrate with bilateral subsegmental atelectasis and both lower lobes. There is a hiatal hernia present Blood Culture(s) Obtained: Yes Antibiotics given: Yes Counseled pt/family regarding: lab results, diagnosis, need for follow-up, rad results - Departure Departure Disposition: In-patient Admission Clinical Impression: Right pulmonary infiltrate on CXR, Hypertension Condition: Fair Critical Care Time: No Referrals: NINA PIMENTEL NP [Primary Care Provider] - Follow up/PCP as directed
[2021-04-02 16:56] LABS: Absolute Neutrophil Ct (ANC) 12.49 (1.4-6.9); BASOPHIL % 0.1 % (0.0-0.4); Basophil (Absolute #) 0.02 (0-0.4); Eosinophil % 0.1 % (0.00-5.0); Eosinophil (Absolute #) 0.01 (0-0.5); Hematocrit 46.1 % (35-47); Lymphocyte (Absolute #) 0.54 (1.0-4.6); Lymphocytes % 3.9 % (24.0-44.0); Mean Cell Volume 91.3 fl (78-100); Mean Corpuscular Hemoglobin 29.7 pg (26-32); Mean Corpuscular Hgb Concent. 32.5 g/dl (32-36); Monocyte (Absolute #) 0.67 (0.0-1.3); Monocytes % 4.9 % (0.0-12.0); Platelet Count 186 K/mm3 (150-450); Red Blood Count 5.05 M/mm3 (4.1-5.4); Red Cell Distribution Width 14.3 % (11.5-14.0); White Blood Count 13.7 K/mm3 (4.0-10.5)
--- NOTE | 2021-04-02 17:14 | XRAY ---
Indication: Short of breath. Comparison: Jan 01, 2021. Portable chest again hyperinflated with new right base patchy airspace disease. Remaining heart and left lung unremarkable again with CABG. Bony thorax intact again with osteopenia and degenerative changes.
[2021-04-02 17:16] LABS: INR 1.07 (0.8-3.0); PROTIME 12.6 SECONDS (9.4-12.5)
[2021-04-02 17:49] LABS: INFLUENZA A NEGATIVE (NEGATIVE); INFLUENZA B NEGATIVE (NEGATIVE)
[2021-04-02 17:51] LABS: ALBUMIN 4.2 g/dL (3.5-5.0); ALKALINE PHOSPHATASE 78 U/L (38-126); ANION GAP 15.2 MEQ/L (5-15); BLOOD UREA NITROGEN 18 mg/dL (7-17); CHLORIDE 101 mmol/L (98-107); Calcium 9.3 mg/dL (8.4-10.2); Carbon Dioxide 24 mmol/L (22-30); Creatinine 1 0.83 mg/dL (0.52-1.04); EST GLOMERULAR FILTRATION RATE > 60.0 ML/MIN; Glucose 199 mg/dL (74-106); MAGNESIUM 1.4 mg/dL (1.6-2.3); NT PRO BNP 1030 pg/mL (0-900); Potassium 4.5 mmol/L (3.5-5.1); SGOT/AST 19 U/L (14-36); SGPT/ALT 16 U/L (0-35); SODIUM 136 mmol/L (137-145); Total Protein 7.5 g/dL (6.3-8.2)
[2021-04-02] MEDS ORDERED: Sodium Chloride 0.9% 500 ML 500 ML IV SCH (18:45)
[2021-04-02] MEDS ORDERED: Lasix 20 MG/2 ML IV ONE (18:47)
[2021-04-02] MEDS ORDERED: Levofloxacin 500MG/100ML D5W 500 MG/100 ML BAG IV STA (18:47)
[2021-04-02] MEDS ORDERED: Lasix 40 MG/4 ML ONE (18:50)
[2021-04-02] MEDS ORDERED: Levofloxacin 500MG/100ML D5W 500 MG/100 ML BAG IV ONE (18:51)
[2021-04-02] MEDS ORDERED: Sodium Chloride 0.9% 500 ML 500 ML IV ONE (18:51)
[2021-04-02 20:06] LABS: Appearance SLIGHTLY CLOUDY (CLEAR); Bacteria RARE /HPF (NEGATIVE); Bilirubin NEGATIVE (NEGATIVE); Blood SMALL Ery/ul (0-5); Epithelial Cells RARE /HPF (FEW); Glucose 50 mg/dL (NEGATIVE); Ketones NEGATIVE (NEGATIVE); Leukocyte Esterase NEGATIVE (NEGATIVE); Mucus SLIGHT /HPF (NEGATIVE); Nitrite NEGATIVE (NEGATIVE); Protein,Urine Dip >=500 (Negative); Specific Gravity 1.015 (1.005-1.025); Urobilinogen NEGATIVE mg/dL (0-1)
[2021-04-02 20:31] LABS: Slide Review 1 YES
[2021-04-02] MEDS ORDERED: solu-MEDROL 125 MG, Sterile H2O 10 ml 2 ML IV ONE ×2 (20:33)
[2021-04-02] MEDS ORDERED: BENADRYL 50 MG/ML IV ONE (20:33)
[2021-04-02] MEDS ORDERED: BENADRYL 50 MG/ML ONE (20:54)
[2021-04-02] MEDS ORDERED: solu-MEDROL ONE (20:54)
[2021-04-02] MEDS ORDERED: LOPRESSOR 5 MG/5 ML INJECTION IV ONE ×2 (21:03→21:14)
[2021-04-02] MEDS ORDERED: ENOXAPARIN SODIUM SQ ONE ×2 (21:36→21:42)
[2021-04-02 21:52] LABS: A-aADO2 60; ABG POTASSIUM 4.1 (3.5-5.1); ABG SITE RIGHT RADIAL; ALLEN TEST OK? YES; ARTERIAL BLD GAS O2 SATURATION 98.3 % (95-100); ARTERIAL BLOOD GAS FIO2 28 %; ARTERIAL BLOOD GAS PCO2 36 mmHg (35-45); ARTERIAL BLOOD GAS PO2 95 mmHg (75-100); ARTERIAL BLOOD GAS pH 7.46 (7.35-7.45); HCO3- 25.6 (22-28); HGB O2 SAT 94.1 g/dF (94-100); Methhemoglobin 1.4 % (1.4-1.5)
[2021-04-02 23:07] LABS: INFLUENZA A NEGATIVE (NEGATIVE); INFLUENZA B NEGATIVE (NEGATIVE); RESPIRATORY SYNCTIAL VIRUS NEGATIVE (Negative); SARS-CoV-2 Xpert Express NEGATIVE (NEGATIVE)
[2021-04-03] MEDS ORDERED: FEVERALL 650 MG PR PRN (01:03)
[2021-04-03] MEDS ORDERED: VASOTEC I.V. 2.5 MG IV PRN (01:03)
[2021-04-03] MEDS ORDERED: Zofran 4 MG/2 ML VIAL IV PRN (01:03)
[2021-04-03] MEDS ORDERED: VENTOLIN COMMON CANISTER IH PRN (05:25)
[2021-04-03] MEDS ORDERED: DUONEB 0.5-3 MG/3 ml Neb IH PRN (05:25)
[2021-04-03 05:39] LABS: Absolute Neutrophil Ct (ANC) 13.94 (1.4-6.9); BASOPHIL % 0.1 % (0.0-0.4); Basophil (Absolute #) 0.01 (0-0.4); Eosinophil (Absolute #) 0 (0-0.5); Hematocrit 42.4 % (35-47); Hemoglobin 13.5 gm/dl (12.0-16.0); Lymphocyte (Absolute #) 0.65 (1.0-4.6); Lymphocytes % 4.4 % (24.0-44.0); Mean Cell Volume 92.2 fl (78-100); Mean Corpuscular Hemoglobin 29.3 pg (26-32); Mean Corpuscular Hgb Concent. 31.8 g/dl (32-36); Mean Platelet Volume 9.7 fl (7.5-11.0); Monocyte (Absolute #) 0.19 (0.0-1.3); Monocytes % 1.3 % (0.0-12.0); Neutrophil % 94.2 % (36.0-66.0); Platelet Count 167 K/mm3 (150-450); Red Cell Distribution Width 14.3 % (11.5-14.0); White Blood Count 14.8 K/mm3 (4.0-10.5)
[2021-04-03] MEDS: HUMULIN R SQ PRN (05:58)
[2021-04-03 06:07] LABS: ALBUMIN 3.4 g/dL (3.5-5.0); ALKALINE PHOSPHATASE 67 U/L (38-126); ANION GAP 12.7 MEQ/L (5-15); BLOOD UREA NITROGEN 20 mg/dL (7-17); CHLORIDE 101 mmol/L (98-107); Calcium 8.4 mg/dL (8.4-10.2); Carbon Dioxide 26 mmol/L (22-30); Creatinine 1 0.77 mg/dL (0.52-1.04); EST GLOMERULAR FILTRATION RATE > 60.0 ML/MIN; Glucose 210 mg/dL (74-106); SGOT/AST 19 U/L (14-36); SGPT/ALT 14 U/L (0-35); SODIUM 136 mmol/L (137-145); Total Protein 6.5 g/dL (6.3-8.2)
[2021-04-03] MEDS: Advair Hfa 230/21 Mcg COMMON CANISTER IH SCH ×2 (07:30→19:55)
--- NOTE | 2021-04-03 08:10 | XRAY ---
Indication: Short of breath. Emphysema. Elevated d-dimer. Multiple contiguous axial images obtained through the chest using 80 cc Isovue 370 contrast and PE protocol. Patient was premedicated prior to CT as patient's daughter reports IV contrast allergy. Comparison: January 02, 2021. There is good opacification of the pulmonary arteries to include the lobar and segmental branches. However diffuse respiration artifact limits evaluation for pulmonary embolus. No obvious pulmonary embolus. Heart not enlarged again with CABG. Aorta is normal in course and caliber without aneurysm/dissection. Stable small mediastinal and bilateral hilar calcified nodes. No pathologic mediastinal/hilar lymphadenopathy. Stable small round right thyroid nodule/cyst. New small hiatal hernia. Lungs again demonstrates scattered bilateral subsegmental atelectasis/scarring. New lateral segment right lower lobe consolidating infiltrate/atelectasis. No effusion. Bony thorax intact with mild degenerative changes throughout the spine and sternotomy wires. Limited upper abdomen again demonstrates fatty liver and tiny hepatic/splenic calcified granulomas. Impression: 1. Pulmonary embolus evaluation limited by respiration artifact. No obvious pulmonary embolus. 2. New right lower lobe consolidating infiltrate/atelectasis. 3. New small hiatal hernia. 4. Again incidental scattered atelectasis/scarring, small thyroid nodule/cyst, chronic bony findings, fatty liver, and old granulomatous disease. Comment: Preliminary interpretation made by C. No critical discrepancy.
[2021-04-03] MEDS: ENOXAPARIN SODIUM SQ SCH (08:50)
[2021-04-03] MEDS: ROCEPHIN 1 Gm-D5w 50 ml Bag** 1 G/50 ML IVPB IV SCH (08:50)
[2021-04-03] MEDS: Sodium Chloride 0.9% 1000 ML 1,000 ML IV SCH (08:51)
--- NOTE | 2021-04-03 09:11 | PCM.HP ---
History of Present Illness - Chief Complaint Chief Complaint: pneumonia History of Present Illness: is a 70 year old female who was brought to the emergency department yesterday by daughter, she was concerned about increasing shortness of breath. Patient is a very poor historian but denies chest pain, states she has some pain in her head and feels a little short of breath. she was found to have a pneumonia on xray and chest ct, no PE, troponin has increased since admission but she has not complained of chest pain. - Review of Systems Constitutional: No Symptoms Respiratory: Short Of Breath Cardiac: No Chest Pain, No Edema, No Syncope Abdominal/Gastrointestinal: No Abdominal Pain, No Nausea, No Vomiting, No Diarrhea Genitourinary Symptoms: No Dysuria Skin: No Rash Neurological: Headache All Other Systems: Reviewed and Negative Medications & Allergies Home Medications: Home Medication List Furosemide 20 mg [Lasix 20 mg] 40 mg PO DAILY 12/08/16 [History Confirmed 04/03/21] Loratadine 10 mg [Claritin 10 mg] 10 mg PO DAILY 12/08/16 [History Confirmed 04/03/21] Nitroglycerin 0.4 mg Tablet [Nitrostat 0.4 MG Tablet] 0.4 mg SL Q5MIN PRN MR X 3 PRN 12/08/16 [History Confirmed 04/03/21] Aspirin EC 81 mg [Ecotrin 81 mg] 81 mg PO DAILY #0 02/17/17 [Rx Confirmed 04/03/21] Albuterol Sulfate Mdi [Proair Hfa MDI] 2 inh PO Q4H 07/06/19 [History Confirmed 04/03/21] Albuterol/Ipratropium 3ml Neb* [DUONEB 0.5-3 MG/3 ml Neb] 1 amp IH QID 07/06/19 [History Confirmed 04/03/21] Calcium Carbonate/Vitamin D3 [Calcium 600 + Vit D 400 Tablet] 1 each PO DAILY 07/06/19 [History Confirmed 04/03/21] Ferrous Sulfate, Dried [Iron] 65 mg PO BID 07/06/19 [History Confirmed 04/03/21] Metformin HCl 500 mg [Glucophage 500 MG] 500 mg PO TID 07/06/19 [History Confirmed 04/03/21] Multivitamin W-Minerals/Lutein [Centrum Silver Tablet] 1 tablet PO DAILY 07/06/19 [History Confirmed 04/03/21] PANTOPRAZOLE 40 mg Tablet [Protonix 40MG Tablet] 40 mg PO QAM 07/06/19 [History Confirmed 04/03/21] Potassium Chloride 10 meq PO DAILY 07/06/19 [History Confirmed 04/03/21] Tiotropium Br/Olodaterol HCl [Stiolto Respimat Inhal Conifer] 4 gm IH DAILY 07/06/19 [History Confirmed 04/03/21] lisinopriL [Lisinopril] 2.5 mg PO DAILY 07/06/19 [History Confirmed 04/03/21] Ondansetron ODT 4 MG [Zofran Odt 4 mg] 4 mg PO Q6H PRN PRN #10 tab.rapdis 02/18/20 [Rx Confirmed 04/03/21] Allergies/Adverse Reactions: Allergies Allergy/AdvReac Type Severity Reaction Status Date / Time adhesive Allergy Intermediate Rash Verified 04/02/21 16:36 nalbuphine HCl [From Nubain] Allergy Mild Rash Verified 04/02/21 16:36 Penicillins Allergy Mild Rash Verified 04/02/21 16:36 gabapentin [From Neurontin] Allergy Vomiting Verified 04/02/21 16:36 - Past Medical History Past Medical History: Yes Neurological History: No Pertinent History ENT History: No Pertinent History Cardiac History: Coronary Artery Disease, High Cholesterol, Hypertension, Myocardial Infarction (AR) Respiratory History: Asthma, CHF, COPD, Emphysema Endocrine Medical History: Diabetes Type II Musculoskelatal History: Arthritis GI Medical History: Diverticulosis, Gallbladder Disease History: No Pertinent History Pyscho-Social History: No Pertinent History Reproductive Disorders: No Pertinent History Comment: Pt. 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 x2. 4 vessel cabg - Social History Smoking Status: Former smoker How long have you smoked: 63 years Exposure to second hand smoke: No Alcohol: None Drug Use: none - Physical Exam Vital Signs: Vital Signs - 24 hr Temp Pulse Resp BP BP Pulse Ox 04/03/21 07:39 96.4 F 68 18 120/56 90 L 04/03/21 07:03 93 L 04/03/21 06:32 84 20 93 L 04/03/21 03:24 97.2 F 80 20 141/63 94 L 04/03/21 02:58 79 21 93 L 04/03/21 01:28 94.7 F 87 16 186/80 92 L 04/03/21 00:00 82 18 143/71 95 04/02/21 23:00 87 22 190/99 95 04/02/21 22:03 109 H 29 H 117/109 94 L 04/02/21 21:00 123 H 26 H 177/109 97 04/02/21 20:18 120 H 28 H 158/104 96 04/02/21 19:04 123 H 26 H 151/111 95 04/02/21 18:00 84 26 H 139/76 96 04/02/21 17:26 98.3 F 87 20 154/104 97 04/02/21 16:33 95 04/02/21 16:18 98.3 F 116 H 25 H 171/87 95 General Appearance: no apparent distress Neurologic Exam: alert, cooperative, No oriented x 3 Respiratory Exam: rhonchi (rt lung base) Cardiovascular Exam: regular rate/rhythm, normal heart sounds, normal peripheral pulses Gastrointestinal/Abdomen Exam: soft, normal bowel sounds, No tenderness, No mass Extremity Exam: normal inspection, normal range of motion, pelvis stable Skin Exam: normal color, warm, dry, No rash Results - Labs Lab/Micro Results: Lab Results-Last 24 Hours 04/02/21 04/02/21 04/02/21 Range/Units 16:16 16:49 16:49 WBC 13.7 H (4.0-10.5) K/mm3 RBC 5.05 (4.1-5.4) M/mm3 Hgb 15.0 (12.0-16.0) gm/dl Hct 46.1 (35-47) % MCV 91.3 (78-100) fl MCH 29.7 (26-32) pg MCHC 32.5 (32-36) g/dl RDW 14.3 H (11.5-14.0) % Plt Count 186 (150-450) K/mm3 MPV 10.0 (7.5-11.0) fl Gran % 91.0 H (36.0-66.0) % Eos # (Auto) 0.01 (0-0.5) Absolute Lymphs (auto) 0.54 L (1.0-4.6) Absolute Monos (auto) 0.67 (0.0-1.3) Lymphocytes % 3.9 L (24.0-44.0) % Monocytes % 4.9 (0.0-12.0) % Eosinophils % 0.1 (0.00-5.0) % Basophils % 0.1 (0.0-0.4) % Absolute Granulocytes 12.49 H (1.4-6.9) Basophils # 0.02 (0-0.4) PT (9.4-12.5) SECONDS INR (0.8-3.0) D-Dimer (215-500) ng/mL Puncture Site pCO2 (35-45) mmHg pO2 (75-100) mmHg Base Excess (-2.0-2.0) O2 Saturation (94-100) g/dF ABG pH (7.35-7.45) ABG HCO3 (22-28) ABG O2 Sat (Measured) (95-100) % Mynor Test A-a Gradient a/A Ratio Hemoglobin Carboxyhemoglobin (0.0-6.9) % THgb Methemoglobin (1.4-1.5) % Temperature C POC O2 Flow Rate % Sodium 136 L (137-145) mmol/L Potassium 4.5 (3.5-5.1) mmol/L Chloride 101 (98-107) mmol/L Carbon Dioxide 24 (22-30) mmol/L Anion Gap 15.2 H (5-15) MEQ/L BUN 18 H (7-17) mg/dL Creatinine 0.83 (0.52-1.04) mg/dL Estimated GFR > 60.0 ML/MIN Glucose 199 H (74-106) mg/dL POC Glucometer (74 to 106) mg/dL Lactic Acid 1.2 (0.4-2.0) Calcium 9.3 (8.4-10.2) mg/dL Magnesium 1.4 L (1.6-2.3) mg/dL Total Bilirubin 1.00 (0.2-1.3) mg/dL AST 19 (14-36) U/L ALT 16 (0-35) U/L Alkaline Phosphatase 78 (38-126) U/L Troponin I (0.000-0.034) ng/mL NT-Pro-B Natriuret Pep 1030 H (0-900) pg/mL Serum Total Protein 7.5 (6.3-8.2) g/dL Albumin 4.2 (3.5-5.0) g/dL Urine Color (YELLOW) Urine Appearance (CLEAR) Urine pH (5-6) Ur Specific Nash (1.005-1.025) Urine Protein (Negative) Urine Ketones (NEGATIVE) Urine Blood (0-5) Abilio/ul Urine Nitrite (NEGATIVE) Urine Bilirubin (NEGATIVE) Urine Urobilinogen (0-1) mg/dL Ur Leukocyte Esterase (NEGATIVE) Urine WBC (Auto) (0-5) /HPF Urine RBC (Auto) (0-2) /HPF U Epithel Cells (Auto) (FEW) /HPF Urine Bacteria (Auto) (NEGATIVE) /HPF Urine Mucus (Auto) (NEGATIVE) /HPF Urine Culture Reflexed (NO) Urine Glucose (NEGATIVE) mg/dL Influenza Type A Ag (NEGATIVE) Influenza Type B Ag (NEGATIVE) RSV (PCR) (Negative) SARS-CoV-2 (PCR) (NEGATIVE) Slides for Path Review YES 04/02/21 04/02/21 04/02/21 Range/Units 16:49 16:49 16:49 WBC (4.0-10.5) K/mm3 RBC (4.1-5.4) M/mm3 Hgb (12.0-16.0) gm/dl Hct (35-47) % MCV (78-100) fl MCH (26-32) pg MCHC (32-36) g/dl RDW (11.5-14.0) % Plt Count (150-450) K/mm3 MPV (7.5-11.0) fl Gran % (36.0-66.0) % Eos # (Auto) (0-0.5) Absolute Lymphs (auto) (1.0-4.6) Absolute Monos (auto) (0.0-1.3) Lymphocytes % (24.0-44.0) % Monocytes % (0.0-12.0) % Eosinophils % (0.00-5.0) % Basophils % (0.0-0.4) % Absolute Granulocytes (1.4-6.9) Basophils # (0-0.4) PT 12.6 H (9.4-12.5) SECONDS INR 1.07 (0.8-3.0) D-Dimer 959 H* (215-500) ng/mL Puncture Site pCO2 (35-45) mmHg pO2 (75-100) mmHg Base Excess (-2.0-2.0) O2 Saturation (94-100) g/dF ABG pH (7.35-7.45) ABG HCO3 (22-28) ABG O2 Sat (Measured) (95-100) % Mynor Test A-a Gradient a/A Ratio Hemoglobin Carboxyhemoglobin (0.0-6.9) % THgb Methemoglobin (1.4-1.5) % Temperature C POC O2 Flow Rate % Sodium (137-145) mmol/L Potassium (3.5-5.1) mmol/L Chloride (98-107) mmol/L Carbon Dioxide (22-30) mmol/L Anion Gap (5-15) MEQ/L BUN (7-17) mg/dL Creatinine (0.52-1.04) mg/dL Estimated GFR ML/MIN Glucose (74-106) mg/dL POC Glucometer (74 to 106) mg/dL Lactic Acid (0.4-2.0) Calcium (8.4-10.2) mg/dL Magnesium (1.6-2.3) mg/dL Total Bilirubin (0.2-1.3) mg/dL AST (14-36) U/L ALT (0-35) U/L Alkaline Phosphatase (38-126) U/L Troponin I 0.013 (0.000-0.034) ng/mL NT-Pro-B Natriuret Pep (0-900) pg/mL Serum Total Protein (6.3-8.2) g/dL Albumin (3.5-5.0) g/dL Urine Color (YELLOW) Urine Appearance (CLEAR) Urine pH (5-6) Ur Specific Nash (1.005-1.025) Urine Protein (Negative) Urine Ketones (NEGATIVE) Urine Blood (0-5) Abilio/ul Urine Nitrite (NEGATIVE) Urine Bilirubin (NEGATIVE) Urine Urobilinogen (0-1) mg/dL Ur Leukocyte Esterase (NEGATIVE) Urine WBC (Auto) (0-5) /HPF Urine RBC (Auto) (0-2) /HPF U Epithel Cells (Auto) (FEW) /HPF Urine Bacteria (Auto) (NEGATIVE) /HPF Urine Mucus (Auto) (NEGATIVE) /HPF Urine Culture Reflexed (NO) Urine Glucose (NEGATIVE) mg/dL Influenza Type A Ag NEGATIVE (NEGATIVE) Influenza Type B Ag NEGATIVE (NEGATIVE) RSV (PCR) (Negative) SARS-CoV-2 (PCR) (NEGATIVE) Slides for Path Review 04/02/21 04/02/21 04/02/21 Range/Units 18:36 19:40 21:47 WBC (4.0-10.5) K/mm3 RBC (4.1-5.4) M/mm3 Hgb (12.0-16.0) gm/dl Hct (35-47) % MCV (78-100) fl MCH (26-32) pg MCHC (32-36) g/dl RDW (11.5-14.0) % Plt Count (150-450) K/mm3 MPV (7.5-11.0) fl Gran % (36.0-66.0) % Eos # (Auto) (0-0.5) Absolute Lymphs (auto) (1.0-4.6) Absolute Monos (auto) (0.0-1.3) Lymphocytes % (24.0-44.0) % Monocytes % (0.0-12.0) % Eosinophils % (0.00-5.0) % Basophils % (0.0-0.4) % Absolute Granulocytes (1.4-6.9) Basophils # (0-0.4) PT (9.4-12.5) SECONDS INR (0.8-3.0) D-Dimer (215-500) ng/mL Puncture Site RIGHT RADIAL pCO2 36 (35-45) mmHg pO2 95 (75-100) mmHg Base Excess 2.0 (-2.0-2.0) O2 Saturation 94.1 (94-100) g/dF ABG pH 7.46 H (7.35-7.45) ABG HCO3 25.6 (22-28) ABG O2 Sat (Measured) 98.3 (95-100) % Mynor Test YES A-a Gradient 60 a/A Ratio 0.61 Hemoglobin 15.0 Carboxyhemoglobin 3.0 (0.0-6.9) % THgb Methemoglobin 1.4 (1.4-1.5) % Temperature 37.0 C POC O2 Flow Rate 28 % Sodium (137-145) mmol/L Potassium 4.1 (3.5-5.1) mmol/L Chloride (98-107) mmol/L Carbon Dioxide (22-30) mmol/L Anion Gap (5-15) MEQ/L BUN (7-17) mg/dL Creatinine (0.52-1.04) mg/dL Estimated GFR ML/MIN Glucose (74-106) mg/dL POC Glucometer (74 to 106) mg/dL Lactic Acid (0.4-2.0) Calcium (8.4-10.2) mg/dL Magnesium (1.6-2.3) mg/dL Total Bilirubin (0.2-1.3) mg/dL AST (14-36) U/L ALT (0-35) U/L Alkaline Phosphatase (38-126) U/L Troponin I 0.020 (0.000-0.034) ng/mL NT-Pro-B Natriuret Pep (0-900) pg/mL Serum Total Protein (6.3-8.2) g/dL Albumin (3.5-5.0) g/dL Urine Color YELLOW (YELLOW) Urine Appearance SLIGHTLY CLOUDY (CLEAR) Urine pH 5.0 (5-6) Ur Specific Nash 1.015 (1.005-1.025) Urine Protein >=500 (Negative) Urine Ketones NEGATIVE (NEGATIVE) Urine Blood SMALL (0-5) Abilio/ul Urine Nitrite NEGATIVE (NEGATIVE) Urine Bilirubin NEGATIVE (NEGATIVE) Urine Urobilinogen NEGATIVE (0-1) mg/dL Ur Leukocyte Esterase NEGATIVE (NEGATIVE) Urine WBC (Auto) 6-10 (0-5) /HPF Urine RBC (Auto) NONE (0-2) /HPF U Epithel Cells (Auto) RARE (FEW) /HPF Urine Bacteria (Auto) RARE (NEGATIVE) /HPF Urine Mucus (Auto) SLIGHT (NEGATIVE) /HPF Urine Culture Reflexed YES (NO) Urine Glucose 50 (NEGATIVE) mg/dL Influenza Type A Ag (NEGATIVE) Influenza Type B Ag (NEGATIVE) RSV (PCR) (Negative) SARS-CoV-2 (PCR) (NEGATIVE) Slides for Path Review 04/02/21 04/02/21 04/03/21 Range/Units 22:12 22:16 01:25 WBC (4.0-10.5) K/mm3 RBC (4.1-5.4) M/mm3 Hgb (12.0-16.0) gm/dl Hct (35-47) % MCV (78-100) fl MCH (26-32) pg MCHC (32-36) g/dl RDW (11.5-14.0) % Plt Count (150-450) K/mm3 MPV (7.5-11.0) fl Gran % (36.0-66.0) % Eos # (Auto) (0-0.5) Absolute Lymphs (auto) (1.0-4.6) Absolute Monos (auto) (0.0-1.3) Lymphocytes % (24.0-44.0) % Monocytes % (0.0-12.0) % Eosinophils % (0.00-5.0) % Basophils % (0.0-0.4) % Absolute Granulocytes (1.4-6.9) Basophils # (0-0.4) PT (9.4-12.5) SECONDS INR (0.8-3.0) D-Dimer (215-500) ng/mL Puncture Site pCO2 (35-45) mmHg pO2 (75-100) mmHg Base Excess (-2.0-2.0) O2 Saturation (94-100) g/dF ABG pH (7.35-7.45) ABG HCO3 (22-28) ABG O2 Sat (Measured) (95-100) % Mynor Test A-a Gradient a/A Ratio Hemoglobin Carboxyhemoglobin (0.0-6.9) % THgb Methemoglobin (1.4-1.5) % Temperature C POC O2 Flow Rate % Sodium (137-145) mmol/L Potassium (3.5-5.1) mmol/L Chloride (98-107) mmol/L Carbon Dioxide (22-30) mmol/L Anion Gap (5-15) MEQ/L BUN (7-17) mg/dL Creatinine (0.52-1.04) mg/dL Estimated GFR ML/MIN Glucose (74-106) mg/dL POC Glucometer (74 to 106) mg/dL Lactic Acid (0.4-2.0) Calcium (8.4-10.2) mg/dL Magnesium (1.6-2.3) mg/dL Total Bilirubin (0.2-1.3) mg/dL AST (14-36) U/L ALT (0-35) U/L Alkaline Phosphatase (38-126) U/L Troponin I 0.025 0.028 (0.000-0.034) ng/mL NT-Pro-B Natriuret Pep (0-900) pg/mL Serum Total Protein (6.3-8.2) g/dL Albumin (3.5-5.0) g/dL Urine Color (YELLOW) Urine Appearance (CLEAR) Urine pH (5-6) Ur Specific Nash (1.005-1.025) Urine Protein (Negative) Urine Ketones (NEGATIVE) Urine Blood (0-5) Abilio/ul Urine Nitrite (NEGATIVE) Urine Bilirubin (NEGATIVE) Urine Urobilinogen (0-1) mg/dL Ur Leukocyte Esterase (NEGATIVE) Urine WBC (Auto) (0-5) /HPF Urine RBC (Auto) (0-2) /HPF U Epithel Cells (Auto) (FEW) /HPF Urine Bacteria (Auto) (NEGATIVE) /HPF Urine Mucus (Auto) (NEGATIVE) /HPF Urine Culture Reflexed (NO) Urine Glucose (NEGATIVE) mg/dL Influenza Type A Ag NEGATIVE (NEGATIVE) Influenza Type B Ag NEGATIVE (NEGATIVE) RSV (PCR) NEGATIVE (Negative) SARS-CoV-2 (PCR) NEGATIVE (NEGATIVE) Slides for Path Review 04/03/21 04/03/21 04/03/21 Range/Units 04:40 04:40 04:40 WBC 14.8 H (4.0-10.5) K/mm3 RBC 4.60 (4.1-5.4) M/mm3 Hgb 13.5 (12.0-16.0) gm/dl Hct 42.4 (35-47) % MCV 92.2 (78-100) fl MCH 29.3 (26-32) pg MCHC 31.8 L (32-36) g/dl RDW 14.3 H (11.5-14.0) % Plt Count 167 (150-450) K/mm3 MPV 9.7 (7.5-11.0) fl Gran % 94.2 H (36.0-66.0) % Eos # (Auto) 0 (0-0.5) Absolute Lymphs (auto) 0.65 L (1.0-4.6) Absolute Monos (auto) 0.19 (0.0-1.3) Lymphocytes % 4.4 L (24.0-44.0) % Monocytes % 1.3 (0.0-12.0) % Eosinophils % 0.0 (0.00-5.0) % Basophils % 0.1 (0.0-0.4) % Absolute Granulocytes 13.94 H (1.4-6.9) Basophils # 0.01 (0-0.4) PT (9.4-12.5) SECONDS INR (0.8-3.0) D-Dimer (215-500) ng/mL Puncture Site pCO2 (35-45) mmHg pO2 (75-100) mmHg Base Excess (-2.0-2.0) O2 Saturation (94-100) g/dF ABG pH (7.35-7.45) ABG HCO3 (22-28) ABG O2 Sat (Measured) (95-100) % Mynor Test A-a Gradient a/A Ratio Hemoglobin Carboxyhemoglobin (0.0-6.9) % THgb Methemoglobin (1.4-1.5) % Temperature C POC O2 Flow Rate % Sodium 136 L (137-145) mmol/L Potassium 4.0 (3.5-5.1) mmol/L Chloride 101 (98-107) mmol/L Carbon Dioxide 26 (22-30) mmol/L Anion Gap 12.7 (5-15) MEQ/L BUN 20 H (7-17) mg/dL Creatinine 0.77 (0.52-1.04) mg/dL Estimated GFR > 60.0 ML/MIN Glucose 210 H (74-106) mg/dL POC Glucometer (74 to 106) mg/dL Lactic Acid (0.4-2.0) Calcium 8.4 (8.4-10.2) mg/dL Magnesium (1.6-2.3) mg/dL Total Bilirubin 0.70 (0.2-1.3) mg/dL AST 19 (14-36) U/L ALT 14 (0-35) U/L Alkaline Phosphatase 67 (38-126) U/L Troponin I 0.201 H* (0.000-0.034) ng/mL NT-Pro-B Natriuret Pep (0-900) pg/mL Serum Total Protein 6.5 (6.3-8.2) g/dL Albumin 3.4 L (3.5-5.0) g/dL Urine Color (YELLOW) Urine Appearance (CLEAR) Urine pH (5-6) Ur Specific Nash (1.005-1.025) Urine Protein (Negative) Urine Ketones (NEGATIVE) Urine Blood (0-5) Abilio/ul Urine Nitrite (NEGATIVE) Urine Bilirubin (NEGATIVE) Urine Urobilinogen (0-1) mg/dL Ur Leukocyte Esterase (NEGATIVE) Urine WBC (Auto) (0-5) /HPF Urine RBC (Auto) (0-2) /HPF U Epithel Cells (Auto) (FEW) /HPF Urine Bacteria (Auto) (NEGATIVE) /HPF Urine Mucus (Auto) (NEGATIVE) /HPF Urine Culture Reflexed (NO) Urine Glucose (NEGATIVE) mg/dL Influenza Type A Ag (NEGATIVE) Influenza Type B Ag (NEGATIVE) RSV (PCR) (Negative) SARS-CoV-2 (PCR) (NEGATIVE) Slides for Path Review 04/03/21 Range/Units 05:42 WBC (4.0-10.5) K/mm3 RBC (4.1-5.4) M/mm3 Hgb (12.0-16.0) gm/dl Hct (35-47) % MCV (78-100) fl MCH (26-32) pg MCHC (32-36) g/dl RDW (11.5-14.0) % Plt Count (150-450) K/mm3 MPV (7.5-11.0) fl Gran % (36.0-66.0) % Eos # (Auto) (0-0.5) Absolute Lymphs (auto) (1.0-4.6) Absolute Monos (auto) (0.0-1.3) Lymphocytes % (24.0-44.0) % Monocytes % (0.0-12.0) % Eosinophils % (0.00-5.0) % Basophils % (0.0-0.4) % Absolute Granulocytes (1.4-6.9) Basophils # (0-0.4) PT (9.4-12.5) SECONDS INR (0.8-3.0) D-Dimer (215-500) ng/mL Puncture Site pCO2 (35-45) mmHg pO2 (75-100) mmHg Base Excess (-2.0-2.0) O2 Saturation (94-100) g/dF ABG pH (7.35-7.45) ABG HCO3 (22-28) ABG O2 Sat (Measured) (95-100) % Mynor Test A-a Gradient a/A Ratio Hemoglobin Carboxyhemoglobin (0.0-6.9) % THgb Methemoglobin (1.4-1.5) % Temperature C POC O2 Flow Rate % Sodium (137-145) mmol/L Potassium (3.5-5.1) mmol/L Chloride (98-107) mmol/L Carbon Dioxide (22-30) mmol/L Anion Gap (5-15) MEQ/L BUN (7-17) mg/dL Creatinine (0.52-1.04) mg/dL Estimated GFR ML/MIN Glucose (74-106) mg/dL POC Glucometer 225 H (74 to 106) mg/dL Lactic Acid (0.4-2.0) Calcium (8.4-10.2) mg/dL Magnesium (1.6-2.3) mg/dL Total Bilirubin (0.2-1.3) mg/dL AST (14-36) U/L ALT (0-35) U/L Alkaline Phosphatase (38-126) U/L Troponin I (0.000-0.034) ng/mL NT-Pro-B Natriuret Pep (0-900) pg/mL Serum Total Protein (6.3-8.2) g/dL Albumin (3.5-5.0) g/dL Urine Color (YELLOW) Urine Appearance (CLEAR) Urine pH (5-6) Ur Specific Nash (1.005-1.025) Urine Protein (Negative) Urine Ketones (NEGATIVE) Urine Blood (0-5) Abilio/ul Urine Nitrite (NEGATIVE) Urine Bilirubin (NEGATIVE) Urine Urobilinogen (0-1) mg/dL Ur Leukocyte Esterase (NEGATIVE) Urine WBC (Auto) (0-5) /HPF Urine RBC (Auto) (0-2) /HPF U Epithel Cells (Auto) (FEW) /HPF Urine Bacteria (Auto) (NEGATIVE) /HPF Urine Mucus (Auto) (NEGATIVE) /HPF Urine Culture Reflexed (NO) Urine Glucose (NEGATIVE) mg/dL Influenza Type A Ag (NEGATIVE) Influenza Type B Ag (NEGATIVE) RSV (PCR) (Negative) SARS-CoV-2 (PCR) (NEGATIVE) Slides for Path Review Accuchecks Date 04/03/21 Time 05:50 - Radiology Impressions Radiology Exams & Impressions: Radiology Procedures Category Date Time Status CHEST 1 VIEW (PORTABLE) Stat Exams 04/02/21 16:17 Completed CHEST WITH CONTRAST [CT] Stat Exams 04/02/21 18:42 Completed - Other Procedures and Tests Respiratory Therapy 04/03/21 01:03 Oxygen Nasal Cannula 2 lpm Respiratory Therapy Consult ROUTINE Assessment/Plan (1) Pneumonia Current Visit: Yes Status: Acute Assessment & Plan: on rocephin/zithromax, currently receiving oxygen via facemask, patient is in no distress Code(s): J18.9 - PNEUMONIA, UNSPECIFIED ORGANISM (2) Elevated troponin Current Visit: Yes Status: Acute Assessment & Plan: consult Dr Dasilva her primary chief controller center, hx cad and CABG in the past per chart. Code(s): R77.8 - OTHER SPECIFIED ABNORMALITIES OF PLASMA PROTEINS (3) HTN (hypertension) Current Visit: Yes Status: Chronic Assessment & Plan: resume her home meds. Code(s): I10 - ESSENTIAL (PRIMARY) HYPERTENSION
[2021-04-03] MEDS: Zithromax 500 MG/ 250 ML NaCl Premix 500 MG/250 ML IVPB IV SCH (09:31)
[2021-04-03] MEDS: Lasix 40 MG PO SCH (13:31)
[2021-04-03] MEDS: ECOTRIN 81 MG PO SCH (13:31)
[2021-04-03] MEDS: Zestril 5 MG PO SCH (13:32)
[2021-04-03] MEDS: Protonix 40MG Tablet PO SCH (13:33)
[2021-04-03] MEDS: Klor Con 10 MEQ PO SCH (13:35)
[2021-04-04 07:01] LABS: Absolute Neutrophil Ct (ANC) 8.61 (1.4-6.9); BASOPHIL % 0.1 % (0.0-0.4); Basophil (Absolute #) 0.01 (0-0.4); Eosinophil % 0.3 % (0.00-5.0); Eosinophil (Absolute #) 0.03 (0-0.5); Hematocrit 39.4 % (35-47); Hemoglobin 12.3 gm/dl (12.0-16.0); Lymphocyte (Absolute #) 1.01 (1.0-4.6); Lymphocytes % 9.9 % (24.0-44.0); Mean Cell Volume 94.3 fl (78-100); Mean Corpuscular Hemoglobin 29.4 pg (26-32); Mean Corpuscular Hgb Concent. 31.2 g/dl (32-36); Mean Platelet Volume 9.6 fl (7.5-11.0); Monocyte (Absolute #) 0.56 (0.0-1.3); Monocytes % 5.5 % (0.0-12.0); Neutrophil % 84.2 % (36.0-66.0); Platelet Count 182 K/mm3 (150-450); Red Blood Count 4.18 M/mm3 (4.1-5.4); Red Cell Distribution Width 14.6 % (11.5-14.0); White Blood Count 10.2 K/mm3 (4.0-10.5)
[2021-04-04 07:17] LABS: ALBUMIN 3.3 g/dL (3.5-5.0); ALKALINE PHOSPHATASE 60 U/L (38-126); ANION GAP 10.6 MEQ/L (5-15); BLOOD UREA NITROGEN 44 mg/dL (7-17); CHLORIDE 107 mmol/L (98-107); Calcium 8.4 mg/dL (8.4-10.2); Carbon Dioxide 26 mmol/L (22-30); Creatinine 1 0.89 mg/dL (0.52-1.04); EST GLOMERULAR FILTRATION RATE > 60.0 ML/MIN; Glucose 116 mg/dL (74-106); MAGNESIUM 1.6 mg/dL (1.6-2.3); Potassium 3.8 mmol/L (3.5-5.1); SGOT/AST 16 U/L (14-36); SGPT/ALT 12 U/L (0-35); SODIUM 140 mmol/L (137-145); Total Protein 6.3 g/dL (6.3-8.2)
[2021-04-04] MEDS: Advair Hfa 230/21 Mcg COMMON CANISTER IH SCH (07:27)
--- NOTE | 2021-04-04 07:33 | PCM.NOTE ---
Date and Time: 04/04/21731 Subjective Assessment: patient is alert and states she is feeling better today. no specific complaints. Objective Exam General Appearance: no apparent distress Neurologic Exam: alert, oriented x 3 Respiratory Exam: rhonchi Cardiovascular Exam: regular rate/rhythm, normal heart sounds Gastrointestinal/Abdomen Exam: soft, No tenderness, No mass Extremity Exam: normal inspection, normal range of motion OBJECTIVE DATA Vital Signs: Vital Signs - 24 hr Temp Pulse Resp BP BP Pulse Ox 04/04/21 07:26 97.9 F 69 20 142/66 94 L 04/04/21 04:00 97.0 F 68 18 128/57 93 L 04/04/21 00:00 97.3 F 73 18 125/58 99 04/03/21 20:00 97.7 F 78 18 140/50 94 L 04/03/21 19:56 74 22 95 04/03/21 16:00 98.9 F 76 21 146/65 96 04/03/21 11:45 97.8 F 76 19 129/59 92 L 04/03/21 07:39 96.4 F 68 18 120/56 90 L Pain Assessment - Last Documented Pain Intensity 0 Intake and Output: Intake & Output 04/01/21 04/02/21 04/03/21 04/04/21 11:59 11:59 11:59 11:59 Intake Total 120 1253 Output Total 650 1400 Balance -530 -147 Weight 94.7 kg 95.4 kg Lab Results: Lab Results-Last 24 Hours 04/03/21 04/03/21 04/03/21 Range/Units 11:34 18:19 21:18 WBC (4.0-10.5) K/mm3 RBC (4.1-5.4) M/mm3 Hgb (12.0-16.0) gm/dl Hct (35-47) % MCV (78-100) fl MCH (26-32) pg MCHC (32-36) g/dl RDW (11.5-14.0) % Plt Count (150-450) K/mm3 MPV (7.5-11.0) fl Gran % (36.0-66.0) % Eos # (Auto) (0-0.5) Absolute Lymphs (auto) (1.0-4.6) Absolute Monos (auto) (0.0-1.3) Lymphocytes % (24.0-44.0) % Monocytes % (0.0-12.0) % Eosinophils % (0.00-5.0) % Basophils % (0.0-0.4) % Absolute Granulocytes (1.4-6.9) Basophils # (0-0.4) Sodium (137-145) mmol/L Potassium (3.5-5.1) mmol/L Chloride (98-107) mmol/L Carbon Dioxide (22-30) mmol/L Anion Gap (5-15) MEQ/L BUN (7-17) mg/dL Creatinine (0.52-1.04) mg/dL Estimated GFR ML/MIN Glucose (74-106) mg/dL POC Glucometer 199 H 158 H 155 H (74 to 106) mg/dL Calcium (8.4-10.2) mg/dL Magnesium (1.6-2.3) mg/dL Total Bilirubin (0.2-1.3) mg/dL AST (14-36) U/L ALT (0-35) U/L Alkaline Phosphatase (38-126) U/L Serum Total Protein (6.3-8.2) g/dL Albumin (3.5-5.0) g/dL 04/04/21 04/04/21 04/04/21 Range/Units 06:20 06:20 06:50 WBC 10.2 (4.0-10.5) K/mm3 RBC 4.18 (4.1-5.4) M/mm3 Hgb 12.3 (12.0-16.0) gm/dl Hct 39.4 (35-47) % MCV 94.3 (78-100) fl MCH 29.4 (26-32) pg MCHC 31.2 L (32-36) g/dl RDW 14.6 H (11.5-14.0) % Plt Count 182 (150-450) K/mm3 MPV 9.6 (7.5-11.0) fl Gran % 84.2 H (36.0-66.0) % Eos # (Auto) 0.03 (0-0.5) Absolute Lymphs (auto) 1.01 (1.0-4.6) Absolute Monos (auto) 0.56 (0.0-1.3) Lymphocytes % 9.9 L (24.0-44.0) % Monocytes % 5.5 (0.0-12.0) % Eosinophils % 0.3 (0.00-5.0) % Basophils % 0.1 (0.0-0.4) % Absolute Granulocytes 8.61 H (1.4-6.9) Basophils # 0.01 (0-0.4) Sodium 140 (137-145) mmol/L Potassium 3.8 (3.5-5.1) mmol/L Chloride 107 (98-107) mmol/L Carbon Dioxide 26 (22-30) mmol/L Anion Gap 10.6 (5-15) MEQ/L BUN 44 H (7-17) mg/dL Creatinine 0.89 (0.52-1.04) mg/dL Estimated GFR > 60.0 ML/MIN Glucose 116 H (74-106) mg/dL POC Glucometer 118 H (74 to 106) mg/dL Calcium 8.4 (8.4-10.2) mg/dL Magnesium 1.6 (1.6-2.3) mg/dL Total Bilirubin 0.40 (0.2-1.3) mg/dL AST 16 (14-36) U/L ALT 12 (0-35) U/L Alkaline Phosphatase 60 (38-126) U/L Serum Total Protein 6.3 (6.3-8.2) g/dL Albumin 3.3 L (3.5-5.0) g/dL Radiology Exams: Radiology Procedures Category Date Time Status CHEST 1 VIEW (PORTABLE) Stat Exams 04/02/21 16:17 Completed CHEST WITH CONTRAST [CT] Stat Exams 04/02/21 18:42 Completed Assessment/Plan (1) Pneumonia Current Visit: Yes Status: Acute Assessment & Plan: continue rocephin/zithromax Code(s): J18.9 - PNEUMONIA, UNSPECIFIED ORGANISM (2) Elevated troponin Current Visit: Yes Status: Acute Assessment & Plan: strain from pneumonia, Dr Dasilva will see tomorrow but currently stable and I do not feel she needs transferred as she is improving clinically. Code(s): R77.8 - OTHER SPECIFIED ABNORMALITIES OF PLASMA PROTEINS (3) HTN (hypertension) Current Visit: Yes Status: Chronic Code(s): I10 - ESSENTIAL (PRIMARY) HYPERTENSION
[2021-04-04] MEDS: ROCEPHIN 1 Gm-D5w 50 ml Bag** 1 G/50 ML IVPB IV SCH (09:53)
[2021-04-04] MEDS: ENOXAPARIN SODIUM SQ SCH (09:54)
[2021-04-04] MEDS: Zestril 5 MG PO SCH (09:54)
[2021-04-04] MEDS: Lasix 40 MG PO SCH (09:56)
[2021-04-04] MEDS: ECOTRIN 81 MG PO SCH (09:56)
[2021-04-04] MEDS: Klor Con 10 MEQ PO SCH (09:56)
[2021-04-04] MEDS: Protonix 40MG Tablet PO SCH (09:57)
[2021-04-04] MEDS ORDERED: NON-FORMULARY ITEM (Potassium Chloride [Potassium Chloride] 10 MEQ Tab.Er.Prt) PO SCH (10:00)
[2021-04-04] MEDS: Zithromax 500 MG/ 250 ML NaCl Premix 500 MG/250 ML IVPB IV SCH (11:08)
[2021-04-04] MEDS: Sodium Chloride 0.9% 1000 ML 1,000 ML IV SCH (19:54)
[2021-04-05] MEDS: Advair Hfa 230/21 Mcg COMMON CANISTER IH SCH ×3 (05:43→18:42)
[2021-04-05 05:58] LABS: Absolute Neutrophil Ct (ANC) 5.38 (1.4-6.9); BASOPHIL % 0.1 % (0.0-0.4); Basophil (Absolute #) 0.01 (0-0.4); Eosinophil % 2.2 % (0.00-5.0); Eosinophil (Absolute #) 0.16 (0-0.5); Hematocrit 36.7 % (35-47); Hemoglobin 11.2 gm/dl (12.0-16.0); Lymphocytes % 15.4 % (24.0-44.0); Mean Cell Volume 96.6 fl (78-100); Mean Corpuscular Hemoglobin 29.5 pg (26-32); Mean Corpuscular Hgb Concent. 30.5 g/dl (32-36); Mean Platelet Volume 9.8 fl (7.5-11.0); Neutrophil % 75.3 % (36.0-66.0); Platelet Count 180 K/mm3 (150-450); Red Cell Distribution Width 14.8 % (11.5-14.0); White Blood Count 7.2 K/mm3 (4.0-10.5)
[2021-04-05 07:08] LABS: ANION GAP 9.5 MEQ/L (5-15); BLOOD UREA NITROGEN 42 mg/dL (7-17); CHLORIDE 107 mmol/L (98-107); Calcium 8.1 mg/dL (8.4-10.2); Carbon Dioxide 28 mmol/L (22-30); Creatinine 1 0.81 mg/dL (0.52-1.04); EST GLOMERULAR FILTRATION RATE > 60.0 ML/MIN; Glucose 88 mg/dL (74-106); Potassium 3.6 mmol/L (3.5-5.1); SODIUM 140 mmol/L (137-145); TROPONIN < 0.012 ng/mL (0.000-0.034)
[2021-04-05] MEDS: Sodium Chloride 0.9% 1000 ML 1,000 ML IV SCH (07:44)
[2021-04-05] MEDS: Zithromax 500 MG/ 250 ML NaCl Premix 500 MG/250 ML IVPB IV SCH (09:07)
[2021-04-05] MEDS: ENOXAPARIN SODIUM SQ SCH (09:07)
[2021-04-05] MEDS: Lasix 40 MG PO SCH (09:08)
[2021-04-05] MEDS: Klor Con 10 MEQ PO SCH (09:08)
[2021-04-05] MEDS: Zestril 5 MG PO SCH (09:08)
[2021-04-05] MEDS: Protonix 40MG Tablet PO SCH (09:08)
[2021-04-05] MEDS: ROCEPHIN 1 Gm-D5w 50 ml Bag** 1 G/50 ML IVPB IV SCH (09:08)
[2021-04-05] MEDS: ECOTRIN 81 MG PO SCH (09:08)
[2021-04-05] MEDS: HUMULIN R SQ PRN (22:28)
[2021-04-06] MEDS: Sodium Chloride 0.9% 1000 ML 1,000 ML IV SCH (05:07)
[2021-04-06] MEDS: Advair Hfa 230/21 Mcg COMMON CANISTER IH SCH ×2 (06:51→17:50)
[2021-04-06] MEDS: Zithromax 500 MG/ 250 ML NaCl Premix 500 MG/250 ML IVPB IV SCH (10:40)
[2021-04-06] MEDS: ROCEPHIN 1 Gm-D5w 50 ml Bag** 1 G/50 ML IVPB IV SCH (10:41)
[2021-04-06] MEDS: ECOTRIN 81 MG PO SCH (10:45)
[2021-04-06] MEDS: Lasix 40 MG PO SCH (10:49)
[2021-04-06] MEDS: Protonix 40MG Tablet PO SCH (10:49)
[2021-04-06] MEDS: Zestril 5 MG PO SCH (10:49)
[2021-04-06] MEDS: Klor Con 10 MEQ PO SCH (10:49)
[2021-04-06] MEDS: ENOXAPARIN SODIUM SQ SCH (10:50)
[2021-04-07] MEDS: Advair Hfa 230/21 Mcg COMMON CANISTER IH SCH (07:09)
[2021-04-07] MEDS: Zithromax 500 MG/ 250 ML NaCl Premix 500 MG/250 ML IVPB IV SCH (09:30)
[2021-04-07] MEDS: ROCEPHIN 1 Gm-D5w 50 ml Bag** 1 G/50 ML IVPB IV SCH (09:30)
[2021-04-07] MEDS: Klor Con 10 MEQ PO SCH (09:31)
[2021-04-07] MEDS: Zestril 5 MG PO SCH (09:32)
[2021-04-07] MEDS: Protonix 40MG Tablet PO SCH (09:32)
[2021-04-07] MEDS: ECOTRIN 81 MG PO SCH (09:32)
[2021-04-07] MEDS: Lasix 40 MG PO SCH (09:32)
[2021-04-07] MEDS: ENOXAPARIN SODIUM SQ SCH (09:56)
--- NOTE | 2021-04-07 11:09 | DS ---
DISCHARGE DIAGNOSES: 1) ESCHERICHIA COLI URINARY TRACT INFECTION. 2) PNEUMONIA. HOSPITAL COURSE: The patient is a 70-year-old white female who lives at home with her daughter who became sick. She normally takes at 2 liters at home. She began complaining of issues of shortness of breath and increasing confusion. She presented to the emergency room where she was admitted to the hospital for evaluation and management with the initial diagnosis of urinary tract infection and pneumonia. The patient was treated with Rocephin and Zithromax. She did grow eventually Escherichia coli out on urinary tract infection but it was sensitive to everything and her colony count was only 220,000. The patient's x-rays due to the elevation in D-dimer which was negative. She did have a new right lower lobe consolidating infiltrate versus atelectasis. The patient showed improvement in her functioning and she was quite drowsy on my evaluation on the first couple of days prior to 04/07/2021. However in the mid-morning, the patient was responding quite nicely. She reports she does have a daughter that she lives with who is there all the time. The patient's oxygen was needed to be increased to 5 liters at times as she had some desaturation issues. However, at the time she was discharged we did check her A1C that was 6.95. Again, she grew Escherichia coli in the urinary tract. She was sensitive to all medicines tested. Her metabolic panel was 04/05/2021 was essentially normal except elevation of BUN at 42. She had a negative troponin. Her CBC showed the white count to be 7.2, hemoglobin 11.2 and PLT count 180,000. She had follow up chest x-rays performed which essentially showed no significant increase in effusion or atelectasis. She was therefore felt to be ready for discharge home by the morning of 04/07/2021. She will continue on Bactrim DS twice a day for a week for the urinary tract infection. She will have a follow up in my office scheduled for early next week. Will check her O2 saturations to be sure that she does not require increase in her O2 at home that she currently wears 2 liters per nasal cannula.
[2021-04-07 12:57] VITALS: BP 145/66; PULSE 71; O2SAT 95
== END 2021-04-07 15:47 | disposition home or self-care (01) | DRG 689 ==
LOC: ED 16:11 → MED SURG 04-03 00:54
PROVIDERS: ADMIT Family Medicine; ATTEND Family Medicine
DX: N39.0 Urinary tract infection, site not specified (principal); J18.9 Pneumonia, unspecified organism; I25.10 Atherosclerotic heart disease of native coronary artery without angina pectoris; R77.8 Other specified abnormalities of plasma proteins; R41.0 Disorientation, unspecified; E78.00 Pure hypercholesterolemia, unspecified; A49.8 Other bacterial infections of unspecified site; I10 Essential (primary) hypertension; E11.9 Type 2 diabetes mellitus without complications; I25.2 Old myocardial infarction; J44.9 Chronic obstructive pulmonary disease, unspecified; Z79.899 Other long term (current) drug therapy; Z99.81 Dependence on supplemental oxygen; Z20.828 Contact with and (suspected) exposure to other viral communicable diseases
CPT/HCPCS: 0241U; 36000; 36415; 36600; 51702; 71045; 71260; 80048; 80053; 81001; 82375; 82803; 82947; 83036; 83605; 83735; 83880; 84484; 85025; 85379; 85610; 87077; 87086; 87186; 87400; 93005; 93041; 94640; 94760; 94762; 96372; 96374; 96375; 97161; 99285; J0456; J0696; J1200; J1650; J1815; J1940; J1956; J2930; A9270-GY

== ENCOUNTER 2021-04-09 14:22 | Emergency (ER) | payer MEDICARE ==
[2021-04-09] MEDS ORDERED: DUONEB 0.5-3 MG/3 ml Neb IH ONE ×2 (14:38→14:57)
--- NOTE | 2021-04-09 14:57 | ERPHSYRPT ---
- History of Present Illness Time Seen by Provider: 04/09/21 14:24 Source: patient, family, EMS Exam Limitations: no limitations Patient Subjective Stated Complaint: Pt was at home and someone had not placed her oxygen on her and her oxygen was at 87% and then they placed her on her oxygen and it went to 100% and the home health care talked her and her daughter into sending her back to the hospital because she was just released yesterday with pneumonia and they think that she is worse although her oxygen is 100% and she has no complaints Triage Nursing Assessment: Pt brought to the ER by EMS, vitals wnl, denies pain, no coughing heard by this nurse, skin n/w/d, pt walked to the bed from the EMS cot with assistance, pulses normal, doesn't appear to be in any distress Physician History: 70 years old female with history of chronic respiratory failure on oxygen, recently treated for pneumonia/UTI, discharged yesterday presented in the ER by EMS when family found patient oxygen saturation was 87% but she did not have her oxygen on. When oxygen was placed on her saturation improved to 100%. Patient reports having shortness of breath and chronic cough with not any new worsening of condition. She denies any chest pain or palpitations. She does have generalized weakness fatigue and tiredness from recent illness. No fever or chills reported. Timing/Duration: day(s), constant Activities at Onset: activity, rest Severity of Dyspnea-Max: moderate Severity of Dyspnea-Current: mild Modifying Factors: Worsens With: exertion Associated Symptoms: cough, wheezing, productive cough Allergies/Adverse Reactions: adhesive Allergy (Intermediate, Verified 04/09/21 14:36) Rash nalbuphine HCl [From Nubain] Allergy (Mild, Verified 04/09/21 14:36) Rash Penicillins Allergy (Mild, Verified 04/09/21 14:36) Rash gabapentin [From Neurontin] Allergy (Verified 04/09/21 14:36) Vomiting Home Medications: Furosemide 20 mg [Lasix 20 mg] 40 mg PO DAILY 12/08/16 [History] Loratadine 10 mg [Claritin 10 mg] 10 mg PO DAILY 12/08/16 [History] Nitroglycerin 0.4 mg Tablet [Nitrostat 0.4 MG Tablet] 0.4 mg SL Q5MIN PRN MR X 3 PRN 12/08/16 [History] Albuterol Sulfate Mdi [Proair Hfa MDI] 2 inh PO Q4H 07/06/19 [History] Albuterol/Ipratropium 3ml Neb* [DUONEB 0.5-3 MG/3 ml Neb] 1 amp IH QID 07/06/19 [History] Calcium Carbonate/Vitamin D3 [Calcium 600-Vit D3 400 Tablet] 1 each PO DAILY 07/06/19 [History] Ferrous Sulfate, Dried [Iron] 65 mg PO BID 07/06/19 [History] Metformin HCl 500 mg [Glucophage 500 MG] 500 mg PO TID 07/06/19 [History] Multivitamin W-Minerals/Lutein [Centrum Silver Tablet] 1 tablet PO DAILY 07/06/19 [History] PANTOPRAZOLE 40 mg Tablet [Protonix 40MG Tablet] 40 mg PO QAM 07/06/19 [History] Potassium Chloride 10 meq PO DAILY 07/06/19 [History] Tiotropium Br/Olodaterol HCl [Stiolto Respimat Inhal [place]] 4 gm IH DAILY 07/06/19 [History] lisinopriL [Lisinopril] 2.5 mg PO DAILY 07/06/19 [History] Hx Tetanus, Diphtheria Vaccination/Date Given: Yes Hx Influenza Vaccination/Date Given: Yes Hx Pneumococcal Vaccination/Date Given: No Travel Risk - International Travel Have you traveled outside of the country in past 3 weeks: No - Coronavirus Screening Are you exhibiting any of the following symptoms?: No Close contact with a COVID-19 positive Pt in past 14-21 Days: No - Vaccine Status Have you recieved a Covid-19 vaccination: No (pt lethargic. unable to comprehend.) - Review of Systems Constitutional: Fatigue, Weakness Eyes: No Symptoms Ears, Nose, & Throat: No Symptoms Respiratory: Cough, Dyspnea, Dyspnea on Exertion (BURT), Wheezing Cardiac: No Symptoms Abdominal/Gastrointestinal: No Symptoms Genitourinary Symptoms: No Symptoms Musculoskeletal: No Symptoms Skin: No Symptoms Neurological: No Symptoms Psychological: No Symptoms Endocrine: No Symptoms Hematologic/Lymphatic: No Symptoms Immunological/Allergic: No Symptoms - Past Medical History Pertinent Past Medical History: Yes Neurological History: No Pertinent History ENT History: No Pertinent History Cardiac History: Coronary Artery Disease, High Cholesterol, Hypertension, Myocardial Infarction (DE) Respiratory History: Asthma, CHF, COPD, Emphysema Endocrine Medical History: Diabetes Type II Musculoskeletal History: Arthritis GI Medical History: Diverticulosis, Gallbladder Disease History: No Pertinent History Psycho-Social History: No Pertinent History Female Reproductive Disorders: No Pertinent History Other Medical History: Pt. 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 x2. 4 vessel cabg - Social History Smoking Status: Former smoker How long have you smoked: 63 years Exposure to second hand smoke: No Drug Use: none Patient Lives Alone: No - Female History Hx Now: No - Nursing Vital Signs Nursing Vital Signs: Initial Vital Signs Pulse Rate 76 04/09/21 14:24 Blood Pressure 133/64 04/09/21 14:24 O2 Sat by Pulse Oximetry 100 04/09/21 14:24 Pain Scale Pain Intensity 0 - Physical Exam General Appearance: no apparent distress, alert Eye Exam: PERRL/EOMI, eyes nml inspection Ears, Nose, Throat Exam: hearing grossly normal, pharyngeal erythema Neck Exam: normal inspection, non-tender, supple, full range of motion Respiratory Exam: wheezing, No accessory muscle use Cardiovascular/Chest Exam: normal heart sounds, regular rate/rhythm Abdominal/Gastrointestinal Exam: soft, No tenderness Extremity Exam: non-tender, normal range of motion Neurologic Exam: alert, oriented x 3, cooperative, 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 Skin Exam: normal color SpO2 Interpretation: normal SpO2: 100 O2 Delivery: Nasal Cannula Ordered Tests: Active Orders 24 hr Category Date Time Status Machine Crater STAT Care 04/09/21 14:38 Active EKG-ER Only STAT Care 04/09/21 14:38 Active CHEST 1 VIEW (PORTABLE) Stat Exams 04/09/21 14:38 Completed BLOOD CULTURE Stat Lab 04/09/21 14:55 Received CBC W DIFF Stat Lab 04/09/21 14:38 Results CMP Stat Lab 04/09/21 15:03 Completed CULTURE,URINE Stat Lab 04/09/21 15:36 Received Lactic Acid Stat Lab 04/09/21 15:05 Completed MAGNESIUM Stat Lab 04/09/21 15:03 Completed Manual Differential NC Stat Lab 04/09/21 14:38 Results NT PRO BNP Stat Lab 04/09/21 15:03 Completed TROPONIN Q3H Lab 04/09/21 15:03 Completed TROPONIN Q3H Lab 04/09/21 17:45 Ordered TROPONIN Q3H Lab 04/09/21 20:45 Ordered TROPONIN Q3H Lab 04/09/21 23:45 Ordered TROPONIN Q3H Lab 04/10/21 02:45 Ordered UA W/RFX UR CULTURE Stat Lab 04/09/21 15:36 Completed Respiratory Therapy Assessment DAILY RT 04/09/21 15:13 Active Medication Summary Generic Name Dose Route Start Last Admin Trade Name Freq PRN Reason Stop Dose Admin Magnesium Oxide 800 mg 04/10/21 16:23 04/09/21 16:24 Magnesium Oxide 400 Mg Tablet PO 04/10/21 16:24 800 mg STAT ONE Administration Discontinued Medications Generic Name Dose Route Start Last Admin Trade Name Freq PRN Reason Stop Dose Admin Albuterol/Ipratropium 3 ml 04/09/21 14:38 04/09/21 15:05 Ipratropium/Albuterol Sulfate 3 Ml Ampul.Neb IH 04/09/21 14:39 3 ml STAT ONE Administration Albuterol/Ipratropium Confirm 04/09/21 14:57 Ipratropium/Albuterol Sulfate 3 Ml Ampul.Neb Administered 04/09/21 14:58 Dose 3 ml IH .STK-MED ONE Magnesium Sulfate/Dextrose 100 mls @ 200 mls/hr 04/09/21 16:17 04/09/21 16:34 Magnesium 1 Gm / 100 Ml D5w IV 04/09/21 16:46 Not Given STAT ONE Magnesium Oxide Confirm 04/09/21 16:23 Magnesium Oxide 400 Mg Tablet Administered 04/09/21 16:24 Dose 800 mg .ROUTE .STK-MED ONE Lab/Rad Data: Laboratory Result Diagrams 04/09/21 14:38 04/09/21 15:03 Laboratory Results 04/09/21 04/09/21 04/09/21 Range/Units 15:36 15:05 15:03 WBC (4.0-10.5) K/mm3 RBC (4.1-5.4) M/mm3 Hgb (12.0-16.0) gm/dl Hct (35-47) % MCV (78-100) fl MCH (26-32) pg MCHC (32-36) g/dl RDW (11.5-14.0) % Plt Count (150-450) K/mm3 MPV (7.5-11.0) fl Segmented Neutrophils (36.0-66.0) % Band Neutrophils Lymphocytes (Manual) (24-44) % Monocytes (Manual) (0.0-12.0) % Eosinophils (Manual) (0.00-3.0) % Platelet Estimate (NORMAL) RBC Morphology Sodium (137-145) mmol/L Potassium (3.5-5.1) mmol/L Chloride (98-107) mmol/L Carbon Dioxide (22-30) mmol/L Anion Gap (5-15) MEQ/L BUN (7-17) mg/dL Creatinine (0.52-1.04) mg/dL Estimated GFR ML/MIN Glucose (74-106) mg/dL Lactic Acid 0.7 (0.4-2.0) Calcium (8.4-10.2) mg/dL Magnesium (1.6-2.3) mg/dL Total Bilirubin (0.2-1.3) mg/dL AST (14-36) U/L ALT (0-35) U/L Alkaline Phosphatase (38-126) U/L Troponin I < 0.012 (0.000-0.034) ng/mL NT-Pro-B Natriuret Pep (0-900) pg/mL Serum Total Protein (6.3-8.2) g/dL Albumin (3.5-5.0) g/dL Urine Color YELLOW (YELLOW) Urine Appearance SLIGHTLY CLOUDY (CLEAR) Urine pH 5.0 (5-6) Ur Specific Allen 1.009 (1.005-1.025) Urine Protein 100 (Negative) Urine Ketones NEGATIVE (NEGATIVE) Urine Blood NEGATIVE (0-5) Abilio/ul Urine Nitrite NEGATIVE (NEGATIVE) Urine Bilirubin NEGATIVE (NEGATIVE) Urine Urobilinogen NEGATIVE (0-1) mg/dL Ur Leukocyte Esterase TRACE (NEGATIVE) Urine WBC (Auto) 6-10 (0-5) /HPF Urine RBC (Auto) 0-2 (0-2) /HPF U Hyaline Cast (Auto) 6-10 (0-2) /LPF U Epithel Cells (Auto) NONE (FEW) /HPF Urine Bacteria (Auto) RARE (NEGATIVE) /HPF Urine Mucus (Auto) SLIGHT (NEGATIVE) /HPF Urine Culture Reflexed YES (NO) Urine Glucose NEGATIVE (NEGATIVE) mg/dL 04/09/21 04/09/21 Range/Units 15:03 14:38 WBC 5.3 (4.0-10.5) K/mm3 RBC 4.25 (4.1-5.4) M/mm3 Hgb 12.5 (12.0-16.0) gm/dl Hct 39.2 (35-47) % MCV 92.2 (78-100) fl MCH 29.4 (26-32) pg MCHC 31.9 L (32-36) g/dl RDW 13.7 (11.5-14.0) % Plt Count 240 (150-450) K/mm3 MPV 9.6 (7.5-11.0) fl Segmented Neutrophils 62 (36.0-66.0) % Band Neutrophils Pending Lymphocytes (Manual) 21 L (24-44) % Monocytes (Manual) 13 H (0.0-12.0) % Eosinophils (Manual) 4 H (0.00-3.0) % Platelet Estimate NORMAL (NORMAL) RBC Morphology NORMAL Sodium 136 L (137-145) mmol/L Potassium 3.6 (3.5-5.1) mmol/L Chloride 95 L (98-107) mmol/L Carbon Dioxide 35 H (22-30) mmol/L Anion Gap 10.1 (5-15) MEQ/L BUN 27 H (7-17) mg/dL Creatinine 1.00 (0.52-1.04) mg/dL Estimated GFR 58.3 ML/MIN Glucose 141 H (74-106) mg/dL Lactic Acid (0.4-2.0) Calcium 9.1 (8.4-10.2) mg/dL Magnesium 1.5 L (1.6-2.3) mg/dL Total Bilirubin 0.50 (0.2-1.3) mg/dL AST 16 (14-36) U/L ALT 13 (0-35) U/L Alkaline Phosphatase 73 (38-126) U/L Troponin I (0.000-0.034) ng/mL NT-Pro-B Natriuret Pep 110 (0-900) pg/mL Serum Total Protein 7.4 (6.3-8.2) g/dL Albumin 3.9 (3.5-5.0) g/dL Urine Color (YELLOW) Urine Appearance (CLEAR) Urine pH (5-6) Ur Specific Allen (1.005-1.025) Urine Protein (Negative) Urine Ketones (NEGATIVE) Urine Blood (0-5) Abilio/ul Urine Nitrite (NEGATIVE) Urine Bilirubin (NEGATIVE) Urine Urobilinogen (0-1) mg/dL Ur Leukocyte Esterase (NEGATIVE) Urine WBC (Auto) (0-5) /HPF Urine RBC (Auto) (0-2) /HPF U Hyaline Cast (Auto) (0-2) /LPF U Epithel Cells (Auto) (FEW) /HPF Urine Bacteria (Auto) (NEGATIVE) /HPF Urine Mucus (Auto) (NEGATIVE) /HPF Urine Culture Reflexed (NO) Urine Glucose (NEGATIVE) mg/dL - Progress Progress: improved Air Movement: good Progress Note: 04/09/21 16:45 Patient is maintaining her oxygen saturation 100% on 3 L which she normally on at home. She has a chronic respiratory failure and some wheezing, given breathing treatment, feeling better on reevaluation. Normal white count, normal lactate. Chest x-ray showed some small effusion but patient recently had pneumonia and UTI, will continue with antibiotic she is on. She has mildly low magnesium and given replacement and will continue with oral magnesium to go home for next few days. I do not think patient needs to be admitted again and her initial chief complaint of low oxygen was without supplemental oxygen which explains her getting short of breath. She is advised to keep her oxygen all the time and outpatient follow-up. Discussed signs symptoms of worsening needing return to ER which she seems understanding. Stable for discharge. Blood Culture(s) Obtained: Yes Antibiotics given: No Counseled pt/family regarding: lab results, diagnosis, need for follow-up, rad results - Departure Departure Disposition: Home Clinical Impression: Chronic hypoxemic respiratory failure, Hypomagnesemia Condition: Stable Critical Care Time: No Referrals: NINA FLORES NP [Primary Care Provider] - Follow Up with PCP/3 days Instructions: Pneumonia, Adult (DC) Additional Instructions: Use oxygen all the time. Continue with your nebulizer/inhaler. Continue with antibiotics. Follow-up with your primary care physician for reevaluation. Return to ER for having shortness of breath despite being on oxygen, worsening cough, fever chills etc. Prescriptions: Magnesium Oxide 400 mg [Mag-Ox 400] 400 mg PO BID #20 tablet
--- NOTE | 2021-04-09 15:19 | XRAY ---
Indication: Short of breath. Wellness check. Comparison: April 02, 2021. Portable chest again demonstrates right base airspace disease with new small effusion. New left midlung subsegmental atelectasis. Heart not enlarged again with CABG. Remaining chest unchanged.
[2021-04-09 16:01] LABS: Hematocrit 39.2 % (35-47); Hemoglobin 12.5 gm/dl (12.0-16.0); Mean Cell Volume 92.2 fl (78-100); Mean Corpuscular Hemoglobin 29.4 pg (26-32); Mean Corpuscular Hgb Concent. 31.9 g/dl (32-36); Mean Platelet Volume 9.6 fl (7.5-11.0); Platelet Count 240 K/mm3 (150-450); Red Blood Count 4.25 M/mm3 (4.1-5.4); Red Cell Distribution Width 13.7 % (11.5-14.0); White Blood Count 5.3 K/mm3 (4.0-10.5)
[2021-04-09 16:16] LABS: ALBUMIN 3.9 g/dL (3.5-5.0); ANION GAP 10.1 MEQ/L (5-15); BILIRUBIN,TOTAL 0.5 mg/dL (0.2-1.3); Calcium 9.1 mg/dL (8.4-10.2); EST GLOMERULAR FILTRATION RATE 58.3 ML/MIN; MAGNESIUM 1.5 mg/dL (1.6-2.3); Potassium 3.6 mmol/L (3.5-5.1); Total Protein 7.4 g/dL (6.3-8.2)
[2021-04-09] MEDS ORDERED: Magnesium 1 Gm / 100 Ml D5W*** 100 ML IV ONE (16:17)
[2021-04-09] MEDS ORDERED: MAG-OX 400 ONE (16:23)
[2021-04-09 16:25] LABS: Eosinophil 4 % (0.00-3.0); Lymphocytes 21 % (24-44); Monocyte 13 % (0.0-12.0); Neutrophils 62 % (36.0-66.0); Platelet Estimate NORMAL (NORMAL); Total Cells Counted 100
[2021-04-09 16:31] LABS: Appearance SLIGHTLY CLOUDY (CLEAR); Bacteria RARE /HPF (NEGATIVE); Bilirubin NEGATIVE (NEGATIVE); Blood NEGATIVE Ery/ul (0-5); Glucose NEGATIVE (NEGATIVE); Ketones NEGATIVE (NEGATIVE); Leukocyte Esterase TRACE (NEGATIVE); Mucus SLIGHT /HPF (NEGATIVE); Nitrite NEGATIVE (NEGATIVE); Protein,Urine Dip 100 (Negative); RBC 0-2 /HPF (0-2); Specific Gravity 1.009 (1.005-1.025); Urobilinogen NEGATIVE mg/dL (0-1)
[2021-04-09 16:35] VITALS: BP 132/51; PULSE 58; O2SAT 100
[2021-04-10] MEDS ORDERED: MAG-OX 400 PO ONE (16:23)
== END 2021-04-09 17:09 | disposition home or self-care (01) ==
LOC: ED 14:22
DX: J96.11 Chronic respiratory failure with hypoxia (principal); Z99.81 Dependence on supplemental oxygen; E83.42 Hypomagnesemia; I10 Essential (primary) hypertension; E78.5 Hyperlipidemia, unspecified; E11.9 Type 2 diabetes mellitus without complications; Z79.84 Long term (current) use of oral hypoglycemic drugs; Z79.899 Other long term (current) drug therapy
CPT/HCPCS: 36415; 71045; 80053; 81001; 83605; 83735; 83880; 84484; 85025; 87040; 87086; 93005; 93041; 94640; 99284; A9270-GY

== ENCOUNTER 2021-04-27 23:24 | Inpatient (IN) | payer MEDICARE ==
[2021-04-28] MEDS: Sodium Chloride 0.9% 1000 ML 1,000 ML IV SCH ×2 (00:36→09:34)
--- NOTE | 2021-04-28 00:59 | ERPHSYRPT ---
- History of Present Illness Time Seen by Provider: 04/27/21 23:35 Source: patient Exam Limitations: no limitations Patient Subjective Stated Complaint: Patient states, "I'm tired." She doesn't remember falling at home but c/o mild back pain when being moved around in bed. Medical personel who brought patient to ED state that patient fell earlier today, is weaker than normal, and is currently being treated for a UTI at home. Triage Nursing Assessment: Patient arrived to ED by ambulance. Patient's clothing and linens to cot in ambulance were saturated with urine upon arrival. Patient wearing a pull-up that was also saturated with urine and contained a small amount of BM upon arrival to ED. Patient answering questions from staff but rarely opens her eyes when being spoken to. She is able to answer some questions appropriately but not others. Patient is aware that she is at the hospital but could not name the location of the hospital, how she arrived at the hospital, the month, the year, or the president. Patient was unaware that she w as incontinent. Patient is able to MORTON WNL with staff assistance of passive ROM. Patient with no c/o pain during ROM. Edema noted to BLE. She is currently wearing 02 @ 3L per N/C. Patient indicates this is normal for her to wear this at home. A non-productive cough noted during assessment. Patient unable to state how long she has had a cough. No bruising, abrasions, skin tears, or other skin abnormalities noted to patient while assessing skin and changing soiled linens/clothes. Physician History: Patient is a 70-year-old female presents to our ED via EMS from her private residence. EMS reports patient fell. Patient states she is feeling weak. She has been feeling fatigued for the past couple days. EMS reports patient currently being treated for urinary tract infection. Patient was diagnosed with a pneumonia on 04/09/2021. Patient was treated. Patient denies chest pain. Staff reports patient is incontinent of urine and stool. Patient is mildly confused at this time. Patient is alert and oriented x2. Patient unable to give details regarding occurrence prior to her arrival. Patient symptoms are constant. Symptoms are moderate in intensity. No specific worsening or improving factors. Patient voices no other complaints or concerns at this time. Timing/Duration: today Severity: moderate Modifying Factors: Improves With: nothing Associated Symptoms: denies symptoms Allergies/Adverse Reactions: adhesive Allergy (Intermediate, Verified 04/27/21 23:30) Rash nalbuphine HCl [From Nubain] Allergy (Mild, Verified 04/27/21 23:30) Rash Penicillins Allergy (Mild, Verified 04/27/21 23:30) Rash gabapentin [From Neurontin] Allergy (Verified 04/27/21 23:30) Vomiting Home Medications: Furosemide 20 mg [Lasix 20 mg] 40 mg PO DAILY 12/08/16 [History] Loratadine 10 mg [Claritin 10 mg] 10 mg PO DAILY 12/08/16 [History] Nitroglycerin 0.4 mg Tablet [Nitrostat 0.4 MG Tablet] 0.4 mg SL Q5MIN PRN MR X 3 PRN 12/08/16 [History] Albuterol Sulfate Mdi [Proair Hfa MDI] 2 inh PO Q4H 07/06/19 [History] Albuterol/Ipratropium 3ml Neb* [DUONEB 0.5-3 MG/3 ml Neb] 1 amp IH QID 07/06/19 [History] Calcium Carbonate/Vitamin D3 [Calcium 600-Vit D3 400 Tablet] 1 each PO DAILY 07/06/19 [History] Ferrous Sulfate, Dried [Iron] 65 mg PO BID 07/06/19 [History] Metformin HCl 500 mg [Glucophage 500 MG] 500 mg PO TID 07/06/19 [History] Multivitamin W-Minerals/Lutein [Centrum Silver Tablet] 1 tablet PO DAILY 07/06/19 [History] PANTOPRAZOLE 40 mg Tablet [Protonix 40MG Tablet] 40 mg PO QAM 07/06/19 [History] Potassium Chloride 10 meq PO DAILY 07/06/19 [History] Tiotropium Br/Olodaterol HCl [Stiolto Respimat Inhal [place]] 4 gm IH DAILY 07/06/19 [History] lisinopriL [Lisinopril] 2.5 mg PO DAILY 07/06/19 [History] Hx Tetanus, Diphtheria Vaccination/Date Given: Yes Hx Influenza Vaccination/Date Given: No Hx Pneumococcal Vaccination/Date Given: No Immunizations Up to Date: Yes Travel Risk - International Travel Have you traveled outside of the country in past 3 weeks: No - Coronavirus Screening Are you exhibiting any of the following symptoms?: Yes Symptoms: Cough: New Onset, Headaches/Body Aches/Fatigue Close contact with a COVID-19 positive Pt in past 14-21 Days: No - Vaccine Status Have you recieved a Covid-19 vaccination: Yes Record Tester: Unknown - Vaccination Dates Dates if Unknown: unknown Comment: Patient states she received 1 COVID vaccine but never received her 2nd dose. She is unable to remember the social media executive or the date of administration at this time. - Review of Systems Constitutional: No Symptoms, No Fever, No Chills Eyes: No Symptoms Ears, Nose, & Throat: No Symptoms Respiratory: No Symptoms, No Cough, No Dyspnea Cardiac: No Symptoms, No Chest Pain, No Edema, No Syncope Abdominal/Gastrointestinal: No Symptoms, No Abdominal Pain, No Nausea, No Vomiting, No Diarrhea Genitourinary Symptoms: No Symptoms, No Dysuria Musculoskeletal: No Symptoms, No Back Pain, No Neck Pain Skin: No Symptoms, No Rash Neurological: No Symptoms, No Dizziness, No Focal Weakness, No Sensory Changes Psychological: No Symptoms Endocrine: No Symptoms Hematologic/Lymphatic: No Symptoms Immunological/Allergic: No Symptoms All Other Systems: Reviewed and Negative - Past Medical History Pertinent Past Medical History: Yes Neurological History: No Pertinent History ENT History: No Pertinent History Cardiac History: Coronary Artery Disease, High Cholesterol, Hypertension, M yocardial Infarction (OR) Respiratory History: Asthma, CHF, COPD, Emphysema Endocrine Medical History: Diabetes Type II Musculoskeletal History: Arthritis GI Medical History: Diverticulosis, Gallbladder Disease History: No Pertinent History Psycho-Social History: No Pertinent History Female Reproductive Disorders: No Pertinent History Other Medical History: cervical cx. with radiation tx. no surgery, inactive TB. Patient able to confirm parts of her medical history but unsure about other par ts. - Past Surgical History Past Surgical History: Yes Neuro Surgical History: No Pertinent History Cardiac: CABG, Cardiac Catheterization, Cardiac Stent Respiratory: No Pertinent History Gastrointestinal: Cholecystectomy Genitourinary: No Pertinent History Musculoskeletal: No Pertinent History Female Surgical History: Section, Tubal Ligation Other Surgical History: D&C x3. x2. 4 vessel cabg. Patient able to confirm part of surgical history but is unsure about other parts. - Social History Smoking Status: Former smoker How long have you smoked: 63 years Exposure to second hand smoke: No Drug Use: none Patient Lives Alone: No (Lives with Sister) - Female History Hx Now: No - Nursing Vital Signs Nursing Vital Signs: Initial Vital Signs Temperature 97.6 F 04/27/21 23:25 Pulse Rate 120 H 04/27/21 23:25 Respiratory Rate 24 04/27/21 23:25 Blood Pressure 136/73 04/27/21 23:25 O2 Sat by Pulse Oximetry 97 04/27/21 23:25 Pain Scale Pain Intensity 0 - Physical Exam General Appearance: no apparent distress, alert, other (ANO x2.) Eye Exam: PERRL/EOMI, eyes nml inspection Ears, Nose, Throat Exam: normal ENT inspection, TMs normal, pharynx normal, moist mucous membranes Neck Exam: normal inspection, non-tender, supple, full range of motion Respiratory Exam: normal breath sounds, lungs clear, airway intact, No respiratory distress Cardiovascular Exam: regular rate/rhythm, normal heart sounds, normal peripheral pulses Gastrointestinal/Abdomen Exam: soft, normal bowel sounds, No tenderness, No mass Back Exam: normal inspection, normal range of motion, No CVA tenderness, No vertebral tenderness Extremity Exam: normal inspection, normal range of motion, pelvis stable, pedal edema (1+ pitting edema bilaterally. Negative homans bilaterally. ) Neurologic Exam: alert, oriented x 3, cooperative, normal mood/affect, sensation nml, No motor deficits Skin Exam: normal color, warm, dry, No rash Lymphatic Exam: No adenopathy SpO2 Interpretation: normal SpO2: 97 O2 Delivery: Room Air - Course Nursing assessment & vital signs reviewed: Yes EKG Interpreted by Me: RATE (104), Sinus Tach, NORMAL AXIS (Left anterior fascicular block.), LAFB (LVH, prolonged TN interval), NORMAL INTERVALS - Radiology Exams Chest X-ray Interpretation: Interpreted by me (Resolving right base pneumonia. Right right pleural effusion resolved, normal cardiac silhouette. CABG) - CT Exams Head CT Interpretation: Tele-radiologist Report (No acute intracranial abnormalities. Generalized brain volume loss. No midline shift. No intracranial hemorrhage. No arterial territorial infarcts. Patchy white matter hypodensities. No ventriculomegaly. No acute fractures. Mastoid air cells are aerated) Ordered Tests: Active Orders 24 hr Category Date Time Status Prestidigitator STAT Care 04/27/21 23:46 Active EKG-ER Only STAT Care 04/27/21 23:45 Active IV Insertion STAT Care 04/27/21 23:45 Active Pulse Oximetry (ED) STAT Care 04/27/21 23:45 Active HEAD WITHOUT CONTRAST [CT] Stat Exams 04/27/21 23:48 Taken Lactic Acid Stat Lab 04/27/21 23:45 Completed UA W/RFX UR CULTURE Stat Lab 04/28/21 00:14 Completed Transfer Order Routine Transfer 04/28/21 Ordered Medication Summary Generic Name Dose Route Start Last Admin Trade Name Freq PRN Reason Stop Dose Admin Sodium Chloride 1,000 mls @ 50 mls/hr 04/27/21 23:45 04/28/21 00:36 Sodium Chloride 0.9% 1000 Ml IV 05/27/21 23:44 50 mls/hr .Q20H TRISTIAN Administration Remdesivir 200 mg/ Sodium 250 mls @ 125 mls/hr 04/28/21 02:21 Chloride IV 04/28/21 04:20 ONCE ONE Discontinued Medications Generic Name Dose Route Start Last Admin Trade Name Freq PRN Reason Stop Dose Admin Dexamethasone Sodium Phosphate 8 mg 04/28/21 02:22 04/28/21 02:29 Dexamethasone Sod Phosphate 10 Mg/Ml IV 04/28/21 02:23 8 mg STAT ONE Administration Dexamethasone Sodium Phosphate Confirm 04/28/21 02:28 Dexamethasone Sod Phosphate 10 Mg/Ml Administered 04/28/21 02:29 Dose 10 mg .ROUTE .STK-MED ONE Lab/Rad Data: Laboratory Result Diagrams 04/27/21 00:56 04/27/21 00:56 Laboratory Results 04/28/21 04/28/21 04/28/21 Range/Units 01:24 00:55 00:14 WBC (4.0-10.5) K/mm3 RBC (4.1-5.4) M/mm3 Hgb (12.0-16.0) gm/dl Hct (35-47) % MCV (78-100) fl MCH (26-32) pg MCHC (32-36) g/dl RDW (11.5-14.0) % Plt Count (150-450) K/mm3 MPV (7.5-11.0) fl Gran % (36.0-66.0) % Eos # (Auto) (0-0.5) Absolute Lymphs (auto) (1.0-4.6) Absolute Monos (auto) (0.0-1.3) Lymphocytes % (24.0-44.0) % Monocytes % (0.0-12.0) % Eosinophils % (0.00-5.0) % Basophils % (0.0-0.4) % Absolute Granulocytes (1.4-6.9) Basophils # (0-0.4) Sodium (137-145) mmol/L Potassium (3.5-5.1) mmol/L Chloride (98-107) mmol/L Carbon Dioxide (22-30) mmol/L Anion Gap (5-15) MEQ/L BUN (7-17) mg/dL Creatinine (0.52-1.04) mg/dL Estimated GFR ML/MIN Glucose (74-106) mg/dL Lactic Acid 0.5 (0.4-2.0) Calcium (8.4-10.2) mg/dL Total Bilirubin (0.2-1.3) mg/dL AST (14-36) U/L ALT (0-35) U/L Alkaline Phosphatase (38-126) U/L Serum Total Protein (6.3-8.2) g/dL Albumin (3.5-5.0) g/dL Urine Color YELLOW (YELLOW) Urine Appearance CLEAR (CLEAR) Urine pH 5.0 (5-6) Ur Specific [place] 1.008 (1.005-1.025) Urine Protein 100 (Negative) Urine Ketones NEGATIVE (NEGATIVE) Urine Blood MODERATE (0-5) Abilio/ul Urine Nitrite NEGATIVE (NEGATIVE) Urine Bilirubin NEGATIVE (NEGATIVE) Urine Urobilinogen NEGATIVE (0-1) mg/dL Ur Leukocyte Esterase NEGATIVE (NEGATIVE) Urine WBC (Auto) NONE (0-5) /HPF Urine RBC (Auto) 0-2 (0-2) /HPF U Hyaline Cast (Auto) 11-25 (0-2) /LPF U Epithel Cells (Auto) NONE (FEW) /HPF Urine Bacteria (Auto) NONE (NEGATIVE) /HPF Urine Mucus (Auto) SLIGHT (NEGATIVE) /HPF Urine Culture Reflexed NO (NO) Urine Glucose NEGATIVE (NEGATIVE) mg/dL Influenza Type A Ag NEGATIVE (NEGATIVE) Influenza Type B Ag NEGATIVE (NEGATIVE) RSV (PCR) NEGATIVE (Negative) SARS-CoV-2 (PCR) POSITIVE A (NEGATIVE) 04/27/21 04/27/21 Range/Units 00:56 00:56 WBC 3.9 L (4.0-10.5) K/mm3 RBC 4.45 (4.1-5.4) M/mm3 Hgb 13.2 (12.0-16.0) gm/dl Hct 40.7 (35-47) % MCV 91.5 (78-100) fl MCH 29.7 (26-32) pg MCHC 32.4 (32-36) g/dl RDW 14.2 H (11.5-14.0) % Plt Count 126 L (150-450) K/mm3 MPV 9.8 (7.5-11.0) fl Gran % 76.3 H (36.0-66.0) % Eos # (Auto) 0.02 (0-0.5) Absolute Lymphs (auto) 0.43 L (1.0-4.6) Absolute Monos (auto) 0.47 (0.0-1.3) Lymphocytes % 11.1 L (24.0-44.0) % Monocytes % 12.1 H (0.0-12.0) % Eosinophils % 0.5 (0.00-5.0) % Basophils % 0.0 (0.0-0.4) % Absolute Granulocytes 2.97 (1.4-6.9) Basophils # 0 (0-0.4) Sodium 134 L (137-145) mmol/L Potassium 3.9 (3.5-5.1) mmol/L Chloride 98 (98-107) mmol/L Carbon Dioxide 28 (22-30) mmol/L Anion Gap 12.2 (5-15) MEQ/L BUN 29 H (7-17) mg/dL Creatinine 1.32 H (0.52-1.04) mg/dL Estimated GFR 42.3 ML/MIN Glucose 147 H (74-106) mg/dL Lactic Acid (0.4-2.0) Calcium 9.1 (8.4-10.2) mg/dL Total Bilirubin 0.70 (0.2-1.3) mg/dL AST 26 (14-36) U/L ALT 15 (0-35) U/L Alkaline Phosphatase 57 (38-126) U/L Serum Total Protein 8.1 (6.3-8.2) g/dL Albumin 4.4 (3.5-5.0) g/dL Urine Color (YELLOW) Urine Appearance (CLEAR) Urine pH (5-6) Ur Specific [place] (1.005-1.025) Urine Protein (Negative) Urine Ketones (NEGATIVE) Urine Blood (0-5) Abilio/ul Urine Nitrite (NEGATIVE) Urine Bilirubin (NEGATIVE) Urine Urobilinogen (0-1) mg/dL Ur Leukocyte Esterase (NEGATIVE) Urine WBC (Auto) (0-5) /HPF Urine RBC (Auto) (0-2) /HPF U Hyaline Cast (Auto) (0-2) /LPF U Epithel Cells (Auto) (FEW) /HPF Urine Bacteria (Auto) (NEGATIVE) /HPF Urine Mucus (Auto) (NEGATIVE) /HPF Urine Culture Reflexed (NO) Urine Glucose (NEGATIVE) mg/dL Influenza Type A Ag (NEGATIVE) Influenza Type B Ag (NEGATIVE) RSV (PCR) (Negative) SARS-CoV-2 (PCR) (NEGATIVE) - Progress Progress: improved Progress Note: Patient reassessed. Patient sleeping. Vital stable. Work-up shows COVID-[address] head negative. Laboratory findings consistent with COVID-19. Patient is mildly leukopenic. Chest x-ray reveals improving pneumonia. No urinary tract infection. No significant respiratory issues at this time. Patient is primarily being admitted for generalized weakness dehydration and altered mental status. COVID positive with incidentally identified. In retrospect COVID-19 may be causing her current symptoms. Case discussed with Dr. Arnold who accepts admission to observation. Patient agrees to admission at [facility] for further evaluation and treatment. She voices no other complaints or concerns at this time. Portions of this note were created with voice recognition technology. There may be grammatical, spelling, punctuation or sound alike errors 04/28/21 02:23 RN documented back pain however patient denies back pain. Patient resting comfortably. Patient currently not complaining of back pain at this time. 04/28/21 02:31 Discussed with DrLiyah: Other (Case discussed with Dr. Arnold who accepts admission to observation.) Will see patient in: hospital (observation) Counseled pt/family regarding: lab results, diagnosis, rad results - Departure Departure Disposition: Observation Clinical Impression: Altered mental status, Urinary incontinence, Generalized weakness, Fatigue, Proteinuria, Hematuria, Dehydration, COVID-19, Dehydrated Condition: Stable Critical Care Time: No Referrals: NINA FLORES NP [Primary Care Provider] - Follow up/PCP as directed
[2021-04-28 01:06] LABS: Absolute Neutrophil Ct (ANC) 2.97 (1.4-6.9); Basophil (Absolute #) 0 (0-0.4); Eosinophil % 0.5 % (0.00-5.0); Eosinophil (Absolute #) 0.02 (0-0.5); Hematocrit 40.7 % (35-47); Hemoglobin 13.2 gm/dl (12.0-16.0); Lymphocyte (Absolute #) 0.43 (1.0-4.6); Lymphocytes % 11.1 % (24.0-44.0); Mean Cell Volume 91.5 fl (78-100); Mean Corpuscular Hemoglobin 29.7 pg (26-32); Mean Corpuscular Hgb Concent. 32.4 g/dl (32-36); Mean Platelet Volume 9.8 fl (7.5-11.0); Monocyte (Absolute #) 0.47 (0.0-1.3); Monocytes % 12.1 % (0.0-12.0); Neutrophil % 76.3 % (36.0-66.0); Platelet Count 126 K/mm3 (150-450); Red Blood Count 4.45 M/mm3 (4.1-5.4); Red Cell Distribution Width 14.2 % (11.5-14.0); White Blood Count 3.9 K/mm3 (4.0-10.5)
[2021-04-28 01:09] LABS: Appearance CLEAR (CLEAR); Bilirubin NEGATIVE (NEGATIVE); Blood MODERATE Ery/ul (0-5); Glucose NEGATIVE (NEGATIVE); Ketones NEGATIVE (NEGATIVE); Leukocyte Esterase NEGATIVE (NEGATIVE); Mucus SLIGHT /HPF (NEGATIVE); Nitrite NEGATIVE (NEGATIVE); Protein,Urine Dip 100 (Negative); RBC 0-2 /HPF (0-2); Specific Gravity 1.008 (1.005-1.025); Urobilinogen NEGATIVE mg/dL (0-1)
[2021-04-28 01:12] LABS: ALBUMIN 4.4 g/dL (3.5-5.0); ANION GAP 12.2 MEQ/L (5-15); BILIRUBIN,TOTAL 0.7 mg/dL (0.2-1.3); Calcium 9.1 mg/dL (8.4-10.2); Creatinine 1 1.32 mg/dL (0.52-1.04); EST GLOMERULAR FILTRATION RATE 42.3 ML/MIN; Potassium 3.9 mmol/L (3.5-5.1); Total Protein 8.1 g/dL (6.3-8.2)
[2021-04-28 02:02] LABS: INFLUENZA A NEGATIVE (NEGATIVE); INFLUENZA B NEGATIVE (NEGATIVE); RESPIRATORY SYNCTIAL VIRUS NEGATIVE (Negative)
[2021-04-28 02:09] LABS: SARS-CoV-2 Xpert Express POSITIVE (NEGATIVE)
[2021-04-28] MEDS ORDERED: REMDESIVIR 200 MG in Sodium Chloride 0.9% 250 ML 250 ML IV ONE ×2 (02:21→10:00)
[2021-04-28] MEDS ORDERED: DECADRON 10MG INJ. IV ONE (02:22)
[2021-04-28] MEDS ORDERED: DECADRON 10MG INJ. ONE (02:28)
[2021-04-28] MEDS ORDERED: Sodium Chloride 0.9% 1000 ML 1,000 ML IV SCH (04:59)
[2021-04-28] MEDS ORDERED: Zofran 4 MG/2 ML VIAL IV PRN (04:59)
[2021-04-28] MEDS ORDERED: VENTOLIN COMMON CANISTER IH PRN (04:59)
[2021-04-28] MEDS ORDERED: TYLENOL 325 MG PO PRN (04:59)
[2021-04-28] MEDS ORDERED: LEVOPHED 4 MG/4 ML 4,000 MCG in Dextrose 5%/Water IV Soln. 500 ML 500 ML IV PRN (06:37)
[2021-04-28] MEDS ORDERED: Ativan 1 MG PO PRN (08:24)
[2021-04-28] MEDS ORDERED: Ativan 2 MG/1 ML VIAL IV PRN (08:24)
[2021-04-28] MEDS ORDERED: HYDROCODONE-CHLORPHEN ER SUSP PO PRN (08:26)
--- NOTE | 2021-04-28 09:12 | XRAY ---
Indication: Cough. Pneumonia. Comparison: April 09, 2021. Portable chest demonstrates diminished right base airspace disease and effusion with mild residual still present. Remaining lungs clear. Heart not enlarged again with CABG. No new cardiopulmonary abnormalities.
--- NOTE | 2021-04-28 09:14 | XRAY ---
Indication: Status post fall. Acute mental status change. Loss of consciousness. Multiple contiguous axial images obtained through the head without contrast. Comparison: December 08, 2016. Again age-appropriate global atrophy and mild periventricular degenerative micro-ischemia. No acute intracranial hemorrhage, abnormal extra-axial fluid collection, or mass effect. Fourth ventricle is midline without hydrocephalus. Bony calvarium intact. Visualized paranasal sinuses and mastoid air cells are clear. Impression: Continued nonacute senile brain. Comment: Preliminary interpretation made by [facility]. No critical discrepancy.
--- NOTE | 2021-04-28 09:14 | HP ---
CHIEF COMPLAINT: Extreme fatigue, had a fall, back pain and was brought into the emergency room at approximately midnight tonight. HISTORY OF PRESENT ILLNESS: A 70-year-old white female who called at 6:30 saying that her blood pressure dropped almost to nothing and she was poorly responsive. She was bradycardic at 55. She is chronically ill with numerous problems. She has deteriorated over the last seven hours since she has been here through the night. She has been treated for urinary tract infection. She had pneumonia at [facility] which was treated and then resolved. She had denied chest pain. She has been incontinent of urine and stool and she was mildly confused in the emergency room. She had no severe complaints while in the emergency room. TRAVEL RISK: No travel outside of the country. CORONAVIRUS SCREENING: New onset of cough, headache, extreme weakness and fall. COVID vaccine: Apparently maybe she has gotten one unknown communications project manager. MEDICATIONS: Lasix 20 mg two q.d., Claritin 10 q.d., Nitro 0.4 PRN, ProAir every 4 hours PRN, DuoNeb every 4 hours PRN, calcium with vitamin D 1 q.d., iron 65 b.i.d., Metformin 500 t.i.d., Protonix q.d., KCL 10 q.d., Stiolto Respimat once a day, Lisinopril 2.5 q.d. ALLERGIES: PENICILLIN. GABAPENTIN. NUBAIN. ADHESIVE. PAST MEDICAL HISTORY: Cervical cancer treated some time ago with radiation. Inactive TB. PAST SURGICAL HISTORY: She does have a cardiac stent in and has had a four vessel coronary artery bypass. REVIEW OF SYSTEMS: The patient is not able to give. At this time she is responsive to pain only although her blood pressure is now up to normal with norepinephrine drip. HEENT: Apparently no symptoms. ABDOMEN: No vomiting. : History of urinary tract infection. No problems when she came to the emergency room. NEUROLOGIC: The patient did have a fall probably due to weakness this morning at home. She responds to pain but she is not talking presently. No benzo or morphine. CVS: Myocardial infarction, high cholesterol, hypertension. RESPIRATORY: Chronic obstructive pulmonary disease, emphysema. ENDOCRINE: Diabetes mellitus type II. MUSCULOSKELETAL: Osteoarthritis. GI: History of cholecystectomy, cholelithiasis. SOCIAL HISTORY: Former smoker, had smoked 63 years. Lives with her sister. PHYSICAL EXAMINATION: GENERAL APPEARANCE: The patient is quiet. She unresponsive except to pain this morning at 0700 hours. VITAL SIGNS: Temperature 97F, heart rate is now 50 which is decreased from this morning, respiratory rate 20, blood pressure is now 150/70. O2 saturation with a liter O2 and optimizer is like 90%. HEENT: Pupils equal and reactive to light. NECK: Supple. CHEST: Clear. CVS: Bradycardic. ABDOMEN: Soft. No masses. EXTREMITIES: The patient is not moving them. She will with pain withdraw extremities. LAB DATA AND TESTS: I note that her BUN and creatinine are normal and her troponins were negative initially. She was not bradycardic on admission. Lactic acid was only 0.5. She had a CT of the head which showed some chronic vessel disease. I do not see a D-dimer or CT of the chest. IMPRESSION: A critically ill white female COVID positive, had become unresponsive, hypotensive, bradycardic, responsive now to fluids and norepinephrine. At this time we will follow, repeat cardiac enzymes, lactic acid which is normal, continue hydrating her, back off of her norepinephrine.
[2021-04-28] MEDS: OLUMIANT PO SCH (09:16)
[2021-04-28] MEDS ORDERED: Nitrostat 0.4 MG Tablet SL PRN (09:16)
[2021-04-28] MEDS ORDERED: ZOFRAN ODT 4 MG PO PRN (09:16)
[2021-04-28] MEDS: PROTONIX 40 MG IV IV SCH (09:19)
[2021-04-28] MEDS: Pepcid 20 MG VIAL IV SCH ×2 (09:20→21:19)
[2021-04-28] MEDS: ENOXAPARIN SODIUM SQ SCH (09:20)
[2021-04-28] MEDS: Zocor 10MG PO SCH (09:43)
[2021-04-28] MEDS ORDERED: NON-FORMULARY ITEM (Atorvastatin Calcium [Atorvastatin Calcium] 10 MG Tablet) PO SCH (10:00)
[2021-04-28] MEDS ORDERED: DUONEB 0.5-3 MG/3 ml Neb IH SCH (11:00)
[2021-04-28] MEDS ORDERED: HUMALOG SQ PRN (15:33)
[2021-04-29] MEDS: Sodium Chloride 0.9% 1000 ML 1,000 ML IV SCH (00:17)
[2021-04-29] MEDS: ENOXAPARIN SODIUM SQ SCH (08:56)
[2021-04-29] MEDS: REMDESIVIR 100 MG in Sodium Chloride 0.9% 100 ML BAG 100 ML IV SCH (08:56)
[2021-04-29] MEDS: TYLENOL EXTRA STRENGTH 500 MG PO PRN (08:56)
[2021-04-29] MEDS: PROTONIX 40 MG IV IV SCH (08:56)
[2021-04-29] MEDS: Zocor 10MG PO SCH (08:57)
[2021-04-29] MEDS: OLUMIANT PO SCH (08:57)
[2021-04-29] MEDS: Pepcid 20 MG VIAL IV SCH ×2 (08:57→21:01)
[2021-04-29 09:23] LABS: Hematocrit 39.2 % (35-47); Hemoglobin 12.6 gm/dl (12.0-16.0); Mean Cell Volume 93.6 fl (78-100); Mean Corpuscular Hemoglobin 30.1 pg (26-32); Mean Corpuscular Hgb Concent. 32.1 g/dl (32-36); Mean Platelet Volume 9.8 fl (7.5-11.0); Platelet Count 100 K/mm3 (150-450); Red Blood Count 4.19 M/mm3 (4.1-5.4); Red Cell Distribution Width 14.4 % (11.5-14.0)
[2021-04-29 09:39] LABS: ALBUMIN 3.4 g/dL (3.5-5.0); ANION GAP 11.9 MEQ/L (5-15); BILIRUBIN,TOTAL 0.3 mg/dL (0.2-1.3); Creatinine 1 1.07 mg/dL (0.52-1.04); EST GLOMERULAR FILTRATION RATE 53.9 ML/MIN; Total Protein 6.5 g/dL (6.3-8.2)
[2021-04-29 10:04] LABS: White Blood Count 1.9 K/mm3 (4.0-10.5)
[2021-04-29 15:49] LABS: ATYPICAL LYMPHS 1 %; BAND 1 % (0.0-2.0); Lymphocytes 27 % (24-44); Monocyte 7 % (0.0-12.0); Neutrophils 64 % (36.0-66.0); Platelet Estimate NORMAL (NORMAL); Total Cells Counted 100
[2021-04-30] MEDS: TYLENOL EXTRA STRENGTH 500 MG PO PRN (01:54)
[2021-04-30] MEDS: Pepcid 20 MG VIAL IV SCH (09:56)
[2021-04-30] MEDS: REMDESIVIR 100 MG in Sodium Chloride 0.9% 100 ML BAG 100 ML IV SCH (09:56)
[2021-04-30] MEDS: PROTONIX 40 MG IV IV SCH (09:56)
[2021-04-30] MEDS: Zocor 10MG PO SCH (10:04)
[2021-04-30] MEDS: OLUMIANT PO SCH (10:04)
[2021-04-30] MEDS: ENOXAPARIN SODIUM SQ SCH (10:04)
[2021-04-30 12:36] VITALS: BP 116/94; O2SAT 95
[2021-04-30 14:48] VITALS: PULSE 81
== END 2021-04-30 17:00 | disposition home or self-care (01) | DRG 179 ==
LOC: ED 23:24 → MED SURG 04-28 04:56 → OBSVTOIN 04-28 06:40
PROVIDERS: ADMIT Family Medicine; ATTEND Family Medicine
DX: U07.1 COVID-19 (principal); R41.82 Altered mental status, unspecified; E86.0 Dehydration; R32 Unspecified urinary incontinence; M54.9 Dorsalgia, unspecified; E11.9 Type 2 diabetes mellitus without complications; R00.1 Bradycardia, unspecified; I25.10 Atherosclerotic heart disease of native coronary artery without angina pectoris; E78.00 Pure hypercholesterolemia, unspecified; I25.2 Old myocardial infarction; I11.0 Hypertensive heart disease with heart failure; I50.9 Heart failure, unspecified; W18.30XA Fall on same level, unspecified, initial encounter; Z79.899 Other long term (current) drug therapy; Z20.828 Contact with and (suspected) exposure to other viral communicable diseases; Z87.891 Personal history of nicotine dependence
CPT/HCPCS: 0241U; 36000; 36415; 70450; 71045; 80053; 81001; 82947; 83605; 83880; 84484; 85025; 85379; 87040; 93005; 93041; 94760; 94762; 96374; 99285; J0248; J1100; J1650; J2060; A9270-GY

== ENCOUNTER 2021-12-26 16:56 | Inpatient (IN) | payer MEDICARE ==
--- NOTE | 2021-12-26 17:26 | ERPHSYRPT ---
- History of Present Illness Time Seen by Provider: 12/26/21 16:59 Source: patient, family, EMS Exam Limitations: clinical condition Patient Subjective Stated Complaint: Family of patient reports to ambulance staff that patient is drowsy and that they "can't keep her awake." Patient has no specific complaints when asked. Triage Nursing Assessment: Patient arrived by ambulance. She will answer yes/no questions or short answer questions but will not open her eyes for very long to make eye contact with staff. She is drowsy. No SOB noted. No s/s of pain noted. Slight pitting edema noted to LLE. Left lower rojas is tight and shiny. Physician History: 71-year-old with a history of hypertension, hyperlipidemia, coronary artery disease, diabetes mellitus is brought in the ER by EMS with chief complaint of patient being drowsy today and difficulty keeping her awake. Patient is not in any distress on presentation, answering few questions yes or no and following simple commands but closes her eyes quickly. Patient is not sure why she is in the hospital and per family she has some element of confusion going on since yesterday. No apparent difficulty breathing reported. Not a good historian and history is limited. Timing/Duration: today Severity: mild, moderate Modifying Factors: Improves With: nothing Associated Symptoms: denies symptoms Allergies/Adverse Reactions: adhesive Allergy (Intermediate, Verified 04/27/21 23:30) Rash nalbuphine HCl [From Nubain] Allergy (Mild, Verified 04/27/21 23:30) Rash Penicillins Allergy (Mild, Verified 04/27/21 23:30) Rash gabapentin [From Neurontin] Allergy (Verified 04/27/21 23:30) Vomiting Home Medications: Furosemide 20 mg [Lasix 20 mg] 40 mg PO DAILY 12/08/16 [History] Loratadine 10 mg [Claritin 10 mg] 10 mg PO DAILY 12/08/16 [History] Nitroglycerin 0.4 mg Tablet [Nitrostat 0.4 MG Tablet] 0.4 mg SL Q5MIN PRN MR X 3 PRN 12/08/16 [History] Albuterol Sulfate Mdi [Proair Hfa MDI] 2 inh PO Q4H 07/06/19 [History] Albuterol/Ipratropium 3ml Neb* [DUONEB 0.5-3 MG/3 ml Neb] 1 amp IH QID 07/06/19 [History] Ferrous Sulfate, Dried [Iron] 325 mg PO BID 07/06/19 [History] Metformin HCl 500 mg [Glucophage 500 MG] 500 mg PO BID 07/06/19 [History] Multivitamin W-Minerals/Lutein [Centrum Silver Tablet] 1 tablet PO DAILY 07/06/19 [History] PANTOPRAZOLE 40 mg Tablet [Protonix 40MG Tablet] 40 mg PO QAM 07/06/19 [History] Potassium Chloride 10 meq PO DAILY 07/06/19 [History] Tiotropium Br/Olodaterol HCl [Stiolto Respimat Inhal Foster] 4 gm IH DAILY 07/06/19 [History] lisinopriL [Lisinopril] 2.5 mg PO DAILY 07/06/19 [History] Atorvastatin Calcium 10 mg PO DAILY 04/28/21 [History] Fenofibrate Nanocrystallized [Fenofibrate] 145 mg PO DAILY 04/28/21 [History] Metoprolol Succinate 50 mg [Toprol Xl 50 MG] 50 mg PO DAILY 04/28/21 [History] Hx Tetanus, Diphtheria Vaccination/Date Given: Yes Hx Influenza Vaccination/Date Given: No Hx Pneumococcal Vaccination/Date Given: No Travel Risk - International Travel Have you traveled outside of the country in past 3 weeks: No - Coronavirus Screening Are you exhibiting any of the following symptoms?: Yes Symptoms: Headaches/Body Aches/Fatigue Close contact with a COVID-19 positive Pt in past 14-21 Days: No - Vaccine Status Have you recieved a Covid-19 vaccination: Yes (only the first one, no second one) Liquor Commissioner: Unknown - Vaccination Dates Dates if Unknown: ? - Review of Systems All Other Systems: Unable due to condition - Past Medical History Pertinent Past Medical History: Yes Neurological History: No Pertinent History ENT History: No Pertinent History Cardiac History: Coronary Artery Disease, High Cholesterol, Hypertension, Myocardial Infarction (CT) Respiratory History: Asthma, CHF, COPD, Emphysema Endocrine Medical History: Diabetes Type II Musculoskeletal History: Arthritis GI Medical History: Diverticulosis, Gallbladder Disease History: No Pertinent History Psycho-Social History: No Pertinent History Female Reproductive Disorders: No Pertinent History Other Medical History: Patient us unable to give medical history to staff at this time; medical history obtained from previous ED visit. - Past Surgical History Past Surgical History: Yes Neuro Surgical History: No Pertinent History Cardiac: CABG, Cardiac Catheterization, Cardiac Stent Respiratory: No Pertinent History Gastrointestinal: Cholecystectomy Genitourinary: No Pertinent History Musculoskeletal: No Pertinent History Female Surgical History: Section, Tubal Ligation Other Surgical History: Patient us unable to give srugical history to staff at this time; surgical history obtained from previous ED visit. - Social History Smoking Status: Former smoker How long have you smoked: 63 years Exposure to second hand smoke: No Drug Use: none Patient Lives Alone: No (Daughter, March) - Nursing Vital Signs Nursing Vital Signs: Initial Vital Signs Temperature 97.6 F 12/26/21 17:07 Pulse Rate 74 12/26/21 17:07 Respiratory Rate 23 12/26/21 17:07 Blood Pressure 185/100 12/26/21 17:07 O2 Sat by Pulse Oximetry 95 12/26/21 17:07 Pain Scale Pain Intensity 0 - Physical Exam General Appearance: no apparent distress, alert Eye Exam: PERRL/EOMI, eyes nml inspection, other (Keeps them closed but is able to open up) Ears, Nose, Throat Exam: normal ENT inspection, TMs normal, pharynx normal, moist mucous membranes Neck Exam: normal inspection, non-tender, supple, full range of motion Respiratory Exam: normal breath sounds, lungs clear Cardiovascular Exam: regular rate/rhythm, normal heart sounds Gastrointestinal/Abdomen Exam: soft, normal bowel sounds, No tenderness Back Exam: normal inspection, normal range of motion Neurologic Exam: alert, cooperative, gear roller II-XII nml as tested, sensation nml, No oriented x 3, No normal mood/affect, No motor deficits Skin Exam: normal color SpO2 Interpretation: normal SpO2: 95 O2 Delivery: Room Air Ordered Tests: Active Orders 24 hr Category Date Time Status EKG-ER Only STAT Care 12/26/21 17:20 Active IV Insertion STAT Care 12/26/21 17:20 Active NPO (ED) STAT Care 12/26/21 17:20 Active CHEST 1 VIEW (PORTABLE) Stat Exams 12/26/21 17:[address] ANGIOGRAPHY NECK [CT] Stat Exams 12/26/21 18:50 Taken CTA HEAD W AND/OR WO CONTRAST [CT] Stat Exams 12/26/21 18:50 Taken HEAD WITHOUT CONTRAST [CT] Stat Exams 12/26/21 17:21 Taken ABG [ARTERIAL BLOOD GASES] Stat Lab 12/26/21 17:30 Completed BLOOD CULTURE Stat Lab 12/26/21 17:20 Ordered CBC W DIFF Stat Lab 12/26/21 18:44 Completed CMP Stat Lab 12/26/21 17:20 Completed ETHYL ALCOHOL Stat Lab 12/26/21 17:20 Completed Lactic Acid Stat Lab 12/26/21 17:30 Completed MAGNESIUM Stat Lab 12/26/21 17:20 Completed NT PRO BNP Stat Lab 12/26/21 17:20 Completed TROPONIN Q4H Lab 12/26/21 17:30 Completed TROPONIN Q4H Lab 12/26/21 21:23 Received TROPONIN Q4H Lab 12/27/21 01:30 Ordered TSH [TSH, 3RD Generation] Stat Lab 12/26/21 17:23 Completed UA W/RFX CULTURE Stat Lab 12/26/21 Completed Urine Triage Profile Stat Lab 12/26/21 19:47 Completed Transfer Order Routine Transfer 12/26/21 Ordered Medication Summary Generic Name Dose Route Start Last Admin Trade Name Freq PRN Reason Stop Dose Admin Sodium Chloride 1,000 mls @ 100 mls/hr 12/26/21 17:30 12/26/21 18:11 Sodium Chloride 0.9% 1000 Ml IV 01/25/22 17:29 100 mls/hr .Q10H TRISTIAN Administration Discontinued Medications Generic Name Dose Route Start Last Admin Trade Name Freq PRN Reason Stop Dose Admin Aspirin 324 mg 12/26/21 19:40 12/26/21 21:28 Aspirin 81 Mg Tab.Chew PO 12/26/21 19:41 324 mg STAT ONE Administration Aspirin Confirm 12/26/21 21:16 Aspirin 81 Mg Tab.Chew Administered 12/26/21 21:17 Dose 81 mg .ROUTE .STK-MED ONE Lab/Rad Data: Laboratory Result Diagrams 12/26/21 18:44 12/26/21 17:20 Laboratory Results 12/26/21 12/26/21 12/26/21 Range/Units Unknown 19:47 19:39 WBC (4.0-10.5) x10^3/uL RBC (4.1-5.4) x10^6/uL Hgb (12.0-16.0) g/dL Hct (35-47) % MCV (78-100) fL MCH (26-32) pg MCHC (32-36) g/dL RDW (11.5-14.0) % Plt Count (150-450) x10^3/uL MPV (7.5-11.0) fL Gran % (36.0-66.0) % Immature Gran % (Auto) (0.00-0.4) % Nucleat RBC Rel Count (0.00-0.1) % Eos # (Auto) (0-0.5) x10^3/uL Immature Gran # (Auto) (0.00-0.03) x10^3u/L Absolute Lymphs (auto) (1.0-4.6) x10^3/uL Absolute Monos (auto) (0.0-1.3) x10^3/uL Absolute Nucleated RBC (0.00-0.01) x10^3u/L Lymphocytes % (24.0-44.0) % Monocytes % (0.0-12.0) % Eosinophils % (0.00-5.0) % Basophils % (0.0-0.4) % Absolute Granulocytes (1.4-6.9) x10^3/uL Basophils # (0-0.4) x10^3/uL Puncture Site pCO2 (35-45) mmHg pO2 (75-100) mmHg Base Excess (-2.0-2.0) O2 Saturation (94-100) g/dF ABG pH (7.35-7.45) ABG HCO3 (22-28) ABG O2 Sat (Measured) (95-100) % Mynor Test A-a Gradient a/A Ratio Hemoglobin Carboxyhemoglobin (0.0-6.9) % THgb Methemoglobin (1.4-1.5) % Temperature C POC O2 Flow Rate % Sodium (137-145) mmol/L Potassium (3.5-5.1) mmol/L Chloride (98-107) mmol/L Carbon Dioxide (22-30) mmol/L Anion Gap (5-15) MEQ/L BUN (7-17) mg/dL Creatinine (0.52-1.04) mg/dL Estimated GFR ML/MIN Glucose (74-106) mg/dL Lactic Acid (0.4-2.0) Calcium (8.4-10.2) mg/dL Magnesium (1.6-2.3) mg/dL Total Bilirubin (0.2-1.3) mg/dL AST (14-36) U/L ALT (0-35) U/L Alkaline Phosphatase (38-126) U/L Ammonia (9-30) umol/L Troponin I (0.000-0.034) ng/mL NT-Pro-B Natriuret Pep (0-900) pg/mL Serum Total Protein (6.3-8.2) g/dL Albumin (3.5-5.0) g/dL TSH 3rd Generation (0.47-4.68) mIU/L Urinalys Dipstick Clnc MAIN LAB Urine Color YELLOW (YELLOW) Urine Appearance CLEAR (CLEAR) Urine pH 5.5 (5-6) Ur Specific [place] 1.015 (1.005-1.025) POC Urine Protein Conf NEGATIVE (Negative) Urine Ketones NEGATIVE (NEGATIVE) Urine Nitrite NEGATIVE (NEGATIVE) Urine Bilirubin NEGATIVE (NEGATIVE) Urine Urobilinogen 0.2 (0-1) mg/dL Urine Leukocytes NEGATIVE (NEGATIVE) Urine WBC (Auto) NONE (0-5) /HPF Urine RBC (Auto) NONE (0-2) /HPF U Epithel Cells (Auto) NONE (FEW) /HPF Urine Bacteria (Auto) NONE (NEGATIVE) /HPF Urine RBC NEGATIVE (0-5) Abilio/ul Ur Culture Indicated? NO Urine Glucose NEGATIVE (NEGATIVE) mg/dL Urine Opiates Level NEGATIVE (NEGATIVE) Ur Methadone NEGATIVE (NEGATIVE) Urine Barbiturates NEGATIVE (NEGATIVE) Ur Phencyclidine (PCP) NEGATIVE (NEGATIVE) Urine Amphetamine NEGATIVE (NEGATIVE) U Benzodiazepine Level NEGATIVE (NEGATIVE) Urine Cocaine NEGATIVE (NEGATIVE) Urine Marijuana (THC) NEGATIVE (NEGATIVE) Ethyl Alcohol (0-10) mg/dL Influenza Type A Ag NEGATIVE (NEGATIVE) Influenza Type B Ag NEGATIVE (NEGATIVE) RSV (PCR) NEGATIVE (Negative) SARS-CoV-2 (PCR) NEGATIVE (NEGATIVE) 12/26/21 12/26/21 12/26/21 Range/Units 18:44 18:44 17:30 WBC 5.0 (4.0-10.5) x10^3/uL RBC 4.98 (4.1-5.4) x10^6/uL Hgb 14.8 (12.0-16.0) g/dL Hct 47.2 H (35-47) % MCV 94.8 (78-100) fL MCH 29.7 (26-32) pg MCHC 31.4 L (32-36) g/dL RDW 12.8 (11.5-14.0) % Plt Count 155 (150-450) x10^3/uL MPV 9.3 (7.5-11.0) fL Gran % 61.3 (36.0-66.0) % Immature Gran % (Auto) 0.4 (0.00-0.4) % Nucleat RBC Rel Count 0.0 (0.00-0.1) % Eos # (Auto) 0.12 (0-0.5) x10^3/uL Immature Gran # (Auto) 0.02 (0.00-0.03) x10^3u/L Absolute Lymphs (auto) 1.38 (1.0-4.6) x10^3/uL Absolute Monos (auto) 0.38 (0.0-1.3) x10^3/uL Absolute Nucleated RBC 0.00 (0.00-0.01) x10^3u/L Lymphocytes % 27.7 (24.0-44.0) % Monocytes % 7.6 (0.0-12.0) % Eosinophils % 2.4 (0.00-5.0) % Basophils % 0.6 (0.0-0.4) % Absolute Granulocytes 3.06 (1.4-6.9) x10^3/uL Basophils # 0.03 (0-0.4) x10^3/uL Puncture Site RIGHT BRACHIAL pCO2 51 H (35-45) mmHg pO2 63 L (75-100) mmHg Base Excess 4.7 H (-2.0-2.0) O2 Saturation 91.7 L (94-100) g/dF ABG pH 7.39 (7.35-7.45) ABG HCO3 30.9 H* (22-28) ABG O2 Sat (Measured) 93.7 L (95-100) % Mynor Test NOT APPLICABLE A-a Gradient 23 a/A Ratio 0.73 Hemoglobin 14.4 Carboxyhemoglobin 1.4 (0.0-6.9) % THgb Methemoglobin 0.7 L (1.4-1.5) % Temperature 37.0 C POC O2 Flow Rate 21 % Sodium (137-145) mmol/L Potassium 4.0 (3.5-5.1) mmol/L Chloride (98-107) mmol/L Carbon Dioxide (22-30) mmol/L Anion Gap (5-15) MEQ/L BUN (7-17) mg/dL Creatinine (0.52-1.04) mg/dL Estimated GFR ML/MIN Glucose (74-106) mg/dL Lactic Acid (0.4-2.0) Calcium (8.4-10.2) mg/dL Magnesium (1.6-2.3) mg/dL Total Bilirubin (0.2-1.3) mg/dL AST (14-36) U/L ALT (0-35) U/L Alkaline Phosphatase (38-126) U/L Ammonia 19 (9-30) umol/L Troponin I (0.000-0.034) ng/mL NT-Pro-B Natriuret Pep (0-900) pg/mL Serum Total Protein (6.3-8.2) g/dL Albumin (3.5-5.0) g/dL TSH 3rd Generation (0.47-4.68) mIU/L Urinalys Dipstick Clnc Urine Color (YELLOW) Urine Appearance (CLEAR) Urine pH (5-6) Ur Specific [place] (1.005-1.025) POC Urine Protein Conf (Negative) Urine Ketones (NEGATIVE) Urine Nitrite (NEGATIVE) Urine Bilirubin (NEGATIVE) Urine Urobilinogen (0-1) mg/dL Urine Leukocytes (NEGATIVE) Urine WBC (Auto) (0-5) /HPF Urine RBC (Auto) (0-2) /HPF U Epithel Cells (Auto) (FEW) /HPF Urine Bacteria (Auto) (NEGATIVE) /HPF Urine RBC (0-5) Abilio/ul Ur Culture Indicated? Urine Glucose (NEGATIVE) mg/dL Urine Opiates Level (NEGATIVE) Ur Methadone (NEGATIVE) Urine Barbiturates (NEGATIVE) Ur Phencyclidine (PCP) (NEGATIVE) Urine Amphetamine (NEGATIVE) U Benzodiazepine Level (NEGATIVE) Urine Cocaine (NEGATIVE) Urine Marijuana (THC) (NEGATIVE) Ethyl Alcohol (0-10) mg/dL Influenza Type A Ag (NEGATIVE) Influenza Type B Ag (NEGATIVE) RSV (PCR) (Negative) SARS-CoV-2 (PCR) (NEGATIVE) 12/26/21 12/26/21 12/26/21 Range/Units 17:30 17:30 17:23 WBC (4.0-10.5) x10^3/uL RBC (4.1-5.4) x10^6/uL Hgb (12.0-16.0) g/dL Hct (35-47) % MCV (78-100) fL MCH (26-32) pg MCHC (32-36) g/dL RDW (11.5-14.0) % Plt Count (150-450) x10^3/uL MPV (7.5-11.0) fL Gran % (36.0-66.0) % Immature Gran % (Auto) (0.00-0.4) % Nucleat RBC Rel Count (0.00-0.1) % Eos # (Auto) (0-0.5) x10^3/uL Immature Gran # (Auto) (0.00-0.03) x10^3u/L Absolute Lymphs (auto) (1.0-4.6) x10^3/uL Absolute Monos (auto) (0.0-1.3) x10^3/uL Absolute Nucleated RBC (0.00-0.01) x10^3u/L Lymphocytes % (24.0-44.0) % Monocytes % (0.0-12.0) % Eosinophils % (0.00-5.0) % Basophils % (0.0-0.4) % Absolute Granulocytes (1.4-6.9) x10^3/uL Basophils # (0-0.4) x10^3/uL Puncture Site pCO2 (35-45) mmHg pO2 (75-100) mmHg Base Excess (-2.0-2.0) O2 Saturation (94-100) g/dF ABG pH (7.35-7.45) ABG HCO3 (22-28) ABG O2 Sat (Measured) (95-100) % Mynor Test A-a Gradient a/A Ratio Hemoglobin Carboxyhemoglobin (0.0-6.9) % THgb Methemoglobin (1.4-1.5) % Temperature C POC O2 Flow Rate % Sodium (137-145) mmol/L Potassium (3.5-5.1) mmol/L Chloride (98-107) mmol/L Carbon Dioxide (22-30) mmol/L Anion Gap (5-15) MEQ/L BUN (7-17) mg/dL Creatinine (0.52-1.04) mg/dL Estimated GFR ML/MIN Glucose (74-106) mg/dL Lactic Acid 1.2 (0.4-2.0) Calcium (8.4-10.2) mg/dL Magnesium (1.6-2.3) mg/dL Total Bilirubin (0.2-1.3) mg/dL AST (14-36) U/L ALT (0-35) U/L Alkaline Phosphatase (38-126) U/L Ammonia (9-30) umol/L Troponin I < 0.012 (0.000-0.034) ng/mL NT-Pro-B Natriuret Pep (0-900) pg/mL Serum Total Protein (6.3-8.2) g/dL Albumin (3.5-5.0) g/dL TSH 3rd Generation 1.420 (0.47-4.68) mIU/L Urinalys Dipstick Clnc Urine Color (YELLOW) Urine Appearance (CLEAR) Urine pH (5-6) Ur Specific [place] (1.005-1.025) POC Urine Protein Conf (Negative) Urine Ketones (NEGATIVE) Urine Nitrite (NEGATIVE) Urine Bilirubin (NEGATIVE) Urine Urobilinogen (0-1) mg/dL Urine Leukocytes (NEGATIVE) Urine WBC (Auto) (0-5) /HPF Urine RBC (Auto) (0-2) /HPF U Epithel Cells (Auto) (FEW) /HPF Urine Bacteria (Auto) (NEGATIVE) /HPF Urine RBC (0-5) Abilio/ul Ur Culture Indicated? Urine Glucose (NEGATIVE) mg/dL Urine Opiates Level (NEGATIVE) Ur Methadone (NEGATIVE) Urine Barbiturates (NEGATIVE) Ur Phencyclidine (PCP) (NEGATIVE) Urine Amphetamine (NEGATIVE) U Benzodiazepine Level (NEGATIVE) Urine Cocaine (NEGATIVE) Urine Marijuana (THC) (NEGATIVE) Ethyl Alcohol (0-10) mg/dL Influenza Type A Ag (NEGATIVE) Influenza Type B Ag (NEGATIVE) RSV (PCR) (Negative) SARS-CoV-2 (PCR) (NEGATIVE) 12/26/21 Range/Units 17:20 WBC (4.0-10.5) x10^3/uL RBC (4.1-5.4) x10^6/uL Hgb (12.0-16.0) g/dL Hct (35-47) % MCV (78-100) fL MCH (26-32) pg MCHC (32-36) g/dL RDW (11.5-14.0) % Plt Count (150-450) x10^3/uL MPV (7.5-11.0) fL Gran % (36.0-66.0) % Immature Gran % (Auto) (0.00-0.4) % Nucleat RBC Rel Count (0.00-0.1) % Eos # (Auto) (0-0.5) x10^3/uL Immature Gran # (Auto) (0.00-0.03) x10^3u/L Absolute Lymphs (auto) (1.0-4.6) x10^3/uL Absolute Monos (auto) (0.0-1.3) x10^3/uL Absolute Nucleated RBC (0.00-0.01) x10^3u/L Lymphocytes % (24.0-44.0) % Monocytes % (0.0-12.0) % Eosinophils % (0.00-5.0) % Basophils % (0.0-0.4) % Absolute Granulocytes (1.4-6.9) x10^3/uL Basophils # (0-0.4) x10^3/uL Puncture Site pCO2 (35-45) mmHg pO2 (75-100) mmHg Base Excess (-2.0-2.0) O2 Saturation (94-100) g/dF ABG pH (7.35-7.45) ABG HCO3 (22-28) ABG O2 Sat (Measured) (95-100) % Mynor Test A-a Gradient a/A Ratio Hemoglobin Carboxyhemoglobin (0.0-6.9) % THgb Methemoglobin (1.4-1.5) % Temperature C POC O2 Flow Rate % Sodium 136 L (137-145) mmol/L Potassium 4.6 (3.5-5.1) mmol/L Chloride 101 (98-107) mmol/L Carbon Dioxide 24 (22-30) mmol/L Anion Gap 16.0 H (5-15) MEQ/L BUN 19 H (7-17) mg/dL Creatinine 0.67 (0.52-1.04) mg/dL Estimated GFR > 60.0 ML/MIN Glucose 111 H (74-106) mg/dL Lactic Acid (0.4-2.0) Calcium 9.0 (8.4-10.2) mg/dL Magnesium 1.6 (1.6-2.3) mg/dL Total Bilirubin 0.80 (0.2-1.3) mg/dL AST 30 (14-36) U/L ALT 18 (0-35) U/L Alkaline Phosphatase 94 (38-126) U/L Ammonia (9-30) umol/L Troponin I (0.000-0.034) ng/mL NT-Pro-B Natriuret Pep 54.8 (0-900) pg/mL Serum Total Protein 8.4 H (6.3-8.2) g/dL Albumin 4.2 (3.5-5.0) g/dL TSH 3rd Generation (0.47-4.68) mIU/L Urinalys Dipstick Clnc Urine Color (YELLOW) Urine Appearance (CLEAR) Urine pH (5-6) Ur Specific [place] (1.005-1.025) POC Urine Protein Conf (Negative) Urine Ketones (NEGATIVE) Urine Nitrite (NEGATIVE) Urine Bilirubin (NEGATIVE) Urine Urobilinogen (0-1) mg/dL Urine Leukocytes (NEGATIVE) Urine WBC (Auto) (0-5) /HPF Urine RBC (Auto) (0-2) /HPF U Epithel Cells (Auto) (FEW) /HPF Urine Bacteria (Auto) (NEGATIVE) /HPF Urine RBC (0-5) Abilio/ul Ur Culture Indicated? Urine Glucose (NEGATIVE) mg/dL Urine Opiates Level (NEGATIVE) Ur Methadone (NEGATIVE) Urine Barbiturates (NEGATIVE) Ur Phencyclidine (PCP) (NEGATIVE) Urine Amphetamine (NEGATIVE) U Benzodiazepine Level (NEGATIVE) Urine Cocaine (NEGATIVE) Urine Marijuana (THC) (NEGATIVE) Ethyl Alcohol < 10 (0-10) mg/dL Influenza Type A Ag (NEGATIVE) Influenza Type B Ag (NEGATIVE) RSV (PCR) (Negative) SARS-CoV-2 (PCR) (NEGATIVE) - Progress Progress: improved Progress Note: 12/26/21 18:50 Patient is evaluated for drowsiness, confusion, not acting herself. Will obtain CT head which showed right parietal stroke. Patient is out of the window for tPA and has minimal residual weakness. Neurology has evaluated patient and recommended continue with aspirin she is on and obtain CTA head and neck if has normal creatinine otherwise MRA/MRI. 12/26/21 19:41 CTAs will be obtained as patient has normal renal functions. Discussed with Dr. Rodriguez and patient will be admitted to hospitalist service after CTAs are done. She is given full dose aspirin. 12/26/21 21:32 CTA showed acute occlusion of the proximal M2 segment at the origin of the inferior division. Minor flow reconstitutes in the distal inferior division of M2 via collateral the flow reconstituted. The superior division of M2 is n ormal. I have Called transfer center and discussed with Dr. Sarita Mejias, reviewed history, work-up and deficit on the left side which is not major, or she does not think patient needs to go to neuro intervention. No beds are available at [facility] at all, patient would be kept in here and if has any worsening will call neurology at . Plan discussed with Dr. Rodriguez admitting doctor here and she agrees with that. I have also discussed with patient in detail and also with her daughter and they all agree on the plan of staying in here. Discussed with : Fer Will see patient in: hospital (observation) Counseled pt/family regarding: lab results, diagnosis, rad results - Departure Departure Disposition: Observation Clinical Impression: Stroke Condition: Stable Critical Care Time: No Referrals: NINA FLORES NP [Primary Care Provider] - Follow up/PCP as directed
[2021-12-26] MEDS ORDERED: Sodium Chloride 0.9% 1000 ML 1,000 ML IV SCH (17:30)
[2021-12-26 17:37] LABS: A-aADO2 23; ABG HEMOGLOBIN 14.4; ARTERIAL BLD GAS O2 SATURATION 93.7 % (95-100); ARTERIAL BLOOD GAS BASE EXCESS 4.7 (-2.0-2.0); ARTERIAL BLOOD GAS FIO2 21 %; ARTERIAL BLOOD GAS PCO2 51 mmHg (35-45); ARTERIAL BLOOD GAS PO2 63 mmHg (75-100); ARTERIAL BLOOD GAS pH 7.39 (7.35-7.45); CARBOXYHEMOGLOBIN 1.4 % THgb (0.0-6.9); HCO3- 30.9 (22-28); HGB O2 SAT 91.7 g/dF (94-100); Methhemoglobin 0.7 % (1.4-1.5)
[2021-12-26 17:38] LABS: ABG SITE RIGHT BRACHIAL
[2021-12-26] MEDS ORDERED: Sodium Chloride 0.9% 1000 ML 1,000 ML ONE (18:10)
[2021-12-26 18:47] LABS: Absolute Neutrophil Ct (ANC) 3.06 x10^3/uL (1.4-6.9); Basophil (Absolute #) 0.03 x10^3/uL (0-0.4); Eosinophil % 2.4 % (0.00-5.0); Eosinophil (Absolute #) 0.12 x10^3/uL (0-0.5); Hematocrit 47.2 % (35-47); Hemoglobin 14.8 g/dL (12.0-16.0); Lymphocyte (Absolute #) 1.38 x10^3/uL (1.0-4.6); Lymphocytes % 27.7 % (24.0-44.0); Mean Cell Volume 94.8 fL (78-100); Mean Corpuscular Hemoglobin 29.7 pg (26-32); Mean Corpuscular Hgb Concent. 31.4 g/dL (32-36); Mean Platelet Volume 9.3 fL (7.5-11.0); Monocyte (Absolute #) 0.38 x10^3/uL (0.0-1.3); Monocytes % 7.6 % (0.0-12.0); Neutrophil % 61.3 % (36.0-66.0); Platelet Count 155 x10^3/uL (150-450); Red Blood Count 4.98 x10^6/uL (4.1-5.4); Red Cell Distribution Width 12.8 % (11.5-14.0)
[2021-12-26 19:15] LABS: ALBUMIN 4.2 g/dL (3.5-5.0); ALKALINE PHOSPHATASE 94 U/L (38-126); BLOOD UREA NITROGEN 19 mg/dL (7-17); CHLORIDE 101 mmol/L (98-107); Carbon Dioxide 24 mmol/L (22-30); Creatinine 1 0.67 mg/dL (0.52-1.04); EST GLOMERULAR FILTRATION RATE > 60.0 ML/MIN; ETHYL ALCOHOL < 10 mg/dL (0-10); Glucose 111 mg/dL (74-106); MAGNESIUM 1.6 mg/dL (1.6-2.3); NT PRO BNP 54.8 pg/mL (0-900); Potassium 4.6 mmol/L (3.5-5.1); SGOT/AST 30 U/L (14-36); SGPT/ALT 18 U/L (0-35); SODIUM 136 mmol/L (137-145); Total Protein 8.4 g/dL (6.3-8.2)
[2021-12-26] MEDS ORDERED: BABY ASPIRIN 81 MG CHEW PO ONE (19:40)
[2021-12-26] MEDS ORDERED: HOLD METFORMIN PRODUCTS FOR 48 HOURS MC SCH (20:15)
[2021-12-26 20:20] LABS: INFLUENZA A NEGATIVE (NEGATIVE); INFLUENZA B NEGATIVE (NEGATIVE); RESPIRATORY SYNCTIAL VIRUS NEGATIVE (Negative); SARS-CoV-2 Xpert Express NEGATIVE (NEGATIVE)
[2021-12-26 20:32] LABS: Appearance CLEAR (CLEAR); Bilirubin NEGATIVE (NEGATIVE); Dipstick done @ ? MAIN LAB; Glucose NEGATIVE (NEGATIVE); Ketones NEGATIVE (NEGATIVE); Nitrite NEGATIVE (NEGATIVE); Ph 5.5 (5-6); Protein,Urine Dip NEGATIVE (Negative); RBC NEGATIVE Ery/ul (0-5); Specific Gravity 1.015 (1.005-1.025); Urobilinogen 0.2 mg/dL (0-1)
[2021-12-26 20:33] LABS: Urine Cultured Indicated? NO
[2021-12-26 20:37] LABS: Amphetamine,Urine NEGATIVE (NEGATIVE); Barbiturate,Urine NEGATIVE (NEGATIVE); Benzodiazepine,Urine NEGATIVE (NEGATIVE); Cocaine,Urine NEGATIVE (NEGATIVE); Methadone,Urine NEGATIVE (NEGATIVE); Opiate,Urine NEGATIVE (NEGATIVE); PCP,Urine NEGATIVE (NEGATIVE); THC,Urine NEGATIVE (NEGATIVE)
[2021-12-26] MEDS ORDERED: BABY ASPIRIN 81 MG CHEW ONE (21:16)
[2021-12-26] MEDS ORDERED: TYLENOL 325 MG PO PRN (22:17)
[2021-12-26] MEDS ORDERED: DUONEB 0.5-3 MG/3 ml Neb IH PRN (22:17)
[2021-12-26] MEDS ORDERED: HUMALOG SQ PRN (22:17)
[2021-12-26] MEDS ORDERED: Zofran 4 MG/2 ML VIAL IV PRN (22:17)
[2021-12-27] MEDS ORDERED: VENTOLIN COMMON CANISTER IH PRN (00:26)
[2021-12-27 05:23] LABS: Absolute Neutrophil Ct (ANC) 2.96 x10^3/uL (1.4-6.9); Basophil (Absolute #) 0.02 x10^3/uL (0-0.4); Eosinophil % 2.8 % (0.00-5.0); Eosinophil (Absolute #) 0.13 x10^3/uL (0-0.5); Hematocrit 40.2 % (35-47); Hemoglobin 12.8 g/dL (12.0-16.0); Lymphocyte (Absolute #) 1.18 x10^3/uL (1.0-4.6); Lymphocytes % 25.5 % (24.0-44.0); Mean Cell Volume 93.1 fL (78-100); Mean Corpuscular Hemoglobin 29.6 pg (26-32); Mean Corpuscular Hgb Concent. 31.8 g/dL (32-36); Mean Platelet Volume 9.3 fL (7.5-11.0); Monocyte (Absolute #) 0.33 x10^3/uL (0.0-1.3); Monocytes % 7.1 % (0.0-12.0); Platelet Count 139 x10^3/uL (150-450); Red Blood Count 4.32 x10^6/uL (4.1-5.4); Red Cell Distribution Width 12.5 % (11.5-14.0); White Blood Count 4.6 x10^3/uL (4.0-10.5)
[2021-12-27] MEDS: DUONEB 0.5-3 MG/3 ml Neb IH SCH ×4 (05:31→19:35)
[2021-12-27] MEDS: Advair Hfa 230/21 Mcg COMMON CANISTER IH SCH ×2 (05:40→19:35)
[2021-12-27 06:34] LABS: ALBUMIN 3.7 g/dL (3.5-5.0); ALKALINE PHOSPHATASE 63 U/L (38-126); ANION GAP 10.6 MEQ/L (5-15); BLOOD UREA NITROGEN 19 mg/dL (7-17); CHLORIDE 101 mmol/L (98-107); Calcium 8.6 mg/dL (8.4-10.2); Carbon Dioxide 32 mmol/L (22-30); Creatinine 1 0.89 mg/dL (0.52-1.04); EST GLOMERULAR FILTRATION RATE > 60.0 ML/MIN; Glucose 78 mg/dL (74-106); Potassium 4.3 mmol/L (3.5-5.1); SGOT/AST 26 U/L (14-36); SGPT/ALT 17 U/L (0-35); SODIUM 139 mmol/L (137-145); TROPONIN < 0.012 ng/mL (0.000-0.034); Total Protein 6.8 g/dL (6.3-8.2)
[2021-12-27 07:34] LABS: Slide Review 1 YES
[2021-12-27] MEDS ORDERED: Nitrostat 0.4 MG Tablet SL PRN (08:17)
--- NOTE | 2021-12-27 09:19 | XRAY ---
Exam: AP upright portable chest film from 12/26/2021. Comparison: AP sitting upright portable chest film from 04/27/2021. Indication: 71-year-old female with generalized weakness and altered mental status. Findings: The heart size appears within normal limits. Surgical clips and midline sternal wires are seen consistent with prior CABG. The most inferior sternal wire appears to be broken representing no change. EKG leads overlie the chest. The remainder of the adria and mediastinal structures appears unremarkable. Subtle residual infiltrate at the right lung base has essentially resolved as compared to the prior portable chest film from 04/27/2021. Subtle markings behind the heart at the medial left lung base appear similar to 04/09/2021 and are probably chronic. There also appears to be a stable linear scar versus chronic linear atelectasis within the medial left lung apex. Minimal linear subsegmental atelectasis is seen within the left infrahilar projection, peripheral left lower lung field, and both lung bases adjacent to the hemidiaphragms. I see no air space infiltrates, vascular congestion, pneumothorax, or pleural fluid. Moderate mid and lower thoracic spondylosis is again seen. There are some mild degenerative changes about the right shoulder girdle. The left shoulder joint has not been included within the [id number] on the present image. Impression: 1. Prior subtle residual infiltrate at the right lung base has resolved since 04/27/2021. I believe there are some minimal chronic interstitial markings behind the heart at the medial left lung base. Also, minimal scattered linear atelectasis is seen within the left lower lung field and right lung base. 2. Otherwise, no acute cardiopulmonary disease is seen. 3. Status post CABG.
[2021-12-27] MEDS: Neurontin PO SCH ×2 (09:33→21:43)
[2021-12-27] MEDS: ENOXAPARIN SODIUM SQ SCH (09:33)
[2021-12-27] MEDS: ECOTRIN 81 MG PO SCH (09:33)
[2021-12-27] MEDS: Klor Con PO SCH ×2 (09:33→21:42)
--- NOTE | 2021-12-27 09:55 | XRAY ---
Exam: CT of the head without IV contrast from 12/26/2021. CTDI: 53.92 mGy Comparison: CT of the head without IV contrast from 04/28/2021. Indication: 71-year-old female with altered mental status; generalized weakness; patient unable to give history. Technique: Non-IV contrast axial images were obtained through the brain. Reconstructed coronal and sagittal images were created and reviewed. Findings: The ventricles and cortical sulci are again noted to be mildly prominent consistent with generalized atrophy. Mild/moderate periventricular deep white matter changes are seen consistent with chronic microvascular disease. I see no acute intracranial bleed. However, there is a new asymmetric fairly large area of ill-defined decreased attenuation within the posterior right parietal-temporal lobe. This is seen on axial images #31 through #44 and measures roughly 5.1 cm in maximum AP dimension, 3.2 cm in width, and about 3.3 cm in craniocaudal dimension. Adjacent mass effect is seen effacing the cortical sulci suggesting some edema. I see no associated hemorrhage. This is consistent with an acute infarction. No other low attenuation densities are seen. Extensive calcification is seen within the falx as an incidental note. The calvarium of the skull appears intact without fracture or other significant focal bone lesion. There is considerable deviation of the posterior aspect of the nasal septum toward the left. The paranasal sinuses are well aerated without air-fluid levels or significant mucosal thickening. The mastoid air cells appear clear without effusion. The middle ear cavities appear grossly unremarkable. The internal auditory canals appear grossly symmetric. Orbits appear grossly unremarkable. Impression: 1. Findings consistent with moderate sized posterior right parietal-temporal acute infarction with adjacent edema, but no acute hemorrhage. 2. Other findings appear unchanged consisting of mild generalized atrophy and mild/moderate bilateral periventricular white matter degenerative microischemia.
[2021-12-27] MEDS ORDERED: PROTONIX 40 MG IV IV SCH (10:00)
--- NOTE | 2021-12-27 15:01 | PCM.HP ---
History of Present Illness - Chief Complaint Chief Complaint: Stroke History of Present Illness: is a 71 year old female pt of Dara Pimentel with PMHx COPD (on 2L O2) and CAD (hx CABG) who was admitted through ER [facility] CVA. She was at home, noted to be increasingly sleepy/drowsy by family, wiht increased confusion and closed eyes. In ER teleneurology consult was done; pt is thought to have had a CVA with some L sided weakness. Not a candidate for TPA with mild deficit and long time course. She has no complaints today. She wakes to voice but only opens her eyes for a few seconds, and is unable to hold them open long enough for me to evaluate her pupils. She is not oriented to time but is oriented to place. She is cooperative for some parts of the exam but not others. - Review of Systems All Other Systems: Unable due to condition Medications & Allergies Home Medications: Home Medication List Furosemide 20 mg [Lasix 20 mg] 40 mg PO BID 12/08/16 [History Confirmed 12/26/21] Loratadine 10 mg [Claritin 10 mg] 10 mg PO DAILY 12/08/16 [History Confirmed 12/26/21] Nitroglycerin 0.4 mg Tablet [Nitrostat 0.4 MG Tablet] 0.4 mg SL Q5MIN PRN MR X 3 PRN 12/08/16 [History Confirmed 12/26/21] Aspirin EC 81 mg [Ecotrin 81 mg] 81 mg PO DAILY #0 02/17/17 [Rx Confirmed 12/26/21] Albuterol Sulfate Mdi [Proair Hfa MDI] 2 inh PO Q4H PRN PRN 07/06/19 [History Confirmed 12/26/21] Albuterol/Ipratropium 3ml Neb* [DUONEB 0.5-3 MG/3 ml Neb] 1 amp IH QID 07/06/19 [History Confirmed 12/26/21] Ferrous Sulfate, Dried [Iron] 325 mg PO BID 07/06/19 [History Confirmed 2] Metformin HCl 500 mg [Glucophage 500 MG] 500 mg PO TID 07/06/19 [History Confirmed 12/26/21] Multivitamin W-Minerals/Lutein [Centrum Silver Tablet] 1 tablet PO DAILY 07/06/19 [History Confirmed 12/26/21] PANTOPRAZOLE 40 mg Tablet [Protonix 40MG Tablet] 40 mg PO QAM 07/06/19 [History Confirmed 12/26/21] Potassium Chloride 10 meq PO BID 07/06/19 [History Confirmed 12/26/21] Tiotropium Br/Olodaterol HCl [Stiolto Respimat Inhal Harmony] 2 puffs IH DAILY 07/06/19 [History Confirmed 12/26/21] lisinopriL [Lisinopril] 2.5 mg PO DAILY 07/06/19 [History Confirmed 12/26/21] Ondansetron ODT 4 MG [Zofran Odt 4 mg] 4 mg PO Q6H PRN PRN #10 tab.rapdis 02/18/20 [Rx Confirmed 12/26/21] Atorvastatin Calcium 10 mg PO DAILY 04/28/21 [History Confirmed 12/26/21] Fenofibrate Nanocrystallized [Fenofibrate] 145 mg PO DAILY 04/28/21 [History Confirmed 12/26/21] Acetaminophen 500 mg [Tylenol Extra Strength 500 mg] 500 - 1,000 mg PO Q4HPRN PRN tablet 04/30/21 [Rx Confirmed 12/26/21] Calcium Carbonate/Vitamin D3 [Calcium 600 + Vit D Caplet] 1 each PO DAILY 12/26/21 [History Confirmed 12/26/21] Fluticasone Propionate [Flonase NASAL] 2 sprays NS DAILY 12/26/21 [History Confirmed 12/26/21] Gabapentin 100 mg PO BID 12/26/21 [History Confirmed 12/26/21] Allergies/Adverse Reactions: Allergies Allergy/AdvReac Type Severity Reaction Status Date / Time adhesive Allergy Intermediate Rash Verified 04/27/21 23:30 nalbuphine HCl [From Nubain] Allergy Mild Rash Verified 04/27/21 23:30 Penicillins Allergy Mild Rash Verified 04/27/21 23:30 gabapentin [From Neurontin] Allergy Vomiting Verified 04/27/21 23:30 - Past Medical History Past Medical History: Yes Neurological History: No Pertinent History ENT History: No Pertinent History Cardiac History: Coronary Artery Disease, High Cholesterol, Hypertension, Myocardial Infarction (MA) Respiratory History: Asthma, CHF, COPD, Emphysema Endocrine Medical History: Diabetes Type II Musculoskelatal History: Arthritis GI Medical History: Diverticulosis, Gallbladder Disease History: No Pertinent History Pyscho-Social History: No Pertinent History Reproductive Disorders: No Pertinent History Comment: Patient us unable to give medical history to staff at this time; medical history obtained from previous ED visit. - Female History Are you now?: No - Past Surgical History Past Surgical History: Yes Neuro Surgical History: No Pertinent History Cardiac History: CABG, Cardiac Catheterization, Cardiac Stent Respiratory Surgery: No Pertinent History GI Surgical History: Cholecystectomy Genitourinary Surgical Hx: No Pertinent History Musculskeletal Surgical Hx: No Pertinent History Female Surgical History: Section, Tubal Ligation Other Surgical History: Patient us unable to give srugical history to staff at this time; surgical history obtained from previous ED visit. - Social History Smoking Status: Former smoker How long have you smoked: 63 years Exposure to second hand smoke: No Alcohol: None Drug Use: none - Physical Exam Vital Signs: Vital Signs - 24 hr Temp Pulse Resp BP Pulse Ox 12/27/21 11:59 97.9 F 63 16 101/53 94 L 12/27/21 10:38 75 22 93 L 12/27/21 07:54 98.2 F 73 16 175/77 92 L 12/27/21 05:31 87 24 93 L 12/27/21 04:00 96.9 F 62 18 132/62 95 12/26/21 23:46 69 15 131/67 98 12/26/21 23:41 114 H 24 95 12/26/21 22:39 97.1 F 118 H 22 171/66 97 12/26/21 21:34 95 12/26/21 21:00 73 22 172/89 98 12/26/21 20:00 71 16 98 12/26/21 19:00 69 20 167/80 99 12/26/21 18:16 18 L 156/70 98 12/26/21 17:07 97.6 F 74 23 185/100 95 General Appearance: no apparent distress, alert Neurologic Exam: disoriented, other (only opens her eyes briefly, several times. speaks in soft voice; not oriented to time. limited affect.), No cooperative Eye Exam: other (closed, mostly) Ears, Nose, Throat Exam: moist mucous membranes Neck Exam: normal inspection, non-tender, No lymphadenopathy, No thyromegaly Respiratory Exam: normal breath sounds, lungs clear, No crackles/rales, No rhonchi, No wheezing Cardiovascular Exam: regular rate/rhythm, normal heart sounds, No murmur Gastrointestinal/Abdomen Exam: soft, normal bowel sounds, No tenderness, No distention, No mass, No guarding, No rebound Back Exam: normal inspection, No rash Extremity Exam: normal inspection, No pedal edema, No swelling Skin Exam: normal color, warm, dry, No rash Results - Labs Lab/Micro Results: Lab Results-Last 24 Hours 12/26/21 12/26/21 12/26/21 Range/Units 17:20 17:23 17:30 WBC (4.0-10.5) x10^3/uL RBC (4.1-5.4) x10^6/uL Hgb (12.0-16.0) g/dL Hct (35-47) % MCV (78-100) fL MCH (26-32) pg MCHC (32-36) g/dL RDW (11.5-14.0) % Plt Count (150-450) x10^3/uL MPV (7.5-11.0) fL Gran % (36.0-66.0) % Immature Gran % (Auto) (0.00-0.4) % Nucleat RBC Rel Count (0.00-0.1) % Eos # (Auto) (0-0.5) x10^3/uL Immature Gran # (Auto) (0.00-0.03) x10^3u/L Absolute Lymphs (auto) (1.0-4.6) x10^3/uL Absolute Monos (auto) (0.0-1.3) x10^3/uL Absolute Nucleated RBC (0.00-0.01) x10^3u/L Lymphocytes % (24.0-44.0) % Monocytes % (0.0-12.0) % Eosinophils % (0.00-5.0) % Basophils % (0.0-0.4) % Absolute Granulocytes (1.4-6.9) x10^3/uL Basophils # (0-0.4) x10^3/uL Puncture Site pCO2 (35-45) mmHg pO2 (75-100) mmHg Base Excess (-2.0-2.0) O2 Saturation (94-100) g/dF ABG pH (7.35-7.45) ABG HCO3 (22-28) ABG O2 Sat (Measured) (95-100) % Mynor Test A-a Gradient a/A Ratio Hemoglobin Carboxyhemoglobin (0.0-6.9) % THgb Methemoglobin (1.4-1.5) % Temperature C POC O2 Flow Rate % Sodium 136 L (137-145) mmol/L Potassium 4.6 (3.5-5.1) mmol/L Chloride 101 (98-107) mmol/L Carbon Dioxide 24 (22-30) mmol/L Anion Gap 16.0 H (5-15) MEQ/L BUN 19 H (7-17) mg/dL Creatinine 0.67 (0.52-1.04) mg/dL Estimated GFR > 60.0 ML/MIN Glucose 111 H (74-106) mg/dL POC Glucometer (74 to 106) mg/dL Hemoglobin A1c (4.5-6.0) % Lactic Acid 1.2 (0.4-2.0) Calcium 9.0 (8.4-10.2) mg/dL Magnesium 1.6 (1.6-2.3) mg/dL Total Bilirubin 0.80 (0.2-1.3) mg/dL AST 30 (14-36) U/L ALT 18 (0-35) U/L Alkaline Phosphatase 94 (38-126) U/L Ammonia (9-30) umol/L Troponin I (0.000-0.034) ng/mL NT-Pro-B Natriuret Pep 54.8 (0-900) pg/mL Serum Total Protein 8.4 H (6.3-8.2) g/dL Albumin 4.2 (3.5-5.0) g/dL TSH 3rd Generation 1.420 (0.47-4.68) mIU/L Urinalys Dipstick Clnc Urine Color (YELLOW) Urine Appearance (CLEAR) Urine pH (5-6) Ur Specific [place] (1.005-1.025) POC Urine Protein Conf (Negative) Urine Ketones (NEGATIVE) Urine Nitrite (NEGATIVE) Urine Bilirubin (NEGATIVE) Urine Urobilinogen (0-1) mg/dL Urine Leukocytes (NEGATIVE) Urine WBC (Auto) (0-5) /HPF Urine RBC (Auto) (0-2) /HPF U Epithel Cells (Auto) (FEW) /HPF Urine Bacteria (Auto) (NEGATIVE) /HPF Urine RBC (0-5) Abilio/ul Ur Culture Indicated? Urine Glucose (NEGATIVE) mg/dL Urine Opiates Level (NEGATIVE) Ur Methadone (NEGATIVE) Urine Barbiturates (NEGATIVE) Ur Phencyclidine (PCP) (NEGATIVE) Urine Amphetamine (NEGATIVE) U Benzodiazepine Level (NEGATIVE) Urine Cocaine (NEGATIVE) Urine Marijuana (THC) (NEGATIVE) Ethyl Alcohol < 10 (0-10) mg/dL Influenza Type A Ag (NEGATIVE) Influenza Type B Ag (NEGATIVE) RSV (PCR) (Negative) SARS-CoV-2 (PCR) (NEGATIVE) Slides for Path Review 12/26/21 12/26/21 12/26/21 Range/Units 17:30 17:30 18:44 WBC 5.0 (4.0-10.5) x10^3/uL RBC 4.98 (4.1-5.4) x10^6/uL Hgb 14.8 (12.0-16.0) g/dL Hct 47.2 H (35-47) % MCV 94.8 (78-100) fL MCH 29.7 (26-32) pg MCHC 31.4 L (32-36) g/dL RDW 12.8 (11.5-14.0) % Plt Count 155 (150-450) x10^3/uL MPV 9.3 (7.5-11.0) fL Gran % 61.3 (36.0-66.0) % Immature Gran % (Auto) 0.4 (0.00-0.4) % Nucleat RBC Rel Count 0.0 (0.00-0.1) % Eos # (Auto) 0.12 (0-0.5) x10^3/uL Immature Gran # (Auto) 0.02 (0.00-0.03) x10^3u/L Absolute Lymphs (auto) 1.38 (1.0-4.6) x10^3/uL Absolute Monos (auto) 0.38 (0.0-1.3) x10^3/uL Absolute Nucleated RBC 0.00 (0.00-0.01) x10^3u/L Lymphocytes % 27.7 (24.0-44.0) % Monocytes % 7.6 (0.0-12.0) % Eosinophils % 2.4 (0.00-5.0) % Basophils % 0.6 (0.0-0.4) % Absolute Granulocytes 3.06 (1.4-6.9) x10^3/uL Basophils # 0.03 (0-0.4) x10^3/uL Puncture Site RIGHT BRACHIAL pCO2 51 H (35-45) mmHg pO2 63 L (75-100) mmHg Base Excess 4.7 H (-2.0-2.0) O2 Saturation 91.7 L (94-100) g/dF ABG pH 7.39 (7.35-7.45) ABG HCO3 30.9 H* (22-28) ABG O2 Sat (Measured) 93.7 L (95-100) % Mynor Test NOT APPLICABLE A-a Gradient 23 a/A Ratio 0.73 Hemoglobin 14.4 Carboxyhemoglobin 1.4 (0.0-6.9) % THgb Methemoglobin 0.7 L (1.4-1.5) % Temperature 37.0 C POC O2 Flow Rate 21 % Sodium (137-145) mmol/L Potassium 4.0 (3.5-5.1) mmol/L Chloride (98-107) mmol/L Carbon Dioxide (22-30) mmol/L Anion Gap (5-15) MEQ/L BUN (7-17) mg/dL Creatinine (0.52-1.04) mg/dL Estimated GFR ML/MIN Glucose (74-106) mg/dL POC Glucometer (74 to 106) mg/dL Hemoglobin A1c (4.5-6.0) % Lactic Acid (0.4-2.0) Calcium (8.4-10.2) mg/dL Magnesium (1.6-2.3) mg/dL Total Bilirubin (0.2-1.3) mg/dL AST (14-36) U/L ALT (0-35) U/L Alkaline Phosphatase (38-126) U/L Ammonia (9-30) umol/L Troponin I < 0.012 (0.000-0.034) ng/mL NT-Pro-B Natriuret Pep (0-900) pg/mL Serum Total Protein (6.3-8.2) g/dL Albumin (3.5-5.0) g/dL TSH 3rd Generation (0.47-4.68) mIU/L Urinalys Dipstick Clnc Urine Color (YELLOW) Urine Appearance (CLEAR) Urine pH (5-6) Ur Specific [place] (1.005-1.025) POC Urine Protein Conf (Negative) Urine Ketones (NEGATIVE) Urine Nitrite (NEGATIVE) Urine Bilirubin (NEGATIVE) Urine Urobilinogen (0-1) mg/dL Urine Leukocytes (NEGATIVE) Urine WBC (Auto) (0-5) /HPF Urine RBC (Auto) (0-2) /HPF U Epithel Cells (Auto) (FEW) /HPF Urine Bacteria (Auto) (NEGATIVE) /HPF Urine RBC (0-5) Abilio/ul Ur Culture Indicated? Urine Glucose (NEGATIVE) mg/dL Urine Opiates Level (NEGATIVE) Ur Methadone (NEGATIVE) Urine Barbiturates (NEGATIVE) Ur Phencyclidine (PCP) (NEGATIVE) Urine Amphetamine (NEGATIVE) U Benzodiazepine Level (NEGATIVE) Urine Cocaine (NEGATIVE) Urine Marijuana (THC) (NEGATIVE) Ethyl Alcohol (0-10) mg/dL Influenza Type A Ag (NEGATIVE) Influenza Type B Ag (NEGATIVE) RSV (PCR) (Negative) SARS-CoV-2 (PCR) (NEGATIVE) Slides for Path Review 12/26/21 12/26/21 12/26/21 Range/Units 18:44 19:39 19:47 WBC (4.0-10.5) x10^3/uL RBC (4.1-5.4) x10^6/uL Hgb (12.0-16.0) g/dL Hct (35-47) % MCV (78-100) fL MCH (26-32) pg MCHC (32-36) g/dL RDW (11.5-14.0) % Plt Count (150-450) x10^3/uL MPV (7.5-11.0) fL Gran % (36.0-66.0) % Immature Gran % (Auto) (0.00-0.4) % Nucleat RBC Rel Count (0.00-0.1) % Eos # (Auto) (0-0.5) x10^3/uL Immature Gran # (Auto) (0.00-0.03) x10^3u/L Absolute Lymphs (auto) (1.0-4.6) x10^3/uL Absolute Monos (auto) (0.0-1.3) x10^3/uL Absolute Nucleated RBC (0.00-0.01) x10^3u/L Lymphocytes % (24.0-44.0) % Monocytes % (0.0-12.0) % Eosinophils % (0.00-5.0) % Basophils % (0.0-0.4) % Absolute Granulocytes (1.4-6.9) x10^3/uL Basophils # (0-0.4) x10^3/uL Puncture Site pCO2 (35-45) mmHg pO2 (75-100) mmHg Base Excess (-2.0-2.0) O2 Saturation (94-100) g/dF ABG pH (7.35-7.45) ABG HCO3 (22-28) ABG O2 Sat (Measured) (95-100) % Mynor Test A-a Gradient a/A Ratio Hemoglobin Carboxyhemoglobin (0.0-6.9) % THgb Methemoglobin (1.4-1.5) % Temperature C POC O2 Flow Rate % Sodium (137-145) mmol/L Potassium (3.5-5.1) mmol/L Chloride (98-107) mmol/L Carbon Dioxide (22-30) mmol/L Anion Gap (5-15) MEQ/L BUN (7-17) mg/dL Creatinine (0.52-1.04) mg/dL Estimated GFR ML/MIN Glucose (74-106) mg/dL POC Glucometer (74 to 106) mg/dL Hemoglobin A1c (4.5-6.0) % Lactic Acid (0.4-2.0) Calcium (8.4-10.2) mg/dL Magnesium (1.6-2.3) mg/dL Total Bilirubin (0.2-1.3) mg/dL AST (14-36) U/L ALT (0-35) U/L Alkaline Phosphatase (38-126) U/L Ammonia 19 (9-30) umol/L Troponin I (0.000-0.034) ng/mL NT-Pro-B Natriuret Pep (0-900) pg/mL Serum Total Protein (6.3-8.2) g/dL Albumin (3.5-5.0) g/dL TSH 3rd Generation (0.47-4.68) mIU/L Urinalys Dipstick Clnc Urine Color (YELLOW) Urine Appearance (CLEAR) Urine pH (5-6) Ur Specific [place] (1.005-1.025) POC Urine Protein Conf (Negative) Urine Ketones (NEGATIVE) Urine Nitrite (NEGATIVE) Urine Bilirubin (NEGATIVE) Urine Urobilinogen (0-1) mg/dL Urine Leukocytes (NEGATIVE) Urine WBC (Auto) (0-5) /HPF Urine RBC (Auto) (0-2) /HPF U Epithel Cells (Auto) (FEW) /HPF Urine Bacteria (Auto) (NEGATIVE) /HPF Urine RBC (0-5) Abilio/ul Ur Culture Indicated? Urine Glucose (NEGATIVE) mg/dL Urine Opiates Level NEGATIVE (NEGATIVE) Ur Methadone NEGATIVE (NEGATIVE) Urine Barbiturates NEGATIVE (NEGATIVE) Ur Phencyclidine (PCP) NEGATIVE (NEGATIVE) Urine Amphetamine NEGATIVE (NEGATIVE) U Benzodiazepine Level NEGATIVE (NEGATIVE) Urine Cocaine NEGATIVE (NEGATIVE) Urine Marijuana (THC) NEGATIVE (NEGATIVE) Ethyl Alcohol (0-10) mg/dL Influenza Type A Ag NEGATIVE (NEGATIVE) Influenza Type B Ag NEGATIVE (NEGATIVE) RSV (PCR) NEGATIVE (Negative) SARS-CoV-2 (PCR) NEGATIVE (NEGATIVE) Slides for Path Review 12/26/21 12/26/21 12/27/21 Range/Units 21:23 Unknown 04:30 WBC (4.0-10.5) x10^3/uL RBC (4.1-5.4) x10^6/uL Hgb (12.0-16.0) g/dL Hct (35-47) % MCV (78-100) fL MCH (26-32) pg MCHC (32-36) g/dL RDW (11.5-14.0) % Plt Count (150-450) x10^3/uL MPV (7.5-11.0) fL Gran % (36.0-66.0) % Immature Gran % (Auto) (0.00-0.4) % Nucleat RBC Rel Count (0.00-0.1) % Eos # (Auto) (0-0.5) x10^3/uL Immature Gran # (Auto) (0.00-0.03) x10^3u/L Absolute Lymphs (auto) (1.0-4.6) x10^3/uL Absolute Monos (auto) (0.0-1.3) x10^3/uL Absolute Nucleated RBC (0.00-0.01) x10^3u/L Lymphocytes % (24.0-44.0) % Monocytes % (0.0-12.0) % Eosinophils % (0.00-5.0) % Basophils % (0.0-0.4) % Absolute Granulocytes (1.4-6.9) x10^3/uL Basophils # (0-0.4) x10^3/uL Puncture Site pCO2 (35-45) mmHg pO2 (75-100) mmHg Base Excess (-2.0-2.0) O2 Saturation (94-100) g/dF ABG pH (7.35-7.45) ABG HCO3 (22-28) ABG O2 Sat (Measured) (95-100) % Mynor Test A-a Gradient a/A Ratio Hemoglobin Carboxyhemoglobin (0.0-6.9) % THgb Methemoglobin (1.4-1.5) % Temperature C POC O2 Flow Rate % Sodium 139 (137-145) mmol/L Potassium 4.3 (3.5-5.1) mmol/L Chloride 101 (98-107) mmol/L Carbon Dioxide 32 H (22-30) mmol/L Anion Gap 10.6 (5-15) MEQ/L BUN 19 H (7-17) mg/dL Creatinine 0.89 (0.52-1.04) mg/dL Estimated GFR > 60.0 ML/MIN Glucose 78 (74-106) mg/dL POC Glucometer (74 to 106) mg/dL Hemoglobin A1c (4.5-6.0) % Lactic Acid (0.4-2.0) Calcium 8.6 (8.4-10.2) mg/dL Magnesium (1.6-2.3) mg/dL Total Bilirubin 0.50 (0.2-1.3) mg/dL AST 26 (14-36) U/L ALT 17 (0-35) U/L Alkaline Phosphatase 63 (38-126) U/L Ammonia (9-30) umol/L Troponin I < 0.012 < 0.012 (0.000-0.034) ng/mL NT-Pro-B Natriuret Pep (0-900) pg/mL Serum Total Protein 6.8 (6.3-8.2) g/dL Albumin 3.7 (3.5-5.0) g/dL TSH 3rd Generation (0.47-4.68) mIU/L Urinalys Dipstick Clnc MAIN LAB Urine Color YELLOW (YELLOW) Urine Appearance CLEAR (CLEAR) Urine pH 5.5 (5-6) Ur Specific [place] 1.015 (1.005-1.025) POC Urine Protein Conf NEGATIVE (Negative) Urine Ketones NEGATIVE (NEGATIVE) Urine Nitrite NEGATIVE (NEGATIVE) Urine Bilirubin NEGATIVE (NEGATIVE) Urine Urobilinogen 0.2 (0-1) mg/dL Urine Leukocytes NEGATIVE (NEGATIVE) Urine WBC (Auto) NONE (0-5) /HPF Urine RBC (Auto) NONE (0-2) /HPF U Epithel Cells (Auto) NONE (FEW) /HPF Urine Bacteria (Auto) NONE (NEGATIVE) /HPF Urine RBC NEGATIVE (0-5) Abilio/ul Ur Culture Indicated? NO Urine Glucose NEGATIVE (NEGATIVE) mg/dL Urine Opiates Level (NEGATIVE) Ur Methadone (NEGATIVE) Urine Barbiturates (NEGATIVE) Ur Phencyclidine (PCP) (NEGATIVE) Urine Amphetamine (NEGATIVE) U Benzodiazepine Level (NEGATIVE) Urine Cocaine (NEGATIVE) Urine Marijuana (THC) (NEGATIVE) Ethyl Alcohol (0-10) mg/dL Influenza Type A Ag (NEGATIVE) Influenza Type B Ag (NEGATIVE) RSV (PCR) (Negative) SARS-CoV-2 (PCR) (NEGATIVE) Slides for Path Review 12/27/21 12/27/21 12/27/21 Range/Units 04:30 06:00 07:24 WBC 4.6 (4.0-10.5) x10^3/uL RBC 4.32 (4.1-5.4) x10^6/uL Hgb 12.8 (12.0-16.0) g/dL Hct 40.2 (35-47) % MCV 93.1 (78-100) fL MCH 29.6 (26-32) pg MCHC 31.8 L (32-36) g/dL RDW 12.5 (11.5-14.0) % Plt Count 139 L (150-450) x10^3/uL MPV 9.3 (7.5-11.0) fL Gran % 64.0 (36.0-66.0) % Immature Gran % (Auto) 0.2 (0.00-0.4) % Nucleat RBC Rel Count 0.0 (0.00-0.1) % Eos # (Auto) 0.13 (0-0.5) x10^3/uL Immature Gran # (Auto) 0.01 (0.00-0.03) x10^3u/L Absolute Lymphs (auto) 1.18 (1.0-4.6) x10^3/uL Absolute Monos (auto) 0.33 (0.0-1.3) x10^3/uL Absolute Nucleated RBC 0.00 (0.00-0.01) x10^3u/L Lymphocytes % 25.5 (24.0-44.0) % Monocytes % 7.1 (0.0-12.0) % Eosinophils % 2.8 (0.00-5.0) % Basophils % 0.4 (0.0-0.4) % Absolute Granulocytes 2.96 (1.4-6.9) x10^3/uL Basophils # 0.02 (0-0.4) x10^3/uL Puncture Site pCO2 (35-45) mmHg pO2 (75-100) mmHg Base Excess (-2.0-2.0) O2 Saturation (94-100) g/dF ABG pH (7.35-7.45) ABG HCO3 (22-28) ABG O2 Sat (Measured) (95-100) % Mynor Test A-a Gradient a/A Ratio Hemoglobin Carboxyhemoglobin (0.0-6.9) % THgb Methemoglobin (1.4-1.5) % Temperature C POC O2 Flow Rate % Sodium (137-145) mmol/L Potassium (3.5-5.1) mmol/L Chloride (98-107) mmol/L Carbon Dioxide (22-30) mmol/L Anion Gap (5-15) MEQ/L BUN (7-17) mg/dL Creatinine (0.52-1.04) mg/dL Estimated GFR ML/MIN Glucose (74-106) mg/dL POC Glucometer 80 (74 to 106) mg/dL Hemoglobin A1c 5.73 (4.5-6.0) % Lactic Acid (0.4-2.0) Calcium (8.4-10.2) mg/dL Magnesium (1.6-2.3) mg/dL Total Bilirubin (0.2-1.3) mg/dL AST (14-36) U/L ALT (0-35) U/L Alkaline Phosphatase (38-126) U/L Ammonia (9-30) umol/L Troponin I (0.000-0.034) ng/mL NT-Pro-B Natriuret Pep (0-900) pg/mL Serum Total Protein (6.3-8.2) g/dL Albumin (3.5-5.0) g/dL TSH 3rd Generation (0.47-4.68) mIU/L Urinalys Dipstick Clnc Urine Color (YELLOW) Urine Appearance (CLEAR) Urine pH (5-6) Ur Specific [place] (1.005-1.025) POC Urine Protein Conf (Negative) Urine Ketones (NEGATIVE) Urine Nitrite (NEGATIVE) Urine Bilirubin (NEGATIVE) Urine Urobilinogen (0-1) mg/dL Urine Leukocytes (NEGATIVE) Urine WBC (Auto) (0-5) /HPF Urine RBC (Auto) (0-2) /HPF U Epithel Cells (Auto) (FEW) /HPF Urine Bacteria (Auto) (NEGATIVE) /HPF Urine RBC (0-5) Abilio/ul Ur Culture Indicated? Urine Glucose (NEGATIVE) mg/dL Urine Opiates Level (NEGATIVE) Ur Methadone (NEGATIVE) Urine Barbiturates (NEGATIVE) Ur Phencyclidine (PCP) (NEGATIVE) Urine Amphetamine (NEGATIVE) U Benzodiazepine Level (NEGATIVE) Urine Cocaine (NEGATIVE) Urine Marijuana (THC) (NEGATIVE) Ethyl Alcohol (0-10) mg/dL Influenza Type A Ag (NEGATIVE) Influenza Type B Ag (NEGATIVE) RSV (PCR) (Negative) SARS-CoV-2 (PCR) (NEGATIVE) Slides for Path Review YES 12/27/21 Range/Units 11:54 WBC (4.0-10.5) x10^3/uL RBC (4.1-5.4) x10^6/uL Hgb (12.0-16.0) g/dL Hct (35-47) % MCV (78-100) fL MCH (26-32) pg MCHC (32-36) g/dL RDW (11.5-14.0) % Plt Count (150-450) x10^3/uL MPV (7.5-11.0) fL Gran % (36.0-66.0) % Immature Gran % (Auto) (0.00-0.4) % Nucleat RBC Rel Count (0.00-0.1) % Eos # (Auto) (0-0.5) x10^3/uL Immature Gran # (Auto) (0.00-0.03) x10^3u/L Absolute Lymphs (auto) (1.0-4.6) x10^3/uL Absolute Monos (auto) (0.0-1.3) x10^3/uL Absolute Nucleated RBC (0.00-0.01) x10^3u/L Lymphocytes % (24.0-44.0) % Monocytes % (0.0-12.0) % Eosinophils % (0.00-5.0) % Basophils % (0.0-0.4) % Absolute Granulocytes (1.4-6.9) x10^3/uL Basophils # (0-0.4) x10^3/uL Puncture Site pCO2 (35-45) mmHg pO2 (75-100) mmHg Base Excess (-2.0-2.0) O2 Saturation (94-100) g/dF ABG pH (7.35-7.45) ABG HCO3 (22-28) ABG O2 Sat (Measured) (95-100) % Mynor Test A-a Gradient a/A Ratio Hemoglobin Carboxyhemoglobin (0.0-6.9) % THgb Methemoglobin (1.4-1.5) % Temperature C POC O2 Flow Rate % Sodium (137-145) mmol/L Potassium (3.5-5.1) mmol/L Chloride (98-107) mmol/L Carbon Dioxide (22-30) mmol/L Anion Gap (5-15) MEQ/L BUN (7-17) mg/dL Creatinine (0.52-1.04) mg/dL Estimated GFR ML/MIN Glucose (74-106) mg/dL POC Glucometer 87 (74 to 106) mg/dL Hemoglobin A1c (4.5-6.0) % Lactic Acid (0.4-2.0) Calcium (8.4-10.2) mg/dL Magnesium (1.6-2.3) mg/dL Total Bilirubin (0.2-1.3) mg/dL AST (14-36) U/L ALT (0-35) U/L Alkaline Phosphatase (38-126) U/L Ammonia (9-30) umol/L Troponin I (0.000-0.034) ng/mL NT-Pro-B Natriuret Pep (0-900) pg/mL Serum Total Protein (6.3-8.2) g/dL Albumin (3.5-5.0) g/dL TSH 3rd Generation (0.47-4.68) mIU/L Urinalys Dipstick Clnc Urine Color (YELLOW) Urine Appearance (CLEAR) Urine pH (5-6) Ur Specific [place] (1.005-1.025) POC Urine Protein Conf (Negative) Urine Ketones (NEGATIVE) Urine Nitrite (NEGATIVE) Urine Bilirubin (NEGATIVE) Urine Urobilinogen (0-1) mg/dL Urine Leukocytes (NEGATIVE) Urine WBC (Auto) (0-5) /HPF Urine RBC (Auto) (0-2) /HPF U Epithel Cells (Auto) (FEW) /HPF Urine Bacteria (Auto) (NEGATIVE) /HPF Urine RBC (0-5) Abilio/ul Ur Culture Indicated? Urine Glucose (NEGATIVE) mg/dL Urine Opiates Level (NEGATIVE) Ur Methadone (NEGATIVE) Urine Barbiturates (NEGATIVE) Ur Phencyclidine (PCP) (NEGATIVE) Urine Amphetamine (NEGATIVE) U Benzodiazepine Level (NEGATIVE) Urine Cocaine (NEGATIVE) Urine Marijuana (THC) (NEGATIVE) Ethyl Alcohol (0-10) mg/dL Influenza Type A Ag (NEGATIVE) Influenza Type B Ag (NEGATIVE) RSV (PCR) (Negative) SARS-CoV-2 (PCR) (NEGATIVE) Slides for Path Review Accuchecks Date 12/27/21 Date 12/27/21 Time 11:58 Time 07:52 - Radiology Impressions Radiology Exams & Impressions: Radiology Procedures Category Date Time Status CHEST 1 VIEW (PORTABLE) Stat Exams 12/26/21 17:[address] ANGIOGRAPHY NECK [CT] Stat Exams 12/26/21 18:50 Taken CTA HEAD W AND/OR WO CONTRAST [CT] Stat Exams 12/26/21 18:50 Taken ECHO W/2D AND DOPPLER [US] Routine Exams 12/27/21 10:18 Taken HEAD WITHOUT CONTRAST [CT] Stat Exams 12/26/21 17:21 Completed - Other Procedures and Tests Respiratory Therapy 12/26/21 22:17 Oxygen Nasal Cannula 2 lpm 12/26/21 23:51 Respiratory Therapy Assessment DAILY Assessment/Plan (1) Stroke Current Visit: Yes Status: Acute Qualifiers: CVA mechanism: embolism Precerebral and cerebral artery: middle cerebral artery Laterality of affected vessel: right Qualified Code(s): I63.411 - Cerebral infarction due to embolism of right middle cerebral artery Assessment & Plan: Per teleneurology, imaging being done today. CVA head/neck with complete occl usion of vessel but felt to have collaterals. ER doctor discussed transfer to [facility] but beds are not available and it was felt the pt really did not need that at this time. PT/OT/ST evals; to be NPO until evaluated by ST. Code(s): I63.9 - CEREBRAL INFARCTION, UNSPECIFIED (2) Altered mental status Current Visit: No Status: Acute Qualifiers: Altered mental status type: disorientation Qualified Code(s): R41.0 - Disorientation, unspecified Code(s): R41.82 - ALTERED MENTAL STATUS, UNSPECIFIED (3) Diabetes mellitus type 2 Current Visit: No Status: Chronic Code(s): E11.9 - TYPE 2 DIABETES MELLITUS WITHOUT COMPLICATIONS (4) COPD (chronic obstructive pulmonary disease) Current Visit: Yes Status: Chronic Qualifiers: COPD type: unspecified COPD Qualified Code(s): J44.9 - Chronic obstructive pulmonary disease, unspecified (5) CAD (coronary artery disease) Current Visit: Yes Status: Chronic Qualifiers: Coronary Disease-Associated Artery/Lesion type: bypass graft [place] vs. transplanted heart: [place] heart Associated angina: without angina Qualified Code(s): I25.810 - Atherosclerosis of coronary artery bypass graft(s) without angina pectoris Code(s): I25.10 - ATHSCL HEART DISEASE OF [place] CORONARY ARTERY W/O ANG PCTRS
--- NOTE | 2021-12-27 16:14 | XRAY ---
Exam: CT angiography neck from 12/26/2021. CTDI: 17.48 mGy Comparison: CT of the chest with IV contrast from 04/02/2021. Indication: 71-year-old female with stroke; drowsy; altered mental status; memory loss; generalized weakness; history of prior CABG. Technique: Computed tomographic angiography of the neck was performed with 100 cc Isovue-370 IV contrast. MIP and/or 3-D reconstructed images were created by the pharmacy technologist. Reconstructed coronal and sagittal images were created and reviewed. Findings: RIGHT COMMON CAROTID ARTERY: Mild atherosclerotic vascular calcification is seen at the right common carotid artery bifurcation. No significant stenosis, dissection, or occlusion is seen. RIGHT INTERNAL CAROTID ARTERY: Extracranial ICA segment is patent without significant stenosis, dissection, or occlusion. RIGHT EXTERNAL CAROTID ARTERY: No occlusion or significant stenosis is seen. LEFT COMMON CAROTID ARTERY: I again see a small amount of atherosclerotic calcification at the left common carotid artery bifurcation. However, no significant stenosis, dissection, or occlusion is seen. LEFT INTERNAL CAROTID ARTERY: The extracranial ICA segment is patent without significant stenosis, dissection, or occlusion. LEFT EXTERNAL CAROTID ARTERY: No occlusion or significant stenosis is seen. RIGHT VERTEBRAL ARTERY: There is no significant stenosis, dissection, or occlusion. LEFT VERTEBRAL ARTERY: There is no significant stenosis, dissection, or occlusion. The soft tissues reveal no significant soft tissue swelling. No acute fracture is seen. The patient is status post sternotomy. Bilateral hypoenhancing nodules measuring up to a maximum of 1.1 cm in diameter within the right thyroid lobe are again seen representing no significant interval change from 04/02/2021. Some mild scattered scarring/curvilinear atelectasis is seen within the visualized upper lobes of the lungs. Impression: 1. No significant carotid artery stenosis is seen. References: NASCET criteria. The degree of stenosis in the cervical segment of the internal carotid artery is a on the Nascet criteria. Normal is no stenosis. Mild is less than 50% stenosis. Moderate is 50% to 69% stenosis. Severe is 70% to 99% stenosis. Total occlusion is no detectable patent lumen.
[2021-12-27] MEDS ORDERED: MEDICATION INTERVENTION MC SCH (17:15)
[2021-12-27] MEDS: Tricor 145 MG PO SCH (17:57)
[2021-12-27] MEDS: Zocor 10MG PO SCH (17:57)
[2021-12-27] MEDS: Zestril 5 MG PO SCH (17:57)
[2021-12-28] MEDS: DUONEB 0.5-3 MG/3 ml Neb IH SCH ×4 (07:03→18:09)
[2021-12-28] MEDS: Advair Hfa 230/21 Mcg COMMON CANISTER IH SCH ×2 (07:09→18:10)
[2021-12-28] MEDS: Klor Con PO SCH ×2 (09:38→21:27)
[2021-12-28] MEDS: Protonix 40MG Tablet PO SCH (09:38)
[2021-12-28] MEDS: ECOTRIN 81 MG PO SCH (09:38)
[2021-12-28] MEDS: Zocor 10MG PO SCH (09:38)
[2021-12-28] MEDS: Zestril 5 MG PO SCH (09:38)
[2021-12-28] MEDS: Tricor 145 MG PO SCH (09:38)
[2021-12-28] MEDS: ENOXAPARIN SODIUM SQ SCH (09:39)
[2021-12-28] MEDS: Neurontin PO SCH ×2 (09:39→21:27)
[2021-12-28 09:54] LABS: Risk Ratio 5.5
[2021-12-28] MEDS ORDERED: ECOTRIN 81 MG PO SCH (10:00)
[2021-12-28] MEDS ORDERED: [UNRECOGNIZED DRUG - OTHER] IH SCH (10:00)
[2021-12-28] MEDS ORDERED: NON-FORMULARY ITEM (Atorvastatin Calcium [Atorvastatin Calcium] 10 MG Tablet) PO SCH (10:00)
[2021-12-28] MEDS ORDERED: TIOTROPIUM BR IH SCH (10:00)
[2021-12-28] MEDS ORDERED: OLODATEROL HCL MIST IH SCH (10:00)
[2021-12-28] MEDS ORDERED: Tricor 145 MG PO SCH (10:00)
--- NOTE | 2021-12-28 13:47 | XRAY ---
Exam: CTA head with IV contrast, arteriography. CTDI: 17.48 mGy Comparison: CT of the head without IV contrast from 12/26/2021. Indication: 71-year-old female with stroke; drowsy; altered mental status; memory loss; generalized weakness. Technique: CT angiography of the head with 100 ML's of IV Isovue-370 contrast was performed. MIP and/or 3-D reconstructed images were created by the certified hyperbaric technologist. Reconstructed coronal and sagittal CT images were created and reviewed. Findings: ANTERIOR CIRCULATION: Right internal carotid artery: The intracranial segment is unremarkable and patent without significant stenosis or aneurysm. Right middle cerebral artery: Acute occlusion of the proximal M2 segment at the origin of the inferior division. Minor flow reconstitutes in the distal inferior division of the M2 via collaterals. The superior division of M2 is normal. There is no aneurysm. Right anterior cerebral artery: Unremarkable. There is no occlusion or significant stenosis. No aneurysm is seen. Left internal carotid artery: The intracranial segment of the ICA is unremarkable. It is patent without significant stenosis or aneurysm. Left middle cerebral artery: Unremarkable. There is no occlusion, significant stenosis, or aneurysm. Left anterior cerebral artery: Unremarkable. There is no occlusion, significant stenosis, or aneurysm. POSTERIOR CIRCULATION: Right vertebral artery: Unremarkable. There is no occlusion or significant stenosis. No aneurysm is seen. Left vertebral artery: Unremarkable. There is no occlusion or significant stenosis. No aneurysm is seen. Basilar artery: Unremarkable. No occlusion or significant stenosis is seen. There is no aneurysm. Right posterior cerebral artery: Unremarkable. There is no occlusion, significant stenosis, or aneurysm. Left posterior cerebral artery: Unremarkable. There is no occlusion, significant stenosis, or aneurysm. Within the brain, there is no definite mass, mass effect, or midline shift. There is a moderate-sized hypodensity in the posterior right parietal lobe and posterior right temporal lobe involving segments M3 and M4 of the right MCA supplied territory and slightly within segment M2. There is no ventriculomegaly. The calvarium of the skull appears unremarkable without evidence of fracture. Soft tissues are unremarkable. Impression: 1. Positive for large vessel occlusion. Acute occlusion of the right proximal M2 segment of the middle cerebral artery at the origin of the inferior division.
--- NOTE | 2021-12-28 14:23 | PCM.NOTE ---
Date and Time: 12/28/21 141 Subjective Assessment: This morning at 7 am, pt wanted to get up to chair (said so to RN), pivoted, took her pills whole, had OT therapy, did her own bath with minimal assist, then at noon became somnolent. 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 She will not open her eyes, but will lean up in the chair when I ask and take deep breaths. She mumbles "hospital" and shakes her head that she is in no pain. Last night, she would only do automotive service cashier for RN (toan) and answer yes or no to questions. - Review of Systems Constitutional: Fever All Other Systems: Unable due to condition Objective Exam General Appearance: no apparent distress, other (somnolent, although responds somewhat as in HPI) Neurologic Exam: other (R contact lens manufacturer 4/5, no L contact lens manufacturer; as in HPI) Skin Exam: normal color, warm, dry, No rash Eye Exam: other (eyes closed throughout) Ears, Nose, Throat Exam: moist mucous membranes Neck Exam: normal inspection Respiratory Exam: normal breath sounds, lungs clear, No respiratory distress, No crackles/rales, No rhonchi, No wheezing Cardiovascular Exam: regular rate/rhythm, normal heart sounds, No murmur Gastrointestinal/Abdomen Exam: soft, normal bowel sounds, No tenderness, No distention, No mass, No guarding, No rebound Extremity Exam: other (chronic venous stasis change), No swelling OBJECTIVE DATA Vital Signs: Vital Signs - 24 hr Temp Pulse Resp BP Pulse Ox 12/28/21 12:00 97.5 F 83 21 143/65 90 L 12/28/21 10:51 50 L 18 92 L 12/28/21 08:00 97.5 F 72 19 164/69 95 12/28/21 07:10 70 18 86 L 12/28/21 06:37 97.6 F 82 16 126/60 90 L 12/27/21 23:58 99.3 F 86 18 119/62 91 L 12/27/21 19:47 97.6 F 57 L 18 121/60 95 12/27/21 19:38 82 18 95 12/27/21 16:00 98.3 F 88 16 103/67 95 12/27/21 14:55 66 22 94 L Pain Assessment - Last Documented Pain Intensity 0 Intake and Output: Intake & Output 12/26/21 12/27/21 12/28/21 12/29/21 11:59 11:59 11:59 11:59 Intake Total 0 0 Output Total 900 1650 Balance -900 -1650 Weight 86.4 kg 86.4 kg Lab Results: Lab Results-Last 24 Hours 12/27/21 12/27/21 12/28/21 Range/Units 16:25 21:18 07:05 POC Glucometer 94 99 (74 to 106) mg/dL Triglycerides 188 H (30-150) mg/dL Cholesterol 203 H (50-200) mg/dL LDL Cholesterol 106 H (30-100) mg/dL HDL Cholesterol 37 L (40-60) mg/dL Heart Disease Risk Ratio 5.5 12/28/21 12/28/21 Range/Units 07:18 11:38 POC Glucometer 85 157 H (74 to 106) mg/dL Triglycerides (30-150) mg/dL Cholesterol (50-200) mg/dL LDL Cholesterol (30-100) mg/dL HDL Cholesterol (40-60) mg/dL Heart Disease Risk Ratio Radiology Exams: Radiology Procedures Category Date Time Status CHEST 1 VIEW (PORTABLE) Stat Exams 12/26/21 17:[address] ANGIOGRAPHY NECK [CT] Stat Exams 12/26/21 18:50 Completed CTA HEAD W AND/OR WO CONTRAST [CT] Stat Exams 12/26/21 18:50 Completed ECHO W/2D AND DOPPLER [US] Routine Exams 12/27/21 10:18 Taken HEAD WITHOUT CONTRAST [CT] Stat Exams 12/26/21 17:21 Completed HEAD WITHOUT CONTRAST [CT] Stat Exams 12/28/21 14:19 Ordered Multi-Disciplinary Progress Notes: Multi-Disciplinary Progress Notes 12/28/21 13:24 Case Management Note by Arely Zuniga REFERRAL WAS SENT TO [facility]. THEY WILL NEED NOTIFIED AT TIME OF DC AT [phone]. THEY WILL NEED FAXED THE DC INSTRUCTIONS, DC MED LIST AND DC SUMMARY (IF AVAILABLE) TO [phone] Initialized on 12/28/21 13:24 - END OF NOTE 12/28/21 10:55 Case Management Note by Arely Zuniga S/W DAUGHTER MARCH- SHE FEELS CONFIDENT AND CARING FOR PATIENT AT TIME OF DC. SHE REPORTS SHE HAS HER ABLE TO HELP HER AT HOME AND COMFORT KEEPERS THREE DAYS A WEEK. SHE WOULD LIKE THE [facility] TO RESUME. REFERRAL SENT AT THIS TIME. Initialized on 12/28/21 10:55 - END OF NOTE 12/27/21 15:26 Physical Therapy Note by Vinod(L#[id number])Imelda ATTEMPTED P.T. EVAL X 2 THIS DATE AND UNABLE TO COMPLETE PT. VERY LETHARGIC. PT. DID NOT OPEN EYES ON MENTION OF HER NAME. O2 SATS 85% ON 2L. RT NOTIFIED. WILL ATTEMPT EVAL AGAIN IN A.M. Initialized on 12/27/21 15:26 - END OF NOTE Assessment/Plan (1) Stroke Current Visit: Yes Status: Acute Qualifiers: CVA mechanism: embolism Precerebral and cerebral artery: middle cerebral artery Laterality of affected vessel: right Qualified Code(s): I63.411 - Cerebral infarction due to embolism of right middle cerebral artery Assessment & Plan: With acute mental status change; could be evolving stroke vs extreme fatigue from a very busy morning. CT head stat. Would like her to get the MRI brain that was ordered for yesterday. Code(s): I63.9 - CEREBRAL INFARCTION, UNSPECIFIED (2) Altered mental status Current Visit: No Status: Acute Qualifiers: Altered mental status type: disorientation Qualified Code(s): R41.0 - Dis orientation, unspecified Code(s): R41.82 - ALTERED MENTAL STATUS, UNSPECIFIED (3) Diabetes mellitus type 2 Current Visit: No Status: Chronic Code(s): E11.9 - TYPE 2 DIABETES MELLITUS WITHOUT COMPLICATIONS (4) COPD (chronic obstructive pulmonary disease) Current Visit: Yes Status: Chronic Qualifiers: COPD type: unspecified COPD Qualified Code(s): J44.9 - Chronic obstructive pulmonary disease, unspecified (5) CAD (coronary artery disease) Current Visit: Yes Status: Chronic Qualifiers: Coronary Disease-Associated Artery/Lesion type: bypass graft [place] vs. transplanted heart: [place] heart Associated angina: without angina Qualified Code(s): I25.810 - Atherosclerosis of coronary artery bypass graft(s) without angina pectoris Code(s): I25.10 - ATHSCL HEART DISEASE OF [place] CORONARY ARTERY W/O ANG PCTRS
--- NOTE | 2021-12-28 16:30 | XRAY ---
Exam: CT of the head without IV contrast from 12/28/2021. CTDI: 53.92 mGy Comparison: CT of the head without IV contrast from 12/26/2021 Indication: 71-year-old female with mental status change; history of recent acute occlusion of proximal M2 segment of the inferior division of the right middle cerebral artery. Technique: Non-IV contrast axial images were obtained through the brain. Some axial reconstructed images were obtained as well due to patient rotation on the initial images. Reconstructed coronal and sagittal images were created and reviewed. Findings: I again see a moderate sized area of decreased attenuation within the posterior right parietal and temporal lobes measuring 6.4 cm in length and 3.3 cm in craniocaudal dimension on sagittal image #22 and 2.7 cm in width on axial image #32. This is a bit easier to see on the current study because of aging of the ischemic infarct. I see no associated hemorrhage. However, the low attenuation infarct does efface the adjacent cortical sulci, likely due to edema. The lateral and third ventricles are again noted to be mildly prominent representing no change. Some other mild bilateral periventricular and subcortical white matter changes are seen consistent with chronic microvascular disease. No other new low attenuation infarct is seen. I see no acute intracranial hemorrhage or abnormal extra-axial fluid collection. There is some prominence of the cortical sulci. Calcification within the falx is again seen. The calvarium of the skull appears intact without fracture. The visualized paranasal sinuses are clear. The mastoid air cells are clear without effusion. The middle ear cavities appear unremarkable. There appears to be moderate cerumen within the right external auditory canal. Impression: 1. I again see a moderate sized low attenuation infarct within the posterior right parietal-temporal lobes, as discussed above. There is some effacement of the adjacent cortical sulci, likely due to edema. I see no associated hemorrhage. 2. No new low attenuation infarct is seen. However, I do see mild generalized atrophy and chronic bilateral periventricular and subcortical deep white matter ischemic changes representing no change. 3. No acute other acute intracranial process is seen.
--- NOTE | 2021-12-28 18:02 | XRAY ---
Exam: MRI of the brain without IV contrast from 12/28/2021. Comparison: CT of the head without IV contrast from 12/26/2021. Indication: 71-year-old female with recent posterior right parietal-temporal stroke; decreased level of consciousness. Technique: Multiplanar, multisequence MRI imaging of the brain was obtained without IV contrast, per protocol. Findings: The ventricles and cortical sulci/fissures are prominent consistent with generalized atrophy. On the diffusion-weighted images, there is a fairly large area of restricted diffusion within the peripheral posterior right parietal-temporal lobe. This measures 6.4 cm in length and 3.1 cm in width on the axial diffusion weighted images. On the sagittal T2 FLAIR images, this site measures about 3.1 cm in craniocaudal dimension. This is consistent with an acute ischemic infarct. There is no associated hemorrhage. Scattered foci of increased T2 FLAIR signal are seen within the subcortical and periventricular white matter consistent with moderate chronic microvascular disease. I note some mild motion artifact on the axial T2 FLAIR images. There is no evidence of acute parenchymal hemorrhage or extracerebral hemorrhage. There is no midline shift. Incidentally, the sella is somewhat prominent and predominantly fluid-filled. The pituitary appears relatively flattened and shrunken. This raises the possibility of empty sella. The seventh and eighth cranial nerve root complexes appear unremarkable. No gross abnormality of the orbits or paranasal sinuses is seen. There is some deviation the posterior aspect of the nasal septum toward the left. The mastoids reveal no abnormal signal or effusion. Impression: 1. Moderately large area of restricted diffusion within the posterior right parietal-temporal lobe, as discussed above. This is consistent with an acute ischemic infarct. No other areas of restricted diffusion are seen. 2. Moderate generalized atrophy and evidence of moderate bilateral periventricular and subcortical chronic small vessel ischemic white matter disease. 3. Predominantly fluid-filled prominent sella suggesting the possibility of empty sella.
[2021-12-29] MEDS: DUONEB 0.5-3 MG/3 ml Neb IH SCH ×3 (06:42→14:10)
[2021-12-29] MEDS: Advair Hfa 230/21 Mcg COMMON CANISTER IH SCH (06:45)
[2021-12-29] MEDS: Klor Con PO SCH (09:36)
[2021-12-29] MEDS: Zestril 5 MG PO SCH (09:36)
[2021-12-29] MEDS: ECOTRIN 81 MG PO SCH (09:36)
[2021-12-29] MEDS: Neurontin PO SCH (09:36)
[2021-12-29] MEDS: Protonix 40MG Tablet PO SCH (09:37)
[2021-12-29] MEDS: Zocor 10MG PO SCH (09:37)
[2021-12-29] MEDS: ENOXAPARIN SODIUM SQ SCH (09:38)
[2021-12-29] MEDS: Tricor 145 MG PO SCH (09:38)
--- NOTE | 2021-12-29 12:40 | PCM.DS ---
Discharge Summary Date of Admission: 12/27/21 14:49 Admitting Physician: NASIR LYNCH Primary Care Provider: NINA PIMENTEL Allergies Allergies adhesive Allergy (Intermediate, Verified 04/27/21 23:30) Rash nalbuphine HCl [From Nubain] Allergy (Mild, Verified 04/27/21 23:30) Rash Penicillins Allergy (Mild, Verified 04/27/21 23:30) Rash gabapentin [From Neurontin] Allergy (Verified 04/27/21 23:30) Vomiting Hospital Summary - Hospital Course Hospital Course: Pt is a 71 yo female pt of Dara Pimentel who was admitted through ER with CVA. She was noted to be hypersomnolent at home with some mental status changes. In ER, CT head without contrast showed a CVA in the R parietal area with no hemorrhage. Teleneurology was done; she was thought to have some weakness on the L but overall the deficit was minor. MRI was done yesterday with findings consistent with the CT. Echo was done and read is pending. CMP was basically nl. Troponins negative and EKG non acute. Cholesterol was elevated. Her mental status has been variable during this admission. Yesterday morning she asked to get up, did OT, helped give herself a bath, and was conversant. Then at noon she was hypersomnolent; would mumble and squeeze a hand (on the R only). This morning, she fed herself breakfast. She is requiring 1-2 assist to get up at all. Has a shanks catheter but that will be discontinued before she is discharged. Sometimes requires help to eat. She is at extremely high risk for falls. Both PT/OT, discharge planning, and me have voiced concern about this pt going home, but daughter says she is there all the time and daughter's is available to help when needed. Will discharge pt to home on ASA, fenofibrate, and simvastatin. - Vitals & Intake/Output Vital Signs: Vital Signs Temperature 98.0 F 12/29/21 08:00 Pulse Rate 70 12/29/21 11:37 Respiratory Rate 18 12/29/21 11:37 Blood Pressure 126/70 12/29/21 08:00 O2 Sat by Pulse Oximetry 97 12/29/21 11:37 Intake & Output: Intake & Output 0912/28/21 12/29/21 12/30/21 11:59 11:59 11:59 11:59 Intake Total 0 0 220 Output Total 900 1650 1400 Balance -900 -1650 -1180 Weight 86.4 kg 86.4 kg 84.6 kg - Lab Result Diagrams: 12/27/21 04:30 12/27/21 04:30 Lab Results-Last 24 Hrs: Lab Results-Last 24 Hours 12/28/21 12/28/21 12/29/21 Range/Units 16:21 21:11 07:17 POC Glucometer 118 H 107 H 90 (74 to 106) mg/dL 12/29/21 Range/Units 11:42 POC Glucometer 138 H (74 to 106) mg/dL Micro Results-Entire Visit: Accuchecks Date 12/29/21 Date 12/29/21 - Radiology Exams Ordered Rad Exams-Entire Visit: Radiology Procedures Category Date Time Status HEAD WITHOUT CONTRAST [CT] Stat Exams 12/28/21 15:55 Completed MRI BRAIN W/O CONTRAST [MRI] Routine Exams 12/28/21 14:44 Completed - Procedures and Test Procedures and Tests throughout Hospitalization: Therapy Orders & Screens 12/26/21 22:17 Oxygen Nasal Cannula 2 lpm Comment: 12/26/21 23:51 Respiratory MDI BID Comment: MARZENA 2 PUFFS BID Diagnosis: Stroke Respiratory Nebulizer PRN Comment: ALBUTEROL Q2PRN FOR SOB/WHEEZING Diagnosis: Stroke Respiratory Therapy Assessment DAILY Comment: Diagnosis: Stroke 12/27/21 00:27 OT Screen per Nursing Assess ONCE Comment: Protocol Order Physician Instructions: Greater than 3 points order OT Admission Screening Reason For Exam: Triggered on Admission Diagnosis: Stroke Open Wound/Cellutlitis/Pressure Ulcers: No Acute Fx/ORIF/Change in wt bearing status: No Severe MUSCULOSKELETAL pain: No ADL Dysfunction: Yes Acute CVA w/Hemiparesis/Hemiplegia: Yes Decreased Functional Mobility/Strength: Yes Sprain/Strain: No Acute Post-op Mobility Dysfunction: No Total Points: 9 PT Screen per Nursing Assess ONCE Comment: Protocol Order Physician Instructions: Greater than 3 points order PT Admission Screenin Reason For Exam: Triggered on Admission Diagnosis: Stroke Open Wound/Cellutlitis/Pressure Ulcers: No Acute Fx/ORIF/Change in wt bearing status: No Severe MUSCULOSKELETAL pain: No ADL Dysfunction: Yes Acute CVA w/Hemiparesis/Hemiplegia: Yes Decreased Functional Mobility/Strength: Yes Sprain/Strain: No Acute Post-op Mobility Dysfunction: No Total Points: 9 ST Screen per Nursing Assess ONCE Comment: Protocol Order Physician Instructions: Greater than [address] Admission Screening Reason For Exam: Triggered on Admission Diagnosis: Stroke CVA/Dyshpagia/Aphasia: Yes Cognitive Deficits: Yes Dehydration/Nutrition Deficit: No Reflux: No Oral-Motor Difficulties: No Pneumonia: No Residential Resident: No Total Points: 8 12/27/21 08:55 OT Eval and Treat ( Order) ROUTINE Comment: Consulting Provider: Physician Instructions: Reason For Exam: Diagnosis: Stroke PT Eval & Treat ( Order) ONCE Reason for Eval:: CVA Diagnosis: Stroke ST Eval & Treat ( Order) .as ordered Comment: Physician Instructions: Reason For Exam: Evaluate: Yes: cva Treat: Yes Reason for Eval: CVA Diagnosis: Stroke Discharge Exam General Appearance: no apparent distress, alert (Oriented to person and place this morning) Neurologic Exam: cooperative, disoriented, confusion (had visual hallucinations for RN earlier today) Eye Exam: eyes nml inspection (open normally) Ears, Nose, Throat Exam: moist mucous membranes Neck Exam: normal inspection Respiratory Exam: normal breath sounds, lungs clear, No crackles/rales, No rhonchi, No wheezing Cardiovascular Exam: regular rate/rhythm, normal heart sounds, No murmur Gastrointestinal/Abdomen Exam: soft, normal bowel sounds, No tenderness, No distention, No mass, No guarding, No rebound Back Exam: normal inspection, No rash Extremity Exam: normal inspection, No pedal edema, No swelling Skin Exam: normal color, warm, dry, No rash Final Diagnosis/Problem List - Final Discharge Diagnosis/Problem (1) Stroke Current Visit: Yes Status: Acute Assessment & Plan: Was evaluated with teleneurology, but would consider having a neurology follow up - will let PCP discuss with pt's family. Code(s): I63.9 - CEREBRAL INFARCTION, UNSPECIFIED (2) Altered mental status Current Visit: No Status: Acute Assessment & Plan: Waxes and wanes. Code(s): R41.82 - ALTERED MENTAL STATUS, UNSPECIFIED (3) Diabetes mellitus type 2 Current Visit: No Status: Chronic Code(s): E11.9 - TYPE 2 DIABETES MELLITUS WITHOUT COMPLICATIONS (4) COPD (chronic obstructive pulmonary disease) Current Visit: Yes Status: Chronic (5) CAD (coronary artery disease) Current Visit: Yes Status: Chronic Code(s): I25.10 - ATHSCL HEART DISEASE OF [place] CORONARY ARTERY W/O ANG PCTRS - Discharge Disposition: Home, Self-Care Condition: Stable Prescriptions: Continue Nitroglycerin 0.4 mg Tablet [Nitrostat 0.4 MG Tablet] 0.4 mg SL Q5MIN PRN MR X 3 PRN PRN Reason: Chest Pain Loratadine 10 mg [Claritin 10 mg] 10 mg PO DAILY Furosemide 20 mg [Lasix 20 mg] 40 mg PO BID Aspirin EC 81 mg [Ecotrin 81 mg] 81 mg PO DAILY #0 Tiotropium Br/Olodaterol HCl [Stiolto Respimat Inhal [place]] 2 puffs IH DAILY PANTOPRAZOLE 40 mg Tablet [Protonix 40MG Tablet] 40 mg PO QAM Ferrous Sulfate, Dried [Iron] 325 mg PO BID Albuterol Sulfate Mdi [Proair Hfa MDI] 2 inh PO Q4H PRN PRN PRN Reason: Shortness Of Breath/Wheezing Albuterol/Ipratropium 3ml Neb* [DUONEB 0.5-3 MG/3 ml Neb] 1 amp IH QID Potassium Chloride 10 meq PO BID lisinopriL [Lisinopril] 2.5 mg PO DAILY Multivitamin W-Minerals/Lutein [Centrum Silver Tablet] 1 tablet PO DAILY Metformin HCl 500 mg [Glucophage 500 MG] 500 mg PO TID Ondansetron ODT 4 MG [Zofran Odt 4 mg] 4 mg PO Q6H PRN PRN #10 tab.rapdis PRN Reason: Vomiting Fenofibrate Nanocrystallized [Fenofibrate] 145 mg PO DAILY Atorvastatin Calcium 10 mg PO DAILY Acetaminophen 500 mg [Tylenol Extra Strength 500 mg] 500 - 1,000 mg PO Q4HPRN PRN tablet PRN Reason: ORAL TEMP >100.4 Fluticasone Propionate [Flonase NASAL] 2 sprays NS DAILY Gabapentin 100 mg PO BID Calcium Carbonate/Vitamin D3 [Calcium 600-Vit D3 400 [place]] 1 each PO DAILY Additional Instructions: REFERRAL WAS SENT TO [facility]. THEIR PHONE NUMBER IS [phone] Follow up with: NINA PIMENTEL NP [Primary Care Provider] -
[2021-12-29 16:33] VITALS: BP 156/63; PULSE 91; O2SAT 91
--- NOTE | 2021-12-30 07:43 | ECHO ---
Transthoracic echocardiographic examination and color Doppler was done on 12/27/2021. INDICATION: Stroke. IMPRESSION: 1) NO REGIONAL WALL MOTION ABNORMALITY. ESTIMATED GLOBAL LEFT VENTRICULAR EJECTION FRACTION OF AROUND 60%. 2) TRACE TRICUSPID REGURGITATION. RIGHT VENTRICULAR SYSTOLIC PRESSURE OF 37 MM OF MERCURY. 3) SCLEROTIC AORTIC VALVE WITH A PEAK TRANSAORTIC GRADIENT OF 10 MM OF MERCURY. 4) LEFT VENTRICULAR HYPERTROPHY. The left ventricle is visualized and demonstrated adequate motion of all the segments. Estimated global left ventricular ejection fraction around 60%. There is mild left ventricular hypertrophy. The mitral valve is seen and this opens adequately. No significant mitral regurgitation is seen. Left atrium is normal. The aortic valve is sclerotic. The peak gradient across the aortic valve is about 10 mm of Mercury. The right side chambers are mildly dilated. There is trace tricuspid regurgitation. The right ventricular systolic pressure of 37 mm of Mercury.
== END 2021-12-29 16:33 | disposition home or self-care (01) | DRG 66 ==
LOC: ED 16:56 → MED SURG 22:16 → OBSVTOIN 12-27 14:49 → MED SURG 12-29 11:06
PROVIDERS: ADMIT Family Medicine; ATTEND Family Medicine
DX: I63.9 Cerebral infarction, unspecified (principal); R41.82 Altered mental status, unspecified; E11.9 Type 2 diabetes mellitus without complications; I25.10 Atherosclerotic heart disease of native coronary artery without angina pectoris; J44.9 Chronic obstructive pulmonary disease, unspecified; I10 Essential (primary) hypertension; E78.00 Pure hypercholesterolemia, unspecified; Z99.81 Dependence on supplemental oxygen; Z79.899 Other long term (current) drug therapy; Z20.828 Contact with and (suspected) exposure to other viral communicable diseases
CPT/HCPCS: 0241U; 36000; 36415; 36600; 51702; 70450; 70496; 70498; 70551; 71045; 80053; 80061; 80307; 81015; 82140; 82375; 82803; 82947; 83036; 83605; 83721; 83735; 83880; 84443; 84484; 85025; 93005; 93268; 93306; 94640; 94760; 96360; 96361; 99285; J1650; A9270-GY; G0378; G0480

== ENCOUNTER 2022-04-09 11:32 | Inpatient (IN) | payer MEDICARE ==
[2022-04-09 12:36] LABS: Absolute Neutrophil Ct (ANC) 2.69 x10^3/uL (1.4-6.9); Basophil (Absolute #) 0.04 x10^3/uL (0-0.4); Eosinophil % 4.6 % (0.00-5.0); Eosinophil (Absolute #) 0.19 x10^3/uL (0-0.5); Hematocrit 41.3 % (35-47); Lymphocyte (Absolute #) 0.88 x10^3/uL (1.0-4.6); Lymphocytes % 21.4 % (24.0-44.0); Mean Cell Volume 95.2 fL (78-100); Mean Corpuscular Hgb Concent. 31.5 g/dL (32-36); Mean Platelet Volume 9.3 fL (7.5-11.0); Monocytes % 7.3 % (0.0-12.0); Neutrophil % 65.5 % (36.0-66.0); Platelet Count 206 x10^3/uL (150-450); Red Blood Count 4.34 x10^6/uL (4.1-5.4); Red Cell Distribution Width 14.4 % (11.5-14.0); White Blood Count 4.1 x10^3/uL (4.0-10.5)
[2022-04-09 13:01] LABS: ALBUMIN 4.3 g/dL (3.5-5.0); ALKALINE PHOSPHATASE 74 U/L (38-126); ANION GAP 10.4 MEQ/L (5-15); BLOOD UREA NITROGEN 36 mg/dL (7-17); CHLORIDE 103 mmol/L (98-107); Calcium 9.5 mg/dL (8.4-10.2); Carbon Dioxide 29 mmol/L (22-30); Creatinine 1 0.81 mg/dL (0.52-1.04); EST GLOMERULAR FILTRATION RATE > 60.0 ML/MIN; Glucose 83 mg/dL (74-106); Potassium 3.9 mmol/L (3.5-5.1); SGOT/AST 25 U/L (14-36); SGPT/ALT 21 U/L (0-35); SODIUM 138 mmol/L (137-145); Total Protein 7.9 g/dL (6.3-8.2)
[2022-04-09 14:02] LABS: INFLUENZA A NEGATIVE (NEGATIVE); INFLUENZA B NEGATIVE (NEGATIVE); RESPIRATORY SYNCTIAL VIRUS NEGATIVE (Negative); SARS-CoV-2 Xpert Express NEGATIVE (NEGATIVE)
[2022-04-09 14:26] LABS: Appearance CLEAR (CLEAR); Bilirubin NEGATIVE (NEGATIVE); Glucose NEGATIVE (NEGATIVE); Ketones NEGATIVE (NEGATIVE); Ph 5.5 (5-6); RBC NEGATIVE Ery/ul (0-5); Specific Gravity 1.015 (1.005-1.025)
[2022-04-09 14:27] LABS: Dipstick done @ ? MAIN LAB; Nitrite NEGATIVE (NEGATIVE); Protein,Urine Dip NEGATIVE (Negative); Urine Cultured Indicated? YES; Urobilinogen 0.2 mg/dL (0-1)
[2022-04-09 14:35] LABS: Bacteria RARE /HPF (NEGATIVE); Mucus SLIGHT /HPF (NEGATIVE)
[2022-04-09] MEDS ORDERED: CLINDAMYCIN-D5W 600 MG/50 ML*** 600 MG/50 ML BAG IV STA (14:56)
--- NOTE | 2022-04-09 14:58 | ERPHSYRPT ---
- History of Present Illness Time Seen by Provider: 04/09/22 11:50 Source: patient, family, EMS Exam Limitations: clinical condition Patient Subjective Stated Complaint: Patient without any specific complaints at this time. EMS was called to patient's home by the [facility] nurse with concerns about patient weakness and the patient's ability to care for herself at home. Patient was reportedly at home not wearing her oxygen, soiled with urine and feces, and confused upon the home health nurse's arrival to see patient today. Triage Nursing Assessment: Patient brought in by ambulance. She is awake and alert but not oriented to place, time, or situation. She is alert to name and answers most questions appropriately when asked but has trouble following simple commands; can not hold up indicated number of fingers when asked and will not let go of her side rails when staff are attempting to move her in bed. Patient arrived wearing 02 @ 2L per n/c and sating 100%; no SOB noted. NO cough noted during assessment. Anterior LLE is slightly red, no warmth noted with a small open area just above the redness noted; measures 0.3cm X 0.2xm X <0.1cm. A mepilex border dressing was removed from the patient's right inner buttocks. Bhanu ann has an unstageable pressure injury to her right inner buttocks under the dressing; measures 1.1cm X 0.8cm X ?. Can not measure depth on pressure injury due to the entire wound bed is covered in moist, yellow slough. Physician History: 71-year-old female with history of hypertension, hyperlipidemia, GERD, chronic respiratory failure secondary to COPD on 2 L oxygen was getting treatment for cellulitis left lower extremity and UTI is sent in ER from home by home health as patient was not able to take care of herself. She was soaked in urine and feces by her home health. Patient though denies any specific complaint except that she has some redness and swelling in the left leg. She denies any chest pain palpitations or shortness of breath but what she has at her baseline. No abdominal pain nausea or vomiting reported. She denies any fall. Does have some element of dementia and not a very good historian although she is able to answer most of simple questions. Allergies/Adverse Reactions: adhesive Allergy (Intermediate, Verified 04/09/22 18:05) Rash nalbuphine HCl [From Nubain] Allergy (Mild, Verified 04/09/22 18:05) Rash Penicillins Allergy (Mild, Verified 04/09/22 18:05) Rash Home Medications: Furosemide 20 mg [Lasix 20 mg] 40 mg PO DAILY 12/08/16 [History] Loratadine 10 mg [Claritin 10 mg] 10 mg PO DAILY 12/08/16 [History] Nitroglycerin 0.4 mg Tablet [Nitrostat 0.4 MG Tablet] 0.4 mg SL Q5MIN PRN MR X 3 PRN 12/08/16 [History] Albuterol Sulfate Mdi [Proair Hfa MDI] 2 inh PO Q4H PRN PRN 07/06/19 [History] Albuterol/Ipratropium 3ml Neb* [DUONEB 0.5-3 MG/3 ml Neb] 1 amp IH QID 07/06/19 [History] Ferrous Sulfate, Dried [Iron] 325 mg PO BID 07/06/19 [History] Metformin HCl 500 mg [Glucophage 500 MG] 500 mg PO TID 07/06/19 [History] PANTOPRAZOLE 40 mg Tablet [Protonix 40MG Tablet] 40 mg PO QAM 07/06/19 [History] Potassium Chloride 10 meq PO BID 07/06/19 [History] Tiotropium Br/Olodaterol HCl [Stiolto Respimat Inhal [place]] 2 puffs IH DAILY [History] lisinopriL [Lisinopril] 2.5 mg PO DAILY 07/06/19 [History] Atorvastatin Calcium 10 mg PO DAILY 04/28/21 [History] Fenofibrate Nanocrystallized [Fenofibrate] 145 mg PO DAILY 04/28/21 [History] Calcium Carbonate/Vitamin D3 [Calcium 600-Vit D3 400 Caplet] 1 each PO DAILY 12/26/21 [History] Fluticasone Propionate [Flonase NASAL] 2 sprays NS DAILY 12/26/21 [History] Gabapentin 100 mg PO BID 12/26/21 [History] Hx Tetanus, Diphtheria Vaccination/Date Given: Yes Hx Influenza Vaccination/Date Given: No Hx Pneumococcal Vaccination/Date Given: No Immunizations Up to Date: Yes Travel Risk - International Travel Have you traveled outside of the country in past 3 weeks: No - Coronavirus Screening Are you exhibiting any of the following symptoms?: No Close contact with a COVID-19 positive Pt in past 14-21 Days: No - Vaccine Status Have you recieved a Covid-19 vaccination: Yes (only the first one, no second on e) Cloth Folder Hand: Unknown - Vaccination Dates Dates if Unknown: ? - Review of Systems Constitutional: Fatigue Eyes: No Symptoms Ears, Nose, & Throat: No Symptoms Respiratory: No Symptoms Cardiac: No Symptoms Abdominal/Gastrointestinal: No Symptoms Genitourinary Symptoms: No Symptoms Musculoskeletal: Arthralgias Skin: Induration Neurological: No Symptoms Psychological: No Alcohol Abuse, No Drug Abuse Endocrine: No Symptoms Hematologic/Lymphatic: No Symptoms Immunological/Allergic: No Symptoms - Past Medical History Pertinent Past Medical History: Yes Neurological History: No Pertinent History ENT History: No Pertinent History Cardiac History: Coronary Artery Disease, High Cholesterol, Hypertension, Myocardial Infarction (NM) Respiratory History: Asthma, CHF, COPD, Emphysema, Pneumonia Endocrine Medical History: Diabetes Type II Musculoskeletal History: Arthritis GI Medical History: Diverticulosis, GERD, Gallbladder Disease History: No Pertinent History Psycho-Social History: No Pertinent History Female Reproductive Disorders: No Pertinent History Other Medical History: Cellulitis to BLE - Past Surgical History Past Surgical History: Yes Neuro Surgical History: No Pertinent History Cardiac: CABG, Cardiac Catheterization, Cardiac Stent Respiratory: No Pertinent History Gastrointestinal: Cholecystectomy Genitourinary: No Pertinent History Musculoskeletal: No Pertinent History Female Surgical History: Section, Tubal Ligation Other Surgical History: Patient us unable to give srugical history to staff at this time; surgical history obtained from previous ED visit. - Social History Smoking Status: Former smoker How long have you smoked: 63 years Exposure to second hand smoke: No Drug Use: none Patient Lives Alone: Yes (daughter there at times) - Nursing Vital Signs Nursing Vital Signs: Initial Vital Signs Temperature 96.8 F 04/09/22 11:40 Pulse Rate 50 L 04/09/22 11:40 Respiratory Rate 18 04/09/22 11:40 Blood Pressure 173/56 04/09/22 11:40 O2 Sat by Pulse Oximetry 100 04/09/22 11:40 Pain Scale Pain Intensity 0 - Physical Exam General Appearance: no apparent distress, alert Eye Exam: PERRL/EOMI Ears, Nose, Throat Exam: normal ENT inspection, pharynx normal Neck Exam: normal inspection, supple, full range of motion Respiratory Exam: rhonchi, No accessory muscle use Cardiovascular Exam: regular rate/rhythm, normal heart sounds Gastrointestinal/Abdomen Exam: soft, normal bowel sounds Back Exam: normal inspection, normal range of motion Extremity Exam: normal inspection, normal range of motion Neurologic Exam: alert, oriented x 3, cooperative Skin Exam: normal color SpO2 Interpretation: O2 applied SpO2: 100 O2 Delivery: Nasal Cannula - Course Nursing assessment & vital signs reviewed: (2 L) EKG Interpreted by Me: RATE (53), Sinus Black, Right [place] Deviation, Right Bundle Branch Block, Non-specific ST Changes Ordered Tests: Active Orders 24 hr Category Date Time Status Bedrest ROUTINE Activity 04/09/22 15:55 Active Up With Assistance ROUTINE Activity 04/09/22 15:55 Active Code Status Order ROUTINE Care 04/09/22 15:55 Active Code Status Order ROUTINE Care 04/09/22 15:55 Completed Fall Protocol Q1H Care 04/09/22 15:55 Active IV Care Q6H Care 04/09/22 15:55 Active IV Care Q6H Care 04/09/22 15:55 Completed IV Insertion STAT Care 04/09/22 11:50 Completed POCT Glucose Check ACHS Care 04/09/22 15:[address] in Observation ROUTINE Care 04/09/22 15:55 Active Jasmeet Vasquez, Duran ROUTINE Care 04/09/22 15:55 Active Telemetry q6h Care 04/09/22 15:55 Active Consistent Carbohydrate Diet 1800 Calorie Diet 04/09/22 Dinner Active CHEST 1 VIEW (PORTABLE) Stat Exams 04/09/22 11:50 Completed BLOOD CULTURE Stat Lab 04/09/22 12:15 Received BMP AM.LAB Lab 04/10/22 04:00 Ordered CBC W DIFF AM.LAB Lab 04/10/22 04:00 Ordered CBC W DIFF Stat Lab 04/09/22 12:15 Completed CMP Stat Lab 04/09/22 12:15 Completed CULTURE,URINE Stat Lab 04/09/22 14:10 Received Lactic Acid Stat Lab 04/09/22 11:50 Completed MAG [MAGNESIUM] Stat Lab 04/09/22 12:15 Completed UA W/RFX CULTURE Stat Lab 04/09/22 Completed UA W/RFX CULTURE Stat Lab 04/09/22 14:10 Completed Oxygen Nasal Cannula 2 lpm RT 04/09/22 15:55 Active Transfer Order Routine Transfer 04/09/22 Completed Medication Summary Generic Name Dose Route Start Last Admin Trade Name Freq PRN Reason Stop Dose Admin Acetaminophen 650 mg 04/09/22 15:55 Acetaminophen 325 Mg Tablet PO 05/09/22 15:54 Q4H PRN PRN PAIN AND/OR FEVER Albuterol/Ipratropium 3 ml 04/09/22 19:00 Ipratropium/Albuterol Sulfate 3 Ml Ampul.[facility] 05/09/22 18:59 Q6HRT TRISITAN Albuterol/Ipratropium 3 ml 04/09/22 19:00 04/09/22 17:13 Ipratropium/Albuterol Sulfate 3 Ml Ampul.[facility] 05/09/22 18:59 3 ml QIDRT TRISTIAN Administration Albuterol/Ipratropium 3 ml 04/09/22 17:00 Ipratropium/Albuterol Sulfate 3 Ml Ampul.[facility] 05/09/22 16:59 Q4HPRN PRN SHORTNESS OF BREATH/WHEEZING Gabapentin 100 mg 04/09/22 22:00 04/09/22 22:01 Gabapentin 100 Mg Capsule PO 04/09/22 22:01 100 mg ONCE ONE Administration Clindamycin HCl/Dextrose 600 mg in 50 mls @ 100 mls/hr 04/09/22 22:00 04/09/22 22:01 Clindamycin-D5w 600 Mg/50 Ml IV 05/09/22 21:59 100 mls/hr Q8HT TRISTIAN Administration Potassium Chloride/Sodium Chloride 1,000 mls @ 100 mls/hr 04/09/22 15:55 04/09/22 17:05 Sodium Chloride 0.9% W/ 20 Meq Kcl/Liter IV 05/09/22 15:54 100 mls/hr .Q10H TRISTIAN Administration Insulin Human Lispro 0 unit 04/09/22 15:55 Insulin Lispro 1 Unit SQ 05/09/22 15:54 UD PRN HYPERGLYCEMIA Pantoprazole Sodium 40 mg 04/10/22 10:00 Pantoprazole 40 Mg Vial IV 05/10/22 09:59 Q24H10 TRISTIAN Fluticasone/Salmeterol 2 puff 04/09/22 19:00 04/09/22 17:13 Fluticasone/Salmeterol 230/21 Common Canister IH 05/09/22 18:59 2 puff BIDRT TRISTIAN Administration Discontinued Medications Generic Name Dose Route Start Last Admin Trade Name Edilq PRN Reason Stop Dose Admin Clindamycin HCl/Dextrose 600 mg in 50 mls @ 100 mls/hr 04/09/22 14:56 04/09/22 15:54 Clindamycin-D5w 600 Mg/50 Ml IV 04/09/22 15:25 Infused STAT STA Infusion Clindamycin HCl/Dextrose Confirm 04/09/22 15:13 Clindamycin-D5w 600 Mg/50 Ml Administered 04/09/22 15:14 Dose 600 mg in 50 mls @ ud IV .[facility] Lab/Rad Data: Laboratory Result Diagrams 04/09/22 12:15 04/09/22 12:15 Laboratory Results 04/09/22 04/09/22 04/09/22 Range/Units 14:10 13:05 12:15 WBC (4.0-10.5) x10^3/uL RBC (4.1-5.4) x10^6/uL Hgb (12.0-16.0) g/dL Hct (35-47) % MCV (78-100) fL MCH (26-32) pg MCHC (32-36) g/dL RDW (11.5-14.0) % Plt Count (150-450) x10^3/uL MPV (7.5-11.0) fL Gran % (36.0-66.0) % Immature Gran % (Auto) (0.00-0.4) % Nucleat RBC Rel Count (0.00-0.1) % Eos # (Auto) (0-0.5) x10^3/uL Immature Gran # (Auto) (0.00-0.03) x10^3u/L Absolute Lymphs (auto) (1.0-4.6) x10^3/uL Absolute Monos (auto) (0.0-1.3) x10^3/uL Absolute Nucleated RBC (0.00-0.01) x10^3u/L Lymphocytes % (24.0-44.0) % Monocytes % (0.0-12.0) % Eosinophils % (0.00-5.0) % Basophils % (0.0-0.4) % Absolute Granulocytes (1.4-6.9) x10^3/uL Basophils # (0-0.4) x10^3/uL Sodium (137-145) mmol/L Potassium (3.5-5.1) mmol/L Chloride (98-107) mmol/L Carbon Dioxide (22-30) mmol/L Anion Gap (5-15) MEQ/L BUN (7-17) mg/dL Creatinine (0.52-1.04) mg/dL Estimated GFR ML/MIN Glucose (74-106) mg/dL Lactic Acid (0.4-2.0) Calcium (8.4-10.2) mg/dL Magnesium 1.7 (1.6-2.3) mg/dL Total Bilirubin (0.2-1.3) mg/dL AST (14-36) U/L ALT (0-35) U/L Alkaline Phosphatase (38-126) U/L Serum Total Protein (6.3-8.2) g/dL Albumin (3.5-5.0) g/dL Urinalys Dipstick Clnc MAIN LAB Urine Color YELLOW (YELLOW) Urine Appearance CLEAR (CLEAR) Urine pH 5.5 (5-6) Ur Specific [place] 1.015 (1.005-1.025) POC Urine Protein Conf NEGATIVE (Negative) Urine Ketones NEGATIVE (NEGATIVE) Urine Nitrite NEGATIVE (NEGATIVE) Urine Bilirubin NEGATIVE (NEGATIVE) Urine Urobilinogen 0.2 (0-1) mg/dL Urine Leukocytes NEGATIVE (NEGATIVE) Urine WBC (Auto) 3-5 A (0-5) /HPF Urine RBC (Auto) NONE (0-2) /HPF U Epithel Cells (Auto) NONE (FEW) /HPF Urine Bacteria (Auto) RARE (NEGATIVE) /HPF Urine RBC NEGATIVE (0-5) Abilio/ul Urine Mucus (Auto) SLIGHT A (NEGATIVE) /HPF Ur Culture Indicated? YES Urine Glucose NEGATIVE (NEGATIVE) mg/dL Influenza Type A Ag NEGATIVE (NEGATIVE) Influenza Type B Ag NEGATIVE (NEGATIVE) RSV (PCR) NEGATIVE (Negative) SARS-CoV-2 (PCR) NEGATIVE (NEGATIVE) 04/09/22 04/09/22 04/09/22 Range/Units 12:15 12:15 11:50 WBC 4.1 (4.0-10.5) x10^3/uL RBC 4.34 (4.1-5.4) x10^6/uL Hgb 13.0 (12.0-16.0) g/dL Hct 41.3 (35-47) % MCV 95.2 (78-100) fL MCH 30.0 (26-32) pg MCHC 31.5 L (32-36) g/dL RDW 14.4 H (11.5-14.0) % Plt Count 206 (150-450) x10^3/uL MPV 9.3 (7.5-11.0) fL Gran % 65.5 (36.0-66.0) % Immature Gran % (Auto) 0.2 (0.00-0.4) % Nucleat RBC Rel Count 0.0 (0.00-0.1) % Eos # (Auto) 0.19 (0-0.5) x10^3/uL Immature Gran # (Auto) 0.01 (0.00-0.03) x10^3u/L Absolute Lymphs (auto) 0.88 L (1.0-4.6) x10^3/uL Absolute Monos (auto) 0.30 (0.0-1.3) x10^3/uL Absolute Nucleated RBC 0.00 (0.00-0.01) x10^3u/L Lymphocytes % 21.4 L (24.0-44.0) % Monocytes % 7.3 (0.0-12.0) % Eosinophils % 4.6 (0.00-5.0) % Basophils % 1.0 (0.0-0.4) % Absolute Granulocytes 2.69 (1.4-6.9) x10^3/uL Basophils # 0.04 (0-0.4) x10^3/uL Sodium 138 (137-145) mmol/L Potassium 3.9 (3.5-5.1) mmol/L Chloride 103 (98-107) mmol/L Carbon Dioxide 29 (22-30) mmol/L Anion Gap 10.4 (5-15) MEQ/L BUN 36 H (7-17) mg/dL Creatinine 0.81 (0.52-1.04) mg/dL Estimated GFR > 60.0 ML/MIN Glucose 83 (74-106) mg/dL Lactic Acid 0.7 (0.4-2.0) Calcium 9.5 (8.4-10.2) mg/dL Magnesium (1.6-2.3) mg/dL Total Bilirubin 0.60 (0.2-1.3) mg/dL AST 25 (14-36) U/L ALT 21 (0-35) U/L Alkaline Phosphatase 74 (38-126) U/L Serum Total Protein 7.9 (6.3-8.2) g/dL Albumin 4.3 (3.5-5.0) g/dL Urinalys Dipstick Clnc Urine Color (YELLOW) Urine Appearance (CLEAR) Urine pH (5-6) Ur Specific [place] (1.005-1.025) POC Urine Protein Conf (Negative) Urine Ketones (NEGATIVE) Urine Nitrite (NEGATIVE) Urine Bilirubin (NEGATIVE) Urine Urobilinogen (0-1) mg/dL Urine Leukocytes (NEGATIVE) Urine WBC (Auto) (0-5) /HPF Urine RBC (Auto) (0-2) /HPF U Epithel Cells (Auto) (FEW) /HPF Urine Bacteria (Auto) (NEGATIVE) /HPF Urine RBC (0-5) Abilio/ul Urine Mucus (Auto) (NEGATIVE) /HPF Ur Culture Indicated? Urine Glucose (NEGATIVE) mg/dL Influenza Type A Ag (NEGATIVE) Influenza Type B Ag (NEGATIVE) RSV (PCR) (Negative) SARS-CoV-2 (PCR) (NEGATIVE) - Progress Progress: improved Progress Note: 04/09/22 14:57 She is given gentle hydration. Work-up showed normal white count, fairly unremarkable chemistries. Does have left lower extremity cellulitis and started on antibiotics. Patient is still weak all over. I believe she will benefit with IV antibiotics for cellulitis and some IV fluids along with rehab with PT OT. Discussed with Dr. Bazan, reviewed history, work-up and patient is admitted. Discussed with : Jade Counseled pt/family regarding: lab results, diagnosis, rad results - Departure Departure Disposition: Observation Clinical Impression: Generalized weakness, Cellulitis, leg Condition: Stable Critical Care Time: No
[2022-04-09] MEDS ORDERED: CLINDAMYCIN-D5W 600 MG/50 ML*** 600 MG/50 ML BAG IV ONE (15:13)
[2022-04-09] MEDS ORDERED: HUMALOG SQ PRN (15:55)
[2022-04-09] MEDS ORDERED: TYLENOL 325 MG PO PRN (15:55)
[2022-04-09] MEDS ORDERED: DUONEB 0.5-3 MG/3 ml Neb IH PRN (17:00)
[2022-04-09] MEDS: Sodium Chloride 0.9% W/ 20 mEq KCl/LITER 1,000 ML IV SCH (17:05)
[2022-04-09] MEDS ORDERED: DUONEB 0.5-3 MG/3 ml Neb IH ONE (17:10)
[2022-04-09] MEDS: DUONEB 0.5-3 MG/3 ml Neb IH SCH (17:13)
[2022-04-09] MEDS: Advair Hfa 230/21 Mcg COMMON CANISTER IH SCH (17:13)
[2022-04-09 18:51] LABS: RBC 0-2 /HPF (0-2); WBC 0-2 /HPF (0-5)
[2022-04-09 18:54] LABS: Appearance CLEAR (CLEAR); Bilirubin NEGATIVE (NEGATIVE); Dipstick done @ ? MAIN LAB; Glucose NEGATIVE (NEGATIVE); Ketones NEGATIVE (NEGATIVE); Nitrite NEGATIVE (NEGATIVE); Protein,Urine Dip NEGATIVE (Negative); RBC NEGATIVE Ery/ul (0-5); Specific Gravity 1.015 (1.005-1.025); Urine Cultured Indicated? NO; Urobilinogen 0.2 mg/dL (0-1)
[2022-04-09] MEDS ORDERED: DUONEB 0.5-3 MG/3 ml Neb IH SCH (19:00)
--- NOTE | 2022-04-09 21:16 | XRAY ---
Indication: General weakness. Comparison: December 26, 2021 Portable chest again hyperinflated with minimal bibasilar subsegmental atelectasis/scarring. Remaining lungs clear. Heart not enlarged again with right hilar calcified nodes and CABG. Bony thorax intact again with osteopenia and degenerative changes. Impression: Nonacute chest with chronic features.
[2022-04-09] MEDS ORDERED: Neurontin PO ONE (22:00)
[2022-04-09] MEDS: CLINDAMYCIN-D5W 600 MG/50 ML*** 600 MG/50 ML BAG IV SCH (22:01)
[2022-04-10] MEDS: Sodium Chloride 0.9% W/ 20 mEq KCl/LITER 1,000 ML IV SCH ×2 (03:28→14:29)
[2022-04-10 04:59] LABS: Absolute Neutrophil Ct (ANC) 1.81 x10^3/uL (1.4-6.9); Basophil (Absolute #) 0.02 x10^3/uL (0-0.4); Eosinophil % 4.4 % (0.00-5.0); Eosinophil (Absolute #) 0.14 x10^3/uL (0-0.5); Hematocrit 33.4 % (35-47); Hemoglobin 10.9 g/dL (12.0-16.0); Lymphocyte (Absolute #) 0.91 x10^3/uL (1.0-4.6); Lymphocytes % 28.3 % (24.0-44.0); Mean Cell Volume 94.1 fL (78-100); Mean Corpuscular Hemoglobin 30.7 pg (26-32); Mean Corpuscular Hgb Concent. 32.6 g/dL (32-36); Mean Platelet Volume 9.2 fL (7.5-11.0); Monocyte (Absolute #) 0.32 x10^3/uL (0.0-1.3); Neutrophil % 56.4 % (36.0-66.0); Platelet Count 162 x10^3/uL (150-450); Red Blood Count 3.55 x10^6/uL (4.1-5.4); Red Cell Distribution Width 14.5 % (11.5-14.0); White Blood Count 3.2 x10^3/uL (4.0-10.5)
[2022-04-10] MEDS: CLINDAMYCIN-D5W 600 MG/50 ML*** 600 MG/50 ML BAG IV SCH ×3 (05:12→21:39)
[2022-04-10] MEDS ORDERED: DUONEB 0.5-3 MG/3 ml Neb IH ONE (05:12)
[2022-04-10] MEDS: DUONEB 0.5-3 MG/3 ml Neb IH SCH ×4 (05:15→19:32)
[2022-04-10 05:20] LABS: ANION GAP 6.1 MEQ/L (5-15); BLOOD UREA NITROGEN 22 mg/dL (7-17); CHLORIDE 106 mmol/L (98-107); Calcium 8.6 mg/dL (8.4-10.2); Carbon Dioxide 29 mmol/L (22-30); Creatinine 1 0.65 mg/dL (0.52-1.04); EST GLOMERULAR FILTRATION RATE > 60.0 ML/MIN; Glucose 77 mg/dL (74-106); Potassium 4.2 mmol/L (3.5-5.1); SODIUM 137 mmol/L (137-145)
[2022-04-10] MEDS: Advair Hfa 230/21 Mcg COMMON CANISTER IH SCH ×2 (07:23→19:32)
[2022-04-10] MEDS ORDERED: TYLENOL EXTRA STRENGTH 500 MG PO PRN (09:34)
[2022-04-10] MEDS ORDERED: Nitrostat 0.4 MG Tablet SL PRN (09:34)
[2022-04-10] MEDS ORDERED: ZOFRAN ODT 4 MG PO PRN (09:34)
[2022-04-10] MEDS: ECOTRIN 81 MG PO SCH (09:58)
[2022-04-10] MEDS: Klor Con PO SCH ×2 (09:58→21:39)
[2022-04-10] MEDS: Lasix 40 MG PO SCH (09:58)
[2022-04-10] MEDS: Protonix 40MG Tablet PO SCH (09:58)
[2022-04-10] MEDS: Zestril 5 MG PO SCH (09:58)
[2022-04-10] MEDS: Tricor 145 MG PO SCH (09:58)
[2022-04-10] MEDS: CLARITIN 10 MG PO SCH (09:58)
[2022-04-10] MEDS: Calcium 500MG W/Vit D Tablet PO SCH (09:58)
[2022-04-10] MEDS: Flonase NASAL NS SCH (09:59)
[2022-04-10] MEDS: FEOSOL 325 MG PO SCH ×2 (09:59→21:39)
[2022-04-10] MEDS: Neurontin PO SCH ×2 (09:59→21:39)
[2022-04-10] MEDS: Zocor 10MG PO SCH (10:00)
[2022-04-10] MEDS ORDERED: NON-FORMULARY ITEM (Calcium Carbonate/Vitamin D3 [Calcium 600-Vit D3 400 Caplet] 1 EACH Ta PO SCH (10:00)
[2022-04-10] MEDS ORDERED: FERROUS SULFATE DRIED 159 MG PO SCH (10:00)
[2022-04-10] MEDS ORDERED: LASIX 20 MG PO SCH (10:00)
[2022-04-10] MEDS ORDERED: NON-FORMULARY ITEM (Atorvastatin Calcium [Atorvastatin Calcium] 10 MG Tablet) PO SCH (10:00)
[2022-04-10] MEDS ORDERED: PROTONIX 40 MG IV IV SCH (10:00)
[2022-04-10] MEDS: Glucophage 500 MG PO SCH ×2 (12:03→16:38)
[2022-04-11] MEDS: Sodium Chloride 0.9% W/ 20 mEq KCl/LITER 1,000 ML IV SCH ×3 (02:02→21:28)
[2022-04-11 05:18] LABS: Absolute Neutrophil Ct (ANC) 1.94 x10^3/uL (1.4-6.9); Basophil (Absolute #) 0.02 x10^3/uL (0-0.4); Eosinophil % 2.2 % (0.00-5.0); Eosinophil (Absolute #) 0.07 x10^3/uL (0-0.5); Hemoglobin 9.8 g/dL (12.0-16.0); Lymphocyte (Absolute #) 0.82 x10^3/uL (1.0-4.6); Lymphocytes % 25.8 % (24.0-44.0); Mean Cell Volume 93.5 fL (78-100); Mean Corpuscular Hemoglobin 30.5 pg (26-32); Mean Corpuscular Hgb Concent. 32.7 g/dL (32-36); Mean Platelet Volume 9.8 fL (7.5-11.0); Monocyte (Absolute #) 0.31 x10^3/uL (0.0-1.3); Monocytes % 9.7 % (0.0-12.0); Neutrophil % 61.1 % (36.0-66.0); Platelet Count 171 x10^3/uL (150-450); Red Blood Count 3.21 x10^6/uL (4.1-5.4); Red Cell Distribution Width 15.1 % (11.5-14.0); White Blood Count 3.2 x10^3/uL (4.0-10.5)
[2022-04-11] MEDS: CLINDAMYCIN-D5W 600 MG/50 ML*** 600 MG/50 ML BAG IV SCH ×3 (05:37→21:19)
[2022-04-11 05:40] LABS: ANION GAP 5.3 MEQ/L (5-15); BLOOD UREA NITROGEN 24 mg/dL (7-17); CHLORIDE 109 mmol/L (98-107); Calcium 7.8 mg/dL (8.4-10.2); Carbon Dioxide 28 mmol/L (22-30); Creatinine 1 0.95 mg/dL (0.52-1.04); EST GLOMERULAR FILTRATION RATE > 60.0 ML/MIN; Glucose 96 mg/dL (74-106); Potassium 4.2 mmol/L (3.5-5.1); SODIUM 138 mmol/L (137-145)
[2022-04-11] MEDS: DUONEB 0.5-3 MG/3 ml Neb IH SCH ×4 (07:05→18:44)
[2022-04-11] MEDS: Advair Hfa 230/21 Mcg COMMON CANISTER IH SCH ×2 (07:11→18:44)
--- NOTE | 2022-04-11 08:39 | PCM.NOTE ---
Date and Time: 04/11/22 0837 Subjective Assessment: patient states her leg is sore, she is tolerating po intake and in no distress. there are concerns about her living situation and ability to care for herself Objective Exam General Appearance: no apparent distress Neurologic Exam: alert, cooperative, No oriented x 3 Wound Assessment: Skin/Wound Assessment Wound/Incision Assessment Start: 04/09/22 16:09 Text: Status: Active Freq: Q6H Protocol: Document 04/11/22 02:00 RN (Rec: 04/11/22 02:11 RN [id number]) Wound/Incision Assessment Right Buttock Wound Assessment Shift Assessment Wound Type Pressure Ulcer Wound Stage Unstageable Respiratory Exam: normal breath sounds, lungs clear, No respiratory distress Cardiovascular Exam: regular rate/rhythm, normal heart sounds Gastrointestinal/Abdomen Exam: soft, No tenderness, No mass Extremity Exam: other (mild erythema, warmth to LLE) OBJECTIVE DATA Vital Signs: Vital Signs - 24 hr Temp Pulse Resp BP Pulse Ox 04/11/22 07:18 97.7 F 62 18 126/60 93 L 04/11/22 07:07 63 22 94 L 04/11/22 04:00 97.7 F 62 20 131/55 94 L 04/10/22 23:36 98.0 F 75 18 131/56 97 04/10/22 19:49 97.1 F 71 18 108/57 98 04/10/22 19:32 78 18 98 04/10/22 16:00 97.9 F 65 16 102/56 94 L 04/10/22 11:58 97.9 F 55 L 16 136/56 95 04/10/22 11:29 58 L 22 96 Pain Assessment - Last Documented Pain Intensity 0 Intake and Output: Intake & Output 04/08/22 04/09/22 04/10/22 04/11/22 11:59 11:59 11:59 11:59 Intake Total 500 4610 Balance 500 4610 Weight 91 kg 80.7 kg Lab Results: Lab Results-Last 24 Hours 04/10/22 04/10/22 04/10/22 Range/Units 11:29 16:34 20:58 WBC (4.0-10.5) x10^3/uL RBC (4.1-5.4) x10^6/uL Hgb (12.0-16.0) g/dL Hct (35-47) % MCV (78-100) fL MCH (26-32) pg MCHC (32-36) g/dL RDW (11.5-14.0) % Plt Count (150-450) x10^3/uL MPV (7.5-11.0) fL Gran % (36.0-66.0) % Immature Gran % (Auto) (0.00-0.4) % Nucleat RBC Rel Count (0.00-0.1) % Eos # (Auto) (0-0.5) x10^3/uL Immature Gran # (Auto) (0.00-0.03) x10^3u/L Absolute Lymphs (auto) (1.0-4.6) x10^3/uL Absolute Monos (auto) (0.0-1.3) x10^3/uL Absolute Nucleated RBC (0.00-0.01) x10^3u/L Lymphocytes % (24.0-44.0) % Monocytes % (0.0-12.0) % Eosinophils % (0.00-5.0) % Basophils % (0.0-0.4) % Absolute Granulocytes (1.4-6.9) x10^3/uL Basophils # (0-0.4) x10^3/uL Sodium (137-145) mmol/L Potassium (3.5-5.1) mmol/L Chloride (98-107) mmol/L Carbon Dioxide (22-30) mmol/L Anion Gap (5-15) MEQ/L BUN (7-17) mg/dL Creatinine (0.52-1.04) mg/dL Estimated GFR ML/MIN Glucose (74-106) mg/dL POC Glucometer 78 148 H 126 H (74 to 106) mg/dL Calcium (8.4-10.2) mg/dL 04/11/22 04/11/22 04/11/22 Range/Units 04:31 04:31 06:49 WBC 3.2 L (4.0-10.5) x10^3/uL RBC 3.21 L (4.1-5.4) x10^6/uL Hgb 9.8 L (12.0-16.0) g/dL Hct 30.0 L (35-47) % MCV 93.5 (78-100) fL MCH 30.5 (26-32) pg MCHC 32.7 (32-36) g/dL RDW 15.1 H (11.5-14.0) % Plt Count 171 (150-450) x10^3/uL MPV 9.8 (7.5-11.0) fL Gran % 61.1 (36.0-66.0) % Immature Gran % (Auto) 0.6 H (0.00-0.4) % Nucleat RBC Rel Count 0.0 (0.00-0.1) % Eos # (Auto) 0.07 (0-0.5) x10^3/uL Immature Gran # (Auto) 0.02 (0.00-0.03) x10^3u/L Absolute Lymphs (auto) 0.82 L (1.0-4.6) x10^3/uL Absolute Monos (auto) 0.31 (0.0-1.3) x10^3/uL Absolute Nucleated RBC 0.00 (0.00-0.01) x10^3u/L Lymphocytes % 25.8 (24.0-44.0) % Monocytes % 9.7 (0.0-12.0) % Eosinophils % 2.2 (0.00-5.0) % Basophils % 0.6 (0.0-0.4) % Absolute Granulocytes 1.94 (1.4-6.9) x10^3/uL Basophils # 0.02 (0-0.4) x10^3/uL Sodium 138 (137-145) mmol/L Potassium 4.2 (3.5-5.1) mmol/L Chloride 109 H (98-107) mmol/L Carbon Dioxide 28 (22-30) mmol/L Anion Gap 5.3 (5-15) MEQ/L BUN 24 H (7-17) mg/dL Creatinine 0.95 (0.52-1.04) mg/dL Estimated GFR > 60.0 ML/MIN Glucose 96 (74-106) mg/dL POC Glucometer 68 L (74 to 106) mg/dL Calcium 7.8 L (8.4-10.2) mg/dL Radiology Exams: Radiology Procedures Category Date Time Status CHEST 1 VIEW (PORTABLE) Stat Exams 04/09/22 11:50 Completed Assessment/Plan (1) Cellulitis of left leg Current Visit: No Status: Acute Assessment & Plan: continue cleocin Code(s): L03.116 - CELLULITIS OF LEFT LOWER LIMB (2) Dementia Current Visit: Yes Status: Acute Assessment & Plan: hx of CVA with worsening mental status, likely an element of vascular dementia. will consult discharge planning for ecf placement Code(s): F03.90 - UNSPECIFIED DEMENTIA WITHOUT BEHAVIORAL DISTURBANCE (3) Generalized weakness Current Visit: Yes Status: Acute Code(s): R53.1 - WEAKNESS (4) COPD (chronic obstructive pulmonary disease) Current Visit: No Status: Chronic Qualifiers:
[2022-04-11] MEDS: Glucophage 500 MG PO SCH ×3 (09:30→18:24)
[2022-04-11] MEDS: Tricor 145 MG PO SCH (10:31)
[2022-04-11] MEDS: ECOTRIN 81 MG PO SCH (10:31)
[2022-04-11] MEDS: Klor Con PO SCH ×3 (10:31→21:27)
[2022-04-11] MEDS: FEOSOL 325 MG PO SCH ×2 (10:31→21:25)
[2022-04-11] MEDS: Calcium 500MG W/Vit D Tablet PO SCH (10:31)
[2022-04-11] MEDS: CLARITIN 10 MG PO SCH (10:31)
[2022-04-11] MEDS: Neurontin PO SCH ×2 (10:31→21:26)
[2022-04-11] MEDS: Zestril 5 MG PO SCH (10:32)
[2022-04-11] MEDS: Protonix 40MG Tablet PO SCH (10:32)
[2022-04-11] MEDS: Zocor 10MG PO SCH (10:33)
[2022-04-11] MEDS: Lasix 40 MG PO SCH (10:33)
[2022-04-11] MEDS: Flonase NASAL NS SCH (10:33)
[2022-04-12 05:41] LABS: Basophil (Absolute #) 0.02 x10^3/uL (0-0.4); Eosinophil % 3.1 % (0.00-5.0); Eosinophil (Absolute #) 0.12 x10^3/uL (0-0.5); Hematocrit 33.1 % (35-47); Hemoglobin 10.7 g/dL (12.0-16.0); Lymphocyte (Absolute #) 0.94 x10^3/uL (1.0-4.6); Lymphocytes % 24.2 % (24.0-44.0); Mean Corpuscular Hemoglobin 30.1 pg (26-32); Mean Corpuscular Hgb Concent. 32.3 g/dL (32-36); Mean Platelet Volume 9.7 fL (7.5-11.0); Monocyte (Absolute #) 0.29 x10^3/uL (0.0-1.3); Monocytes % 7.5 % (0.0-12.0); Neutrophil % 64.4 % (36.0-66.0); Platelet Count 198 x10^3/uL (150-450); Red Blood Count 3.56 x10^6/uL (4.1-5.4); Red Cell Distribution Width 15.1 % (11.5-14.0); White Blood Count 3.9 x10^3/uL (4.0-10.5)
[2022-04-12 06:19] LABS: ALBUMIN 3.1 g/dL (3.5-5.0); ALKALINE PHOSPHATASE 49 U/L (38-126); ANION GAP 8.9 MEQ/L (5-15); BLOOD UREA NITROGEN 28 mg/dL (7-17); CHLORIDE 104 mmol/L (98-107); Carbon Dioxide 27 mmol/L (22-30); EST GLOMERULAR FILTRATION RATE > 60.0 ML/MIN; Glucose 81 mg/dL (74-106); Potassium 4.1 mmol/L (3.5-5.1); SGOT/AST 20 U/L (14-36); SGPT/ALT 14 U/L (0-35); SODIUM 136 mmol/L (137-145); Total Protein 5.8 g/dL (6.3-8.2)
[2022-04-12] MEDS: DUONEB 0.5-3 MG/3 ml Neb IH SCH ×3 (07:37→19:16)
[2022-04-12] MEDS: Advair Hfa 230/21 Mcg COMMON CANISTER IH SCH ×2 (07:37→19:16)
[2022-04-12] MEDS: Glucophage 500 MG PO SCH ×3 (08:00→16:55)
[2022-04-12] MEDS: Zocor 10MG PO SCH (09:02)
[2022-04-12] MEDS: CLARITIN 10 MG PO SCH (09:03)
[2022-04-12] MEDS: Protonix 40MG Tablet PO SCH (09:03)
[2022-04-12] MEDS: Lasix 40 MG PO SCH (09:03)
[2022-04-12] MEDS: Calcium 500MG W/Vit D Tablet PO SCH (09:03)
[2022-04-12] MEDS: Tricor 145 MG PO SCH (09:03)
[2022-04-12] MEDS: Neurontin PO SCH ×2 (09:03→22:03)
[2022-04-12] MEDS: FEOSOL 325 MG PO SCH ×2 (09:04→22:03)
[2022-04-12] MEDS: Flonase NASAL NS SCH ×2 (09:04→10:12)
[2022-04-12] MEDS: Zestril 5 MG PO SCH (09:04)
[2022-04-12] MEDS: ECOTRIN 81 MG PO SCH (09:04)
[2022-04-12] MEDS: CLEOCIN 150 MG CAPSULE PO SCH ×3 (09:08→22:02)
[2022-04-12] MEDS: Klor Con PO SCH ×2 (09:10→22:02)
--- NOTE | 2022-04-12 11:15 | PCM.DS ---
Discharge Summary Date of Admission: 04/10/22 09:34 Admitting Physician: PALMA HURTADO Primary Care Provider: PALMA HURTADO Allergies Allergies adhesive Allergy (Intermediate, Verified 04/09/22 18:05) Rash nalbuphine HCl [From Nubain] Allergy (Mild, Verified 04/09/22 18:05) Rash Penicillins Allergy (Mild, Verified 04/09/22 18:05) Rash Hospital Summary - Hospital Course Hospital Course: patient arrived to ER after home health nurse called with concerns about patient safety and ability to care for herself in the home. she is confused but pleasant with no concerns, she has unstageable pressure ulcer on buttocks, treated for cellulitis in left lower leg. she is tolerating po and APS has been involved, initially daughter declined admission to SNF but now family seems agreeable with involvement of APS. she is clearly unable to care for herself or make good decisions in her own best interest. - Vitals & Intake/Output Vital Signs: Vital Signs Temperature 98.0 F 04/12/22 07:27 Pulse Rate 58 L 04/12/22 09:11 Respiratory Rate 18 04/12/22 09:11 Blood Pressure 96/54 04/12/22 07:27 O2 Sat by Pulse Oximetry 95 04/12/22 09:11 Intake & Output: Intake & Output 04/09/22 04/10/22 04/11/22 04/12/22 11:59 11:59 11:59 11:59 Intake Total 500 5650 1620 Balance 500 5650 1620 Weight 91 kg 80.7 kg - Lab Result Diagrams: 04/12/22 04:40 04/12/22 04:40 Lab Results-Last 24 Hrs: Lab Results-Last 24 Hours 04/11/22 04/11/22 04/11/22 Range/Units 11:23 16:27 21:19 WBC (4.0-10.5) x10^3/uL RBC (4.1-5.4) x10^6/uL Hgb (12.0-16.0) g/dL Hct (35-47) % MCV (78-100) fL MCH (26-32) pg MCHC (32-36) g/dL RDW (11.5-14.0) % Plt Count (150-450) x10^3/uL MPV (7.5-11.0) fL Gran % (36.0-66.0) % Immature Gran % (Auto) (0.00-0.4) % Nucleat RBC Rel Count (0.00-0.1) % Eos # (Auto) (0-0.5) x10^3/uL Immature Gran # (Auto) (0.00-0.03) x10^3u/L Absolute Lymphs (auto) (1.0-4.6) x10^3/uL Absolute Monos (auto) (0.0-1.3) x10^3/uL Absolute Nucleated RBC (0.00-0.01) x10^3u/L Lymphocytes % (24.0-44.0) % Monocytes % (0.0-12.0) % Eosinophils % (0.00-5.0) % Basophils % (0.0-0.4) % Absolute Granulocytes (1.4-6.9) x10^3/uL Basophils # (0-0.4) x10^3/uL Sodium (137-145) mmol/L Potassium (3.5-5.1) mmol/L Chloride (98-107) mmol/L Carbon Dioxide (22-30) mmol/L Anion Gap (5-15) MEQ/L BUN (7-17) mg/dL Creatinine (0.52-1.04) mg/dL Estimated GFR ML/MIN Glucose (74-106) mg/dL POC Glucometer 106 116 H 135 H (74 to 106) mg/dL Calcium (8.4-10.2) mg/dL Total Bilirubin (0.2-1.3) mg/dL AST (14-36) U/L ALT (0-35) U/L Alkaline Phosphatase (38-126) U/L Serum Total Protein (6.3-8.2) g/dL Albumin (3.5-5.0) g/dL 04/12/22 04/12/22 04/12/22 Range/Units 04:40 04:40 07:07 WBC 3.9 L (4.0-10.5) x10^3/uL RBC 3.56 L (4.1-5.4) x10^6/uL Hgb 10.7 L (12.0-16.0) g/dL Hct 33.1 L (35-47) % MCV 93.0 (78-100) fL MCH 30.1 (26-32) pg MCHC 32.3 (32-36) g/dL RDW 15.1 H (11.5-14.0) % Plt Count 198 (150-450) x10^3/uL MPV 9.7 (7.5-11.0) fL Gran % 64.4 (36.0-66.0) % Immature Gran % (Auto) 0.3 (0.00-0.4) % Nucleat RBC Rel Count 0.0 (0.00-0.1) % Eos # (Auto) 0.12 (0-0.5) x10^3/uL Immature Gran # (Auto) 0.01 (0.00-0.03) x10^3u/L Absolute Lymphs (auto) 0.94 L (1.0-4.6) x10^3/uL Absolute Monos (auto) 0.29 (0.0-1.3) x10^3/uL Absolute Nucleated RBC 0.00 (0.00-0.01) x10^3u/L Lymphocytes % 24.2 (24.0-44.0) % Monocytes % 7.5 (0.0-12.0) % Eosinophils % 3.1 (0.00-5.0) % Basophils % 0.5 (0.0-0.4) % Absolute Granulocytes 2.50 (1.4-6.9) x10^3/uL Basophils # 0.02 (0-0.4) x10^3/uL Sodium 136 L (137-145) mmol/L Potassium 4.1 (3.5-5.1) mmol/L Chloride 104 (98-107) mmol/L Carbon Dioxide 27 (22-30) mmol/L Anion Gap 8.9 (5-15) MEQ/L BUN 28 H (7-17) mg/dL Creatinine 0.90 (0.52-1.04) mg/dL Estimated GFR > 60.0 ML/MIN Glucose 81 (74-106) mg/dL POC Glucometer 74 (74 to 106) mg/dL Calcium 8.0 L (8.4-10.2) mg/dL Total Bilirubin 0.30 (0.2-1.3) mg/dL AST 20 (14-36) U/L ALT 14 (0-35) U/L Alkaline Phosphatase 49 (38-126) U/L Serum Total Protein 5.8 L (6.3-8.2) g/dL Albumin 3.1 L (3.5-5.0) g/dL // Range/Units 11:05 WBC (4.0-10.5) x10^3/uL RBC (4.1-5.4) x10^6/uL Hgb (12.0-16.0) g/dL Hct (35-47) % MCV (78-100) fL MCH (26-32) pg MCHC (32-36) g/dL RDW (11.5-14.0) % Plt Count (150-450) x10^3/uL MPV (7.5-11.0) fL Gran % (36.0-66.0) % Immature Gran % (Auto) (0.00-0.4) % Nucleat RBC Rel Count (0.00-0.1) % Eos # (Auto) (0-0.5) x10^3/uL Immature Gran # (Auto) (0.00-0.03) x10^3u/L Absolute Lymphs (auto) (1.0-4.6) x10^3/uL Absolute Monos (auto) (0.0-1.3) x10^3/uL Absolute Nucleated RBC (0.00-0.01) x10^3u/L Lymphocytes % (24.0-44.0) % Monocytes % (0.0-12.0) % Eosinophils % (0.00-5.0) % Basophils % (0.0-0.4) % Absolute Granulocytes (1.4-6.9) x10^3/uL Basophils # (0-0.4) x10^3/uL Sodium (137-145) mmol/L Potassium (3.5-5.1) mmol/L Chloride (98-107) mmol/L Carbon Dioxide (22-30) mmol/L Anion Gap (5-15) MEQ/L BUN (7-17) mg/dL Creatinine (0.52-1.04) mg/dL Estimated GFR ML/MIN Glucose (74-106) mg/dL POC Glucometer 103 (74 to 106) mg/dL Calcium (8.4-10.2) mg/dL Total Bilirubin (0.2-1.3) mg/dL AST (14-36) U/L ALT (0-35) U/L Alkaline Phosphatase (38-126) U/L Serum Total Protein (6.3-8.2) g/dL Albumin (3.5-5.0) g/dL Micro Results-Entire Visit: Microbiology 04/09/22 14:10 Urine Culture - Final Catherized NO GROWTH 04/09/22 12:15 Blood Culture - Preliminary Blood NO GROWTH TO DATE 04/09/22 12:15 Blood Culture - Preliminary Blood NO GROWTH TO DATE Accuchecks Date 04/12/22 Date 04/11/22 Date 04/11/22 Date 04/11/22 Time 07:24 Time 16:37 Time 11:23 - Procedures and Test Procedures and Tests throughout Hospitalization: Therapy Orders & Screens 04/09/22 15:55 Oxygen Nasal Cannula 2 lpm Comment: 04/09/22 16:58 Respiratory Therapy Assessment DAILY Comment: Diagnosis: Leg cellulitis Discharge Exam General Appearance: no apparent distress Neurologic Exam: alert, oriented x 3 Respiratory Exam: normal breath sounds, lungs clear, No respiratory distress Cardiovascular Exam: regular rate/rhythm, normal heart sounds Gastrointestinal/Abdomen Exam: soft, No tenderness, No mass Extremity Exam: inflammation (left lower leg improving since admission), pedal edema Wound Assessment: Skin/Wound Assessment Wound/Incision Assessment Start: 04/09/22 16:09 Text: Status: Active Freq: Q6H Protocol: Document 04/12/22 01:43 (Rec: 04/12/22 01:48 [id number]) Wound/Incision Assessment Right Buttock Wound Assessment Shift Assessment Wound Type Pressure Ulcer Wound Stage Unstageable Wound Photo Photo Taken Yes Comment: on admit Final Diagnosis/Problem List - Final Discharge Diagnosis/Problem (1) Cellulitis of left leg Current Visit: No Status: Acute Assessment & Plan: improved on clindamycin, continue x 5 more days after discharge. 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 Code(s): F03.90 - UNSPECIFIED DEMENTIA WITHOUT BEHAVIORAL DISTURBANCE (3) Generalized weakness Current Visit: Yes Status: Acute Code(s): R53.1 - WEAKNESS (4) COPD (chronic obstructive pulmonary disease) Current Visit: No Status: Chronic - Discharge Disposition: DC TO ANY "OTHER" LONG TERM Condition: Stable Prescriptions: New clindamycin HCL [Cleocin HCl] 300 mg PO QID #20 cap Continue Nitroglycerin 0.4 mg Tablet [Nitrostat 0.4 MG Tablet] 0.4 mg SL Q5MIN PRN MR X 3 PRN PRN Reason: Chest Pain Loratadine 10 mg [Claritin 10 mg] 10 mg PO DAILY Furosemide 20 mg [Lasix 20 mg] 40 mg PO DAILY Aspirin EC 81 mg [Ecotrin 81 mg] 81 mg PO DAILY #0 Tiotropium Br/Olodaterol HCl [Stiolto Respimat Inhal [place]] 2 puffs IH DAILY PANTOPRAZOLE 40 mg Tablet [Protonix 40MG Tablet] 40 mg PO QAM Ferrous Sulfate, Dried [Iron] 325 mg PO BID Albuterol Sulfate Mdi [Proair Hfa MDI] 2 inh PO Q4H PRN PRN PRN Reason: Shortness Of Breath/Wheezing Albuterol/Ipratropium 3ml Neb* [DUONEB 0.5-3 MG/3 ml Neb] 1 amp IH QID Potassium Chloride 10 meq PO BID lisinopriL [Lisinopril] 2.5 mg PO DAILY Metformin HCl 500 mg [Glucophage 500 MG] 500 mg PO TID Ondansetron ODT 4 MG [Zofran Odt 4 mg] 4 mg PO Q6H PRN PRN #10 tab.rapdis PRN Reason: Vomiting Fenofibrate Nanocrystallized [Fenofibrate] 145 mg PO DAILY Atorvastatin Calcium 10 mg PO DAILY Acetaminophen 500 mg [Tylenol Extra Strength 500 mg] 500 - 1,000 mg PO Q4HPRN PRN tablet PRN Reason: ORAL TEMP >100.4 Fluticasone Propionate [Flonase NASAL] 2 sprays NS DAILY Gabapentin 100 mg PO BID Calcium Carbonate/Vitamin D3 [Calcium 600-Vit D3 400 Caplet] 1 each PO DAILY
[2022-04-13] MEDS: DUONEB 0.5-3 MG/3 ml Neb IH SCH ×3 (06:49→19:04)
[2022-04-13] MEDS: Advair Hfa 230/21 Mcg COMMON CANISTER IH SCH ×2 (06:52→19:04)
--- NOTE | 2022-04-13 07:54 | PCM.DS ---
Discharge Summary Date of Admission: 04/10/22 09:34 Admitting Physician: PALMA HURTADO Primary Care Provider: PALMA HURTADO Allergies Allergies adhesive Allergy (Intermediate, Verified 04/09/22 18:05) Rash nalbuphine HCl [From Nubain] Allergy (Mild, Verified 04/09/22 18:05) Rash Penicillins Allergy (Mild, Verified 04/09/22 18:05) Rash Hospital Summary - Hospital Course Hospital Course: patient admitted with generalized weakness and poor living conditions, concern p er home health. APS involved, discharging to [facility], patient unable to care for herself at this time. - Vitals & Intake/Output Vital Signs: Vital Signs Temperature 97.5 F 04/13/22 04:00 Pulse Rate 56 L 04/13/22 06:49 Respiratory Rate 16 04/13/22 06:49 Blood Pressure 113/56 04/13/22 04:00 O2 Sat by Pulse Oximetry 92 L 04/13/22 06:49 Intake & Output: Intake & Output 04/10/22 04/11/22 04/12/22 04/13/22 11:59 11:59 11:59 11:59 Intake Total 500 5650 1620 920 Output Total 650 Balance 500 5650 1620 270 Weight 80.7 kg 80.7 kg - Lab Result Diagrams: 04/12/22 04:40 04/12/22 04:40 Lab Results-Last 24 Hrs: Lab Results-Last 24 Hours 04/12/22 04/12/22 04/12/22 Range/Units 11:05 16:19 20:48 POC Glucometer 103 140 H 100 (74 to 106) mg/dL 04/13/22 Range/Units 06:59 POC Glucometer 63 L (74 to 106) mg/dL Micro Results-Entire Visit: Microbiology 04/09/22 14:10 Urine Culture - Final Catherized NO GROWTH 04/09/22 12:15 Blood Culture - Preliminary Blood NO GROWTH TO DATE 04/09/22 12:15 Blood Culture - Preliminary Blood NO GROWTH TO DATE Accuchecks Date 04/12/22 Date 04/12/22 Date 04/12/22 Time 21:00 Time 16:33 Time 11:25 - Procedures and Test Procedures and Tests throughout Hospitalization: Therapy Orders & Screens 04/09/22 15:55 Oxygen Nasal Cannula 2 lpm Comment: 04/09/22 16:58 Respiratory Therapy Assessment DAILY Comment: Diagnosis: Leg cellulitis Discharge Exam General Appearance: no apparent distress, alert Neurologic Exam: alert, oriented x 3 Respiratory Exam: normal breath sounds, lungs clear, No respiratory distress Cardiovascular Exam: regular rate/rhythm, normal heart sounds Gastrointestinal/Abdomen Exam: soft, No tenderness, No mass Skin Exam: normal color, warm, dry Wound Assessment: Skin/Wound Assessment Wound/Incision Assessment Start: 04/09/22 16:09 Text: Status: Active Freq: Q6H Protocol: Document 04/13/22 02:00 CB (Rec: 04/13/22 03:55 CB [id number]) Wound/Incision Assessment Right Buttock Wound Assessment Shift Assessment Wound Type Pressure Ulcer Wound Stage Unstageable Drainage Amount None General Appearance Open to air Length (cm) (cm) 0.5 Width (cm) (cm) 0.5 Depth (cm) (cm) 0 Wound Bed Greatest Portion Red (Granulation) Final Diagnosis/Problem List - Final Discharge Diagnosis/Problem (1) Cellulitis of left leg Current Visit: No Status: Acute Assessment & Plan: clindamycin continued at this time per home Code(s): L03.116 - CELLULITIS OF LEFT LOWER LIMB (2) Dementia Current Visit: Yes Status: Acute Code(s): F03.90 - UNSPECIFIED DEMENTIA WITHOUT BEHAVIORAL DISTURBANCE (3) Generalized weakness Current Visit: Yes Status: Acute Code(s): R53.1 - WEAKNESS (4) COPD (chronic obstructive pulmonary disease) Current Visit: No Status: Chronic - Discharge Disposition: DC TO ANY "OTHER" LONG-TERM Condition: Stable Prescriptions: New clindamycin HCL [Cleocin HCl] 300 mg PO QID #20 cap Continue Nitroglycerin 0.4 mg Tablet [Nitrostat 0.4 MG Tablet] 0.4 mg SL Q5MIN PRN MR X 3 PRN PRN Reason: Chest Pain Loratadine 10 mg [Claritin 10 mg] 10 mg PO DAILY Furosemide 20 mg [Lasix 20 mg] 40 mg PO DAILY Aspirin EC 81 mg [Ecotrin 81 mg] 81 mg PO DAILY #0 Tiotropium Br/Olodaterol HCl [Stiolto Respimat Inhal [place]] 2 puffs IH DAILY PANTOPRAZOLE 40 mg Tablet [Protonix 40MG Tablet] 40 mg PO QAM Ferrous Sulfate, Dried [Iron] 325 mg PO BID Albuterol Sulfate Mdi [Proair Hfa MDI] 2 inh PO Q4H PRN PRN PRN Reason: Shortness Of Breath/Wheezing Albuterol/Ipratropium 3ml Neb* [DUONEB 0.5-3 MG/3 ml Neb] 1 amp IH QID Potassium Chloride 10 meq PO BID lisinopriL [Lisinopril] 2.5 mg PO DAILY Metformin HCl 500 mg [Glucophage 500 MG] 500 mg PO TID Ondansetron ODT 4 MG [Zofran Odt 4 mg] 4 mg PO Q6H PRN PRN #10 tab.rapdis PRN Reason: Vomiting Fenofibrate Nanocrystallized [Fenofibrate] 145 mg PO DAILY Atorvastatin Calcium 10 mg PO DAILY Acetaminophen 500 mg [Tylenol Extra Strength 500 mg] 500 - 1,000 mg PO Q4HPRN PRN tablet PRN Reason: ORAL TEMP >100.4 Fluticasone Propionate [Flonase NASAL] 2 sprays NS DAILY Gabapentin 100 mg PO BID Calcium Carbonate/Vitamin D3 [Calcium 600-Vit D3 400 Caplet] 1 each PO DAILY Follow up with: PALMA HURTADO MD [Primary Care Provider] -
[2022-04-13] MEDS: ECOTRIN 81 MG PO SCH (09:53)
[2022-04-13] MEDS: Tricor 145 MG PO SCH (09:53)
[2022-04-13] MEDS: Glucophage 500 MG PO SCH ×3 (09:53→16:36)
[2022-04-13] MEDS: Neurontin PO SCH ×2 (09:53→21:28)
[2022-04-13] MEDS: Calcium 500MG W/Vit D Tablet PO SCH (09:53)
[2022-04-13] MEDS: Protonix 40MG Tablet PO SCH (09:53)
[2022-04-13] MEDS: Flonase NASAL NS SCH (09:53)
[2022-04-13] MEDS: Zocor 10MG PO SCH (09:53)
[2022-04-13] MEDS: Lasix 40 MG PO SCH (09:53)
[2022-04-13] MEDS: FEOSOL 325 MG PO SCH ×2 (09:53→21:28)
[2022-04-13] MEDS: Zestril 5 MG PO SCH (09:53)
[2022-04-13] MEDS: Klor Con PO SCH ×2 (09:53→21:28)
[2022-04-13] MEDS: CLARITIN 10 MG PO SCH (09:54)
[2022-04-13] MEDS: CLEOCIN 150 MG CAPSULE PO SCH ×3 (09:55→21:28)
[2022-04-14] MEDS: DUONEB 0.5-3 MG/3 ml Neb IH SCH ×2 (07:07→13:07)
[2022-04-14] MEDS: Advair Hfa 230/21 Mcg COMMON CANISTER IH SCH (07:07)
[2022-04-14 07:13] VITALS: O2SAT 91
[2022-04-14] MEDS: Glucophage 500 MG PO SCH ×2 (09:07→11:46)
[2022-04-14] MEDS: Sodium Chloride 0.9% W/ 20 mEq KCl/LITER 1,000 ML IV SCH (09:08)
[2022-04-14] MEDS: Calcium 500MG W/Vit D Tablet PO SCH (10:26)
[2022-04-14] MEDS: Zocor 10MG PO SCH (10:26)
[2022-04-14] MEDS: Zestril 5 MG PO SCH (10:26)
[2022-04-14] MEDS: Tricor 145 MG PO SCH (10:26)
[2022-04-14] MEDS: Lasix 40 MG PO SCH (10:26)
[2022-04-14] MEDS: CLARITIN 10 MG PO SCH (10:27)
[2022-04-14] MEDS: Klor Con PO SCH (10:27)
[2022-04-14] MEDS: CLEOCIN 150 MG CAPSULE PO SCH (10:27)
[2022-04-14] MEDS: FEOSOL 325 MG PO SCH (10:27)
[2022-04-14] MEDS: Protonix 40MG Tablet PO SCH (10:27)
[2022-04-14] MEDS: ECOTRIN 81 MG PO SCH (10:27)
[2022-04-14] MEDS: Neurontin PO SCH (10:27)
[2022-04-14] MEDS: Flonase NASAL NS SCH (10:28)
--- NOTE | 2022-04-14 10:59 | PCM.NOTE ---
Date and Time: 04/14/22 1057 Subjective Assessment: patient has no complaints, awaiting ecf placement. Objective Exam General Appearance: no apparent distress Neurologic Exam: alert, cooperative, No oriented x 3 Wound Assessment: Skin/Wound Assessment Wound/Incision Assessment Start: 04/09/22 16:09 Text: Status: Active Freq: Q6H Protocol: Document 04/14/22 02:00 CRISTAL (Rec: 04/14/22 03:19 CRISTAL [id number]) Wound/Incision Assessment Posterior Sacrum Wound Assessment Shift Assessment Wound Type Pressure Ulcer Wound Stage Stage II Dressing Status Dry & Intact Drainage Amount None Drainage Description none General Appearance Open to air Length (cm) (cm) 1 Width (cm) (cm) 0.5 Wound Bed Greatest Portion Yellow (Slough) Wound Bed Lesser Portion Pale [place] Surrounding Tissue Blanched/Dull Comment barrier cream applied to both open areas. Right Buttock Wound Assessment Shift Assessment Wound Type Pressure Ulcer Wound Stage Stage II Drainage Amount None Drainage Odor None/Absent General Appearance Open to air Length (cm) (cm) 2 Width (cm) (cm) 1 Depth (cm) (cm) 0 Wound Bed Greatest Portion Yellow (Slough) Wound Bed Lesser Portion Pale [place] Surrounding Tissue Blanched/Dull Respiratory Exam: normal breath sounds, lungs clear, No respiratory distress Cardiovascular Exam: regular rate/rhythm, normal heart sounds Gastrointestinal/Abdomen Exam: soft, No tenderness, No mass Extremity Exam: other (improving/clearing erythema LLE) OBJECTIVE DATA Vital Signs: Vital Signs - 24 hr Temp Pulse Resp BP Pulse Ox 04/14/22 07:12 97.9 F 60 16 126/57 91 L 04/14/22 07:10 71 16 92 L 04/14/22 04:00 97.5 F 55 L 16 92/46 90 L 04/14/22 00:00 97.3 F 66 17 130/76 96 04/13/22 20:00 96.8 F 67 17 169/62 93 L 04/13/22 19:08 74 20 93 L 04/13/22 16:00 96.6 F 65 16 120/58 95 04/13/22 12:00 97.3 F 64 16 125/55 91 L Pain Assessment - Last Documented Pain Intensity 0 Intake and Output: Intake & Output 04/11/22 04/12/22 04/13/22 04/14/22 11:59 11:59 11:59 11:59 Intake Total 5650 1620 1160 1320 Output Total 650 Balance 5650 9779 897 6178 Weight 80.7 kg Lab Results: Lab Results-Last 24 Hours 04/13/22 04/13/22 04/13/22 Range/Units 11:14 16:34 20:25 POC Glucometer 79 148 H 104 (74 to 106) mg/dL 04/14/22 Range/Units 07:00 POC Glucometer 64 L (74 to 106) mg/dL Multi-Disciplinary Progress Notes: Multi-Disciplinary Progress Notes 04/13/22 14:15 Case Management Note by Arely ZunigaCTNORMA OCAMPO UNABLE TO TAKE PATIENT CALLED AND S/W SON- HE WOULD LIKE [facility] TO BE THE NEXT OPTION FOLLOWED BY [facility] SENT REFERRAL TO [facility] UNABLE TO TAKE PATIENT REFERRAL FAXED TO [facility] AT THIS TIME Initialized on 04/13/22 14:15 - END OF NOTE Assessment/Plan (1) Cellulitis of left leg Current Visit: No Status: Acute Assessment & Plan: improved on cleocin Code(s): L03.116 - CELLULITIS OF LEFT LOWER LIMB (2) Dementia Current Visit: Yes Status: Acute Assessment & Plan: awaiting ECF placement, unable to care for herself and there were significant concerns with her home situation. APS is involved Code(s): F03.90 - UNSPECIFIED DEMENTIA WITHOUT BEHAVIORAL DISTURBANCE (3) Generalized weakness Current Visit: Yes Status: Acute Code(s): R53.1 - WEAKNESS (4) COPD (chronic obstructive pulmonary disease) Current Visit: No Status: Chronic Qualifiers:
--- NOTE | 2022-04-14 11:11 | PCM.DS ---
Discharge Summary Date of Admission: 04/10/22 09:34 Admitting Physician: PALMA HURTADO Primary Care Provider: PALMA HUTRADO Allergies Allergies adhesive Allergy (Intermediate, Verified 04/09/22 18:05) Rash nalbuphine HCl [From Nubain] Allergy (Mild, Verified 04/09/22 18:05) Rash Penicillins Allergy (Mild, Verified 04/09/22 18:05) Rash Hospital Summary - Hospital Course Hospital Course: patient admitted with cellulitis LLE, concerns by home health with living condit ions. aps involved, she has dementia. going to [facility] on discharge. - Vitals & Intake/Output Vital Signs: Vital Signs Temperature 97.9 F 04/14/22 07:12 Pulse Rate 60 04/14/22 07:12 Respiratory Rate 16 04/14/22 07:12 Blood Pressure 126/57 04/14/22 07:12 O2 Sat by Pulse Oximetry 91 L 04/14/22 07:12 Intake & Output: Intake & Output 04/11/22 04/12/22 04/13/22 04/14/22 11:59 11:59 11:59 11:59 Intake Total 5650 1620 1160 1320 Output Total 650 Balance 5650 9387 362 3712 Weight 80.7 kg - Lab Result Diagrams: 04/12/22 04:40 04/12/22 04:40 Lab Results-Last 24 Hrs: Lab Results-Last 24 Hours 04/13/22 04/13/22 04/13/22 Range/Units 11:14 16:34 20:25 POC Glucometer 79 148 H 104 (74 to 106) mg/dL 04/14/22 Range/Units 07:00 POC Glucometer 64 L (74 to 106) mg/dL Micro Results-Entire Visit: Microbiology 04/09/22 12:15 Blood Culture Gram Stain - Final Blood Not Reportable Blood Culture - Final NO GROWTH 04/09/22 12:15 Blood Culture Gram Stain - Final Blood Not Reportable Blood Culture - Final NO GROWTH 04/09/22 14:10 Urine Culture - Final Catherized NO GROWTH Accuchecks Date 04/14/22 Date 04/13/22 Date 04/13/22 Date 04/13/22 - Procedures and Test Procedures and Tests throughout Hospitalization: Therapy Orders & Screens 04/09/22 15:55 Oxygen Nasal Cannula 2 lpm Comment: 04/09/22 16:58 Respiratory Therapy Assessment DAILY Comment: Diagnosis: Leg cellulitis Discharge Exam General Appearance: no apparent distress Neurologic Exam: alert, cooperative, No oriented x 3 Respiratory Exam: normal breath sounds Cardiovascular Exam: regular rate/rhythm, normal heart sounds Extremity Exam: other (improving LLE cellulitis nearly resolved, skin issues documented by nursing on admission) Wound Assessment: Skin/Wound Assessment Wound/Incision Assessment Start: 04/09/22 16:09 Text: Status: Active Freq: Q6H Protocol: Document 04/14/22 08:00 EK (Rec: 04/14/22 11:02 EK [id number]) Wound/Incision Assessment Posterior Sacrum Wound Assessment Shift Assessment Wound Type Pressure Ulcer Wound Stage Stage II Dressing Status Dry & Intact Drainage Amount None Drainage Description none General Appearance Open to air Length (cm) (cm) 1 Width (cm) (cm) 0.5 Wound Bed Greatest Portion Yellow (Slough) Wound Bed Lesser Portion Pale [place] Surrounding Tissue Blanched/Dull Comment barrier cream applied to both open areas. Right Buttock Wound Assessment Shift Assessment Wound Type Pressure Ulcer Wound Stage Stage II Drainage Amount None Drainage Odor None/Absent General Appearance Open to air Length (cm) (cm) 2 Width (cm) (cm) 1 Depth (cm) (cm) 0 Wound Bed Greatest Portion Yellow (Slough) Wound Bed Lesser Portion Pale [place] Surrounding Tissue Blanched/Dull Wound Photo Date: 04/13/22 Time: 07:50 Final Diagnosis/Problem List - Final Discharge Diagnosis/Problem (1) Cellulitis of left leg Current Visit: No Status: Acute Code(s): L03.116 - CELLULITIS OF LEFT LOWER LIMB (2) Dementia Current Visit: Yes Status: Acute Code(s): F03.90 - UNSPECIFIED DEMENTIA WITHOUT BEHAVIORAL DISTURBANCE (3) Generalized weakness Current Visit: Yes Status: Acute Code(s): R53.1 - WEAKNESS (4) COPD (chronic obstructive pulmonary disease) Current Visit: No Status: Chronic - Discharge Disposition: DC TO ANY "OTHER" USP Condition: Stable Prescriptions: New clindamycin HCL [Cleocin HCl] 300 mg PO QID #20 cap Continue Nitroglycerin 0.4 mg Tablet [Nitrostat 0.4 MG Tablet] 0.4 mg SL Q5MIN PRN MR X 3 PRN PRN Reason: Chest Pain Loratadine 10 mg [Claritin 10 mg] 10 mg PO DAILY Furosemide 20 mg [Lasix 20 mg] 40 mg PO DAILY Aspirin EC 81 mg [Ecotrin 81 mg] 81 mg PO DAILY #0 Tiotropium Br/Olodaterol HCl [Stiolto Respimat Inhal [place]] 2 puffs IH DAILY PANTOPRAZOLE 40 mg Tablet [Protonix 40MG Tablet] 40 mg PO QAM Ferrous Sulfate, Dried [Iron] 325 mg PO BID Albuterol Sulfate Mdi [Proair Hfa MDI] 2 inh PO Q4H PRN PRN PRN Reason: Shortness Of Breath/Wheezing Albuterol/Ipratropium 3ml Neb* [DUONEB 0.5-3 MG/3 ml Neb] 1 amp IH QID Potassium Chloride 10 meq PO BID lisinopriL [Lisinopril] 2.5 mg PO DAILY Metformin HCl 500 mg [Glucophage 500 MG] 500 mg PO TID Ondansetron ODT 4 MG [Zofran Odt 4 mg] 4 mg PO Q6H PRN PRN #10 tab.rapdis PRN Reason: Vomiting Fenofibrate Nanocrystallized [Fenofibrate] 145 mg PO DAILY Atorvastatin Calcium 10 mg PO DAILY Acetaminophen 500 mg [Tylenol Extra Strength 500 mg] 500 - 1,000 mg PO Q4HPRN PRN tablet PRN Reason: ORAL TEMP >100.4 Fluticasone Propionate [Flonase NASAL] 2 sprays NS DAILY Gabapentin 100 mg PO BID Calcium Carbonate/Vitamin D3 [Calcium 600-Vit D3 400 Caplet] 1 each PO DAILY Additional Instructions: USP ORDERS: ADMIT TO [facility] [address] DIET ACHS DIET PT/OT EVAL AND TREAT SEE ATTACHED MED LIST Follow up with: JAMES MCCOY NP [NON-STAFF PHY W/O PRIVILEGES] - 04/22/22 10:45 am
[2022-04-14 11:45] VITALS: BP 136/66; PULSE 72
== END 2022-04-14 12:55 | DRG 603 ==
LOC: ED 11:32 → MED SURG 15:54 → OBSVTOIN 04-10 09:34
PROVIDERS: ADMIT Family Medicine; ATTEND Family Medicine
DX: L03.116 Cellulitis of left lower limb (principal); F03.90 Unspecified dementia, unspecified severity, without behavioral disturbance, psychotic disturbance, mood disturbance, and anxiety; R53.1 Weakness; J44.9 Chronic obstructive pulmonary disease, unspecified; L89.152 Pressure ulcer of sacral region, stage 2; L89.312 Pressure ulcer of right buttock, stage 2; I25.10 Atherosclerotic heart disease of native coronary artery without angina pectoris; E78.5 Hyperlipidemia, unspecified; I11.0 Hypertensive heart disease with heart failure; I50.9 Heart failure, unspecified; E11.9 Type 2 diabetes mellitus without complications; Z79.899 Other long term (current) drug therapy; Z20.828 Contact with and (suspected) exposure to other viral communicable diseases
CPT/HCPCS: 0241U; 36000; 36415; 71045; 80048; 80053; 81015; 82947; 83605; 83735; 85025; 87040; 87086; 93268; 94640; 94760; 99285; G0378; P9612; A9270-GY

== ENCOUNTER 2022-04-24 16:31 | Observation (INO) | payer MEDICARE ==
[2022-04-24 16:41] LABS: A-aADO2 505; ABG HEMOGLOBIN 12.1; ABG POTASSIUM 4.2 (3.5-5.1); ARTERIAL BLD GAS O2 SATURATION 99.2 % (95-100); ARTERIAL BLOOD GAS FIO2 100 %; ARTERIAL BLOOD GAS PCO2 56 mmHg (35-45); ARTERIAL BLOOD GAS PO2 138 mmHg (75-100); ARTERIAL BLOOD GAS pH 7.35 (7.35-7.45); HCO3- 30.9 (22-28); HGB O2 SAT 97.5 g/dF (94-100); Methhemoglobin 0.8 % (1.4-1.5); paO2 pAO1 0.21
[2022-04-24 16:42] LABS: ABG SITE LEFT BRACHIAL
[2022-04-24 16:53] LABS: Absolute Neutrophil Ct (ANC) 5.05 x10^3/uL (1.4-6.9); BASOPHIL % 0.4 % (0.0-0.4); Basophil (Absolute #) 0.03 x10^3/uL (0-0.4); Eosinophil % 2.8 % (0.00-5.0); Eosinophil (Absolute #) 0.22 x10^3/uL (0-0.5); Hematocrit 35.6 % (35-47); Hemoglobin 11.8 g/dL (12.0-16.0); IMMATURE GRAN # 0.03 x10^3u/L (0.00-0.03); IMMATURE GRAN % 0.4 % (0.00-0.4); Lymphocyte (Absolute #) 1.98 x10^3/uL (1.0-4.6); Lymphocytes % 25.4 % (24.0-44.0); Mean Cell Volume 92.7 fL (78-100); Mean Corpuscular Hemoglobin 30.7 pg (26-32); Mean Corpuscular Hgb Concent. 33.1 g/dL (32-36); Mean Platelet Volume 9.8 fL (7.5-11.0); Monocyte (Absolute #) 0.49 x10^3/uL (0.0-1.3); Monocytes % 6.3 % (0.0-12.0); Neutrophil % 64.7 % (36.0-66.0); Platelet Count 257 x10^3/uL (150-450); Red Blood Count 3.84 x10^6/uL (4.1-5.4); Red Cell Distribution Width 14.6 % (11.5-14.0); White Blood Count 7.8 x10^3/uL (4.0-10.5)
--- NOTE | 2022-04-24 16:57 | ERPHSYRPT ---
- History of Present Illness Source: EMS Exam Limitations: clinical condition (Pt oriented x 1 at baseline and minimally responsive) Patient Subjective Stated Complaint: pt here for altered mental status, she resides in [place] and was found flat in bed with emesis on night gown, she is restless, and moaning out, Triage Nursing Assessment: pt lethergic, restless, moaning out, skin w/d/p. has mulit blue bruising to arms and legs.has congested cough, NRB at 100% chest with rales heard, edema to lover legs that is normal for her Physician History: 71 yo wf from custodial w dementia who is oriented x1 at baseline presents w altered mental status. She was found in her bed unresponsive covered in emesis. Pt arrived per EMS to ER w good airway/gag reflex but minimally responsive. Pt slowly began to become more alert after ER arrival. She was at her baseline w being oriented to name only. Sats and BP WNL upon arrival. No focal weakness noted. She was discharged from [facility] last week. Timing/Duration: other (Before arrival) Activities at Onset: sleep Possible Cause: no prior episodes Modifying Factors: Improves With: other (Unknown) Allergies/Adverse Reactions: adhesive Allergy (Intermediate, Verified 04/24/22 16:58) Rash nalbuphine HCl [From Nubain] Allergy (Mild, Verified 04/24/22 16:58) Rash Penicillins Allergy (Mild, Verified 04/24/22 16:58) Rash Home Medications: Furosemide 20 mg [Lasix 20 mg] 40 mg PO DAILY 12/08/16 [History] Loratadine 10 mg [Claritin 10 mg] 10 mg PO DAILY 12/08/16 [History] Nitroglycerin 0.4 mg Tablet [Nitrostat 0.4 MG Tablet] 0.4 mg SL Q5MIN PRN MR X 3 PRN 12/08/16 [History] Albuterol Sulfate Mdi [Proair Hfa MDI] 2 inh PO Q4H PRN PRN 07/06/19 [History] Albuterol/Ipratropium 3ml Neb* [DUONEB 0.5-3 MG/3 ml Neb] 1 amp IH QID 07/06/19 [History] Ferrous Sulfate, Dried [Iron] 325 mg PO BID 07/06/19 [History] Metformin HCl 500 mg [Glucophage 500 MG] 500 mg PO TID 07/06/19 [History] PANTOPRAZOLE 40 mg Tablet [Protonix 40MG Tablet] 40 mg PO QAM 07/06/19 [History] Potassium Chloride 10 meq PO BID 07/06/19 [History] Tiotropium Br/Olodaterol HCl [Stiolto Respimat Inhal [place]] 2 puffs IH DAILY 07/06/19 [History] lisinopriL [Lisinopril] 2.5 mg PO DAILY 07/06/19 [History] Atorvastatin Calcium 10 mg PO DAILY 04/28/21 [History] Fenofibrate Nanocrystallized [Fenofibrate] 145 mg PO DAILY 04/28/21 [History] Calcium Carbonate/Vitamin D3 [Calcium 600-Vit D3 400 Caplet] 1 each PO DAILY 12/26/21 [History] Fluticasone Propionate [Flonase NASAL] 2 sprays NS DAILY 12/26/21 [History] Gabapentin 100 mg PO BID 12/26/21 [History] Hx Tetanus, Diphtheria Vaccination/Date Given: Yes Hx Influenza Vaccination/Date Given: No Hx Pneumococcal Vaccination/Date Given: No Immunizations Up to Date: Yes Travel Risk - International Travel Have you traveled outside of the country in past 3 weeks: No - Coronavirus Screening Are you exhibiting any of the following symptoms?: No - Vaccine Status Have you recieved a Covid-19 vaccination: Yes (only the first one, no second one ) [employer] Plant [employer]: Unknown - Vaccination Dates Dates if Unknown: ? - Review of Systems All Other Systems: Unable due to condition, Unable due to dementia - Past Medical History Pertinent Past Medical History: Yes Neurological History: No Pertinent History ENT History: No Pertinent History Cardiac History: Coronary Artery Disease, High Cholesterol, Hypertension, Myocardial Infarction ([place]) Respiratory History: Asthma, CHF, COPD, Emphysema, Pneumonia Endocrine Medical History: Diabetes Type II Musculoskeletal History: Arthritis GI Medical History: Diverticulosis, GERD, Gallbladder Disease History: No Pertinent History Psycho-Social History: No Pertinent History Female Reproductive Disorders: No Pertinent History Other Medical History: Cellulitis to BLE - Past Surgical History Past Surgical History: Yes Neuro Surgical History: No Pertinent History Cardiac: CABG, Cardiac Catheterization, Cardiac Stent Respiratory: No Pertinent History Gastrointestinal: Cholecystectomy Genitourinary: No Pertinent History Musculoskeletal: No Pertinent History Female Surgical History: Section, Tubal Ligation Other Surgical History: Patient us unable to give srugical history to staff at this time; surgical history obtained from previous ED visit. - Social History Smoking Status: Former smoker How long have you smoked: 63 years Exposure to second hand smoke: No Drug Use: none Patient Lives Alone: Yes (daughter there at times) - Nursing Vital Signs Nursing Vital Signs: Initial Vital Signs Temperature 96.4 F 04/24/22 16:49 Pulse Rate 85 04/24/22 16:49 Respiratory Rate 20 04/24/22 16:49 Blood Pressure 158/70 04/24/22 16:49 O2 Sat by Pulse Oximetry 99 04/24/22 16:49 Pain Scale Pain Intensity 0 Hypertensive - Physical Exam General Appearance: lethargy (Lethargic ) Eye Exam: PERRL/EOMI, eyes nml inspection Ears, Nose, Throat Exam: normal ENT inspection Neck Exam: normal inspection, non-tender, supple, full range of motion Respiratory Exam: crackles/rales (Rales R base scattered wheezes) Cardiovascular/Chest Exam: normal heart sounds, regular rate/rhythm, normal peripheral pulses, other (Ir-Ir w2/6 MIKIE), No murmur Abdominal/Gastrointestinal Exam: soft, normal bowel sounds, No tenderness Extremity Exam: pedal edema (Trace pre-tibial edema) Peripheral Pulses Exam: carotid (R): 2+, carotid (L): 2+ Neurologic Exam: other (Pt arrived minimally responsive but quickly became more responsive/No focal weakness/Good airway upon arrival and on/Oriented to name upon resolution which is baseline) Skin Exam: normal color, warm, dry Lymphatic Exam: No adenopathy SpO2 Interpretation: normal SpO2: 99 O2 Delivery: Room Air - Course Nursing assessment & vital signs reviewed: Yes EKG Interpreted by Me: RATE (EKG#1 NSR/Rate 81/Normal QT-QTc/Old anterior AK/Old inferior AK/No acute ST changes/EKG #2 sinus tach/Rate 120/Poor Rwave progression/left anterior fasicular block/No acute ST segment changes) - Radiology Exams Chest X-ray Interpretation: Interpreted by me (CXR-post surgical chest/Nothing acute) - CT Exams Head CT Interpretation: Tele-radiologist Report (Nothing acute) Chest CT Interpretation: Tele-radiologist Report (B ground glass opacities) Ordered Tests: Active Orders 24 hr Category Date Time Status EKG-ER Only STAT Care 04/24/22 16:33 Active CHEST 1 VIEW (PORTABLE) Stat Exams 04/24/22 16:59 Completed CHEST WITHOUT CONTRAST [CT] Stat Exams 04/24/22 19:16 Taken HEAD WITHOUT CONTRAST [CT] Stat Exams 04/24/22 19:11 Taken ABG [ARTERIAL BLOOD GASES] Stat Lab 04/24/22 16:37 Ordered ARTERIAL BLOOD GASES Urgent Lab 04/24/22 16:33 Completed BLOOD CULTURE Stat Lab 04/24/22 19:56 Received CBC W DIFF Stat Lab 04/24/22 16:50 Completed CMP Stat Lab 04/24/22 16:50 Completed CULTURE,URINE Stat Lab 04/24/22 16:50 Received D-DIMER QUANTITATIVE Stat Lab 04/24/22 16:45 Completed Lactic Acid Stat Lab 04/24/22 16:33 Completed MAGNESIUM Stat Lab 04/24/22 16:50 Completed NT PRO BNP Stat Lab 04/24/22 16:50 Completed PROTIME WITH INR Stat Lab 04/24/22 16:50 Completed PTT Stat Lab 04/24/22 16:50 Completed TROPONIN Q4H Lab 04/24/22 16:50 Completed TROPONIN Q4H Lab 04/24/22 19:56 Completed TROPONIN Q4H Lab 04/25/22 00:45 Ordered UA W/RFX UR CULTURE Stat Lab 04/24/22 16:50 Completed Medication Summary Discontinued Medications Generic Name Dose Route Start Last Admin Trade Name Freq PRN Reason Stop Dose Admin Haloperidol Lactate 5 mg 04/24/22 18:08 04/24/22 18:10 Haloperidol Lactate 5 Mg/Ml Vial IV 04/24/22 18:09 5 mg STAT ONE Administration Haloperidol Lactate Confirm 04/24/22 18:08 Haloperidol Lactate 5 Mg/Ml Vial Administered 04/24/22 18:09 Dose 5 mg .ROUTE .STK-MED ONE Ceftriaxone Sodium/Dextrose 1 g in 50 mls @ 100 mls/hr 04/24/22 19:34 01/0 12/07 19:51 Rocephin 1 Gm-D5w 50 Ml Bag IV 04/24/22 20:03 100 ml/hr STAT STA 100 mls/hr Administration Clindamycin HCl/Dextrose 600 mg in 50 mls @ 100 mls/hr 04/24/22 19:35 04/24 20:29 Clindamycin-D5w 600 Mg/50 Ml IV 04/24/22 20:04 100 ml/hr STAT STA 100 mls/hr Administration Ceftriaxone Sodium/Dextrose Confirm 04/24/22 19:46 Rocephin 1 Gm-D5w 50 Ml Bag Administered 04/24/22 19:47 Dose 1 g in 50 mls @ ud IV .[facility] ONE Clindamycin HCl/Dextrose Confirm 04/24/22 20:28 Clindamycin-D5w 600 Mg/50 Ml Administered 04/24/22 20:29 Dose 600 mg in 50 mls @ IV .[facility] ONE Lab/Rad Data: Laboratory Result Diagrams 04/24/22 16:50 04/24/22 16:50 Laboratory Results 04/24/22 04/24/22 04/24/22 Range/Units 20:35 19:56 16:50 WBC (4.0-10.5) x10^3/uL RBC (4.1-5.4) x10^6/uL Hgb (12.0-16.0) g/dL Hct (35-47) % MCV (78-100) fL MCH (26-32) pg MCHC (32-36) g/dL RDW (11.5-14.0) % Plt Count (150-450) x10^3/uL MPV (7.5-11.0) fL Gran % (36.0-66.0) % Immature Gran % (Auto) (0.00-0.4) % Nucleat RBC Rel Count (0.00-0.1) % Eos # (Auto) (0-0.5) x10^3/uL Immature Gran # (Auto) (0.00-0.03) x10^3u/L Absolute Lymphs (auto) (1.0-4.6) x10^3/uL Absolute Monos (auto) (0.0-1.3) x10^3/uL Absolute Nucleated RBC (0.00-0.01) x10^3u/L Lymphocytes % (24.0-44.0) % Monocytes % (0.0-12.0) % Eosinophils % (0.00-5.0) % Basophils % (0.0-0.4) % Absolute Granulocytes (1.4-6.9) x10^3/uL Basophils # (0-0.4) x10^3/uL PT (9.4-12.5) SECONDS INR (0.8-3.0) APTT (25.1-36.5) SECONDS D-Dimer (0.0-0.50) mg/L Puncture Site pCO2 (35-45) mmHg pO2 (75-100) mmHg Base Excess (-2.0-2.0) O2 Saturation (94-100) g/dF ABG pH (7.35-7.45) ABG HCO3 (22-28) ABG O2 Sat (Measured) (95-100) % Mynor Test A-a Gradient a/A Ratio Hemoglobin Carboxyhemoglobin (0.0-6.9) % THgb Methemoglobin (1.4-1.5) % Potassium (3.5-5.1) Temperature C POC O2 Flow Rate % Sodium (137-145) mmol/L Chloride (98-107) mmol/L Carbon Dioxide (22-30) mmol/L Anion Gap (5-15) MEQ/L BUN (7-17) mg/dL Creatinine (0.52-1.04) mg/dL Estimated GFR ML/MIN Glucose (74-106) mg/dL Lactic Acid (0.4-2.0) Calcium (8.4-10.2) mg/dL Magnesium (1.6-2.3) mg/dL Total Bilirubin (0.2-1.3) mg/dL AST (14-36) U/L ALT (0-35) U/L Alkaline Phosphatase (38-126) U/L Troponin I < 0.012 < 0.012 (0.000-0.034) ng/mL NT-Pro-B Natriuret Pep (0-900) pg/mL Serum Total Protein (6.3-8.2) g/dL Albumin (3.5-5.0) g/dL Urine Color (Yellow) Urine Appearance (Clear) Urine pH (4.6-8.0) Ur Specific [place] (1.005-1.030) Urine Protein (Negative) Urine Ketones (Negative) Urine Blood (Negative) Urine Nitrite (Negative) Urine Bilirubin (Negative) Urine Urobilinogen (0.2) mg/dL Ur Leukocyte Esterase (Negative) U Hyaline Cast (Auto) (0-2) /LPF Urine Microscopic RBC (0-5) /HPF Urine Microscopic WBC (0-5) /HPF Ur Epithelial Cells (None Seen) /HPF Urine Bacteria (None Seen) /HPF Urine Culture Reflexed (NO) Urine Glucose (Negative) mg/dL Influenza Type A Ag NEGATIVE (NEGATIVE) Influenza Type B Ag NEGATIVE (NEGATIVE) RSV (PCR) NEGATIVE (Negative) SARS-CoV-2 (PCR) NEGATIVE (NEGATIVE) 04/24/22 04/24/22 04/24/22 Range/Units 16:50 16:50 16:50 WBC (4.0-10.5) x10^3/uL RBC (4.1-5.4) x10^6/uL Hgb (12.0-16.0) g/dL Hct (35-47) % MCV (78-100) fL MCH (26-32) pg MCHC (32-36) g/dL RDW (11.5-14.0) % Plt Count (150-450) x10^3/uL MPV (7.5-11.0) fL Gran % (36.0-66.0) % Immature Gran % (Auto) (0.00-0.4) % Nucleat RBC Rel Count (0.00-0.1) % Eos # (Auto) (0-0.5) x10^3/uL Immature Gran # (Auto) (0.00-0.03) x10^3u/L Absolute Lymphs (auto) (1.0-4.6) x10^3/uL Absolute Monos (auto) (0.0-1.3) x10^3/uL Absolute Nucleated RBC (0.00-0.01) x10^3u/L Lymphocytes % (24.0-44.0) % Monocytes % (0.0-12.0) % Eosinophils % (0.00-5.0) % Basophils % (0.0-0.4) % Absolute Granulocytes (1.4-6.9) x10^3/uL Basophils # (0-0.4) x10^3/uL PT 11.2 (9.4-12.5) SECONDS INR 1.06 (0.8-3.0) APTT 27.3 (25.1-36.5) SECONDS D-Dimer (0.0-0.50) mg/L Puncture Site pCO2 (35-45) mmHg pO2 (75-100) mmHg Base Excess (-2.0-2.0) O2 Saturation (94-100) g/dF ABG pH (7.35-7.45) ABG HCO3 (22-28) ABG O2 Sat (Measured) (95-100) % Mynor Test A-a Gradient a/A Ratio Hemoglobin Carboxyhemoglobin (0.0-6.9) % THgb Methemoglobin (1.4-1.5) % Potassium 4.2 (3.5-5.1) Temperature C POC O2 Flow Rate % Sodium 137 (137-145) mmol/L Chloride 99 (98-107) mmol/L Carbon Dioxide 30 (22-30) mmol/L Anion Gap 12.4 (5-15) MEQ/L BUN 55 H (7-17) mg/dL Creatinine 1.54 H (0.52-1.04) mg/dL Estimated GFR 35.3 ML/MIN Glucose 137 H (74-106) mg/dL Lactic Acid (0.4-2.0) Calcium 9.1 (8.4-10.2) mg/dL Magnesium 1.4 L (1.6-2.3) mg/dL Total Bilirubin 0.40 (0.2-1.3) mg/dL AST 26 (14-36) U/L ALT 20 (0-35) U/L Alkaline Phosphatase 55 (38-126) U/L Troponin I (0.000-0.034) ng/mL NT-Pro-B Natriuret Pep 81.2 (0-900) pg/mL Serum Total Protein 7.2 (6.3-8.2) g/dL Albumin 4.2 (3.5-5.0) g/dL Urine Color Yellow (Yellow) Urine Appearance Clear (Clear) Urine pH 5.5 (4.6-8.0) Ur Specific [place] 1.010 (1.005-1.030) Urine Protein Negative (Negative) Urine Ketones Negative (Negative) Urine Blood Negative (Negative) Urine Nitrite Negative (Negative) Urine Bilirubin Negative (Negative) Urine Urobilinogen 0.2 (0.2) mg/dL Ur Leukocyte Esterase Trace A (Negative) U Hyaline Cast (Auto) 6-10 A (0-2) /LPF Urine Microscopic RBC 0-2 (0-5) /HPF Urine Microscopic WBC 6-10 A (0-5) /HPF Ur Epithelial Cells None Seen (None Seen) /HPF Urine Bacteria None Seen (None Seen) /HPF Urine Culture Reflexed ORDERED SEPARATELY (NO) Urine Glucose Negative (Negative) mg/dL Influenza Type A Ag (NEGATIVE) Influenza Type B Ag (NEGATIVE) RSV (PCR) (Negative) SARS-CoV-2 (PCR) (NEGATIVE) 04/24/22 04/24/22 04/24/22 Range/Units 16:50 16:45 16:33 WBC 7.8 (4.0-10.5) x10^3/uL RBC 3.84 L (4.1-5.4) x10^6/uL Hgb 11.8 L (12.0-16.0) g/dL Hct 35.6 (35-47) % MCV 92.7 (78-100) fL MCH 30.7 (26-32) pg MCHC 33.1 (32-36) g/dL RDW 14.6 H (11.5-14.0) % Plt Count 257 (150-450) x10^3/uL MPV 9.8 (7.5-11.0) fL Gran % 64.7 (36.0-66.0) % Immature Gran % (Auto) 0.4 (0.00-0.4) % Nucleat RBC Rel Count 0.0 (0.00-0.1) % Eos # (Auto) 0.22 (0-0.5) x10^3/uL Immature Gran # (Auto) 0.03 (0.00-0.03) x10^3u/L Absolute Lymphs (auto) 1.98 (1.0-4.6) x10^3/uL Absolute Monos (auto) 0.49 (0.0-1.3) x10^3/uL Absolute Nucleated RBC 0.00 (0.00-0.01) x10^3u/L Lymphocytes % 25.4 (24.0-44.0) % Monocytes % 6.3 (0.0-12.0) % Eosinophils % 2.8 (0.00-5.0) % Basophils % 0.4 (0.0-0.4) % Absolute Granulocytes 5.05 (1.4-6.9) x10^3/uL Basophils # 0.03 (0-0.4) x10^3/uL PT (9.4-12.5) SECONDS INR (0.8-3.0) APTT (25.1-36.5) SECONDS D-Dimer 0.55 H (0.0-0.50) mg/L Puncture Site LEFT BRACHIAL pCO2 56 H (35-45) mmHg pO2 138 H* (75-100) mmHg Base Excess 4.0 H (-2.0-2.0) O2 Saturation 97.5 (94-100) g/dF ABG pH 7.35 (7.35-7.45) ABG HCO3 30.9 H* (22-28) ABG O2 Sat (Measured) 99.2 (95-100) % Mynor Test NOT APPLICABLE A-a Gradient 505 a/A Ratio 0.21 Hemoglobin 12.1 Carboxyhemoglobin 1.0 (0.0-6.9) % THgb Methemoglobin 0.8 L (1.4-1.5) % Potassium 4.2 (3.5-5.1) Temperature 37.0 C POC O2 Flow Rate 100 % Sodium (137-145) mmol/L Chloride (98-107) mmol/L Carbon Dioxide (22-30) mmol/L Anion Gap (5-15) MEQ/L BUN (7-17) mg/dL Creatinine (0.52-1.04) mg/dL Estimated GFR ML/MIN Glucose (74-106) mg/dL Lactic Acid (0.4-2.0) Calcium (8.4-10.2) mg/dL Magnesium (1.6-2.3) mg/dL Total Bilirubin (0.2-1.3) mg/dL AST (14-36) U/L ALT (0-35) U/L Alkaline Phosphatase (38-126) U/L Troponin I (0.000-0.034) ng/mL NT-Pro-B Natriuret Pep (0-900) pg/mL Serum Total Protein (6.3-8.2) g/dL Albumin (3.5-5.0) g/dL Urine Color (Yellow) Urine Appearance (Clear) Urine pH (4.6-8.0) Ur Specific [place] (1.005-1.030) Urine Protein (Negative) Urine Ketones (Negative) Urine Blood (Negative) Urine Nitrite (Negative) Urine Bilirubin (Negative) Urine Urobilinogen (0.2) mg/dL Ur Leukocyte Esterase (Negative) U Hyaline Cast (Auto) (0-2) /LPF Urine Microscopic RBC (0-5) /HPF Urine Microscopic WBC (0-5) /HPF Ur Epithelial Cells (None Seen) /HPF Urine Bacteria (None Seen) /HPF Urine Culture Reflexed (NO) Urine Glucose (Negative) mg/dL Influenza Type A Ag (NEGATIVE) Influenza Type B Ag (NEGATIVE) RSV (PCR) (Negative) SARS-CoV-2 (PCR) (NEGATIVE) 04/24/22 Range/Units 16:33 WBC (4.0-10.5) x10^3/uL RBC (4.1-5.4) x10^6/uL Hgb (12.0-16.0) g/dL Hct (35-47) % MCV (78-100) fL MCH (26-32) pg MCHC (32-36) g/dL RDW (11.5-14.0) % Plt Count (150-450) x10^3/uL MPV (7.5-11.0) fL Gran % (36.0-66.0) % Immature Gran % (Auto) (0.00-0.4) % Nucleat RBC Rel Count (0.00-0.1) % Eos # (Auto) (0-0.5) x10^3/uL Immature Gran # (Auto) (0.00-0.03) x10^3u/L Absolute Lymphs (auto) (1.0-4.6) x10^3/uL Absolute Monos (auto) (0.0-1.3) x10^3/uL Absolute Nucleated RBC (0.00-0.01) x10^3u/L Lymphocytes % (24.0-44.0) % Monocytes % (0.0-12.0) % Eosinophils % (0.00-5.0) % Basophils % (0.0-0.4) % Absolute Granulocytes (1.4-6.9) x10^3/uL Basophils # (0-0.4) x10^3/uL PT (9.4-12.5) SECONDS INR (0.8-3.0) APTT (25.1-36.5) SECONDS D-Dimer (0.0-0.50) mg/L Puncture Site pCO2 (35-45) mmHg pO2 (75-100) mmHg Base Excess (-2.0-2.0) O2 Saturation (94-100) g/dF ABG pH (7.35-7.45) ABG HCO3 (22-28) ABG O2 Sat (Measured) (95-100) % Mynor Test A-a Gradient a/A Ratio Hemoglobin Carboxyhemoglobin (0.0-6.9) % THgb Methemoglobin (1.4-1.5) % Potassium (3.5-5.1) Temperature C POC O2 Flow Rate % Sodium (137-145) mmol/L Chloride (98-107) mmol/L Carbon Dioxide (22-30) mmol/L Anion Gap (5-15) MEQ/L BUN (7-17) mg/dL Creatinine (0.52-1.04) mg/dL Estimated GFR ML/MIN Glucose (74-106) mg/dL Lactic Acid 1.5 (0.4-2.0) Calcium (8.4-10.2) mg/dL Magnesium (1.6-2.3) mg/dL Total Bilirubin (0.2-1.3) mg/dL AST (14-36) U/L ALT (0-35) U/L Alkaline Phosphatase (38-126) U/L Troponin I (0.000-0.034) ng/mL NT-Pro-B Natriuret Pep (0-900) pg/mL Serum Total Protein (6.3-8.2) g/dL Albumin (3.5-5.0) g/dL Urine Color (Yellow) Urine Appearance (Clear) Urine pH (4.6-8.0) Ur Specific [place] (1.005-1.030) Urine Protein (Negative) Urine Ketones (Negative) Urine Blood (Negative) Urine Nitrite (Negative) Urine Bilirubin (Negative) Urine Urobilinogen (0.2) mg/dL Ur Leukocyte Esterase (Negative) U Hyaline Cast (Auto) (0-2) /LPF Urine Microscopic RBC (0-5) /HPF Urine Microscopic WBC (0-5) /HPF Ur Epithelial Cells (None Seen) /HPF Urine Bacteria (None Seen) /HPF Urine Culture Reflexed (NO) Urine Glucose (Negative) mg/dL Influenza Type A Ag (NEGATIVE) Influenza Type B Ag (NEGATIVE) RSV (PCR) (Negative) SARS-CoV-2 (PCR) (NEGATIVE) All reviewed - Progress Progress: improved Progress Note: 04/24/22 22:05 Blood cultures x2 04/24/22 22:06 1gm IV Rocephin/600mg IV Clindamycin Pt given 5mg IV Haldol in order to obtain ct of head/chest 04/24/22 22:[address] Rhodes Pt full code per Pt's son Pt admitted due to mental status changes and probable aspiration pneumonia All labs/XR/CT's reviewed After initially arriving minimally responsive, pt quickly normalized to baseline of being oriented to name only. She had good sats, good blood pressure, and no focal weakness during entire. DD mildly elevated but always elevated in the past and much higher. Unable to obtain CTA of chest due to renal failure Discussed with Dr.: Cardenas Counseled pt/family regarding: lab results, diagnosis, need for follow-up, rad results - Departure Departure Disposition: Observation Clinical Impression: Syncope, Aspiration into airway, Mental status alteration Condition: Stable Critical Care Time: Yes Critical Care Time(excluding separately billable procedures): Critical 30-74 mins
[2022-04-24 17:10] LABS: INR 1.06 (0.8-3.0); PROTIME 11.2 SECONDS (9.4-12.5); PTT 27.3 SECONDS (25.1-36.5)
[2022-04-24 17:15] LABS: Appearance Clear (Clear); Bacteria None Seen /HPF (None Seen); Bilirubin Negative (Negative); Blood Negative (Negative); Epithelial Cells None Seen /HPF (None Seen); Glucose Negative (Negative); Ketones Negative (Negative); Leukocyte Esterase Trace (Negative); Nitrite Negative (Negative); Ph 5.5 (4.6-8.0); Protein,Urine Dip Negative (Negative); RBC 0-2 /HPF (0-5); Urobilinogen 0.2 mg/dL (0.2)
[2022-04-24 17:16] LABS: ADD URINE CULTURE? ORDERED SEPARATELY (NO)
[2022-04-24 17:23] LABS: ALBUMIN 4.2 g/dL (3.5-5.0); ANION GAP 12.4 MEQ/L (5-15); BILIRUBIN,TOTAL 0.4 mg/dL (0.2-1.3); Calcium 9.1 mg/dL (8.4-10.2); Creatinine 1 1.54 mg/dL (0.52-1.04); EST GLOMERULAR FILTRATION RATE 35.3 ML/MIN; MAGNESIUM 1.4 mg/dL (1.6-2.3); NT PRO BNP 81.2 pg/mL (0-900); Potassium 4.2 mmol/L (3.5-5.1); Total Protein 7.2 g/dL (6.3-8.2)
[2022-04-24] MEDS ORDERED: Haldol 5 MG IV ONE (18:08)
[2022-04-24] MEDS ORDERED: Haldol 5 MG ONE (18:08)
--- NOTE | 2022-04-24 18:38 | XRAY ---
Indication: Lethargy. Aspiration. Comparison: April 09, 2022 Portable chest again hyperinflated and clear. Heart not enlarged again with CABG and small right hilar calcified nodes. Bony thorax intact again with osteopenia and degenerative changes. Impression: Nonacute hyperinflated chest with chronic features.
[2022-04-24] MEDS ORDERED: ROCEPHIN 1 Gm-D5w 50 ml Bag** 1 G/50 ML IVPB IV STA (19:34)
[2022-04-24] MEDS ORDERED: CLINDAMYCIN-D5W 600 MG/50 ML*** 600 MG/50 ML BAG IV STA (19:35)
[2022-04-24] MEDS ORDERED: ROCEPHIN 1 Gm-D5w 50 ml Bag** 1 G/50 ML IVPB IV ONE (19:46)
[2022-04-24] MEDS ORDERED: CLINDAMYCIN-D5W 600 MG/50 ML*** 600 MG/50 ML BAG IV ONE (20:28)
[2022-04-24 21:16] LABS: INFLUENZA A NEGATIVE (NEGATIVE); INFLUENZA B NEGATIVE (NEGATIVE); RESPIRATORY SYNCTIAL VIRUS NEGATIVE (Negative); SARS-CoV-2 Xpert Express NEGATIVE (NEGATIVE)
[2022-04-24] MEDS ORDERED: ROCEPHIN 1 Gm-D5w 50 ml Bag** 1 G/50 ML IVPB IV SCH (23:45)
[2022-04-24] MEDS: Sodium Chloride 0.9% 1000 ML 1,000 ML IV SCH (23:59)
[2022-04-25 03:00] LABS: Absolute Neutrophil Ct (ANC) 6.36 x10^3/uL (1.4-6.9); Basophil (Absolute #) 0 x10^3/uL (0-0.4); Eosinophil % 0.3 % (0.00-5.0); Eosinophil (Absolute #) 0.02 x10^3/uL (0-0.5); Hematocrit 33.9 % (35-47); Hemoglobin 11.1 g/dL (12.0-16.0); IMMATURE GRAN # 0.02 x10^3u/L (0.00-0.03); IMMATURE GRAN % 0.3 % (0.00-0.4); Lymphocyte (Absolute #) 0.52 x10^3/uL (1.0-4.6); Lymphocytes % 7.2 % (24.0-44.0); Mean Cell Volume 92.6 fL (78-100); Mean Corpuscular Hemoglobin 30.3 pg (26-32); Mean Corpuscular Hgb Concent. 32.7 g/dL (32-36); Mean Platelet Volume 9.4 fL (7.5-11.0); Monocyte (Absolute #) 0.35 x10^3/uL (0.0-1.3); Monocytes % 4.8 % (0.0-12.0); Neutrophil % 87.4 % (36.0-66.0); Platelet Count 172 x10^3/uL (150-450); Red Blood Count 3.66 x10^6/uL (4.1-5.4); Red Cell Distribution Width 14.4 % (11.5-14.0); White Blood Count 7.3 x10^3/uL (4.0-10.5)
[2022-04-25 03:26] LABS: ALBUMIN 3.7 g/dL (3.5-5.0); ANION GAP 10.3 MEQ/L (5-15); BILIRUBIN,TOTAL 0.3 mg/dL (0.2-1.3); Calcium 8.7 mg/dL (8.4-10.2); Creatinine 1 1.38 mg/dL (0.52-1.04); EST GLOMERULAR FILTRATION RATE 40.1 ML/MIN; Potassium 4.2 mmol/L (3.5-5.1); Total Protein 6.5 g/dL (6.3-8.2)
[2022-04-25] MEDS: CLINDAMYCIN-D5W 600 MG/50 ML*** 600 MG/50 ML BAG IV SCH ×3 (05:12→22:41)
[2022-04-25] MEDS: PROVENTIL 2.5 MG/3 ML NEB IH SCH ×4 (06:28→19:15)
[2022-04-25] MEDS: Advair Hfa 230/21 Mcg COMMON CANISTER IH SCH ×2 (06:33→19:36)
[2022-04-25 07:25] LABS: Slide Review 1 YES
--- NOTE | 2022-04-25 08:34 | XRAY ---
Indication: Acute mental status change. History dementia and stroke. Multiple contiguous axial images obtained through the head without contrast. Comparison: December 28, 2021 Again age-appropriate global atrophy and moderate periventricular degenerative micro-ischemia bilaterally. Progressive maturing large right temporoparietal infarct. No acute intracranial hemorrhage, hydrocephalus, or mass effect. Fourth ventricle is midline. Bony calvarium intact. Visualized paranasal sinuses and mastoid air cells are clear. Impression: Old right temporoparietal infarct. Atrophy and degenerative micro-ischemia within normal limits for patient's age. No acute intracranial abnormalities. Comment: Preliminary interpretation made by [facility]. No critical discrepancy.
--- NOTE | 2022-04-25 08:36 | XRAY ---
Indication: Acute mental status change. Aspiration. Multiple contiguous axial images obtained through the chest without contrast as ordered. Comparison: April 02, 2021. Lungs again demonstrate mild bibasilar subsegmental atelectasis/scarring less than before. No suspicious pulmonary mass, infiltrate, consolidation, effusion, or pneumothorax. Heart is not enlarged again with CABG. Aorta minimally arteriosclerotic without aneurysm. Stable chunky right hilar calcified nodes. No pathologic mediastinal lymphadenopathy. Bony thorax intact again with osteopenia, mild degenerative changes of the spine, and sternotomy wires. Limited upper abdomen again demonstrates tiny hepatic/splenic calcified granulomas. Impression: 1. Again bibasilar atelectasis/scarring, chronic bony findings, and old granulomatous disease. 2. Remaining CT chest without contrast exam is negative. Comment: Preliminary interpretation made by C. No critical discrepancy.
--- NOTE | 2022-04-25 08:58 | XRAY ---
Indication: Aspiration pneumonia. Comparison: One day earlier Portable chest demonstrates new left infrahilar and lesser degree right base infiltrate/atelectasis. No large effusion. Heart is not enlarged again with CABG. Impression: New bibasilar infiltrates/atelectasis, left greater than right favoring clinically reported aspiration pneumonia.
[2022-04-25] MEDS ORDERED: ENOXAPARIN SODIUM SQ SCH (10:00)
[2022-04-25] MEDS: ENOXAPARIN SODIUM SQ SCH (10:04)
[2022-04-25] MEDS: Sodium Chloride 0.9% 1000 ML 1,000 ML IV SCH ×2 (10:06→21:47)
--- NOTE | 2022-04-25 14:31 | XRAY ---
Indication: Cellulitis. Two-dimensional sonogram and color Doppler imaging of the major venous vessels of the left and right leg performed. Comparison: January 08, 2014 Process Excellence Manager notes difficult exam due to patient movement. No obvious thrombus seen in the examined deep venous vessels of the left and right leg including greater saphenous vein. Veins demonstrate normal compressibility. Venous waveforms are normal with and without augmentation. Impression: Left and right legs again negative for DVT.
--- NOTE | 2022-04-25 19:56 | PCM.HP ---
History of Present Illness - Chief Complaint Chief Complaint: syncope History of Present Illness: is a 71 year old female from assisted w dementia who is oriented x1 at baseline presents w altered mental status. She was found in her bed unresponsive covered in emesis. Pt arrived per EMS to ER w good airway/gag reflex but minimally responsive. Pt slowly began to become more alert after ER arrival. She was at her baseline w being oriented to name only. Sats and BP WNL upon arrival. No focal weakness noted. She was discharged from [facility] last week. Patient is admitted to med surg for Tx aspiration pneumonia. - Review of Systems Constitutional: Lethargy Eyes: No Symptoms Ears, Nose, & Throat: No Symptoms Respiratory: Cough, Short Of Breath, Wheezing Cardiac: No Symptoms Abdominal/Gastrointestinal: Vomiting Skin: Cellulitis Neurological: Lethargy Psychological: Memory Loss (chronic) Endocrine: No Symptoms Medications & Allergies Home Medications: Home Medication List Furosemide 20 mg [Lasix 20 mg] 40 mg PO DAILY 12/08/16 [History Confirmed 04/24/22] Loratadine 10 mg [Claritin 10 mg] 10 mg PO DAILY 12/08/16 [History Confirmed 04/24/22] Nitroglycerin 0.4 mg Tablet [Nitrostat 0.4 MG Tablet] 0.4 mg SL Q5MIN PRN MR X 3 PRN 12/08/16 [History Confirmed 04/24/22] Aspirin EC 81 mg [Ecotrin 81 mg] 81 mg PO DAILY #0 02/17/17 [Rx Confirmed 04/24/22] Metformin HCl 500 mg [Glucophage 500 MG] 500 mg PO TID 07/06/19 [History Confirmed 04/24/22] PANTOPRAZOLE 40 mg Tablet [Protonix 40MG Tablet] 40 mg PO QAM 07/06/19 [History Confirmed 04/24/22] Potassium Chloride 10 meq PO BID 07/06/19 [History Confirmed 04/24/22] Tiotropium Br/Olodaterol HCl [Stiolto Respimat Inhal [place]] 2 puffs IH DAILY 07/06/19 [History Confirmed 04/24/22] lisinopriL [Lisinopril] 2.5 mg PO DAILY 07/06/19 [History Confirmed 04/24/22] Ondansetron ODT 4 MG [Zofran Odt 4 mg] 4 mg PO Q6H PRN PRN #10 tab.rapdis 02/18/20 [Rx Confirmed 04/24/22] Atorvastatin Calcium 10 mg PO HS 04/28/21 [History Confirmed 04/24/22] Fenofibrate Nanocrystallized [Fenofibrate] 145 mg PO DAILY 04/28/21 [History Confirmed 04/24/22] Calcium Carbonate/Vitamin D3 [Calcium 600-Vit D3 400 Caplet] 1 each PO DAILY 12/26/21 [History Confirmed 04/24/22] Fluticasone Propionate [Flonase NASAL] 2 sprays NS DAILY 12/26/21 [History Confirmed 04/24/22] Gabapentin 100 mg PO BID 12/26/21 [History Confirmed 04/24/22] Acetaminophen 500 mg [Tylenol Extra Strength 500 mg] 500 mg PO Q6H PRN PRN 04/24/22 [History Confirmed 04/24/22] Albuterol 8 gm Mdi Hfa [Ventolin Hfa MDI] 2 puffs IH Q4H PRN PRN 04/24/22 [History Confirmed 04/24/22] Bisacodyl 10 mg [Dulcolax 10 MG SUPP] 10 mg RC Q24H PRN 04/24/22 [History Confirmed 04/24/22] Ferrous Sulfate [Ferosul] 325 mg PO BID 04/24/22 [History Confirmed 04/24/22] Magnesium Hydroxide [Milk of Magnesia] 30 ml PO Q24H PRN 04/24/22 [History Confirmed 04/24/22] Sodium Phosphate,[place]-Dibasic [Fleet Enema] 118 ml RC Q24H PRN 04/24/22 [History Confirmed 04/24/22] Cefuroxime Axetil 500 mg [Ceftin 500 mg] 500 mg PO BID 5 Days #10 tablet 04/27/22 [Rx] clindamycin HCL [Clindamycin HCl] 150 mg PO TID 5 Days #15 cap 04/27/22 [Rx] Allergies/Adverse Reactions: Allergies Allergy/AdvReac Type Severity Reaction Status Date / Time adhesive Allergy Intermediate Rash Verified 04/24/22 16:58 nalbuphine HCl [From Nubain] Allergy Mild Rash Verified 04/24/22 16:58 Penicillins Allergy Mild Rash Verified 04/24/22 16:58 - Past Medical History Past Medical History: Yes Neurological History: No Pertinent History ENT History: No Pertinent History Cardiac History: Coronary Artery Disease, High Cholesterol, Hypertension, Myocardial Infarction ([place]) Respiratory History: Asthma, CHF, COPD, Emphysema, Pneumonia Endocrine Medical History: Diabetes Type II Musculoskelatal History: Arthritis GI Medical History: Diverticulosis, GERD, Gallbladder Disease History: No Pertinent History Pyscho-Social History: No Pertinent History Reproductive Disorders: No Pertinent History Comment: Cellulitis to BLE - Past Surgical History Past Surgical History: Yes Neuro Surgical History: No Pertinent History Cardiac History: CABG, Cardiac Catheterization, Cardiac Stent Respiratory Surgery: No Pertinent History GI Surgical History: Cholecystectomy Genitourinary Surgical Hx: No Pertinent History Musculskeletal Surgical Hx: No Pertinent History Female Surgical History: Section, Tubal Ligation Other Surgical History: Patient us unable to give srugical history to staff at this time; surgical history obtained from previous ED visit. - Social History Smoking Status: Unknown if ever smoked How long have you smoked: 63 years Exposure to second hand smoke: No Alcohol: None Drug Use: none - Physical Exam Vital Signs: Vital Signs - 24 hr Temp Pulse Resp BP Pulse Ox 04/25/22 19:43 97.0 F 75 18 123/54 93 L 04/25/22 19:36 70 22 96 04/25/22 16:00 97.5 F 82 20 84/50 95 04/25/22 14:43 75 20 95 04/25/22 11:48 97.1 F 70 20 107/53 94 L 04/25/22 10:28 72 18 92 L 04/25/22 07:00 97.9 F 69 19 87/50 91 L 04/25/22 06:31 71 18 92 L 04/25/22 04:00 16 04/25/22 03:34 97.7 F 79 16 88/42 95 04/25/22 00:33 99 H 20 93 L 04/25/22 00:05 97.8 F 114 H 16 136/58 94 L 04/24/22 23:34 97.8 F 114 H 16 136/58 94 L 04/24/22 23:08 99 04/24/22 22:03 108 H 20 144/82 97 04/24/22 21:24 104 H 18 153/76 98 04/24/22 20:00 84 24 107/56 99 General Appearance: other (per chart history) Neurologic Exam: alert (oriented to person) Eye Exam: eyes nml inspection Ears, Nose, Throat Exam: normal ENT inspection Neck Exam: normal inspection Respiratory Exam: crackles/rales, wheezing (scattered) Cardiovascular Exam: regular rate/rhythm Gastrointestinal/Abdomen Exam: soft (nontender) Pelvic Exam: not done Rectal Exam: not done Back Exam: normal inspection Extremity Exam: inflammation Skin Exam: warm, dry Wound Assessment: Skin/Wound Assessment Wound/Incision Assessment Start: 04/25/22 10:37 Text: Status: Active Freq: Q6H Protocol: Document 04/25/22 16:37 [email or web address] (Rec: 04/25/22 17:46 [email or web address] [id number]) Wound Photo Photo Taken No Results - Labs Lab/Micro Results: Lab Results-Last 24 Hours 04/24/22 04/24/22 04/25/22 Range/Units 19:56 20:35 02:56 WBC (4.0-10.5) x10^3/uL RBC (4.1-5.4) x10^6/uL Hgb (12.0-16.0) g/dL Hct (35-47) % MCV (78-100) fL MCH (26-32) pg MCHC (32-36) g/dL RDW (11.5-14.0) % Plt Count (150-450) x10^3/uL MPV (7.5-11.0) fL Gran % (36.0-66.0) % Immature Gran % (Auto) (0.00-0.4) % Nucleat RBC Rel Count (0.00-0.1) % Eos # (Auto) (0-0.5) x10^3/uL Immature Gran # (Auto) (0.00-0.03) x10^3u/L Absolute Lymphs (auto) (1.0-4.6) x10^3/uL Absolute Monos (auto) (0.0-1.3) x10^3/uL Absolute Nucleated RBC (0.00-0.01) x10^3u/L Lymphocytes % (24.0-44.0) % Monocytes % (0.0-12.0) % Eosinophils % (0.00-5.0) % Basophils % (0.0-0.4) % Absolute Granulocytes (1.4-6.9) x10^3/uL Basophils # (0-0.4) x10^3/uL Sodium (137-145) mmol/L Potassium (3.5-5.1) mmol/L Chloride (98-107) mmol/L Carbon Dioxide (22-30) mmol/L Anion Gap (5-15) MEQ/L BUN (7-17) mg/dL Creatinine (0.52-1.04) mg/dL Estimated GFR ML/MIN Glucose (74-106) mg/dL Calcium (8.4-10.2) mg/dL Total Bilirubin (0.2-1.3) mg/dL AST (14-36) U/L ALT (0-35) U/L Alkaline Phosphatase (38-126) U/L Troponin I < 0.012 < 0.012 (0.000-0.034) ng/mL Serum Total Protein (6.3-8.2) g/dL Albumin (3.5-5.0) g/dL Prealbumin (17.6-36.0) mg/dL Influenza Type A Ag NEGATIVE (NEGATIVE) Influenza Type B Ag NEGATIVE (NEGATIVE) RSV (PCR) NEGATIVE (Negative) SARS-CoV-2 (PCR) NEGATIVE (NEGATIVE) Slides for Path Review 04/25/22 04/25/22 04/25/22 Range/Units 02:56 02:56 02:56 WBC 7.3 (4.0-10.5) x10^3/uL RBC 3.66 L (4.1-5.4) x10^6/uL Hgb 11.1 L (12.0-16.0) g/dL Hct 33.9 L (35-47) % MCV 92.6 (78-100) fL MCH 30.3 (26-32) pg MCHC 32.7 (32-36) g/dL RDW 14.4 H (11.5-14.0) % Plt Count 172 (150-450) x10^3/uL MPV 9.4 (7.5-11.0) fL Gran % 87.4 H (36.0-66.0) % Immature Gran % (Auto) 0.3 (0.00-0.4) % Nucleat RBC Rel Count 0.0 (0.00-0.1) % Eos # (Auto) 0.02 (0-0.5) x10^3/uL Immature Gran # (Auto) 0.02 (0.00-0.03) x10^3u/L Absolute Lymphs (auto) 0.52 L (1.0-4.6) x10^3/uL Absolute Monos (auto) 0.35 (0.0-1.3) x10^3/uL Absolute Nucleated RBC 0.00 (0.00-0.01) x10^3u/L Lymphocytes % 7.2 L (24.0-44.0) % Monocytes % 4.8 (0.0-12.0) % Eosinophils % 0.3 (0.00-5.0) % Basophils % 0.0 (0.0-0.4) % Absolute Granulocytes 6.36 (1.4-6.9) x10^3/uL Basophils # 0 (0-0.4) x10^3/uL Sodium 137 (137-145) mmol/L Potassium 4.2 (3.5-5.1) mmol/L Chloride 102 (98-107) mmol/L Carbon Dioxide 29 (22-30) mmol/L Anion Gap 10.3 (5-15) MEQ/L BUN 51 H (7-17) mg/dL Creatinine 1.38 H (0.52-1.04) mg/dL Estimated GFR 40.1 ML/MIN Glucose 94 (74-106) mg/dL Calcium 8.7 (8.4-10.2) mg/dL Total Bilirubin 0.30 (0.2-1.3) mg/dL AST 25 (14-36) U/L ALT 18 (0-35) U/L Alkaline Phosphatase 45 (38-126) U/L Troponin I (0.000-0.034) ng/mL Serum Total Protein 6.5 (6.3-8.2) g/dL Albumin 3.7 (3.5-5.0) g/dL Prealbumin 21.04 (17.6-36.0) mg/dL Influenza Type A Ag (NEGATIVE) Influenza Type B Ag (NEGATIVE) RSV (PCR) (Negative) SARS-CoV-2 (PCR) (NEGATIVE) Slides for Path Review YES Microbiology 04/24/22 16:50 Urine Culture - Preliminary Catherized NO GROWTH TO DATE - Radiology Impressions Radiology Exams & Impressions: Radiology Procedures Category Date Time Status CHEST 1 VIEW (PORTABLE) Stat Exams 04/24/22 16:59 Completed CHEST 1 VIEW (PORTABLE) Urgent Exams 04/25/22 06:00 Completed CHEST WITHOUT CONTRAST [CT] Stat Exams 04/24/22 19:16 Completed HEAD WITHOUT CONTRAST [CT] Stat Exams 04/24/22 19:11 Completed VENOUS BILATERAL EXTREMITY [US] Urgent Exams 04/25/22 14:19 Completed - Other Procedures and Tests Respiratory Therapy 04/24/22 23:39 Oxygen Nasal Cannula 2 lpm 04/25/22 01:06 Respiratory Therapy Assessment DAILY Assessment/Plan (1) Aspiration into airway Status: Suspected Code(s): T17.908A - UNSP FB IN RESP TRACT, PART UNSP CAUSING OTH INJURY, INIT (2) Vomiting Status: Resolved Code(s): R11.10 - VOMITING, UNSPECIFIED
[2022-04-25] MEDS ORDERED: ROCEPHIN 1 Gm-D5w 50 ml Bag** 1 G/50 ML IVPB IV SCH (22:00)
[2022-04-26] MEDS: CLINDAMYCIN-D5W 600 MG/50 ML*** 600 MG/50 ML BAG IV SCH ×3 (05:50→22:24)
[2022-04-26] MEDS ORDERED: PHARMACY DOSING REQUEST MC ONE (07:01)
[2022-04-26] MEDS: Advair Hfa 230/21 Mcg COMMON CANISTER IH SCH ×2 (07:07→19:49)
[2022-04-26] MEDS: PROVENTIL 2.5 MG/3 ML NEB IH SCH ×4 (07:07→19:40)
[2022-04-26] MEDS ORDERED: Dulcolax 10 MG SUPP RC PRN (07:33)
[2022-04-26] MEDS ORDERED: Ventolin Hfa MDI IH PRN (07:33)
[2022-04-26] MEDS ORDERED: ZOFRAN ODT 4 MG PO PRN (07:33)
[2022-04-26] MEDS ORDERED: NON-FORMULARY ITEM (Sodium Phosphate,Mono-Dibasic [Fleet Enema] 133 ML Enema) RC PRN (07:33)
[2022-04-26] MEDS ORDERED: TYLENOL EXTRA STRENGTH 500 MG PO PRN (07:33)
[2022-04-26] MEDS ORDERED: MILK OF MAGNESIA 30 ML PO PRN (07:33)
[2022-04-26] MEDS ORDERED: Nitrostat 0.4 MG Tablet SL PRN (07:33)
[2022-04-26] MEDS ORDERED: VENTOLIN COMMON CANISTER IH PRN (07:43)
[2022-04-26] MEDS: Protonix 40MG Tablet PO SCH (09:36)
[2022-04-26] MEDS: Zestril 5 MG PO SCH (09:36)
[2022-04-26] MEDS: Klor Con PO SCH ×2 (09:36→22:25)
[2022-04-26] MEDS: FEOSOL 325 MG PO SCH ×2 (09:37→22:24)
[2022-04-26] MEDS: Neurontin PO SCH ×2 (09:37→22:25)
[2022-04-26] MEDS: Tricor 145 MG PO SCH (09:37)
[2022-04-26] MEDS: CLARITIN 10 MG PO SCH (09:37)
[2022-04-26] MEDS: ENOXAPARIN SODIUM SQ SCH (09:37)
[2022-04-26] MEDS: Calcium 500MG W/Vit D Tablet PO SCH (09:37)
[2022-04-26] MEDS: Flonase NASAL NS SCH (09:38)
[2022-04-26] MEDS ORDERED: NON-FORMULARY ITEM (Calcium Carbonate/Vitamin D3 [Calcium 600-Vit D3 400 Caplet] 1 EACH Ta PO SCH (10:00)
[2022-04-26] MEDS: Sodium Chloride 0.9% 1000 ML 1,000 ML IV SCH ×2 (11:18→16:50)
--- NOTE | 2022-04-26 13:52 | PCM.NOTE ---
Date and Time: 04/26/22 1346 Subjective Assessment: Patient was evaluated by Speech Therapy and tested safe to be on soft diet . Patient ate grilled cheese at lunch today ,no emesis. Will continue IV Clindamycin for aspiration pneumonia. Objective Exam General Appearance: no apparent distress Neurologic Exam: alert, disoriented Skin Exam: normal color, warm, dry Wound Assessment: Skin/Wound Assessment Wound/Incision Assessment Start: 04/25/22 10:37 Text: Status: Active Freq: Q6H Protocol: Document 04/26/22 10:00 (Rec: 04/26/22 10:50 [id number]) Wound/Incision Assessment Medial Coccyx Wound Assessment Shift Assessment Wound Type Pressure Ulcer Wound Stage Stage II Drainage Amount None Length (cm) (cm) 0.5 Width (cm) (cm) 0.5 Comment barrier cream applied area's assessed during bath, no change barrier cream applied to bottom Right Buttock Wound Assessment Shift Assessment Wound Type Pressure Ulcer Wound Stage Stage II Length (cm) (cm) 0.5 Width (cm) (cm) 0.5 Surrounding Tissue [place] Comment barrier cream applied Wound Photo Photo Taken No Respiratory Exam: rhonchi (bilat mid), wheezing (left mid) Cardiovascular Exam: regular rate/rhythm Gastrointestinal/Abdomen Exam: soft (nontender) Extremity Exam: normal inspection OBJECTIVE DATA Vital Signs: Vital Signs - 24 hr Temp Pulse Resp BP Pulse Ox 04/26/22 12:00 16 04/26/22 11:44 97.5 F 77 16 151/79 95 04/26/22 10:49 72 20 92 L 04/26/22 08:00 16 04/26/22 07:09 69 16 96 04/26/22 07:06 97.8 F 65 16 152/67 94 L 04/26/22 04:00 97.6 F 78 16 160/80 94 L 04/26/22 00:00 16 04/25/22 20:00 16 04/25/22 19:43 97.0 F 75 18 123/54 93 L 04/25/22 19:36 70 22 96 04/25/22 16:00 97.5 F 82 20 84/50 95 04/25/22 14:43 75 20 95 Pain Assessment - Last Documented Pain Intensity 0 Intake and Output: Intake & Output 04/24/22 04/25/22 04/26/2211/23 11:59 11:59 11:59 11:59 Intake Total 357 2562 340 Output Total 850 1525 Balance -493 1037 340 Weight 81.1 kg Radiology Exams: Radiology Procedures Category Date Time Status CHEST 1 VIEW (PORTABLE) Stat Exams 04/24/22 16:59 Completed CHEST 1 VIEW (PORTABLE) Urgent Exams 04/25/22 06:00 Completed CHEST WITHOUT CONTRAST [CT] Stat Exams 04/24/22 19:16 Completed HEAD WITHOUT CONTRAST [CT] Stat Exams 04/24/22 19:11 Completed VENOUS BILATERAL EXTREMITY [US] Urgent Exams 04/25/22 14:19 Completed Multi-Disciplinary Progress Notes: Multi-Disciplinary Progress Notes 04/26/22 11:43 Case Management Note by Arely Zuniga NO CHANGE IN DC PLANS- PATIENT TO RETURN TO [facility] AT TIME OF DC Initialized on 04/26/22 11:43 - END OF NOTE 04/26/22 08:30 Pharmacy Note by [facility] antibiotic review for possible positive blood culture. Current regimen of Rocephin and Cleocin should be ok. Only one culture is positive and with penicillin allergy, cleocin is a good choice for gram positive coverage. Initialized on 04/26/22 08:30 - END OF NOTE Assessment/Plan (1) Aspiration into airway Current Visit: Yes Status: Acute Assessment & Plan: improved on current tx Code(s): T17.908A - UNSP FB IN RESP TRACT, PART UNSP CAUSING OTH INJURY, INIT (2) Dementia Current Visit: No Status: Chronic Assessment & Plan: requires full care Code(s): F03.90 - UNSPECIFIED DEMENTIA WITHOUT BEHAVIORAL DISTURBANCE (3) Vomiting Current Visit: No Status: Resolved Assessment & Plan: Hx emesis at alf Code(s): R11.10 - VOMITING, UNSPECIFIED
[2022-04-26] MEDS ORDERED: Zocor 10MG PO SCH (22:00)
[2022-04-26] MEDS ORDERED: NON-FORMULARY ITEM (Atorvastatin Calcium [Atorvastatin Calcium] 10 MG Tablet) PO SCH (22:00)
[2022-04-26] MEDS ORDERED: ROCEPHIN 1 Gm-D5w 50 ml Bag** 1 G/50 ML IVPB IV SCH (22:00)
[2022-04-27] MEDS: Sodium Chloride 0.9% 1000 ML 1,000 ML IV SCH (01:15)
[2022-04-27] MEDS: PROVENTIL 2.5 MG/3 ML NEB IH SCH (05:36)
[2022-04-27] MEDS: Advair Hfa 230/21 Mcg COMMON CANISTER IH SCH (05:49)
[2022-04-27] MEDS: CLINDAMYCIN-D5W 600 MG/50 ML*** 600 MG/50 ML BAG IV SCH (06:44)
[2022-04-27 07:06] VITALS: BP 134/58; PULSE 75; O2SAT 94
[2022-04-27] MEDS: ENOXAPARIN SODIUM SQ SCH (08:42)
[2022-04-27] MEDS: Klor Con PO SCH (08:42)
[2022-04-27] MEDS: Calcium 500MG W/Vit D Tablet PO SCH (08:42)
[2022-04-27] MEDS: Tricor 145 MG PO SCH (08:42)
[2022-04-27] MEDS: Neurontin PO SCH (08:42)
[2022-04-27] MEDS: FEOSOL 325 MG PO SCH (08:43)
[2022-04-27] MEDS: Protonix 40MG Tablet PO SCH (08:43)
[2022-04-27] MEDS: Zestril 5 MG PO SCH (08:43)
[2022-04-27] MEDS: Flonase NASAL NS SCH (08:43)
[2022-04-27] MEDS: CLARITIN 10 MG PO SCH (08:43)
--- NOTE | 2022-05-09 23:06 | PCM.DS ---
Discharge Summary Date of Admission: 04/24/22 22:26 Date of Discharge: 04/27/22 Admitting Physician: STERLING MCDANIEL DO Primary Care Provider: [facility] Allergies Allergies adhesive Allergy (Intermediate, Verified 04/24/22 16:58) Rash nalbuphine HCl [From Nubain] Allergy (Mild, Verified 04/24/22 16:58) Rash Penicillins Allergy (Mild, Verified 04/24/22 16:58) Rash Hospital Summary - Hospital Course Hospital Course: Patient is a 71 yr old female resident at [facility] with dementia admitted to [facility] from ER with dg aspiration pneumonia. Patient responded to treatment with IV Ceftriaxone and Clindamycin . She returned to baseline and was discharged back to the Care Home on oral antibiotics and albuterol treatments. - Vitals & Intake/Output Vital Signs: Vital Signs Temperature 97.7 F 04/27/22 07:05 Pulse Rate 75 04/27/22 07:05 Respiratory Rate 16 04/27/22 07:45 Blood Pressure 134/58 04/27/22 07:05 O2 Sat by Pulse Oximetry 94 L 04/27/22 07:05 - Lab Result Diagrams: 04/25/22 02:56 04/25/22 02:56 Micro Results-Entire Visit: Microbiology 04/24/22 19:56 Blood Culture Gram Stain - Final Blood Blood Culture - Final Coagulase Negative Staph. Possible Contaminant. Clinical judgement required. No further workup performed. 04/24/22 19:56 Blood Culture Gram Stain - Final Blood Not Reportable Blood Culture - Final NO GROWTH 04/24/22 16:50 Urine Culture - Final Catherized <10K NORMAL SKIN JORDAN PROBABLE SKIN CONTAMINANT - Procedures and Test Procedures and Tests throughout Hospitalization: Therapy Orders & Screens 04/24/22 23:39 Oxygen Nasal Cannula 2 lpm Comment: 04/25/22 01:06 Respiratory Therapy Assessment DAILY Comment: Diagnosis: syncope 04/25/22 01:07 Respiratory MDI BID Comment: Diagnosis: syncope 04/26/22 01:16 Speech Therapy Eval & Treat [ST Eval & Treat (MD Order)] .as ordered Comment: Physician Instructions: Reason For Exam: Evaluate: Yes Treat: Yes Reason for Eval: aspiration pneumonia Diagnosis: syncope Discharge Exam General Appearance: no apparent distress, other (see exam 04/26/22 ,no change overnight per nursing) Neurologic Exam: alert Final Diagnosis/Problem List - Final Discharge Diagnosis/Problem (1) Aspiration into airway Status: Suspected Code(s): T17.908A - UNSP FB IN RESP TRACT, PART UNSP CAUSING OTH INJURY, INIT (2) Vomiting Status: Resolved Code(s): R11.10 - VOMITING, UNSPECIFIED - Discharge Disposition: Skilled Care @ [facility] Condition: Stable Prescriptions: New Cefuroxime Axetil 500 mg [Ceftin 500 mg] 500 mg PO BID 5 Days #10 tablet clindamycin HCL [Clindamycin HCl] 150 mg PO TID 5 Days #15 cap Continue Nitroglycerin 0.4 mg Tablet [Nitrostat 0.4 MG Tablet] 0.4 mg SL Q5MIN PRN MR X 3 PRN PRN Reason: Chest Pain Loratadine 10 mg [Claritin 10 mg] 10 mg PO DAILY Furosemide 20 mg [Lasix 20 mg] 40 mg PO DAILY Aspirin EC 81 mg [Ecotrin 81 mg] 81 mg PO DAILY #0 Tiotropium Br/Olodaterol HCl [Stiolto Respimat Inhal [place]] 2 puffs IH DAILY PANTOPRAZOLE 40 mg Tablet [Protonix 40MG Tablet] 40 mg PO QAM Potassium Chloride 10 meq PO BID lisinopriL [Lisinopril] 2.5 mg PO DAILY Metformin HCl 500 mg [Glucophage 500 MG] 500 mg PO TID Ondansetron ODT 4 MG [Zofran Odt 4 mg] 4 mg PO Q6H PRN PRN #10 tab.rapdis PRN Reason: Vomiting Fenofibrate Nanocrystallized [Fenofibrate] 145 mg PO DAILY Atorvastatin Calcium 10 mg PO HS Fluticasone Propionate [Flonase NASAL] 2 sprays NS DAILY Gabapentin 100 mg PO BID Calcium Carbonate/Vitamin D3 [Calcium 600-Vit D3 400 Caplet] 1 each PO DAILY Sodium Phosphate,[place]-Dibasic [Fleet Enema] 118 ml RC Q24H PRN PRN Reason: Constipation Bisacodyl 10 mg [Dulcolax 10 MG SUPP] 10 mg RC Q24H PRN PRN Reason: Constipation Acetaminophen 500 mg [Tylenol Extra Strength 500 mg] 500 mg PO Q6H PRN PRN PRN Reason: Pain Albuterol 8 gm Mdi Hfa [Ventolin Hfa MDI] 2 puffs IH Q4H PRN PRN PRN Reason: copd Ferrous Sulfate [Ferosul] 325 mg PO BID Magnesium Hydroxide [Milk of Magnesia] 30 ml PO Q24H PRN PRN Reason: Constipation Additional Instructions: [facility] USP ORDERS: -RESUME PREVIOUS ORDERS -OXYGEN @2L NC AT ALL TIMES. -SEE ATTACHED MEDICATION LIST FOR MEDICATION ORDERS. -MECH SOFT DIET. -REPEAT CHEST XRAY IN 1 WEEK. Follow up with: ROBERTO MEJIA [Primary Care Provider] - PALMA HURTADO MD [Family Provider] -
== END 2022-04-27 10:10 ==
LOC: ED 16:31 → MED SURG 22:26
PROVIDERS: ADMIT Family Medicine; ATTEND Family Medicine
DX: T17.908A Unspecified foreign body in respiratory tract, part unspecified causing other injury, initial encounter (principal); R41.82 Altered mental status, unspecified; F03.90 Unspecified dementia, unspecified severity, without behavioral disturbance, psychotic disturbance, mood disturbance, and anxiety; R11.10 Vomiting, unspecified; L89.152 Pressure ulcer of sacral region, stage 2; L89.312 Pressure ulcer of right buttock, stage 2; L03.116 Cellulitis of left lower limb; L03.115 Cellulitis of right lower limb; I25.10 Atherosclerotic heart disease of native coronary artery without angina pectoris; I10 Essential (primary) hypertension; E11.9 Type 2 diabetes mellitus without complications; R60.0 Localized edema; R55 Syncope and collapse; Z79.899 Other long term (current) drug therapy; Z20.828 Contact with and (suspected) exposure to other viral communicable diseases
CPT/HCPCS: 0241U; 36415; 36600; 70450; 71045; 71250; 80053; 81001; 82375; 82803; 83605; 83735; 83880; 84134; 84484; 85025; 85379; 85610; 85730; 87040; 87086; 92610; 93005; 93268; 93970; 94640; 94760; 96365; 96367; 96374; 99285; 99291; G0378; J0696; J1630; J1650; J7609; A9270-GY